=== PATIENT | male | born 1940 | race Caucasian/White ===

== ENCOUNTER 2023-02-03 08:23 | Outpatient (RCR) | payer MEDICARE, SELFPAY ==
[2023-02-03 08:45] VITALS: BP 133/75; PULSE 65; RESP 16; TEMP 36; BMI 29.4
--- NOTE | 2023-02-03 12:26 | HP.PCM_ITS ---
History of Present Illness Date of Service: 02/03/23 Chief Complaint: 82-year-old white male from [facility] living with many comorbidities of chronic kidney disease pacemaker psoriatic arthritis. Patient is on Humira for the pain of his psoriatic arthritis also on Augmentin which they supposedly called was his anju lulitis. He will be done with the antibiotic on Wednesday. No sign of cellulitis patient has open wounds from a blister on the left lower leg and on the right leg he has a more cobblestone looking peripheral vascular ulcer. Patient is not sleeping in the bed but in a lounge chair which is not helpful he has edema of the lower extremities also History of Wound: states they have been going on for a couple of weeks and her family doctor put him on antibiotic and sent him to wound center. [facility] Medical History Chronic kidney disease, stage III (moderate) Pacemaker Psoriatic arthritis Home Medications acetaminophen 500 mg tablet 1,000 mg PO BID 02/03/23 [History Last Taken Unknown] adalimumab 40 mg/0.8 mL subcutaneous pen kit (Humira Pen) 40 mg subcut 02/03/23 [History Last Taken Unknown] apixaban 5 mg tablet (Eliquis) 5 mg PO BID 02/03/23 [History Last Taken Unknown] cholecalciferol (vitamin D3) 50 mcg (2,000 unit) chewable tablet 50 mcg PO DAILY 02/03/23 [History Last Taken Unknown] gabapentin 300 mg capsule 300 mg PO QHS 02/03/23 [History Last Taken Unknown] multivitamin 1 tab PO DAILY 02/03/23 [History Last Taken Unknown] omeprazole 20 mg tablet,delayed release 20 mg PO DAILY 02/03/23 [History Last T aken Unknown] prednisone 5 mg tablet 5 mg PO DAILY 02/03/23 [History Last Taken Unknown] vitamin B complex (B Complex-Vitamin B12 tablet) 1 tab PO DAILY 02/03/23 [History Last Taken Unknown] Allergy/AdvReac Type Severity Reaction Status Date / Time ertapenem Allergy Other Verified 02/03/23 09:13 leflunomide [From Arava] Allergy Other Verified 02/03/23 09:13 sulfamethoxazole Allergy Other Verified 02/03/23 09:13 [From Bactrim] trimethoprim [From Bactrim] Allergy Other Verified 02/03/23 09:13 Social History Smoking Status: Former smoker ROS Constitutional Constitutional: Reports systems reviewed and no addt'l complaints, except as documented Eyes Eyes: Reports systems reviewed and no addt'l complaints, except as documented ENT HEENT: Reports systems reviewed and no addt'l complaints, except as documented Cardiovascular Cardiovascular: Reports systems reviewed and no addt'l complaints, except as documented Respiratory/Chest Respiratory/Chest: Reports systems reviewed and no addt'l complaints, except as documented Gastrointestinal Gastrointestinal: Reports systems reviewed and no addt'l complaints, except as documented Genitourinary Genitourinary: Reports systems reviewed and no addt'l complaints, except as documented Musculoskeletal Musculoskeletal: Reports systems reviewed and no addt'l complaints, except as documented Integumentary Integumentary: Reports wounds and other Details: Lower extremity peripheral vascular disease with ulcers developing from swelling Neurologic Neurologic: Reports systems reviewed and no addt'l complaints, except as documented Psychiatric Psychiatric: Reports systems reviewed and no addt'l complaints, except as documented Endocrine Endocrinology: Reports systems reviewed and no addt'l complaints, except as documented Hematologic/Lymphatic Hematologic/Lymphatic: Reports systems reviewed and no addt'l complaints, except as documented Allergic/Immunologic Allergic/Immunologic: Reports systems reviewed and no addt'l complaints, except as documented Vital Signs Vital Signs Vital Signs: 02/03/23 08:45 Temperature 96.8 F L Temperature Source Temporal Pulse Rate 65 Respiratory Rate 16 Blood Pressure 133/75 H Blood Pressure Mean 94 Blood Pressure Source Monitor Blood Pressure Position Sitting Blood Pressure Location Right Arm Oxygen Delivery Method Room Air Weight Weight: 217 lb Body Mass Index (BMI) 29.4 Physical Exam Const oriented x3 General Appearance: cooperative Exam Limitations: no limitations HEENT normocephalic Face and Sinus: normal facial exam Eyes PERRL General Eye: normal appearance of both eyes Neck full ROM General: normal visual inspection Resp normal respiratory effort Auscultation: clear to auscultation bilaterally Cardio regular rate and regular rhythm Palpation: normal PMI Rate: regular rate Rhythm: regular rhythm GI Auscultation: normoactive bowel sounds Palpation: soft and no hepatosplenomegaly external exam normal Extremity normal to inspection General Extremity: normal exam except as noted Skin General Skin Exam: erythema and venous stasis Lesions: lesion noted Wounds: wounds noted Wound Narrative: Wound started as blisters and then open now he has open wounds on the left lower leg and right lower leg Neuro oriented x3 Psych Appearance: grossly normal Speech: normal speech Thought Content: normal thought content Judgement: judgement good Debridement Note Debridement Note Wound debrided: Nonhealing open wounds nonsurgical left lower leg Type of Debridement: Excisional debridement Anesthesia Used: 5% Lidocaine Gel Depth: Down to and including healthy tissue Percentage of wound debrided: 100 Instrument Used: 7mm curette Tissue Removed: Fibrin Amount of bleeding with debridement: None Bleeding Controlled with: Compression and gauze Patient tolerated procedure: Patient tolerated procedure well Post-Debridement Measurements and Additional Note: Post-Debridement Measurements/Treatment - Nurse 1 - General Ulcer Assessment Start: 02/03/23 08:37 Freq: Status: Active Protocol: ALMAS Activity Type Activity Date Activity User E-sign Co-sign Detail Recorded Client Recorded Date Recorded By Document 02/03/23 08:45 [facility] [id number] 02/03/23 09:06 [facility] 02/03/23 08:45 - Today's Visit Information Type of service Initial Visit Arrival Mode Wheelchair Transfer Assistance Other Transfer Assist (Other) 2 Accompanied by daughter Patient Identification Verified (Name & Yes ) Patient Requires Transmission-Based No Precautions Height and Weight Height 6 ft Weight 217 lb Weight in Pounds 217.0 lbs Weight Measurement Method Estimated by Patient Body Mass Index (BMI) 29.4 BMI Classification Overweight BSA - Tomy 2.21 Vital Signs Temperature (97.8 F-99.1 F) 96.8 F L Temperature Source Temporal Pulse Rate (60-100) 65 Pulse Location Monitor Respiratory Rate (12-18) 16 Respiratory rate source Observation Oxygen Delivery Method Room Air Blood Pressure (90/60-120/80) 133/75 H Blood Pressure Mean 94 Source Monitor Position Sitting Blood Pressure Location Right Arm History Since Last Visit- (Skip if this is Patient's initial visit) Left Footwear Regular Shoe Right Footwear Regular Shoe Pain Scale: 0-10 Numeric Is Patient Pain Free? Yes Lower Extremity Assessment/ Foot Assessment/ Toe Nail Assessment Right -Posterior Tibial Palpable No -Posterior Tibial Doppler Multiphasic -Dorsalis Pedis Palpable No -Dorsalis Pedis Doppler Multiphasic -Extremity Color Pale -Hair Growth on Legs No -Hair Growth on Toes No -Temperature of Extremity Cool -Other Deformity No -Prior Foot Ulcer No -Charcot Joint No -Prior Amputation No -Thick Yes -Discolored Yes -Deformed No -Improper Length & Hygeine Yes Left -Lower Extremity Comment (If N/A Above 2-3+ PITTING ) EDEMA -Dorsalis Pedis Palpable No -Dorsalis Pedis Doppler Multiphasic -Extremity Color Pale -Hair Growth on Legs No -Hair Growth on Toes No -Temperature of Extremity Cool -Other Deformity No -Prior Foot Ulcer No -Charcot Joint No -Prior Amputation No -Thick Yes -Discolored Yes -Deformed No -Improper Length & Hygeine Yes Neuropathy Assessment Feet - Top Side and Bottom <Entered> (a) Communication Assessment Preferred language Surinamese Application Helper Required No Able to Read Yes Able to Write Yes Right Hearing Abillity Hard of Hearing Left Hearing Abillity Hard of Hearing Visual Assistive Devices Glasses Teaching Assessment Preferences Verbal,Written, Audio/Visual, Demonstration Barriers to Learning None Readiness To Learn Excellent Willingness to Engage in Self Management High Activies Readiness to Engage in Self Management High Activities Anxiety Level Calm Cooperation Cooperative Perception Coherent Interest in Health Problem Asks Questions Education Importance Acknowledges Need Does Patient Smoke tobacco or other No substances Smoking Status Former smoker Is Patient Diabetic No Functional Assessment Recent Decline in Ability to Perform Denies Any Declines Culture/Congregational/Clerical Aide Cultural/Congregational Needs that may affect No Treatment Plan Teaching: Wound Center *Welcome to the Wound Center -Person Taught Patient,Family -Teaching Method Discussion -Response to teaching Verbalize understanding Welcome to the Wound Care Center [place]e (a) 1 - + WC - Nurse 1 - General Ulcer Measurement Start: 02/03/23 08:37 Freq: Status: Active Protocol: Activity Type Activity Date Activity User E-sign Co-sign Detail Recorded Client Recorded Date Recorded By Document 02/03/23 08:45 [facility] [id number] 02/03/23 09:06 [facility] 02/03/23 08:45 Wound Center Nurse 1 #2- RLE MED CLUSTER -Combined with other wound No -Current Size (cm) - Length 1.5 -Current Size (cm) - Width 3.8 -Current Size (cm) - Depth 0.1 -Total Square Cm 5.70 -Date of Last Picture (Recall this 02/03/23 field) -Photo Taken Yes -Epithelialization None Present -Tunneling No -Undermining/Tunneling No -Circular Undermining No -Exudate Amt Large -Exudate Type Serous -Wound Margin Distinct, Outline Attached -Granulation Amt Medium (34-66%) -Granulation Quality [place] -Slough/Fibrin Yes -Necrosis Amt Medium (34-66%) -Necrotic Tissue Type Adherent Slough -Texture (Krystle-wound Skin Appearance) Assessed, Scarring -Moisture (Krystle-wound Skin Appearance) Assessed -Color (Krystle-wound Skin Appearance) Assessed -Temperature (Krystle-wound Skin No Abnormality Appearance) (Pt Warm) -Tenderness on Palpation (Krystle-wound No Skin Appearance) -Ulcer Cleansing Soap and Water -Foul Odor after Cleansing No -Anesthetic Used 4% Lidocaine Solution #1- L OLSEN -Combined with other wound No -Current Size (cm) - Length 6.8 -Current Size (cm) - Width 6.5 -Current Size (cm) - Depth 0.1 -Total Square Cm 44.20 -Date of Last Picture (Recall this 02/03/23 field) -Photo Taken Yes -Epithelialization None Present -Tunneling No -Undermining/Tunneling No -Circular Undermining No -Exudate Amt Large -Exudate Type Serous -Wound Margin Distinct, Outline Attached -Granulation Amt Large (67-100%) -Granulation Quality Red -Slough/Fibrin Yes -Necrosis Amt Small (1-33%) -Necrotic Tissue Type Adherent Slough -Texture (Krystle-wound Skin Appearance) Assessed, Scarring -Moisture (Krystle-wound Skin Appearance) Assessed, Weeping -Color (Krystle-wound Skin Appearance) Assessed -Temperature (Krystle-wound Skin No Abnormality Appearance) (Pt Warm) -Tenderness on Palpation (Krystle-wound No Skin Appearance) -Ulcer Cleansing Soap and Water -Foul Odor after Cleansing No -Anesthetic Used 4% Lidocaine Solution Lower Limb Edema Present Yes Right Calf (cm) 44.4 Right Ankle (cm) 28.3 Left Calf (cm) 40.3 Left Ankle (cm) 27.3 WC - Nurse 2 - General Ulcer CM Notes Start: 02/03/23 08:37 Freq: Status: Active Protocol: Activity Type Activity Date Activity User E-sign Co-sign Detail Recorded Client Recorded Date Recorded By Document 02/03/23 09:33 MW [id number] 02/03/23 09:49 MW 02/03/23 09:33 Wound Center Nurse 2 #2- RLE MED CLUSTER -Time 09:33 -Correct Patient Yes -Correct Side, Site, Position Yes -Correct Procedure Yes -Procedure Performed No -Post Debridement (cm) - Length 1.5 -Post Debridement (cm) - Width 3.8 -Post Debridement (cm) - Depth 0.1 -Total Square (Post) (cm) 5.70 -Tunneling No -Undermining/Tunneling No -Circular Undermining No -Wound/Ulcer Outcome Not Healed #1- L OLSEN -Time 09:34 -Correct Patient Yes -Correct Side, Site, Position Yes -Correct Procedure Yes -Procedure Performed Yes -Type of Procedure Debridement -Clinical Debridement Subcutaneous -Tissue Removed Subcutaneous -Post Debridement (cm) - Length 7.0 -Post Debridement (cm) - Width 6.5 -Post Debridement (cm) - Depth 0.1 -Total Square (Post) (cm) 45.50 -Area of Debridement (cm) - Length 7.0 -Area of Debridement (cm) - Width 6.5 -Total Square (Area) (cm) 45.50 -Tunneling No -Undermining/Tunneling No -Circular Undermining No -Wound/Ulcer Outcome Not Healed -Ulcer Cleansing Rinsed/ Irrigated with Saline -Foul Odor after Cleansing No -Bioengineered Tissue No -Bleeding Controlled with Pressure -Treatment Response Procedure Tolerated Well -Offloading No -Debridement - Subq, 1st 20sq cm Yes -Debridement, SubQ, ea addt'l 20sq cm 2 or part thereof Pain Scale: 0-10 Numeric Is Patient Pain Free? Yes WC - Nurse 3 - General Ulcer D/C NN Start: 02/03/23 08:37 Freq: Status: Active Protocol: Activity Type Activity Date Activity User E-sign Co-sign Detail Recorded Client Recorded Date Recorded By Document 02/03/23 10:25 [facility] [id number] 02/03/23 10:26 [facility] 02/03/23 10:25 Wound Care Center Nurse 3 #2- RLE MED CLUSTER -Ulcer Cleansing Rinsed/ Irrigated with Saline -Foul Odor after Cleansing No -Primary Dressing Applied Aquacel Extra, NonAdherent Contact Layer, Optilok 8x12 -Primary Dressing Covered/Secured with Dry Gauze & Roll Gauze, Secured with Tape -Aquacel Extra 1 -Optilok 8x12 1 #1- L OLSEN -Ulcer Cleansing Rinsed/ Irrigated with Saline -Foul Odor after Cleansing No -Primary Dressing Applied Aquacel Extra, NonAdherent Contact Layer, Optilok 8x12 -Primary Dressing Covered/Secured with Dry Gauze & Roll Gauze, Secured with Tape -Aquacel Extra 0 -Optilok 8x12 1 BLE -Tubular Bandage Double Layer -Size of Tubigrip Used Size E -Size E ($) 4 -Other SENT EXTRA Treatment Response Procedure Tolerated Well Pain Scale: 0-10 Numeric Is Patient Pain Free? Yes WC - Visit Discharge Discharge Condition Stable Ambulatory Status Wheelchair Transportation Private Auto Accompanied by AKASH Other ASSISTED LIVING Additional Wound Wound debrided: Right lower leg nonhealing nonsurgical wounds from peripheral vascular dise Laterality: Right Type of Debridement: Excisional debridement Anesthesia Used: 5% Lidocaine Gel Depth: Down to and including healthy tissue Percentage of wound debrided: 100 Instrument Used: 7mm curette Tissue Removed: Fibrin and slough Assessment/Plan Assessment/Plan (1) Nonhealing nonsurgical wound: CODE(S): T14.8XXA - Other injury of unspecified body region, initial en counter PLAN: Wash bilateral lower legs with antibacterial soap apply Aquacel extra and Adaptic with superabsorbent dressing over top For the right lower leg just apply superabsorbent dressings This will be a daily dressing Follow-up in 1 week We will call with culture results (2) Bilateral lower extremity edema: CODE(S): R60.0 - Localized edema (3) Peripheral vascular disease of lower extremity with ulceration: CODE(S): I73.9 - Peripheral vascular disease, unspecified; L97.909 - Non- pressure chronic ulcer of unspecified part of unspecified lower leg with unspecified severity
== END 2023-02-03 23:59 | disposition home or self-care (01) ==
LOC: WC 08:23
PROVIDERS: PCP Family Medicine; Referring Provider Family Medicine; Visit Provider Nurse Practitioner
DX: I73.9 Peripheral vascular disease, unspecified (principal); L40.50 Arthropathic psoriasis, unspecified; N18.30 Chronic kidney disease, stage 3 unspecified; R60.0 Localized edema; Z87.891 Personal history of nicotine dependence; Z79.01 Long term (current) use of anticoagulants; Z95.1 Presence of aortocoronary bypass graft; Z79.899 Other long term (current) drug therapy; S80.821A Blister (nonthermal), right lower leg, initial encounter; S80.822A Blister (nonthermal), left lower leg, initial encounter; X58.XXXA Exposure to other specified factors, initial encounter
CPT/HCPCS: 11042; 11045; 87070; 87075; 87077; 87186; 87205; 99203; G0463

== ENCOUNTER 2023-02-10 08:28 | Outpatient (RCR) | payer MEDICARE, SELFPAY ==
[2023-02-04 00:50] VITALS: BP 133/75; PULSE 65; RESP 16; TEMP 36; BMI 29.4
[2023-02-10 08:31] VITALS: BP 166/82; PULSE 63; RESP 16; TEMP 36.2; O2SAT 91; BMI 29.4
[2023-02-10 09:19] VITALS: BP 166/82; PULSE 63; TEMP 36.2; BMI 29.4
[2023-02-10 09:33] VITALS: O2SAT 90
--- NOTE | 2023-02-10 09:49 | PCM.WC.PN ---
History of Present Illness Date of Service: 02/10/23 Chief Complaint: 82-year-old white male from [facility] living with many comorbidities of chronic kidney disease pacemaker psoriatic arthritis. Patient is on Humira for the pain of his psoriatic arthritis also on Augmentin which they supposedly called was his cellulitis. He will be done with the antibiotic on Wednesday. No sign of cellulitis patient has open wounds from a blister on the left lower leg and on the right leg he has a more cobblestone looking peripheral vascular ulcer. Patient is not sleeping in the bed but in a lounge chair which is not helpful he has edema of the lower extremities also History of Wound: states they have been going on for a couple of weeks and her family doctor put him on antibiotic and sent him to wound center. Progress of Wound: All his wounds have become more superficial and smaller. Regan a new wound on the right lateral ankle. From the swelling and a blister that reopens. We will continue the Aquacel extra for the another week since he has the supplies but probably switch him over to Xeroform next and finish it off to close. Still has a lot of edema and we will still continue the double layer Tubigrip. Subjective Subjective Daughter states that they have talked to the care home about getting his dressing changes more efficiently and getting the Tubigrip's on him even though they complain that they are short staffed. The 1 daughter wants to take him to the emergency room because he feels fullness in his chest and in his abdomen and I told them that was Seroquel that today was the day that he was post have his leg done I would not consider him an emergency but if they I will not make that decision for them I would suggest getting the testing done and then take him to the emergency room but they want to to go right to the emergency room and cancel the leg testing for now. Objective Data Objective Data Patient does not appear to be in distress though he complains that he has this fullness in his chest and abdomen. His legs are edematous but they are not hard and swollen or anything like that they are just pitting edema. Patient did have bacteria and his cultures and was called and tetracycline for his infection. Vital Signs: Vital Signs Temp Pulse Resp BP Pulse Ox O2 Del Method 97.1 F L 63 16 166/82 H 90 Room Air 02/10/23 09:19 02/10/23 09:19 02/10/23 08:31 02/10/23 09:19 02/10/23 09:33 02/10/23 09:33 Oxygen Delivery Method Room Air Weight: 217 lb Body Mass Index (BMI) 29.4 Physical Exam Const oriented x3 General Appearance: cooperative Exam Limitations: no limitations HEENT normocephalic Face and Sinus: normal facial exam Eyes PERRL General Eye: normal appearance of both eyes Neck full ROM General: normal visual inspection Resp normal respiratory effort Auscultation: clear to auscultation bilaterally Cardio regular rate and regular rhythm Palpation: normal PMI Rate: regular rate Rhythm: regular rhythm GI Auscultation: normoactive bowel sounds Palpation: soft and no hepatosplenomegaly external exam normal Extremity normal to inspection General Extremity: normal exam except as noted Skin General Skin Exam: erythema and venous stasis Lesions: lesion noted Wounds: wounds noted Wound Narrative: Wound started as blisters and then open now he has open wounds on the left lower leg and right lower leg Neuro oriented x3 Psych Appearance: grossly normal Speech: normal speech Thought Content: normal thought content Judgement: judgement good Debridement Note Debridement Note Wound debrided: Right lateral ankle wound nonpressure Type of Debridement: Excisional debridement Anesthesia Used: 5% Lidocaine Gel Depth: Down to and including healthy tissue Percentage of wound debrided: 100 Instrument Used: 5mm curette Tissue Removed: Fibrin Severity: Limited To Skin Breakdown Amount of bleeding with debridement: Mild Bleeding Controlled with: Compression and gauze Patient tolerated procedure: Patient tolerated procedure well Post-Debridement Measurements and Additional Note: Post-Debridement Measurements/Treatment - Nurse 1 - General Ulcer Assessment Start: 02/10/23 08:30 Freq: Status: Active Protocol: [email or web address] Activity Type Activity Date Activity User E-sign Co-sign Detail Recorded Client Recorded Date Recorded By Document 02/10/23 08:31 [facility] [id number] 02/10/23 08:35 [facility] Document 02/10/23 09:19 [place] [id number] 02/10/23 09:45 [place] 02/10/23 02/10/23 08:31 09:19 - Today's Visit Information Type of service Follow-up Visit Follow-up Visit (Physician/ARTIST BLACKSMITH (Physician/ARTIST BLACKSMITH ) ) Arrival Mode Wheelchair Wheelchair Transfer Assistance None Accompanied by daughters Patient Identification Verified (Name & Yes Yes ) Patient Requires Transmission-Based No No Precautions Height and Weight Weight Measurement Method Estimated by Standing Scale Patient Body Mass Index (BMI) 29.4 29.4 BMI Classification Overweight Overweight Vital Signs Temperature (97.8 F-99.1 F) 97.1 F L 97.1 F L Temperature Source Temporal Temporal Pulse Rate (60-100) 63 63 Pulse Location Monitor Monitor Respiratory Rate (12-18) 16 Respiratory rate source Observation Pulse Oximetry 91 Oxygen Delivery Method Room Air Blood Pressure (90/60-120/80) 166/82 H 166/82 H Blood Pressure Mean (mm Hg) 110 110 Source Monitor Monitor Position Sitting Blood Pressure Location Right Arm History Since Last Visit- (Skip if this is Patient's initial visit) Have you changed medications since your No No last visit? Any new allergies or adverse reactions No No Had a fall/change in ADL's that may No No increase risk of falls Signs or symptoms of abuse and/or No No neglect since last visit Have you been in the hospital since your No No last visit? Has dressing in place as prescribed Yes Yes Has compression in place as prescribed Yes Yes Has offloadiing in place as prescribed N/A N/A Experienced any changes in pain level or No No management Left Footwear Surgical Shoe Regular Shoe with pressure relief insole Right Footwear Surgical Shoe Regular Shoe with pressure relief insole Pain Scale: 0-10 Numeric Is Patient Pain Free? Yes Yes WC - Nurse 1 - General Ulcer Measurement Start: 02/10/23 08:30 Freq: Status: Active Protocol: Activity Type Activity Date Activity User E-sign Co-sign Detail Recorded Client Recorded Date Recorded By Document 02/10/23 09:19 BAILEY [id number] 02/10/23 09:45 BAILEY 02/10/23 09:19 Wound Center Nurse 1 #3 right lateral ankle -Combined with other wound No -Current Size (cm) - Length 1 -Current Size (cm) - Width 1 -Current Size (cm) - Depth 0.1 -Total Square Cm 1 -Photo Taken Yes -Tunneling No -Undermining/Tunneling No -Circular Undermining No -Change in Wound Grade/Stage No -Exudate Amt Large -Exudate Type Yellow/Green -Wound Margin Distinct, Outline Attached -Granulation Amt Medium (34-66%) -Granulation Quality Red -Slough/Fibrin Yes -Necrosis Amt Medium (34-66%) -Necrotic Tissue Type Adherent Slough -Structure Exposed N/A -Texture (Krystle-wound Skin Appearance) Assessed, Scarring -Moisture (Krystle-wound Skin Appearance) Assessed, Weeping -Color (Krystle-wound Skin Appearance) Assessed, Hemosiderin Staining -Temperature (Krystle-wound Skin No Abnormality Appearance) (Pt Warm) -Tenderness on Palpation (Krystle-wound Yes Skin Appearance) -Ulcer Cleansing Soap and Water -Foul Odor after Cleansing Yes, Due to Product Use -Anesthetic Used 4% Lidocaine Solution #2- RLE MED CLUSTER -Combined with other wound No -Current Size (cm) - Length 2.5 -Current Size (cm) - Width 1 -Current Size (cm) - Depth 0.1 -Total Square Cm 2.5 -Date of Last Picture (Recall this 02/10/23 field) -Photo Taken Yes -Tunneling No -Undermining/Tunneling No -Circular Undermining No -Classification - Whitaker Grading ( Grade 1 Diabetic Ulcer) -Change in Wound Grade/Stage No -Exudate Amt Medium -Exudate Type Serosanguineous -Wound Margin Distinct, Outline Attached -Granulation Amt Medium (34-66%) -Granulation Quality [place] -Slough/Fibrin Yes -Necrosis Amt Medium (34-66%) -Necrotic Tissue Type Adherent Slough -Structure Exposed N/A -Texture (Krystle-wound Skin Appearance) Assessed, Scarring -Moisture (Krystle-wound Skin Appearance) No Abnormality, Assessed -Color (Krystle-wound Skin Appearance) No Abnormality, Assessed -Temperature (Krystle-wound Skin No Abnormality Appearance) (Pt Warm) -Tenderness on Palpation (Krystle-wound No Skin Appearance) -Ulcer Cleansing Rinsed/ Irrigated with Saline -Foul Odor after Cleansing No -Anesthetic Used 4% Lidocaine Solution #1- L JOSEPH -Combined with other wound No -Current Size (cm) - Length 6.5 -Current Size (cm) - Width 3.5 -Current Size (cm) - Depth 0.1 -Total Square Cm 22.75 -Date of Last Picture (Recall this 02/10/23 field) -Photo Taken Yes -Tunneling No -Undermining/Tunneling No -Circular Undermining No -Change in Wound Grade/Stage No -Exudate Amt Large -Exudate Type Serosanguineous -Wound Margin Distinct, Outline Attached -Granulation Amt Large (67-100%) -Granulation Quality [place] -Slough/Fibrin Yes -Necrosis Amt Small (1-33%) -Necrotic Tissue Type Adherent Slough -Structure Exposed N/A -Texture (Krystle-wound Skin Appearance) Assessed, Scarring -Moisture (Krystle-wound Skin Appearance) No Abnormality, Assessed -Color (Krystle-wound Skin Appearance) No Abnormality, Assessed -Temperature (Krystle-wound Skin No Abnormality Appearance) (Pt Warm) -Tenderness on Palpation (Krystle-wound No Skin Appearance) -Ulcer Cleansing Soap and Water -Anesthetic Used 5% Lidocaine Gel Lower Limb Edema Present No Left Calf (cm) 38 Left Ankle (cm) 28 WC - Nurse 2 - General Ulcer CM Notes Start: 02/10/23 08:30 Freq: Status: Active Protocol: Activity Type Activity Date Activity User E-sign Co-sign Detail Recorded Client Recorded Date Recorded By Document 02/10/23 08:58 MW Desktop 02/10/23 09:09 MW 02/10/23 08:58 Wound Center Nurse 2 #3 right lateral ankle -Time 09:05 -Correct Patient Yes -Correct Side, Site, Position Yes -Correct Procedure Yes -Procedure Performed Yes -Type of Procedure Debridement -Clinical Debridement Subcutaneous -Tissue Removed Subcutaneous -Post Debridement (cm) - Length 0.5 -Post Debridement (cm) - Width 0.3 -Post Debridement (cm) - Depth 0.1 -Total Square (Post) (cm) 0.15 -Area of Debridement (cm) - Length 0.5 -Area of Debridement (cm) - Width 0.3 -Total Square (Area) (cm) 0.15 -Tunneling No -Undermining/Tunneling No -Circular Undermining No -Wound/Ulcer Outcome Not Healed -Ulcer Cleansing Rinsed/ Irrigated with Saline -Foul Odor after Cleansing No -Bioengineered Tissue No -Bleeding Controlled with Pressure -Treatment Response Procedure Tolerated Well -Offloading No -Debridement - Subq, 1st 20sq cm No #2- RLE MED CLUSTER -Time 08:58 -Correct Patient Yes -Correct Side, Site, Position Yes -Correct Procedure Yes -Procedure Performed Yes -Type of Procedure Debridement -Clinical Debridement Subcutaneous -Tissue Removed Subcutaneous -Post Debridement (cm) - Length 0.9 -Post Debridement (cm) - Width 0.5 -Post Debridement (cm) - Depth 0.1 -Total Square (Post) (cm) 0.45 -Area of Debridement (cm) - Length 0.9 -Area of Debridement (cm) - Width 0.5 -Total Square (Area) (cm) 0.45 -Tunneling No -Undermining/Tunneling No -Circular Undermining No -Wound/Ulcer Outcome Not Healed -Ulcer Cleansing Rinsed/ Irrigated with Saline -Foul Odor after Cleansing No -Bioengineered Tissue No -Bleeding Controlled with Pressure -Treatment Response Procedure Tolerated Well -Offloading No -Debridement - Subq, 1st 20sq cm Yes -Debridement, SubQ, ea addt'l 20sq cm 2 or part thereof #1- L JOSEPH -Time 08:58 -Correct Patient Yes -Correct Side, Site, Position Yes -Correct Procedure Yes -Procedure Performed Yes -Type of Procedure Debridement -Clinical Debridement Subcutaneous -Tissue Removed Subcutaneous -Post Debridement (cm) - Length 5.5 -Post Debridement (cm) - Width 5.8 -Post Debridement (cm) - Depth 0.1 -Total Square (Post) (cm) 31.90 -Area of Debridement (cm) - Length 5.5 -Area of Debridement (cm) - Width 5.8 -Total Square (Area) (cm) 31.90 -Tunneling No -Undermining/Tunneling No -Circular Undermining No -Wound/Ulcer Outcome Not Healed -Ulcer Cleansing Rinsed/ Irrigated with Saline -Foul Odor after Cleansing No -Bioengineered Tissue No -Bleeding Controlled with Pressure -Treatment Response Procedure Tolerated Well -Offloading No -Debridement - Subq, 1st 20sq cm No Pain Scale: 0-10 Numeric Is Patient Pain Free? Yes - Nurse 3 - General Ulcer D/C NN Start: 02/10/23 08:30 Freq: Status: Active Protocol: Activity Type Activity Date Activity User E-sign Co-sign Detail Recorded Client Recorded Date Recorded By Document 02/10/23 09:33 [facility] [id number] 02/10/23 09:35 [facility] 02/10/23 09:33 Wound Care Center Nurse 3 #3 right lateral ankle -Ulcer Cleansing Rinsed/ Irrigated with Saline -Foul Odor after Cleansing No -Primary Dressing Applied Aquacel Extra, NonAdherent Contact Layer -Other Dressing abd -Primary Dressing Covered/Secured with Dry Gauze & Roll Gauze, Secured with Tape -Aquacel Extra 1 #2- RLE MED CLUSTER -Ulcer Cleansing Rinsed/ Irrigated with Saline -Foul Odor after Cleansing No -Primary Dressing Applied Aquacel Extra, NonAdherent Contact Layer -Other Dressing abd -Primary Dressing Covered/Secured with Dry Gauze & Roll Gauze, Secured with Tape -Aquacel Extra 0 #1- L JOSEPH -Ulcer Cleansing Rinsed/ Irrigated with Saline -Foul Odor after Cleansing No -Primary Dressing Applied Aquacel Extra -Other Dressing abd -Primary Dressing Covered/Secured with Dry Gauze & Roll Gauze, Secured with Tape -Aquacel Extra 0 ble -Tubular Bandage Double Layer -Size of Tubigrip Used Size E -Size E ($) 2 Treatment Response Procedure Tolerated Well Vital Signs Pulse Oximetry 90 Oxygen Delivery Method Room Air Comment rechk pox per assistant center manager request. Pain Scale: 0-10 Numeric Is Patient Pain Free? Yes WC - Visit Discharge Discharge Condition Stable Ambulatory Status Wheelchair Transportation Private Auto Accompanied by 2 daus Other assisted living Additional Wound Wound debrided: Left medial ankle nonpressure Type of Debridement: Excisional debridement Anesthesia Used: 5% Lidocaine Gel Depth: Down to and including healthy tissue Percentage of wound debrided: 100 Instrument Used: 5mm curette Tissue Removed: Fibrin Severity: Limited To Skin Breakdown Amount of bleeding with debridement: Mild Bleeding Controlled with: Pressure and Compression and gauze Additional Wound Wound debrided: Left joseph nonpressure Type of Debridement: Excisional debridement Anesthesia Used: 5% Lidocaine Gel Depth: Down to and including healthy tissue Percentage of wound debrided: 100 Instrument Used: 5mm curette Tissue Removed: Fibrin Severity: Limited To Skin Breakdown Amount of bleeding with debridement: Mild Bleeding Controlled with: Compression and gauze Patient tolerated procedure: Patient tolerated procedure well Assessment/Plan Assessment/Plan (1) Nonhealing nonsurgical wound: CODE(S): T14.8XXA - Other injury of unspecified body region, initial encounter PLAN: Wash bilateral lower legs with antibacterial soap apply Aquacel extra and Adaptic with superabsorbent dressing over top For the right lower leg just apply superabsorbent dressings This will be a daily dressing Follow-up in 1 week Patient is on tetracycline 500 mg twice a day (2) Bilateral lower extremity edema: CODE(S): R60.0 - Localized edema (3) Peripheral vascular disease of lower extremity with ulceration: CODE(S): I73.9 - Peripheral vascular disease, unspecified; L97.909 - Non-pressure chronic ulcer of unspecified part of unspecified lower leg with unspecified severity (4) Non-pressure chronic ulcer left lower leg, limited to breakdown skin: CODE(S): L97.921 - Non-pressure chronic ulcer of unspecified part of left lower leg limited to breakdown of skin (5) Non-pressure ulcer of right lower extremity: CODE(S): L97.919 - Non-pressure chronic ulcer of unspecified part of right lower leg with unspecified severity
--- NOTE | 2023-02-11 14:14 | WC ---
Received a call from patient daughter Kari. She stated he was admitted to [facility] for CHF. Daughter Kari to call and schedule appt. when patient is discharged back to assisted living. Kia Yan [employer] notified.
== END 2023-03-05 23:59 | disposition home or self-care (01) ==
LOC: WC 08:28
PROVIDERS: PCP Family Medicine; Referring Provider Family Medicine; Visit Provider Nurse Practitioner
DX: I73.9 Peripheral vascular disease, unspecified (principal); L97.821 Non-pressure chronic ulcer of other part of left lower leg limited to breakdown of skin; L97.321 Non-pressure chronic ulcer of left ankle limited to breakdown of skin; L40.50 Arthropathic psoriasis, unspecified; N18.9 Chronic kidney disease, unspecified; Z95.0 Presence of cardiac pacemaker; Z79.899 Other long term (current) drug therapy; R60.0 Localized edema
CPT/HCPCS: 11042; 11045

== ENCOUNTER 2023-02-16 15:41 | Inpatient (IN) | payer MEDICARE, SELFPAY ==
[2023-02-16 15:51] VITALS: BP 111/68; PULSE 61; RESP 16; TEMP 36.3; O2SAT 91; BMI 27.7
[2023-02-16 16:26] VITALS: BMI 27.7
--- NOTE | 2023-02-16 17:40 | PCM.HP.STD ---
HPI - General General Date of Admission: 02/16/23 Date of Service: 02/16/23 Chief Complaint: Here for rehabilitation. HPI Narrative CHAO AVELAR, is a 82 Male who presents with followin02/10/2023 Admit to [facility] with worsening edema bilateral lower extremities to thighs, abdomen. Shortness of breath, lower extremity edema, abdominal fullness for 1 month. Gaining weight, compliant with Lasix. Poor appetite, not eating, weak all over. Wounds bilateral lower extremities, seen at [facility] wound center, on tetracycline for bilateral lower extremity cellulitis. K 5.8, repeat K normal. Chest X-ray negative. Lasix 40mg [place] BNP [id number] in ER. Lasix 20mg iv bid, strict I's + O's, daily weight for acute on chronic diastolic congestive heart failure/right sided heart failure. oxygen 2 liters per nasal cannula for acute respiratory failure with hypoxia. Doxycycline iv for staph cellulitis bilateral lower extremities. PT/OT for debility. 02/11/2023 Cardiology recommended increasing outpatient diuretic dose. Add Spironolactone for heart failure. Etiology right sided heart failure/pulmonary hypertension unknown. 02/12/2023 Bilateral lower extremity edema improving. 25 pound weight gain last 2 months, down 4 pounds since admission. Lasix 40mg iv bid, Aldactone added. Echo EF 50% decreased from 57%. PT/OT for SNF. Negative 9.5 liters since admission. Doxycycline x 2 more days for cellulitis bilateral lower extremities. Pain controlled with prednisone, gabapentin. 02/16/2023 Admit to TCU with debility, here for rehabilitation, strengthening, prior to discharge to [facility]. [facility] Medical History (Updated 02/16/23 @ 17:[address] Palmer Contreras MD) Acute on chronic diastolic congestive heart failure Atrial flutter Cellulitis of both lower extremities Chronic kidney disease, stage III (moderate) Coronary artery disease Debility History of pacemaker Hyperlipidemia Hypertension Obstructive sleep apnea Pacemaker Psoriatic arthritis Rheumatoid arthritis Second degree heart block Wound of lower extremity Home Medications acetaminophen 500 mg tablet 1,000 mg PO BID pain 02/03/23 [History Last Taken 02/16/23 09:55] adalimumab 40 mg/0.8 mL subcutaneous pen kit (Humira Pen) 40 mg subcut QWEEK Diabetes 02/03/23 [History Last Taken Unknown] apixaban 5 mg tablet (Eliquis) 5 mg PO BID Blood Thinner 02/03/23 [History Last Taken 02/16/23 09:55] cholecalciferol (vitamin D3) 50 mcg (2,000 unit) chewable tablet 50 mcg PO DAILY Supplement 02/03/23 [History Last Taken Unknown] gabapentin 300 mg capsule 300 mg PO QHS Pain 02/03/23 [History Last Taken 02/15/23 21:15] multivitamin 1 tab PO DAILY Supplement 02/03/23 [History Last Taken Unknown] omeprazole 20 mg tablet,delayed release 20 mg PO DAILY GERD 02/03/23 [History Last Taken 02/16/23 09:55] prednisone 5 mg tablet 5 mg PO DAILY Check with primary doctor 02/03/23 [History Last Taken 02/16/23 09:55] vitamin B complex (B Complex-Vitamin B12 tablet) 1 tab PO DAILY Supplement 02/03/23 [History Last Taken Unknown] Lactobacillus rhamnosus GG 10 billion cell capsule (Culturelle) 1 cap PO DAILY Probiotic 02/16/23 [History Last Taken Unknown] doxycycline hyclate 100 mg capsule (Vibramycin) 100 mg PO BID Antibiotic 02/16/23 [History Last Taken Unknown] furosemide 40 mg tablet 40 mg PO DAILY Edema 02/16/23 [History Last Taken 02/16/23 09:55] spironolactone 25 mg tablet 25 mg PO DAILY Edema 02/16/23 [History Last Taken 02/16/23 10:00] triamcinolone acetonide 0.1 % topical cream 1 applic topical QHS PRN Skin Irritation 02/16/23 [History Last Taken Unknown] Allergy/AdvReac Type Severity Reaction Status Date / Time ertapenem Allergy Other Verified 02/03/23 09:13 leflunomide [From Arava] Allergy Other Verified 02/03/23 09:13 sulfamethoxazole Allergy Other Verified 02/03/23 09:13 [From Bactrim] trimethoprim [From Bactrim] Allergy Other Verified 02/03/23 09:13 Family History (Updated 02/16/23 @ 17:[address] Palmer Contreras MD) Mother CAD (coronary artery disease) Father Colon cancer Sister CAD (coronary artery disease) Surgical History (Updated 02/16/23 @ 17:[address] Palmer Contreras MD) History of cholecystectomy History of fusion of cervical spine History of lithotripsy History of replacement of both shoulder joints History of thoracic spinal fusion Social History (Updated 02/16/23 @ 17:[address] Palmer Contreras MD) housing: assisted living facility Smoking Status: Former smoker alcohol intake: never substance use type: does not use ROS Constitutional Constitutional: Reports weakness; Denies chills, fever(s) or weight gain ENT HEENT: Denies headache(s), nasal congestion or nasal discharge Cardiovascular Cardiovascular: Denies chest pain or palpitations Respiratory/Chest Respiratory/Chest: Denies cough, excessive phlegm production or shortness of breath with exertion Gastrointestinal Gastrointestinal: Denies abdominal pain, nausea or vomiting Genitourinary Genitourinary: Denies dysuria Musculoskeletal Musculoskeletal: Denies joint pain or joint swelling Integumentary Integumentary: Denies rash or wounds Neurologic Neurologic: Denies focal weakness, numbness or tingling Psychiatric Psychiatric: Denies anxiety, auditory hallucinations, depression, homicidal ideation or suicidal ideation Vital Signs Vital Signs Vital Signs: 02/16/23 15:51 Temperature 97.3 F L Temperature Source Temporal Pulse Rate 61 Respiratory Rate 16 Blood Pressure 111/68 Blood Pressure Mean 82 Blood Pressure Source Monitor Blood Pressure Position Sitting Blood Pressure Location Left Arm Pulse Ox 91 Oxygen Delivery Method Room Air Weight Weight: 92.805 kg Body Mass Index (BMI) 27.7 Physical Exam Const alert General Appearance: cooperative HEENT normocephalic Eyes PERRL and EOMs intact bilaterally Neck supple, no JVD and no carotid bruits Resp normal respiratory effort, normal air movement and clear to auscultation bilaterally Cardio regular rate and regular rhythm GI normal to inspection, nondistended, normoactive bowel sounds, non-tender and non-distended Extremity normal capillary refill General Extremity: edema bilateral (1+) Skin no rashes or lesions noted Skin Narrative: Bilateral lower extremity dressed. Psych affect normal Appearance: appropriate Assessment & Plan Assessment/Plan (1) Debility: (2) Acute on chronic diastolic congestive heart failure: (3) Cellulitis of both lower extremities: (4) Obstructive sleep apnea: (5) Wound of lower extremity: (6) Rheumatoid arthritis: (7) Coronary artery disease: (8) Second degree heart block: (9) Atrial flutter: (10) Hypertension: (11) Hyperlipidemia: (12) Non-pressure chronic ulcer left lower leg, limited to breakdown skin: (13) Non-pressure ulcer of right lower extremity: PLAN: Plan 82 year old male with below past medical history hospitalized for acute respiratory failure with hypoxia secondary to acute on chronic diastolic congestive heart failure/right sided heart failure, complicated by cellulitis bilateral lower extremities, bilateral lower extremity wounds, admitted to TCU with debility, here for rehabilitation, strengthening, prior to discharge to [facility]. Debility - PT/OT. Pain - Tylenol 1000mg bid. Bowel - senna/colace 1 tablet bid prn. Adult immunization - Administer pneumonia vaccine, covid19 vaccine, flu vaccine. DVT prophylaxis - On Eliquis. Atrial Flutter - Eliquis 5mg bid. Cellulitis bilateral lower extremity - Doxycycline 100mg bid thru 02/18/2023. Nutrition - Ensure Plus High 120ml po tid, MVI daily. Chronic diastolic heart failure - Furosemide 40mg daily, Aldactone 25mg daily. Neuropathic pain - Gabapentin 300mg qhs. GERD - Pantoprazole 20mg daily. Rheumatoid arthritis - Prednisone 5mg daily. Skin irritation - Triamcinolone cream qhs prn. Leg cramps - Vitamin B complex 1 daily. Vitamin D deficiency - D3 25mcg daily.
[2023-02-16] MEDS: APIXABAN 5 MG TABLET PO (18:39)
[2023-02-16] MEDS: Doxycycline 100 MG CAPSULE PO (18:40)
[2023-02-16] MEDS: Acetaminophen 500 MG Tablet 1000 MG PO (18:43)
[2023-02-16] MEDS: Gabapentin 300 MG Capsule PO (21:44)
[2023-02-16 23:05] VITALS: PULSE 64
[2023-02-17] MEDS: Menthol/Lanolin/Calamine/Znox 113 GM Tube 1 APPLIC TOPICAL ×3 (00:40→17:16)
[2023-02-17 05:45] LABS: Absolute Lymphocyte Count 2.79 X10^3/uL (0.83-4.51); Absolute Neutrophil Count 6.2 X10^3/uL (2.0-7.7); Basophil# 0.06 X10^3/uL; Basophil% 0.6 % (0-1); Eosinophil# 0.31 X10^3/uL; Hematocrit 48.2 % (40-54); Lymphocyte # 2.79 X10^3/ul (0.83-4.51); Lymphocyte % 27.2 % (19-41); Mean Corp Hgb Conc 31.1 g/dL (32-36); Mean Corpuscular Hgb 27.8 pg (27.0-32.0); Mean Corpuscular Volume 89.3 fL (80-94); Mean Platelet Vol. 10.5 fl (6.2-12.0); Monocyte# 0.81 X10^3/uL; Monocyte% 7.9 % (0-10); NRBC Flagged by Analyzer 0 % (0-5); Neutrophil # 6.21 X10^3/uL (2.7-7.7); Neutrophil % 60.5 % (47-70); Platelet Count 178 K/mm3 (150-450); RBC Distribution Width CV 19.9 % (11.6-14.6); RBC Distribution Width SD 63.5 fl (35.1-43.9); White Blood Count 10.3 K/mm3 (4.4-11.0)
[2023-02-17 06:13] LABS: Anion Gap 9 (5-15); BUN 31 mg/dL (7-18); Calcium,Total 9.2 mg/dL (8.5-10.1); Chloride 108 mmol/L (98-107); Creatinine, Serum 1.29 mg/dL (0.70-1.30); EST Glomerular Filtration Rate 57 mL/min (>60); Est Glom Filt Rate - Afr Amer 69 mL/min (>60); Estimated Creatinine Clearance 48.46 ml/min; Glucose 84 mg/dL (74-106); Potassium 3.6 mmol/L (3.5-5.1); Sodium Level 142 mmol/L (136-145)
[2023-02-17] MEDS: Vitamin B Comp W-C Capsule 1 CAP PO (06:34)
[2023-02-17] MEDS: Doxycycline 100 MG CAPSULE PO ×2 (06:34→17:16)
[2023-02-17] MEDS: Pantoprazole Sodium 20 MG Tablet PO (06:34)
[2023-02-17] MEDS: Spironolactone 25 MG Tablet PO (06:34)
[2023-02-17] MEDS: APIXABAN 5 MG TABLET PO ×2 (06:34→17:16)
[2023-02-17] MEDS: Furosemide 40 MG Tablet PO (06:34)
[2023-02-17] MEDS: Cholecalciferol (VIT D3) 25 MCG TABLET (1,000 UNITS) 50 MCG PO (06:35)
[2023-02-17] MEDS: Nystatin Powder 15gm Bottle 1 APPLIC TOPICAL ×2 (06:35→17:16)
[2023-02-17] MEDS: Acetaminophen 500 MG Tablet 1000 MG PO ×2 (06:39→17:18)
[2023-02-17] MEDS: predniSONE 5 MG Tablet PO (09:41)
[2023-02-17] MEDS: Multivitamins,Therapeutic Tablet 1 TABLET PO (09:41)
--- NOTE | 2023-02-17 10:34 | PHA.CONS_ITS ---
TCU RX Drug Regimen Review Subjective: TCU Admit: 82 YOM presented to [facility] on 02/10 for lower extremity wounds and cellulitis. Admitted to TCU on 02/16 for rehabilitation and strengthening prior to discharge to [facility] [place]. Objective: Allergies ertapenem Allergy (Verified 02/03/23 09:13) Other HALLUCINATIONS leflunomide [From Arava] Allergy (Verified 02/03/23 09:13) Other MENTAL STATUS CHGS, PLATELETS DROPPED sulfamethoxazole [From Bactrim] Allergy (Verified 02/03/23 09:13) Other PER PT, TOLD HIM NOT TO TAKE trimethoprim [From Bactrim] Allergy (Verified 02/03/23 09:13) Other PER PT, TOLD HIM NOT TO TAKE Current Medications Generic Name Dose Route Start Last Admin Trade Name Freq PRN Reason Stop Dose Admin Acetaminophen 1,000 mg 02/16/23 18:00 02/17/23 06:39 Acetaminophen 500 Mg Tablet PO 1,000 mg BID RAFAEL Administration Apixaban 5 mg 02/16/23 18:00 02/17/23 06:34 Apixaban 5 Mg Tablet PO 5 mg BID RAFAEL Administration Calamine/Phenol 1 applic 02/16/23 20:00 02/17/23 06:35 Menthol/Lanolin/Calamine/Znox 113 Gm Tube TOPICAL 1 applic BID RAFAEL Administration Protocol Cholecalciferol 50 mcg 02/17/23 06:00 02/17/23 06:35 Cholecalciferol (Vit D3) 25 Mcg Tablet (1,000 Units) PO 50 mcg DAILY RAFAEL Administration Doxycycline Monohydrate 100 mg 02/16/23 18:00 02/17/23 06:34 Doxycycline 100 Mg Capsule PO 02/18/23 18:01 100 mg BID RAFAEL Administration Furosemide 40 mg 02/17/23 06:00 02/17/23 06:34 Furosemide 40 Mg Tablet PO 40 mg DAILY RAFAEL Administration Gabapentin 300 mg 02/16/23 22:00 02/16/23 21:44 Gabapentin 300 Mg Capsule PO 300 mg QHS RAFAEL Administration Multivitamins 1 tablet 02/17/23 08:00 02/17/23 09:41 Multivitamins,Therapeutic Tablet PO 1 tablet DAILY RAFAEL Administration Multivitamins 1 cap 02/17/23 06:00 02/17/23 06:34 Vitamin B Comp W-C Capsule PO 1 cap DAILY RAFAEL Administration Nutritional Formula (Lactose Free) 120 ml 02/16/23 17:45 02/17/23 09:38 Ensure Plus High Protein 120 Ml Liquid PO Not Given TIDCM RAFAEL Nystatin 1 applic 02/17/23 06:00 02/17/23 06:35 Nystatin Powder 15gm Bottle TOPICAL 1 applic BID RAFAEL Administration Protocol Pantoprazole Sodium 20 mg 02/17/23 06:00 02/17/23 06:34 Pantoprazole Sodium 20 Mg Tablet PO 20 mg DAILY RAFAEL Administration Prednisone 5 mg 02/17/23 08:00 02/17/23 09:41 Prednisone 5 Mg Tablet PO 5 mg DAILYCM RAFAEL Administration Senna/Docusate Sodium 1 tablet 02/16/23 17:59 Senna/Docusate Sodium 1 Tablet PO BID PRN Constipation Spironolactone 25 mg 02/17/23 06:00 02/17/23 06:34 Spironolactone 25 Mg Tablet PO 25 mg DAILY RAFAEL Administration Triamcinolone Acetonide 1 applic 02/16/23 16:16 Triamcinolone Acetonide 0.1% Cream 15 Gm TOPICAL QHS PRN Skin Irritation Protocol Tuberculin PPD 0.1 ml 02/24/23 10:00 Tuberculin,Purif.Prot.Deriv. 50 Tu/Ml Vial ID 02/24/23 10:01 X1 ONE Problem List (Last Updated 02/16/23 @ 17:[address] Palmer Contreras MD) Hyperlipidemia (Acute) Hypertension (Chronic) Atrial flutter (Acute) Second degree heart block (Acute) Coronary artery disease (Acute) Rheumatoid arthritis (Acute) Wound of lower extremity (Acute) Obstructive sleep apnea (Acute) Cellulitis of both lower extremities (Acute) Acute on chronic diastolic congestive heart failure (Chronic) Debility (Acute) Non-pressure ulcer of right lower extremity (Acute) Non-pressure chronic ulcer left lower leg, limited to breakdown skin (Acute) Vital Signs Temp Pulse Resp BP Pulse Ox O2 Del Method 97.3 F L 64 16 111/68 91 CPAP 02/16/23 15:51 02/16/23 23:05 02/16/23 15:51 02/16/23 15:51 02/16/23 15:51 02/16/23 23:05 Oxygen Delivery Method CPAP Weight: 92.805 kg Body Mass Index (BMI) 27.7 Sodium 142 mmol/L (136-145) 02/17/23 05:10 Potassium 3.6 mmol/L (3.5-5.1) 02/17/23 05:10 Chloride 108 mmol/L (98-107) H 02/17/23 05:10 Carbon Dioxide 25.0 mmol/L (21.0-32.0) 02/17/23 05:10 Anion Gap 9 (5-15) 02/17/23 05:10 BUN 31 mg/dL (7-18) H 02/17/23 05:10 Creatinine 1.29 mg/dL (0.70-1.30) 02/17/23 05:10 Est GFR (MDRD) Af Amer 69 mL/min (>60) 02/17/23 05:10 Est GFR (MDRD) Non-Af 57 mL/min (>60) L 02/17/23 05:10 BUN/Creatinine Ratio 24.0 RATIO (10-20) H 02/17/23 05:10 Glucose 84 mg/dL (74-106) 02/17/23 05:10 Assessment/Plan: 1. Pain: acetaminophen 1000mg PO BID. Please continue to monitor pain levels, daily acetaminophen dose. 2. Bowel: senna/colace 1 T PO BID PRN constipation. Please continue to monitor for increased/decreased diarrhea, increased/decreased constipation, PRN medication use. PT has had 0 doses to date. PT has not had bowel movement to date. If no bowel movement in 2 days, please administer dose. 3. Atrial flutter/DVT prophylaxis: Eliquis 5 mg PO BID. Please continue to monitor for s/s of DVT, bleeding/bruising, HR (61-64), H/H (last Hgb: 15, Hct: 48.2) 4. Cellulitis of bilateral lower extremity: doxycycline 100mg PO BID thru 02/18/23. Please continue to monitor for s/s of worsening infection, nausea/vomiting and diarrhea. 5. Chronic diastolic heart failure: Furosemide 40mg PO daily, spironolactone 25mg PO daily. Please continue to monitor for s/s of worsening HF, electrolytes (potassium: 3.6, sodium: 142), Renal function (CrCl: 48.46 mL/min), BP (111/68). 6. GERD: pantoprazole 20mg PO daily: Please continue to monitor for s/s of GERD and diarrhea (BEERs criteria). 7. Rheumatoid arthritis: Prednisone 5mg PO daily. Please continue to monitor worsening s/s of RA, blood glucose (last 84), BP, BMD, infection. 8. Skin Irritation: Nystatin 1 application topically BID, Triamcinolone 0.1% cream 1 application topically QHS PRN skin irritation, Calmoseptine 1 appl ication topically BID. Please continue to monitor skin irritation, PRN medication use. PT has had 0 doses of triamcinolone to date. 9. General Wellness: cholecalciferol 50mcg PO daily, Multivitamin 1 T PO daily, Vitamin B complex 1 T PO daily, Ensure 120mL PO TID. Please continue to monitor vitamin D levels. Assessment/Plan for indications treated with psychotropic medications: 1. Neuropathic pain: gabapentin 300mg PO QHS. GDR not recommended due to use for neuropathic pain. Please continue to monitor for falls/fractures (BEERs medication), renal function, oversedation, worsening neuropathic pain. Medical chart and medication regimen reviewed. The following medication irregularities or issues were identified: *1. Cholecalciferol 50mcg PO daily. Please consider obtaining vitamin D level, no h/o Vitamin D lab in patient's chart. Thanks. Date of Note:: 02/17/23
[2023-02-17] MEDS: Tuberculin,Purif.prot.deriv. 50 TU/ML Vial 0.1 ML ID (11:22)
--- NOTE | 2023-02-17 12:25 | NURSING ---
Sap Bods Developer Note; Activity Asset: Elier Calabrese is independent in his choice of daily activities. He stated he is not interested in visit from the Oil And Gas Superintendent or therapy dog. His daughter was in the room and stated he enjoys reading or watching the news that's about it. [place] did say he enjoys talking w/people and we talked about his brother and his as well. Staff will bring him the daily chronicle and offer the news paper when available. We Will continue to remind him of small group activities and respect his right to say No.
--- NOTE | 2023-02-17 15:25 | WOUNDNOTE ---
wound photo: left lower leg
--- NOTE | 2023-02-17 15:26 | WOUNDNOTE ---
wound photo: right upper arm
--- NOTE | 2023-02-17 15:28 | WOUNDNOTE ---
wound photo: buttocks
[2023-02-17 15:32] VITALS: BP 110/63; PULSE 60; RESP 16; TEMP 36.6; O2SAT 92
[2023-02-17] MEDS: Gabapentin 300 MG Capsule PO (22:10)
[2023-02-18] MEDS: Menthol/Lanolin/Calamine/Znox 113 GM Tube 1 APPLIC TOPICAL ×2 (05:50→16:59)
[2023-02-18] MEDS: Nystatin Powder 15gm Bottle 1 APPLIC TOPICAL ×2 (05:50→16:59)
[2023-02-18] MEDS: APIXABAN 5 MG TABLET PO ×2 (05:50→16:59)
[2023-02-18] MEDS: Doxycycline 100 MG CAPSULE PO ×2 (05:51→16:58)
[2023-02-18] MEDS: Pantoprazole Sodium 20 MG Tablet PO (05:52)
[2023-02-18] MEDS: Cholecalciferol (VIT D3) 25 MCG TABLET (1,000 UNITS) 50 MCG PO (05:52)
[2023-02-18] MEDS: Furosemide 40 MG Tablet PO (05:53)
[2023-02-18] MEDS: Acetaminophen 500 MG Tablet 1000 MG PO ×2 (05:55→16:58)
[2023-02-18 05:58] VITALS: BP 129/76; PULSE 61
[2023-02-18] MEDS: predniSONE 5 MG Tablet PO (08:29)
[2023-02-18] MEDS: Vitamin B Comp W-C Capsule 1 CAP PO (08:29)
[2023-02-18] MEDS: Multivitamins,Therapeutic Tablet 1 TABLET PO (08:29)
[2023-02-18] MEDS: Spironolactone 25 MG Tablet PO (08:30)
[2023-02-18 08:32] VITALS: BP 123/64; PULSE 59
[2023-02-18 15:22] VITALS: BP 126/73; PULSE 60; RESP 16; TEMP 37; O2SAT 93
--- NOTE | 2023-02-18 17:15 | CASEMGMT ---
Social Work Met with patient to complete initial assessment. Introduced self and role. Discussed code status and MOLST form. Pt confirms DNR-CCA, no intubation. MOLST placed in Dr folder. Pt did make a comment about being tired of going through this medical journey, loss of independence, and unsure about fighting this brown. 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 SW and pt discussed goals of care, treatment and will to live. Pt expressed he says all these things but has never been approached about hospice before. It is a tough decision. SW educated to hospice services and the potential longevity of services to improve quality of life. Pt noted that everyone's (medical office clerk, family, friends) natural response is encouragement to fight, and get better, but at times pt is unsure that is what he wants. SW educated to role of this worker to advocate and assist with pt's wishes. SW offered to revisit hospice conversation any time, closer to DC or if pt begins therapy and does not want to continue at any time. Pt appreciative and agreeable to give it a try and see about improvement before making a decision. SW educated to [facility] insurance with NRD 02/18 and continued stay is not guaranteed with each review; with note days 1-20: $20 copay/day, days 21-100: $196day. Pt's goal is to return to [facility]. Pt states he is preparing to sell his [place] to [place] [facility]. SW to continue to follow for DC planning and support. Pita Long, JANETH ARCOSW
[2023-02-18] MEDS: Gabapentin 300 MG Capsule PO (21:20)
[2023-02-19] MEDS: Menthol/Lanolin/Calamine/Znox 113 GM Tube 1 APPLIC TOPICAL ×2 (06:03→18:52)
[2023-02-19] MEDS: Furosemide 40 MG Tablet PO (06:03)
[2023-02-19] MEDS: APIXABAN 5 MG TABLET PO ×2 (06:03→18:30)
[2023-02-19] MEDS: Pantoprazole Sodium 20 MG Tablet PO (06:03)
[2023-02-19] MEDS: Cholecalciferol (VIT D3) 25 MCG TABLET (1,000 UNITS) 50 MCG PO (06:03)
[2023-02-19] MEDS: Nystatin Powder 15gm Bottle 1 APPLIC TOPICAL ×2 (06:04→18:52)
[2023-02-19] MEDS: Acetaminophen 500 MG Tablet 1000 MG PO ×2 (06:05→18:31)
[2023-02-19 06:22] VITALS: BP 136/82; PULSE 62
[2023-02-19] MEDS: Multivitamins,Therapeutic Tablet 1 TABLET PO (07:05)
[2023-02-19] MEDS: Spironolactone 25 MG Tablet PO (07:05)
[2023-02-19] MEDS: Vitamin B Comp W-C Capsule 1 CAP PO (07:05)
[2023-02-19] MEDS: predniSONE 5 MG Tablet PO (07:06)
[2023-02-19 15:43] VITALS: BP 108/66; PULSE 61; RESP 19; TEMP 36.9; O2SAT 93
[2023-02-19] MEDS: Gabapentin 300 MG Capsule PO (21:08)
[2023-02-20] MEDS: Cholecalciferol (VIT D3) 25 MCG TABLET (1,000 UNITS) 50 MCG PO (06:25)
[2023-02-20] MEDS: Menthol/Lanolin/Calamine/Znox 113 GM Tube 1 APPLIC TOPICAL ×2 (06:25→18:26)
[2023-02-20] MEDS: Pantoprazole Sodium 20 MG Tablet PO (06:25)
[2023-02-20] MEDS: Nystatin Powder 15gm Bottle 1 APPLIC TOPICAL ×2 (06:25→18:26)
[2023-02-20] MEDS: Acetaminophen 500 MG Tablet 1000 MG PO ×2 (06:25→18:32)
[2023-02-20] MEDS: APIXABAN 5 MG TABLET PO ×2 (06:25→18:32)
[2023-02-20] MEDS: Furosemide 40 MG Tablet PO (06:25)
[2023-02-20 09:02] VITALS: BP 118/60; PULSE 60
[2023-02-20] MEDS: Multivitamins,Therapeutic Tablet 1 TABLET PO (09:06)
[2023-02-20] MEDS: predniSONE 5 MG Tablet PO (09:06)
[2023-02-20] MEDS: Vitamin B Comp W-C Capsule 1 CAP PO (09:06)
[2023-02-20] MEDS: Spironolactone 25 MG Tablet PO (09:06)
[2023-02-20 15:47] VITALS: BP 126/60; PULSE 60; RESP 18; TEMP 36.4; O2SAT 93
[2023-02-20 20:15] VITALS: PULSE 70; RESP 16; O2SAT 93
[2023-02-20] MEDS: Gabapentin 300 MG Capsule PO (20:41)
[2023-02-21] MEDS: Menthol/Lanolin/Calamine/Znox 113 GM Tube 1 APPLIC TOPICAL (06:17)
[2023-02-21] MEDS: Nystatin Powder 15gm Bottle 1 APPLIC TOPICAL ×2 (06:17→17:57)
[2023-02-21] MEDS: Cholecalciferol (VIT D3) 25 MCG TABLET (1,000 UNITS) 50 MCG PO (06:17)
[2023-02-21] MEDS: Furosemide 40 MG Tablet PO (06:17)
[2023-02-21] MEDS: APIXABAN 5 MG TABLET PO ×2 (06:17→17:58)
[2023-02-21] MEDS: Pantoprazole Sodium 20 MG Tablet PO (06:17)
[2023-02-21] MEDS: Acetaminophen 500 MG Tablet 1000 MG PO ×2 (06:17→17:56)
[2023-02-21 06:23] VITALS: BP 146/78; PULSE 60
[2023-02-21] MEDS: Spironolactone 25 MG Tablet PO (09:04)
[2023-02-21] MEDS: predniSONE 5 MG Tablet PO (09:04)
[2023-02-21] MEDS: Vitamin B Comp W-C Capsule 1 CAP PO (09:04)
[2023-02-21] MEDS: Multivitamins,Therapeutic Tablet 1 TABLET PO (09:05)
[2023-02-21 13:01] VITALS: PULSE 83; RESP 18; O2SAT 98
[2023-02-21 14:00] VITALS: BP 123/67; PULSE 60; RESP 18; TEMP 35.7; O2SAT 92
[2023-02-21] MEDS: Gabapentin 300 MG Capsule PO (21:29)
[2023-02-22] MEDS: Cholecalciferol (VIT D3) 25 MCG TABLET (1,000 UNITS) 50 MCG PO (06:09)
[2023-02-22] MEDS: Acetaminophen 500 MG Tablet 1000 MG PO ×2 (06:09→16:58)
[2023-02-22] MEDS: Nystatin Powder 15gm Bottle 1 APPLIC TOPICAL ×2 (06:10→17:00)
[2023-02-22] MEDS: Furosemide 40 MG Tablet PO (06:10)
[2023-02-22] MEDS: Pantoprazole Sodium 20 MG Tablet PO (06:10)
[2023-02-22] MEDS: APIXABAN 5 MG TABLET PO ×2 (06:10→16:59)
[2023-02-22] MEDS: Menthol/Lanolin/Calamine/Znox 113 GM Tube 1 APPLIC TOPICAL ×2 (06:10→16:59)
[2023-02-22 06:13] VITALS: BP 123/73; PULSE 60
[2023-02-22] MEDS: Spironolactone 25 MG Tablet PO (08:24)
[2023-02-22] MEDS: Multivitamins,Therapeutic Tablet 1 TABLET PO (08:24)
[2023-02-22] MEDS: Vitamin B Comp W-C Capsule 1 CAP PO (08:24)
[2023-02-22] MEDS: predniSONE 5 MG Tablet PO (08:24)
--- NOTE | 2023-02-22 10:11 | NURSING ---
Offered covid booster, education about vaccine provided. Patient refuses at this time.
[2023-02-22 14:02] VITALS: BP 110/68; PULSE 60; RESP 16; TEMP 36; O2SAT 92
--- NOTE | 2023-02-22 14:05 | WOUNDNOTE ---
wound photo: left joseph
--- NOTE | 2023-02-22 14:05 | WOUNDNOTE ---
skin photo: right lower leg
--- NOTE | 2023-02-22 14:06 | WOUNDNOTE ---
skin photo: right lateral ankle
--- NOTE | 2023-02-22 14:06 | WOUNDNOTE ---
wound photo: right upper arm
[2023-02-22] MEDS: Gabapentin 300 MG Capsule PO (20:59)
[2023-02-23] MEDS: Acetaminophen 500 MG Tablet 1000 MG PO ×2 (06:17→17:32)
[2023-02-23] MEDS: Pantoprazole Sodium 20 MG Tablet PO (06:17)
[2023-02-23] MEDS: Cholecalciferol (VIT D3) 25 MCG TABLET (1,000 UNITS) 50 MCG PO (06:17)
[2023-02-23] MEDS: Furosemide 40 MG Tablet PO (06:18)
[2023-02-23] MEDS: APIXABAN 5 MG TABLET PO ×2 (06:18→17:32)
[2023-02-23] MEDS: Nystatin Powder 15gm Bottle 1 APPLIC TOPICAL ×2 (06:18→17:33)
[2023-02-23] MEDS: Menthol/Lanolin/Calamine/Znox 113 GM Tube 1 APPLIC TOPICAL ×2 (06:18→17:33)
[2023-02-23 07:18] VITALS: BMI 27.3
[2023-02-23] MEDS: predniSONE 5 MG Tablet PO (07:55)
[2023-02-23] MEDS: Multivitamins,Therapeutic Tablet 1 TABLET PO (07:55)
[2023-02-23] MEDS: Vitamin B Comp W-C Capsule 1 CAP PO (07:56)
[2023-02-23] MEDS: Spironolactone 25 MG Tablet PO (07:56)
--- NOTE | 2023-02-23 10:28 | CASEMGMT ---
Social Work BIMS () and PHQ-9 (08/02) completed for MDS assessment. SW explored positive responses. Pt stated I ain't thinking about suicide or nothing, but it's hard to move. I'm not in good shape, I'm in pain, I'm frustrated by body doesn't move. Pt perseverated and repeated stories of past medical history and the lack of clarifying information as to what has debilitated patient. Pt stated though I'm feeling better than last week when we talked. I'm not saying I'm ready for hospice right now, but it might be in my future. SW assured pt does not need to make that decision at the present time. Encouraged ongoing therapy and reinforced pt is feeling better since admission. SW provided ongoing supportive listening and emotional support. SW to continue to follow. Pita Long, JANETH ARCOSW
[2023-02-23 14:30] VITALS: BP 106/67; PULSE 60; RESP 16; TEMP 36.5; O2SAT 92
[2023-02-23] MEDS: Gabapentin 300 MG Capsule PO (21:10)
[2023-02-24 05:32] LABS: Absolute Lymphocyte Count 1.82 X10^3/uL (0.83-4.51); Absolute Neutrophil Count 4.8 X10^3/uL (2.0-7.7); Basophil# 0.06 X10^3/uL; Basophil% 0.8 % (0-1); Eosinophil# 0.36 X10^3/uL; Eosinophils% 4.6 % (0-5); Hematocrit 44.2 % (40-54); Hemoglobin 13.7 g/dL (13.0-16.5); Lymphocyte # 1.82 X10^3/ul (0.83-4.51); Lymphocyte % 23.2 % (19-41); Mean Corpuscular Hgb 27.5 pg (27.0-32.0); Mean Corpuscular Volume 88.6 fL (80-94); Mean Platelet Vol. 10.5 fl (6.2-12.0); Monocyte# 0.76 X10^3/uL; Monocyte% 9.7 % (0-10); NRBC Flagged by Analyzer 0 % (0-5); Neutrophil # 4.79 X10^3/uL (2.7-7.7); Neutrophil % 61.2 % (47-70); Platelet Count 201 K/mm3 (150-450); RBC Distribution Width CV 19.7 % (11.6-14.6); RBC Distribution Width SD 62.6 fl (35.1-43.9); Red Blood Count 4.99 M/mm3 (4.6-6.2); White Blood Count 7.8 K/mm3 (4.4-11.0)
[2023-02-24] MEDS: APIXABAN 5 MG TABLET PO ×2 (05:46→17:17)
[2023-02-24] MEDS: Cholecalciferol (VIT D3) 25 MCG TABLET (1,000 UNITS) 50 MCG PO (05:46)
[2023-02-24] MEDS: Furosemide 40 MG Tablet PO (05:46)
[2023-02-24] MEDS: Pantoprazole Sodium 20 MG Tablet PO (05:46)
[2023-02-24] MEDS: Acetaminophen 500 MG Tablet 1000 MG PO ×2 (05:51→17:17)
[2023-02-24] MEDS: Menthol/Lanolin/Calamine/Znox 113 GM Tube 1 APPLIC TOPICAL (06:00)
[2023-02-24] MEDS: Nystatin Powder 15gm Bottle 1 APPLIC TOPICAL ×2 (06:00→17:18)
[2023-02-24 06:08] LABS: Anion Gap 6 (5-15); BUN 27 mg/dL (7-18); BUN/Creat Ratio 20.8 RATIO (10-20); Calcium,Total 8.8 mg/dL (8.5-10.1); Chloride 113 mmol/L (98-107); EST Glomerular Filtration Rate 56 mL/min (>60); Est Glom Filt Rate - Afr Amer 68 mL/min (>60); Estimated Creatinine Clearance 48.09 ml/min; Glucose 91 mg/dL (74-106); Potassium 3.5 mmol/L (3.5-5.1); Sodium Level 146 mmol/L (136-145)
[2023-02-24] MEDS: Vitamin B Comp W-C Capsule 1 CAP PO (07:56)
[2023-02-24] MEDS: predniSONE 5 MG Tablet PO (07:56)
[2023-02-24] MEDS: Spironolactone 25 MG Tablet PO (07:56)
[2023-02-24] MEDS: Multivitamins,Therapeutic Tablet 1 TABLET PO (07:56)
[2023-02-24] MEDS: Tuberculin,Purif.prot.deriv. 50 TU/ML Vial 0.1 ML ID (10:50)
--- NOTE | 2023-02-24 11:30 | CASEMGMT ---
Social Work IDT met with patient and two daughters for care plan meeting. Discussed patient's progress in PT/OT/SN. Educated to [facility] insurance with NRD 02/25 and continued stay is not guaranteed with each review. Educated to copays: days 1-20: $20/day; days 21-100: $196/day. Pt's goal remains returning to [facility]. SW to coordinate DC needs - HHC/DME vs hospice. Dtrs understanding of pt's wishes for possibly admitting to hospice at DC. SW provided emotional support. Will continue to follow. JANETH BonnerW
[2023-02-24 11:39] VITALS: BMI 27.1
[2023-02-24 15:25] VITALS: BP 120/63; PULSE 60; RESP 20; TEMP 36.6; O2SAT 92
[2023-02-24] MEDS: Juven (unflavored) Packet 1 PACKET PO (17:17)
[2023-02-24] MEDS: Gabapentin 300 MG Capsule PO (21:14)
[2023-02-24 22:03] VITALS: O2SAT 96
[2023-02-25 05:56] LABS: Anion Gap 4 (5-15); BUN 32 mg/dL (7-18); BUN/Creat Ratio 28.8 RATIO (10-20); Calcium,Total 9.1 mg/dL (8.5-10.1); Chloride 112 mmol/L (98-107); Creatinine, Serum 1.11 mg/dL (0.70-1.30); EST Glomerular Filtration Rate 67 mL/min (>60); Est Glom Filt Rate - Afr Amer 82 mL/min (>60); Estimated Creatinine Clearance 56.32 ml/min; Glucose 92 mg/dL (74-106); Potassium 3.5 mmol/L (3.5-5.1); Sodium Level 146 mmol/L (136-145)
[2023-02-25] MEDS: APIXABAN 5 MG TABLET PO ×2 (06:03→17:27)
[2023-02-25] MEDS: Cholecalciferol (VIT D3) 25 MCG TABLET (1,000 UNITS) 50 MCG PO (06:04)
[2023-02-25] MEDS: Acetaminophen 500 MG Tablet 1000 MG PO ×2 (06:04→17:33)
[2023-02-25] MEDS: Pantoprazole Sodium 20 MG Tablet PO (06:04)
[2023-02-25] MEDS: Furosemide 40 MG Tablet PO (06:04)
[2023-02-25] MEDS: Nystatin Powder 15gm Bottle 1 APPLIC TOPICAL ×2 (06:06→17:28)
[2023-02-25] MEDS: Menthol/Lanolin/Calamine/Znox 113 GM Tube 1 APPLIC TOPICAL ×2 (06:06→17:27)
[2023-02-25] MEDS: Vitamin B Comp W-C Capsule 1 CAP PO (07:49)
[2023-02-25] MEDS: Spironolactone 25 MG Tablet PO (07:49)
[2023-02-25] MEDS: predniSONE 5 MG Tablet PO (07:49)
[2023-02-25] MEDS: Juven (unflavored) Packet 1 PACKET PO ×2 (07:49→17:27)
[2023-02-25] MEDS: Multivitamins,Therapeutic Tablet 1 TABLET PO (07:49)
[2023-02-25 15:33] VITALS: BP 115/63; PULSE 60; RESP 17; TEMP 36.5; O2SAT 95
[2023-02-25] MEDS: Gabapentin 300 MG Capsule PO (20:04)
--- NOTE | 2023-02-25 20:08 | NURSING ---
Pt requested medication at this time.
[2023-02-26] MEDS: Menthol/Lanolin/Calamine/Znox 113 GM Tube 1 APPLIC TOPICAL ×2 (05:53→16:55)
[2023-02-26] MEDS: Nystatin Powder 15gm Bottle 1 APPLIC TOPICAL ×2 (05:53→16:56)
[2023-02-26] MEDS: Pantoprazole Sodium 20 MG Tablet PO (05:54)
[2023-02-26] MEDS: Furosemide 40 MG Tablet PO (05:54)
[2023-02-26] MEDS: Cholecalciferol (VIT D3) 25 MCG TABLET (1,000 UNITS) 50 MCG PO (05:54)
[2023-02-26] MEDS: APIXABAN 5 MG TABLET PO ×2 (05:54→16:55)
[2023-02-26] MEDS: Acetaminophen 500 MG Tablet 1000 MG PO ×2 (05:56→17:04)
[2023-02-26 06:00] VITALS: BMI 27.5
[2023-02-26] MEDS: Multivitamins,Therapeutic Tablet 1 TABLET PO (08:07)
[2023-02-26] MEDS: Spironolactone 25 MG Tablet PO (08:07)
[2023-02-26] MEDS: Juven (unflavored) Packet 1 PACKET PO ×2 (08:08→16:55)
[2023-02-26] MEDS: Vitamin B Comp W-C Capsule 1 CAP PO (08:08)
[2023-02-26] MEDS: predniSONE 5 MG Tablet PO (08:08)
[2023-02-26 08:14] VITALS: BP 105/63; PULSE 59
[2023-02-26 14:44] VITALS: BP 119/57; PULSE 68; RESP 19; TEMP 35.8; O2SAT 93
[2023-02-26 19:45] VITALS: PULSE 60; RESP 16; O2SAT 94
[2023-02-26] MEDS: Gabapentin 300 MG Capsule PO (21:01)
[2023-02-27] MEDS: Furosemide 40 MG Tablet PO (05:45)
[2023-02-27] MEDS: Pantoprazole Sodium 20 MG Tablet PO (05:45)
[2023-02-27] MEDS: Menthol/Lanolin/Calamine/Znox 113 GM Tube 1 APPLIC TOPICAL ×2 (05:45→17:04)
[2023-02-27] MEDS: Cholecalciferol (VIT D3) 25 MCG TABLET (1,000 UNITS) 50 MCG PO (05:45)
[2023-02-27] MEDS: Nystatin Powder 15gm Bottle 1 APPLIC TOPICAL ×2 (05:45→17:05)
[2023-02-27] MEDS: APIXABAN 5 MG TABLET PO ×2 (05:46→17:04)
[2023-02-27] MEDS: Acetaminophen 500 MG Tablet 1000 MG PO ×2 (05:46→17:08)
[2023-02-27 05:51] VITALS: BP 122/76; PULSE 62
[2023-02-27] MEDS: Juven (unflavored) Packet 1 PACKET PO ×2 (07:46→17:03)
[2023-02-27] MEDS: predniSONE 5 MG Tablet PO (07:46)
[2023-02-27] MEDS: Vitamin B Comp W-C Capsule 1 CAP PO (07:47)
[2023-02-27] MEDS: Multivitamins,Therapeutic Tablet 1 TABLET PO (07:47)
[2023-02-27] MEDS: Spironolactone 25 MG Tablet PO (07:47)
[2023-02-27 16:00] VITALS: BP 123/60; PULSE 56; RESP 16; TEMP 36.6; O2SAT 93
[2023-02-27] MEDS: Gabapentin 300 MG Capsule PO (21:20)
[2023-02-28 05:12] VITALS: BP 127/77; PULSE 61
[2023-02-28] MEDS: Menthol/Lanolin/Calamine/Znox 113 GM Tube 1 APPLIC TOPICAL ×2 (05:14→17:31)
[2023-02-28] MEDS: Nystatin Powder 15gm Bottle 1 APPLIC TOPICAL ×2 (05:14→17:31)
[2023-02-28] MEDS: Cholecalciferol (VIT D3) 25 MCG TABLET (1,000 UNITS) 50 MCG PO (05:20)
[2023-02-28] MEDS: APIXABAN 5 MG TABLET PO ×2 (05:20→17:29)
[2023-02-28] MEDS: Acetaminophen 500 MG Tablet 1000 MG PO ×2 (05:20→17:28)
[2023-02-28] MEDS: Furosemide 40 MG Tablet PO (05:20)
[2023-02-28] MEDS: Pantoprazole Sodium 20 MG Tablet PO (05:20)
[2023-02-28] MEDS: Juven (unflavored) Packet 1 PACKET PO ×2 (08:53→17:29)
[2023-02-28] MEDS: Vitamin B Comp W-C Capsule 1 CAP PO (08:54)
[2023-02-28] MEDS: predniSONE 5 MG Tablet PO (08:54)
[2023-02-28] MEDS: Multivitamins,Therapeutic Tablet 1 TABLET PO (08:54)
[2023-02-28] MEDS: Spironolactone 25 MG Tablet PO (08:54)
[2023-02-28 15:13] VITALS: BP 111/77; PULSE 60; RESP 14; TEMP 36.7; O2SAT 92
[2023-02-28 21:23] VITALS: BP 106/78; PULSE 63; RESP 16; TEMP 36.7; O2SAT 92
[2023-02-28] MEDS: Gabapentin 300 MG Capsule PO (21:27)
--- NOTE | 2023-02-28 22:00 | NURSING ---
Pt refused to have Nystatin powder applied this evening. Triad cream applied to b/l buttocks after pericare completed.
[2023-03-01 06:00] VITALS: BMI 27.3
[2023-03-01] MEDS: APIXABAN 5 MG TABLET PO ×2 (06:27→18:14)
[2023-03-01] MEDS: Pantoprazole Sodium 20 MG Tablet PO (06:27)
[2023-03-01] MEDS: Cholecalciferol (VIT D3) 25 MCG TABLET (1,000 UNITS) 50 MCG PO (06:27)
[2023-03-01] MEDS: Furosemide 40 MG Tablet PO (06:28)
[2023-03-01] MEDS: Acetaminophen 500 MG Tablet 1000 MG PO ×2 (06:29→18:18)
[2023-03-01] MEDS: Nystatin Powder 15gm Bottle 1 APPLIC TOPICAL ×2 (06:30→18:15)
[2023-03-01] MEDS: Menthol/Lanolin/Calamine/Znox 113 GM Tube 1 APPLIC TOPICAL ×2 (06:30→18:14)
[2023-03-01] MEDS: Spironolactone 25 MG Tablet PO (07:45)
[2023-03-01] MEDS: Juven (unflavored) Packet 1 PACKET PO ×2 (07:45→18:14)
[2023-03-01] MEDS: Multivitamins,Therapeutic Tablet 1 TABLET PO (07:45)
[2023-03-01] MEDS: predniSONE 5 MG Tablet PO (07:45)
[2023-03-01] MEDS: Vitamin B Comp W-C Capsule 1 CAP PO (07:45)
--- NOTE | 2023-03-01 09:30 | MDS.RN ---
Information for the mds was obtained from review of the clinical record, interview of resident, staff, and direct observation of resident's care.
[2023-03-01 13:53] VITALS: BP 107/67; PULSE 86; RESP 16; TEMP 36.3; O2SAT 95
--- NOTE | 2023-03-01 17:16 | CASEMGMT ---
Social Work Dtr present in pt's room. SW walking by and checked in with pt and dtr. Answered questions about other [facility] options, hospice at [facility], provided in detail hospice services, answered insurance questions - managed medicare vs traditional medicare. Provided active listening. Both appreciative. SW to follow up with outcome of insurance update. Time spent: 30 minutes. Pita Long, HOOP FLARING MACHINE OPERATOR HELPER FIELD GEOLOGIST
[2023-03-01] MEDS: Gabapentin 300 MG Capsule PO (21:34)
[2023-03-02] MEDS: Cholecalciferol (VIT D3) 25 MCG TABLET (1,000 UNITS) 50 MCG PO (05:59)
[2023-03-02] MEDS: APIXABAN 5 MG TABLET PO ×2 (05:59→18:20)
[2023-03-02] MEDS: Furosemide 40 MG Tablet PO (05:59)
[2023-03-02] MEDS: Pantoprazole Sodium 20 MG Tablet PO (05:59)
[2023-03-02 06:00] VITALS: BMI 27.3
[2023-03-02] MEDS: Menthol/Lanolin/Calamine/Znox 113 GM Tube 1 APPLIC TOPICAL ×2 (06:00→18:21)
[2023-03-02] MEDS: Acetaminophen 500 MG Tablet 1000 MG PO ×2 (06:00→18:19)
[2023-03-02] MEDS: Nystatin Powder 15gm Bottle 1 APPLIC TOPICAL ×2 (06:00→18:21)
[2023-03-02 06:43] VITALS: BMI 27.3
[2023-03-02] MEDS: Juven (unflavored) Packet 1 PACKET PO ×2 (09:19→18:20)
[2023-03-02] MEDS: Spironolactone 25 MG Tablet PO (09:19)
[2023-03-02] MEDS: Multivitamins,Therapeutic Tablet 1 TABLET PO (09:19)
[2023-03-02] MEDS: Vitamin B Comp W-C Capsule 1 CAP PO (09:19)
[2023-03-02] MEDS: predniSONE 5 MG Tablet PO (09:19)
--- NOTE | 2023-03-02 13:23 | CASEMGMT ---
Social Work Insurance issued LCD 03/04, DC 03/05. MARTHA spoke with pt to update on DC. Pt agreeable and plans to return to [facility] [place]. SW offered HHC or hospice. Pt stated I'm not sure I want either. SW confirmed no services need consulted. Pt stated he would prefer that. Upon return to room with [facility] copy, dtr, Kari present. Dtr stated they were discussing pt not wanting continued therapy, as she is encouraging pt to pursue. Pt visibly getting frustrated and stated just do what she [referring to dtr] says. SW redirected and explained to pt that is his decision. Educated to benefits of continued therapy, but also noted if pt does not want to pursue, he does not have to. SW offered to allow more time for pt and dtr to discuss, and to notify this worker if pt opts for HHC. Dtr appreciative. MARTHA sent updates and DC date to [facility] [place] via [employer]. Plan: DC 03/05, returning to [facility] [place], with no needs. JANETH Bonner
--- NOTE | 2023-03-02 14:10 | WOUNDNOTE ---
wound photo: right upper arm
--- NOTE | 2023-03-02 14:10 | WOUNDNOTE ---
wound photo: left lower leg
[2023-03-02 14:26] VITALS: BP 103/53; PULSE 64; RESP 16; TEMP 36.3; O2SAT 95
[2023-03-02] MEDS: Gabapentin 300 MG Capsule PO (21:02)
--- NOTE | 2023-03-02 21:33 | DS.PCM_ITS ---
Providers Date of Admission: 02/16/23 Primary Care Physician: Dr. Genevieve Acosta, DO Consultations 02/17/23 11:59 Consult: Onc/Wound/paraoptometric Routine Comment: Reason for Consult:: Vascular Ulcers Reason For Visit: CHF Diagnosis Discharge Diagnosis (1) Debility: Status: Acute Code(s): R53.81 - Other malaise (2) Acute on chronic diastolic congestive heart failure: Status: Chronic Code(s): I50.33 - Acute on chronic diastolic (congestive) heart failure (3) Cellulitis of both lower extremities: Status: Acute Code(s): L03.115 - Cellulitis of right lower limb; L03.116 - Cellulitis of left lower limb (4) Obstructive sleep apnea: Status: Acute Code(s): G47.33 - Obstructive sleep apnea (adult) (pediatric) (5) Wound of lower extremity: Status: Acute Code(s): S81.809A - Unspecified open wound, unspecified lower leg, initial encounter (6) Rheumatoid arthritis: Status: Acute Code(s): M06.9 - Rheumatoid arthritis, unspecified (7) Coronary artery disease: Status: Acute Code(s): I25.10 - Atherosclerotic heart disease of [place] coronary artery without angina pectoris (8) Second degree heart block: Status: Acute Code(s): I44.1 - Atrioventricular block, second degree (9) Atrial flutter: Status: Acute Code(s): I48.92 - Unspecified atrial flutter (10) Hypertension: Status: Chronic Code(s): I10 - Essential (primary) hypertension (11) Hyperlipidemia: Status: Acute Code(s): E78.5 - Hyperlipidemia, unspecified (12) Non-pressure chronic ulcer left lower leg, limited to breakdown skin: Status: Acute Code(s): L97.921 - Non-pressure chronic ulcer of unspecified part of left lower leg li mited to breakdown of skin (13) Non-pressure ulcer of right lower extremity: Status: Acute Code(s): L97.919 - Non-pressure chronic ulcer of unspecified part of right lower leg with unspecified severity Plan 82 year old male with below past medical history hospitalized for acute respiratory failure with hypoxia secondary to acute on chronic diastolic congestive heart failure/right sided heart failure, complicated by cellulitis bilateral lower extremities, bilateral lower extremity wounds, admitted to TCU with debility, here for rehabilitation, strengthening, prior to discharge to [facility]. * Debility - PT/OT. * Pain - Tylenol 1000mg bid. * Bowel - senna/colace 1 tablet bid prn. * Adult immunization - Administer pneumonia vaccine, covid19 vaccine, flu vac cine. * DVT prophylaxis - On Eliquis. * Atrial Flutter - Eliquis 5mg bid. * Cellulitis bilateral lower extremity - Doxycycline 100mg bid thru 02/18/2023. * Nutrition - Ensure Plus High 120ml po tid, MVI daily. * Chronic diastolic heart failure - Furosemide 40mg daily, Aldactone 25mg daily. * Neuropathic pain - Gabapentin 300mg qhs. * GERD - Pantoprazole 20mg daily. * Rheumatoid arthritis - Prednisone 5mg daily. * Skin irritation - Triamcinolone cream qhs prn. * Leg cramps - Vitamin B complex 1 daily. * Vitamin D deficiency - D3 25mcg daily. Medications at Discharge Home Medications acetaminophen 500 mg tablet 1,000 mg PO BID pain 02/03/23 apixaban 5 mg tablet (Eliquis) 5 mg PO BID Blood Thinner 02/03/23 cholecalciferol (vitamin D3) 50 mcg (2,000 unit) chewable tablet 50 mcg PO DAILY Supplement 02/03/23 gabapentin 300 mg capsule 300 mg PO QHS Pain 02/03/23 multivitamin 1 tab PO DAILY Supplement 02/03/23 omeprazole 20 mg tablet,delayed release 20 mg PO DAILY GERD 02/03/23 prednisone 5 mg tablet 5 mg PO DAILY Check with primary doctor 02/03/23 vitamin B complex (B Complex-Vitamin B12 tablet) 1 tab PO DAILY Supplement 01/06 09/28 furosemide 40 mg tablet 40 mg PO DAILY Edema 02/16/23 spironolactone 25 mg tablet 25 mg PO DAILY@0800 30 days #30 tabs 03/02/23 Hospital Course Operations None Procedures None Summary of Care Provided Minutes Spent on Discharge: 35 Hospital Course: 82 year old male with below past medical history hospitalized for acute respira tory failure with hypoxia secondary to acute on chronic diastolic congestive heart failure/right sided heart failure, complicated by cellulitis bilateral lower extremities, bilateral lower extremity wounds, admitted to TCU with debility, here for rehabilitation, strengthening, prior to discharge to [facility]. Discharge to [facility] 03/05/2023, Home Health Care PT/OT. Physical Exam Const alert General Appearance: cooperative HEENT normocephalic Eyes PERRL and EOMs intact bilaterally Neck supple, no JVD and no carotid bruits Resp normal respiratory effort, normal air movement and clear to auscultation bilaterally Cardio regular rate and regular rhythm GI normal to inspection, nondistended, normoactive bowel sounds, non-tender and non-distended Extremity normal capillary refill General Extremity: Negative for edema Skin no rashes or lesions noted General Skin Exam: no breakdown Psych affect normal Appearance: appropriate Weight / BMI Weight Weight: 91.49 kg Body Mass Index (BMI) 27.3 ABG / Lab / Microbiology Data Result Diagrams: 02/24/23 05:09 02/25/23 05:10 Microbiology: Microbiology 02/18/23 08:10 Nasal Secretion SARS-CoV-2 Antigen (Rapid) - Final 02/17/23 11:00 Nasal Secretion SARS-CoV-2 Antigen (Rapid) - Final D/C Instructions Discharge Diet: No restrictions Discharge Activity: Return to Normal Activity, May Shower and Use Walker Weight Bearing Status: Weight bearing as tolerated Call your doctor if you observe: Fever of 101 or Higher, Inability to urinate, Inability to have a bowel movement, Shortness of breath, Dizziness, Fainting spe lls, Swelling in the ankles, Chest pain and Uncontrolled pain Additional Instructions: Discharge to [facility] 03/05/2023, Home Health Care PT/OT. Please Follow Up With: [facility] Meaningful Use Info Meaningful Use Diagnoses (Choose all that apply): None applicable Discharge Plan Admission Admit Date/Time: 02/16/23 15:41 Primary Reason for Your Visit: Debility. Attending Provider: Palmer Contreras Chi Primary Care Provider: Genevieve Acosta Instructions Additional Instructions / Restrictions: Discharge to [facility] 03/05/2023, Home Health Care PT/OT. Discharge Orders/Prescriptions Prescriptions: New spironolactone 25 mg Tablet 25 mg PO DAILY@0800 30 Days Qty: 30 0RF Continued multivitamin Tablet 1 tab PO DAILY prednisone 5 mg Tablet 5 mg PO DAILY acetaminophen 500 mg Tablet 1,000 mg PO BID gabapentin 300 mg Capsule 300 mg PO QHS vitamin B complex [B Complex-Vitamin B12] Tablet 1 tab PO DAILY omeprazole 20 mg Tablet,Delayed Release (Dr/Ec) 20 mg PO DAILY Eliquis 5 mg Tablet 5 mg PO BID cholecalciferol (vitamin D3) 50 mcg (2,000 unit) Tablet,Chewable 50 mcg PO DAILY furosemide 40 mg tablet 40 mg PO DAILY Discontinued Humira Pen 40 mg/0.8 mL Pen Injector Kit 40 mg SUBCUT QWEEK Rx Instructions: Every 2 week doxycycline hyclate [Vibramycin] 100 mg Capsule 100 mg PO BID triamcinolone acetonide 0.1 % cream 1 applic TOPICAL QHS PRN (Reason: Skin Irritation) spironolactone 25 mg tablet 25 mg PO DAILY Culturelle 10 billion cell Capsule 1 cap PO DAILY Referrals / Follow Up: Genevieve Acosta DO [Primary Care Provider] - Disposition Disposition (needs filled in before D/C Order can be placed): Assisted Living
[2023-03-02 21:55] VITALS: O2SAT 97
[2023-03-03 05:45] VITALS: BP 127/77; PULSE 62
[2023-03-03 06:00] VITALS: BMI 27.2
[2023-03-03] MEDS: APIXABAN 5 MG TABLET PO ×2 (06:00→17:11)
[2023-03-03] MEDS: Acetaminophen 500 MG Tablet 1000 MG PO ×2 (06:00→17:14)
[2023-03-03] MEDS: Cholecalciferol (VIT D3) 25 MCG TABLET (1,000 UNITS) 50 MCG PO (06:00)
[2023-03-03] MEDS: Nystatin Powder 15gm Bottle 1 APPLIC TOPICAL ×2 (06:00→17:11)
[2023-03-03] MEDS: Furosemide 40 MG Tablet PO (06:00)
[2023-03-03] MEDS: Menthol/Lanolin/Calamine/Znox 113 GM Tube 1 APPLIC TOPICAL ×2 (06:00→17:12)
[2023-03-03] MEDS: Pantoprazole Sodium 20 MG Tablet PO (06:00)
[2023-03-03 07:10] LABS: Absolute Lymphocyte Count 2.12 X10^3/uL (0.83-4.51); Absolute Neutrophil Count 4.6 X10^3/uL (2.0-7.7); Basophil# 0.05 X10^3/uL; Basophil% 0.6 % (0-1); Eosinophil# 0.28 X10^3/uL; Eosinophils% 3.6 % (0-5); Hematocrit 44.5 % (40-54); Hemoglobin 13.7 g/dL (13.0-16.5); Lymphocyte # 2.12 X10^3/ul (0.83-4.51); Mean Corp Hgb Conc 30.8 g/dL (32-36); Mean Corpuscular Hgb 27.6 pg (27.0-32.0); Mean Corpuscular Volume 89.5 fL (80-94); Mean Platelet Vol. 10.7 fl (6.2-12.0); Monocyte# 0.77 X10^3/uL; Monocyte% 9.8 % (0-10); NRBC Flagged by Analyzer 0 % (0-5); Neutrophil # 4.61 X10^3/uL (2.7-7.7); Neutrophil % 58.7 % (47-70); Platelet Count 219 K/mm3 (150-450); RBC Distribution Width CV 19.5 % (11.6-14.6); RBC Distribution Width SD 63.5 fl (35.1-43.9); Red Blood Count 4.97 M/mm3 (4.6-6.2); White Blood Count 7.9 K/mm3 (4.4-11.0)
[2023-03-03 07:34] LABS: Anion Gap 5 (5-15); BUN 44 mg/dL (7-18); BUN/Creat Ratio 34.4 RATIO (10-20); Calcium,Total 9.4 mg/dL (8.5-10.1); Chloride 111 mmol/L (98-107); Creatinine, Serum 1.28 mg/dL (0.70-1.30); EST Glomerular Filtration Rate 57 mL/min (>60); Est Glom Filt Rate - Afr Amer 69 mL/min (>60); Estimated Creatinine Clearance 48.84 ml/min; Glucose 99 mg/dL (74-106); Potassium 3.6 mmol/L (3.5-5.1); Sodium Level 144 mmol/L (136-145)
[2023-03-03] MEDS: Multivitamins,Therapeutic Tablet 1 TABLET PO (07:46)
[2023-03-03] MEDS: predniSONE 5 MG Tablet PO (07:46)
[2023-03-03] MEDS: Juven (unflavored) Packet 1 PACKET PO ×2 (07:46→17:11)
[2023-03-03] MEDS: Spironolactone 25 MG Tablet PO (07:46)
[2023-03-03] MEDS: Vitamin B Comp W-C Capsule 1 CAP PO (07:46)
--- NOTE | 2023-03-03 12:35 | CASEMGMT ---
Addendum entered by Pita Long 03/03/23 15:01: [facility] is unable to accept pt's insurance. SW referred to [facility], another preferred provider for Kevon STEIN. phoned referral for PT/OT. Original Note: Social Work Received call from dtr stating Dr. Contreras spoke with pt and pt agreeable to continue with PT/OT at [place]. SW offered skilled [facility] list to review, dtr stated whomever [place] uses, which is [facility]. Dtr agreeable. MARTHA sent referral via [facility] to [facility] PT/OT. DC paperwork sent to Kevon STEIN. JANETH Bonner PHYSICIAN RELATIONS MANAGER
[2023-03-03 14:58] VITALS: BP 102/59; PULSE 64; RESP 18; TEMP 36.2; O2SAT 92
[2023-03-03] MEDS: Gabapentin 300 MG Capsule PO (21:37)
[2023-03-04] MEDS: Acetaminophen 500 MG Tablet 1000 MG PO ×2 (05:19→16:59)
[2023-03-04] MEDS: Cholecalciferol (VIT D3) 25 MCG TABLET (1,000 UNITS) 50 MCG PO (05:19)
[2023-03-04] MEDS: Furosemide 40 MG Tablet PO (05:19)
[2023-03-04] MEDS: Pantoprazole Sodium 20 MG Tablet PO (05:19)
[2023-03-04] MEDS: APIXABAN 5 MG TABLET PO ×2 (05:19→16:59)
[2023-03-04] MEDS: Nystatin Powder 15gm Bottle 1 APPLIC TOPICAL ×2 (05:20→17:01)
[2023-03-04] MEDS: Menthol/Lanolin/Calamine/Znox 113 GM Tube 1 APPLIC TOPICAL ×2 (05:21→17:02)
[2023-03-04 06:00] VITALS: BMI 27.1
[2023-03-04 06:30] VITALS: BP 140/77; PULSE 60
[2023-03-04] MEDS: Juven (unflavored) Packet 1 PACKET PO ×2 (08:24→16:59)
[2023-03-04] MEDS: Vitamin B Comp W-C Capsule 1 CAP PO (08:24)
[2023-03-04] MEDS: Spironolactone 25 MG Tablet PO (08:24)
[2023-03-04] MEDS: predniSONE 5 MG Tablet PO (08:24)
[2023-03-04] MEDS: Multivitamins,Therapeutic Tablet 1 TABLET PO (08:24)
[2023-03-04 13:38] VITALS: BP 113/62; PULSE 61; RESP 16; TEMP 36.1; O2SAT 92
--- NOTE | 2023-03-04 13:40 | CASEMGMT ---
Social Work BIMS () and PHQ-9 (06/02) completed for MDS assessment. Pita Long MSW CLINICAL ADMINISTRATIVE COORDINATOR
[2023-03-04 20:05] VITALS: PULSE 62; RESP 16; O2SAT 91
[2023-03-04] MEDS: Gabapentin 300 MG Capsule PO (20:59)
[2023-03-05] MEDS: Cholecalciferol (VIT D3) 25 MCG TABLET (1,000 UNITS) 50 MCG PO (05:37)
[2023-03-05] MEDS: APIXABAN 5 MG TABLET PO (05:38)
[2023-03-05] MEDS: Pantoprazole Sodium 20 MG Tablet PO (05:38)
[2023-03-05] MEDS: Furosemide 40 MG Tablet PO (05:38)
[2023-03-05] MEDS: Acetaminophen 500 MG Tablet 1000 MG PO (05:39)
[2023-03-05] MEDS: Nystatin Powder 15gm Bottle 1 APPLIC TOPICAL (05:42)
[2023-03-05] MEDS: Menthol/Lanolin/Calamine/Znox 113 GM Tube 1 APPLIC TOPICAL (05:42)
[2023-03-05 06:00] VITALS: BMI 27.3
[2023-03-05 06:46] VITALS: BP 121/75; PULSE 60
[2023-03-05] MEDS: Juven (unflavored) Packet 1 PACKET PO (08:49)
[2023-03-05] MEDS: predniSONE 5 MG Tablet PO (08:49)
[2023-03-05] MEDS: Vitamin B Comp W-C Capsule 1 CAP PO (08:49)
[2023-03-05] MEDS: Multivitamins,Therapeutic Tablet 1 TABLET PO (08:49)
[2023-03-05] MEDS: Spironolactone 25 MG Tablet PO (08:50)
[2023-03-05 10:02] VITALS: PULSE 80; RESP 18; O2SAT 93
[2023-03-05 10:35] VITALS: BP 98/57; PULSE 60; RESP 18; TEMP 36.8; O2SAT 97
== END 2023-03-05 11:13 | disposition home health service (06) | DRG 638 ==
PROVIDERS: Admitting Provider Family Medicine Geriatric Medicine; PCP Family Medicine; Referring Provider Family Medicine Geriatric Medicine; Visit Provider Family Medicine Geriatric Medicine
DX: E11.628 Type 2 diabetes mellitus with other skin complications (principal); I48.92 Unspecified atrial flutter; I13.0 Hypertensive heart and chronic kidney disease with heart failure and stage 1 through stage 4 chronic kidney disease, or unspecified chronic kidney disease; I50.32 Chronic diastolic (congestive) heart failure; L97.919 Non-pressure chronic ulcer of unspecified part of right lower leg with unspecified severity; L97.921 Non-pressure chronic ulcer of unspecified part of left lower leg limited to breakdown of skin; L03.115 Cellulitis of right lower limb; L03.116 Cellulitis of left lower limb; E11.622 Type 2 diabetes mellitus with other skin ulcer; E11.40 Type 2 diabetes mellitus with diabetic neuropathy, unspecified; N18.30 Chronic kidney disease, stage 3 unspecified; M06.9 Rheumatoid arthritis, unspecified; I44.1 Atrioventricular block, second degree; E55.9 Vitamin D deficiency, unspecified; G47.33 Obstructive sleep apnea (adult) (pediatric); E78.5 Hyperlipidemia, unspecified; I25.10 Atherosclerotic heart disease of native coronary artery without angina pectoris; K21.9 Gastro-esophageal reflux disease without esophagitis; Z87.891 Personal history of nicotine dependence; Z79.01 Long term (current) use of anticoagulants; Z79.52 Long term (current) use of systemic steroids; Z79.899 Other long term (current) drug therapy
CPT/HCPCS: 36415; 80048; 85025; 87811; 93923; 93971; 97110; 97116; 97162; 97166; 97530; 97535; 97802

== ENCOUNTER → 2023-02-19 | Outpatient (CLI) | payer MEDICARE, SELFPAY ==
--- NOTE | 2023-02-19 09:25 | VDLE_ITS ---
Reason For Study: Pain RIGHT LEFT GSV is normal. CFV is compressible, spontaneous, competent, CFV is compressible, spontaneous, competent and demonstrates pulsatile venous flow. and demonstrates pulsatile venous flow. FV is compressible, spontaneous, competent and demonstrates pulsatile venous flow. POP V is compressible, spontaneous, competent and demonstrates pulsatile venous flow. T/P Trunk is compressible. PTV is compressible. RT PerV is compressible. Procedure This is a venous duplex using B-mode, color flow and spectral Doppler. Exam performed portable in patient room. A preliminary report was called and/or faxed to TCU RN. VL/Venous Duplex US, Unilateral Interpretation Summary Deep veins of the right lower extremity are patent and compressible segmentally . There is no evidence of right lower extremity deep vein thrombosis. The right great sapheno us vein appears patent and compressible segmentally. Ordering Physician: Palmer Contreras Chi Referring Physician: Genevieve Acosta Performed By: Scarlett Martinez, ANNE-MARIE, RVT
--- NOTE | 2023-02-19 09:25 | ART_ITS ---
Reason For Study: Claudication Procedure A bilateral lower extremity continuous wave Doppler with analog waveform analysis,segmental pressures,and ankle brachial indexes without exercise. Left Segmental Pressures Left brachial= 125mmHg. Left posterior tibial artery = 160mmHg. Left dorsalis pedis artery = 156mmHg. Left digit = 107 mmHg. Right Segmental Pressures Right brachial= 114mmHg. Right posterior tibial artery = 145mmHg. Right dorsalis pedis artery = 180mmHg. Right digit = 107 mmHg. Indices The right ankle brachial index by the posterior tibial artery is 1.16. The right ankle brachial index by the dorsalis pedis is 1.44. The right digital-brachial index is 0.86. The left ankle brachial index by the posterior tibial artery is 1.28. The left ankle brachial index by the dorsalis pedis is 1.25. The left digital-brachial index is 0.86. VL/Lower Ext Art Exam w/o Exercis Interpretation Summary Right VELIA 1.44, normal. TBI and Doppler/PVR waveforms of the right leg normal a t rest. Left VELIA 1.28, normal. TBI and Doppler/PVR waveforms of the left leg normal at rest. Ordering Physician: Palmer Contreras Chi Referring Physician: Genevieve Acosta Performed By: HEIDY SALAZAR [facility]
== END | disposition home or self-care (01) ==
LOC: CVS 09:23
PROVIDERS: PCP Family Medicine; Referring Provider Family Medicine Geriatric Medicine; Visit Provider Family Medicine Geriatric Medicine
DX: I73.9 Peripheral vascular disease, unspecified (principal); M79.661 Pain in right lower leg
CPT/HCPCS: 93923; 93971

== ENCOUNTER 2023-10-18 21:29 | Inpatient (IN) | payer MEDICARE, SELFPAY ==
[2023-10-18 21:29] VITALS: BP 155/108; PULSE 103; RESP 28; TEMP 37.1; O2SAT 86; BMI 28.1
--- NOTE | 2023-10-18 21:46 | EKG12_ITS ---
Test Reason : DYSRHYTHMIA Blood Pressure : / mmHG Vent. Rate : 103 BPM Atrial Rate : 103 BPM P-R Int : 170 ms QRS Dur : 168 ms QT Int : 394 ms P-R-T Axes : 000 268 078 degrees QTc Int : 516 ms Atrial-sensed ventricular-paced rhythm with frequent Premature ventricular complexes Abnormal ECG Baseline artifact Confirmed by Tommy Marlow ([id number]), editorial manager NIKO PRESTON ([id number]) on 10/19/2023 9:31:50 AM Referred By: PL Confirmed By:Tommy Marlow
--- NOTE | 2023-10-18 21:47 | ED.VIS.DYS ---
HPI History of Present Illness Chief Complaint: Shortness of Breath Detail of Chief Complaint: Shortness of breath Informant: patient Narrative Narrative: Patient presents to the emergency department chief complaint shortness of breath that started a week ago. Patient has history of CHF. Patient states that he went to the CHF clinic in [facility] today but did not have an appointment so they would not see him. Patient was advised to go to the emergency department if he was feeling that short of breath but refused to be seen there so he comes to the [facility] to be evaluated. Patient's been coughing and at times bringing up some dark phlegm and at times bringing up white phlegm. He has not had a fever. Patient denies chest pain. He is not normally on oxygen. Patient has history of atrial flutter. Patient believes that he is either got pneumonia or he has CHF. He denies increased weight gain. His legs are always edematous. [facility] Medical History (Updated 03/13/23 @ 00:06 by Background Daemon) Acute on chronic diastolic congestive heart failure Atrial flutter Cellulitis of both lower extremities Chronic kidney disease, stage III (moderate) Coronary artery disease Debility History of pacemaker Hyperlipidemia Hypertension Obstructive sleep apnea Pacemaker Psoriatic arthritis Rheumatoid arthritis Second degree heart block Wound of lower extremity Home Medications acetaminophen 500 mg tablet 1,000 mg PO BID pain 02/03/23 [History Last Taken 02/16/23 09:55] apixaban 5 mg tablet (Eliquis) 5 mg PO BID Blood Thinner 02/03/23 [History Last Taken 02/16/23 09:55] cholecalciferol (vitamin D3) 50 mcg (2,000 unit) chewable tablet 50 mcg PO DAILY Supplement 02/03/23 [History Last Taken Unknown] gabapentin 300 mg capsule 300 mg PO QHS Pain 02/03/23 [History Last Taken 02/15/23 21:15] multivitamin 1 tab PO DAILY Supplement 02/03/23 [History Last Taken Unknown] omeprazole 20 mg tablet,delayed release 20 mg PO DAILY GERD 02/03/23 [History Last Taken 02/16/23 09:55] prednisone 5 mg tablet 5 mg PO DAILY Check with primary doctor 02/03/23 [History Last Taken 02/16/23 09:55] vitamin B complex (B Complex-Vitamin B12 tablet) 1 tab PO DAILY Supplement 02/03/23 [History Last Taken Unknown] furosemide 40 mg tablet 40 mg PO DAILY Edema 02/16/23 [History Last Taken 02/16/23 09:55] spironolactone 25 mg tablet 25 mg PO DAILY@0800 30 days #30 tabs 03/02/23 [Rx Last Taken Unknown] Allergy/AdvReac Type Severity Reaction Status Date / Time ertapenem Allergy Other Verified 02/03/23 09:13 leflunomide [From Arava] Allergy Other Verified 02/03/23 09:13 sulfamethoxazole Allergy Other Verified 02/03/23 09:13 [From Bactrim] trimethoprim [From Bactrim] Allergy Other Verified 02/03/23 09:13 Family History (Updated 02/16/23 @ 17:[address] Palmer Contreras MD) Mother CAD (coronary artery disease) Father Colon cancer Sister CAD (coronary artery disease) Surgical History (Updated 02/16/23 @ 17:[address] Palmer Contreras MD) History of cholecystectomy History of fusion of cervical spine History of lithotripsy History of replacement of both shoulder joints History of thoracic spinal fusion Social History (Updated 02/16/23 @ 17:[address] Palmer Contreras MD) housing: assisted living facility Smoking Status: Former smoker alcohol intake: never substance use type: does not use ROS ROS ED Review of Systems ROS Unobtainable: other Constitutional Constitutional ED: Reports lethargy; Denies chills, fever(s), sweats or weight loss Eyes Eyes: Denies blurry vision, change in vision or diplopia ENT ENT ED: Denies rhinorrhea or sore throat Cardiovascular Cardiovascular: Denies chest pain, orthopnea or racing heartbeat Respiratory/Chest Respiratory/Chest: Reports cough, dyspnea, dyspnea on exertion and sputum; Denies orthopnea Gastrointestinal Gastrointestinal: Denies abdominal pain, diarrhea, nausea or vomiting Genitourinary Genitourinary ED: Denies dysuria, hematuria or urinary frequency Musculoskeletal Musculoskeletal: Denies arthralgias, back pain, myalgias or neck pain Integumentary Denies abscess, Abrasions or rash Neurologic Neurologic: Denies headache(s) or weakness Psychiatric Psychiatric: Denies anxiety, depression or suicidal thoughts Endocrine Endocrinology: Denies polydipsia, polyphagia or polyuria Hematologic/Lymphatic Hematologic/Lymphatic: Denies easy bleeding, easy bruising or lymphadenopathy Allergic/Immunologic Allergic/Immunologic ED: Denies mouth swelling, tongue swelling or urticaria EXAM Physical Exam Const Vital Signs: 10/18/23 21:29 10/18/23 22:12 10/18/23 21:54 Temperature 98.8 F Temperature Source Temporal Pulse Rate 103 H 96 Respiratory Rate 28 H 30 H Respiratory Pattern Tachypnea Blood Pressure 155/108 H Blood Pressure Mean 123 Pulse Ox 86 Oxygen Delivery Method Room Air Nasal Cannula Positive well nourished and well developed General Appearance ED: well developed and NAD HEENT Reports TM's clear and moist mucous membranes normocephalic and atraumatic; Negative for trauma or tenderness Tympanic Membrane ED: Yes TM's clear Eyes PERRL and EOMs intact bilaterally General Eye ED: Negative for pale conjunctiva or scleral icterus Neck no lymphadenopathy, supple and no JVD General: Negative for tenderness Chest Wall inspection of chest normal and palpation of chest normal Chest: Negative for tenderness Resp normal respiratory effort and No clear to auscultation bilaterally Resp Narrative: Coarse breath sounds bilaterally with tachypnea. No accessory muscle use or retractions. Patient has expiratory wheezes noted bilaterally. Effort and Inspection: Negative for respiratory distress or pain with movement Auscultation: Negative for rhonchi, wheezes or diminished lung sounds Cardio regular rate, regular rhythm, S1 normal heart sound, S2 normal heart sound and no murmurs Peripheral Pulses: pulses 2+ throughout GI normal to inspection, nondistended, normoactive bowel sounds, soft to palpation, non-tender, non-distended and no masses Back/Spine no CVA tenderness and no thoracic nor lumbar tenderness Extremity normal to inspection General Extremety ED: Negative for edema General Extremity: Negative for edema Neuro oriented x3, CN's II-XII intact bilaterally, no sensory deficits noted and gait normal Sensorium / Orientation: awake, alert, oriented to person, oriented to place and oriented to time Motor Exam: strength 5/5 throughout and strength abnormal Psych mental status grossly normal Skin no rashes or lesions noted and no wounds MDM MDM MDM Narrative Medical decision making narrative: Patient presents with dyspnea for 1 week. He has history of CHF. IV line will be established. Patient was placed on monitoring tech. EKG obtained on arrival showed atrially sensed ventricularly paced rhythm. Frequent PVCs. Patient will have a chest x-ray and blood work obtained. He was given a DuoNeb aerosol. Patient dyspneic with minimal activity. Hypoxic without O2. Patient does have an elevated white blood cell count of 16.3 with hemoglobin of 17 and platelet count 226. Chemistries unremarkable. BUN was 43 and creatinine 2.03. Lactate elevated at 5.3. BNP was elevated 1687. Troponin normal at 51. Chest x-ray 1 view obtained I felt showed some increased markings in the right lower lobe and left lower lobe however radiology felt it was normal. Clinically given his cough and sputum production and elevated white count entertained pneumonia. Patient had blood cultures ordered and was started on Rocephin and Zithromax. COVID and flu and RSV testing returned positive for influenza A. I did order 80 mg of Lasix IV. I suspect patient's dyspnea is multifactorial including component of CHF as well as pneumonia and influenza. I suspect a component of reactive airway disease as well. Lab Data Attestation: I reviewed the patient's lab results. Labs: Laboratory Results - last 24 hr 10/18/23 10/18/23 21:40 22:34 WBC 16.3 H RBC 6.04 Hgb 17.1 H Hct 55.2 H MCV 91.4 MCH 28.3 MCHC 31.0 L RDW Std Deviation 60.7 H RDW Coeff of Natalia 18.9 H Plt Count 226 MPV 11.0 Immature Gran % (Auto) 0.700 Neut % (Auto) 72.8 H Lymph % (Auto) 17.9 L [place] % (Auto) 7.4 Eos % (Auto) 0.7 Baso % (Auto) 0.5 Absolute Neuts (auto) 11.8 H Absolute Lymphs (auto) 2.92 Nucleated RBC % 0 Sodium 139 Potassium 4.5 Chloride 104 Carbon Dioxide 24.0 Anion Gap 11 BUN 43 H Creatinine 2.03 H Estim Creat Clear Calc 32.85 Est GFR (MDRD) Af Amer 41 L Est GFR (MDRD) Non-Af 34 L BUN/Creatinine Ratio 21.2 H Glucose 165 H Lactic Acid 5.3 H* Calcium 9.9 Troponin I High Sens 51 B-Natriuretic Peptide 1687.6 H Radiography Diagnostic Testing: Clinical Impression(s) from Imaging Studies Chest X-Ray 10/18/23 22:10 IMPRESSION: 1. No evidence of acute cardiopulmonary disease. Electronically Signed: Tommy Sanchez DO at 22:27 EST , 1 view chest x-ray obtained interpreted by myself as increased markings in the left lower lobe and right lower lobe suspicious for pneumonia. Radiology felt there was no evidence of acute cardiopulmonary process. EKG Initial EKG: Attestation: I personally reviewed and interpreted this EKG as follows: Comments: Atrially paced rhythm with rate of the 103 bpm with frequent PVCs Discharge Plan Triage Chief Complaint: Shortness of Breath ED Provider: Marley Waterman Dx/Rx/DC Orders Clinical Impression: Influenza A, Acute dyspnea, CHF (congestive heart failure), Pneumonia, Acidosis, lactic Prescriptions: No Action multivitamin Tablet 1 tab PO DAILY prednisone 5 mg Tablet 5 mg PO DAILY acetaminophen 500 mg Tablet 1,000 mg PO BID gabapentin 300 mg Capsule 300 mg PO QHS vitamin B complex [B Complex-Vitamin B12] Tablet 1 tab PO DAILY omeprazole 20 mg Tablet,Delayed Release (Dr/Ec) 20 mg PO DAILY Eliquis 5 mg Tablet 5 mg PO BID cholecalciferol (vitamin D3) 50 mcg (2,000 unit) Tablet,Chewable 50 mcg PO DAILY furosemide 40 mg tablet 40 mg PO DAILY spironolactone 25 mg Tablet 25 mg PO DAILY@0800 30 Days Qty: 30 0RF Primary Care Provider: Genevieve Acosta Referrals: Genevieve Acosta, [Primary Care Provider] - Disposition Disposition: Acute Care Hospital [facility]
[2023-10-18 21:54] VITALS: PULSE 96; RESP 30
[2023-10-18] MEDS: Ipratropium/Albuterol Sulfate 3 ML AMPUL.NEB INHALATION (21:54)
--- NOTE | 2023-10-18 22:10 | RAD_ITS ---
INDICATION: dyspnea EXAMINATION/TECHNIQUE: X-RAY - XR Chest 1 View COMPARISON: No relevant prior comparison studies available. FINDINGS: LINES/DEVICES: Left chest pacing device with leads over the right atrium and right ventricle. LUNGS: Symmetric normal lung volumes. No airspace opacity or abnormal interstitial pattern. No nodule or mass. No pleural effusion or pneumothorax. MEDIASTINUM AND CARDIOVASCULAR STRUCTURES: Normal size and contour of the cardiomediastinal silhouette. No evidence of pulmonary vascular congestion. BONES AND SOFT TISSUES: Bilateral shoulder arthroplasties with hemiarthroplasty on the right.. Suspicious appearance for dislocation of the reverse arthroplasty on the left. RAD/Chest 1 View (Portable) IMPRESSION: 1. No evidence of acute cardiopulmonary disease. Electronically Signed: Tommy Sanchez DO at 22:27 EST ,
[2023-10-18 22:22] LABS: Absolute Lymphocyte Count 2.92 X10^3/uL (0.83-4.51); Absolute Neutrophil Count 11.8 X10^3/uL (2.0-7.7); Basophil# 0.08 X10^3/uL; Basophil% 0.5 % (0-1); Eosinophil# 0.12 X10^3/uL; Eosinophils% 0.7 % (0-5); Hematocrit 55.2 % (40-54); Hemoglobin 17.1 g/dL (13.0-16.5); Lymphocyte # 2.92 X10^3/ul (0.83-4.51); Lymphocyte % 17.9 % (19-41); Mean Corpuscular Hgb 28.3 pg (27.0-32.0); Mean Corpuscular Volume 91.4 fL (80-94); Monocyte% 7.4 % (0-10); NRBC Flagged by Analyzer 0 % (0-5); Neutrophil # 11.84 X10^3/uL (2.7-7.7); Neutrophil % 72.8 % (47-70); Platelet Count 226 K/mm3 (150-450); RBC Distribution Width CV 18.9 % (11.6-14.6); RBC Distribution Width SD 60.7 fl (35.1-43.9); Red Blood Count 6.04 M/mm3 (4.6-6.2); White Blood Count 16.3 K/mm3 (4.4-11.0)
[2023-10-18 22:39] LABS: Anion Gap 11 (5-15); BUN 43 mg/dL (7-18); BUN/Creat Ratio 21.2 RATIO (10-20); Calcium,Total 9.9 mg/dL (8.5-10.1); Chloride 104 mmol/L (98-107); Creatinine, Serum 2.03 mg/dL (0.70-1.30); EST Glomerular Filtration Rate 34 mL/min (>60); Est Glom Filt Rate - Afr Amer 41 mL/min (>60); Estimated Creatinine Clearance 32.85 ml/min; Glucose 165 mg/dL (74-106); Potassium 4.5 mmol/L (3.5-5.1); Sodium Level 139 mmol/L (136-145); Troponin-I HS 51 pg/mL (3.0-78.0)
[2023-10-18 22:40] LABS: BNP,B-Type NATRIURETIC PEPTIDE 1687.6 pg/mL (0-100)
[2023-10-18 23:12] LABS: Lactic Acid 5.3 mmol/L (0.4-1.9)
[2023-10-18] MEDS: Furosemide 100 MG/10 ML Vial 80 MG IV (23:15)
[2023-10-18 23:25] VITALS: BP 110/69; PULSE 95; RESP 12; TEMP 36.8; O2SAT 94
--- NOTE | 2023-10-18 23:30 | PCM.HP.STD ---
[facility] - General General Date of Admission: 10/18/23 Date of Service: 10/18/23 Chief Complaint: SOB and cough. HPI Narrative CHAO CLARK, is a 83 M with a past medical history of essential hypertension, hyperlipidemia, history of atrial fibrillation; on Eliquis, history of arrhythmia; s/p PPM, chronic diastolic CHF; with preserved left ventricular ejection fraction, CLEVE, history of tobacco abuse x ~40 years; with subsequent COPD, coronary artery disease, chronic kidney disease; stage III, history of psoriatic arthritis, GERD, osteoarthritis and chronic 2-3+ lower extremity edema who presents to [facility] ER complaining of shortness of breath and cough. Mr. Clark reports his symptoms began approximately 1 week prior to admission with a gradual onset of dyspnea on exertion that progressed to shortness of breath at rest. He also admits to productive cough bringing up both dark and light-colored phlegm frequently. He states that he went to the CHF clinic in [facility] today but did not have an appointment so they would not see him. However, they instructed him to come to the ER if he thought he needed emergent attention, so he did so. He denies associated fever, chills, chest pain and is not normally on supplemental oxygen. He believes he has pneumonia and or an acute exacerbation of his congestive heart failure. In the ER he was noted to have an assay positive for acute influenza A complicated by radiographic evidence of suspected right lower lobe infiltrate consistent with superimposed bacterial pneumonia complicated by leukocytosis of 16.3 and lactic acidosis of 5.3 mmol/L present on admission suspicious for bacteremia compounded by an elevated proBNP of 1,687.6 pg/mL consistent with acute exacerbation of chronic diastolic CHF; with preserved left ventricular ejection fraction with clinical evidence of AE COPD with acute hypoxic respiratory insufficiency in addition to laboratory evidence for TAMMY; in the setting of CKD stage III suspected to be due to urinary obstruction and he was then admitted to the PCU for ongoing care for stay that is expected to be greater than 48 hours. [facility] Medical History (Updated 10/19/23 @ 03:[address] Leandro Lester, ) Acute on chronic diastolic congestive heart failure Atrial flutter Cellulitis of both lower extremities Chronic kidney disease, stage III (moderate) Coronary artery disease Debility History of pacemaker Hyperlipidemia Hypertension Obstructive sleep apnea Pacemaker Psoriatic arthritis Rheumatoid arthritis Second degree heart block Wound of lower extremity Home Medications acetaminophen 500 mg tablet 1,000 mg PO TID pain 02/03/23 [History Last Taken 02/16/23 09:55] apixaban 5 mg tablet (Eliquis) 5 mg PO BID Blood Thinner 02/03/23 [History Last Taken 02/16/23 09:55] cholecalciferol (vitamin D3) 50 mcg (2,000 unit) chewable tablet 50 mcg PO DAILY Supplement 02/03/23 [History Last Taken Unknown] gabapentin 300 mg capsule 300 mg PO QHS Pain 02/03/23 [History Last Taken 02/15/23 21:15] multivitamin 1 tab PO DAILY Supplement 02/03/23 [History Last Taken Unknown] omeprazole 20 mg tablet,delayed release 20 mg PO DAILY GERD 02/03/23 [History Last Taken 02/16/23 09:55] prednisone 5 mg tablet 5 mg PO DAILY Check with primary doctor 02/03/23 [History Last Taken 02/16/23 09:55] vitamin B complex (B Complex-Vitamin B12 tablet) 1 tab PO DAILY Supplement 02/03/23 [History Last Taken Unknown] furosemide 40 mg tablet 40 mg PO DAILY Edema 02/16/23 [History Last Taken 02/16/23 09:55] spironolactone 25 mg tablet 25 mg PO DAILY@0800 DIURETIC 30 days #30 tabs 03/02/23 [Rx Last Taken Unknown] triamcinolone acetonide 0.1 % topical cream 1 applic topical PRN HYPERTROPIC LICHEN PLANUS 10/18/23 [History Last Taken Unknown] multivitamin-ferrous fumarate-folic acid 18 mg-400 mcg tablet (Centrum) 1 tab PO DAILY general health 10/19/23 [History Last Taken 10/18/23 09:00] omeprazole 20 mg capsule,delayed release 20 mg PO DAILY gerd 10/19/23 [History Last Taken Unknown] vitamin N07-pvpay acid 1 tab PO general 10/19/23 [History Last Taken Unknown] Allergy/AdvReac Type Severity Reaction Status Date / Time ertapenem Allergy Other Verified 02/03/23 09:13 leflunomide [From Arava] Allergy Other Verified 02/03/23 09:13 sulfamethoxazole Allergy Other Verified 02/03/23 09:13 [From Bactrim] trimethoprim [From Bactrim] Allergy Other Verified 02/03/23 09:13 Family History Mother CAD (coronary artery disease) Father Colon cancer Sister CAD (coronary artery disease) Surgical History History of cholecystectomy History of fusion of cervical spine History of lithotripsy History of replacement of both shoulder joints History of thoracic spinal fusion Social History housing: assisted living facility Smoking Status: Former smoker alcohol intake: never substance use type: does not use ROS ROS Narrative Review of systems: Constitutional: He reports lethargy; but he denies chills, fevers, sweats or weight loss Eyes: He denies blurry vision, changes in vision or discharge from eyes. ENT: He denies rhinorrhea, ear pain or sore throat Cardiovascular: He denies chest pain, orthopnea or racing heartbeat Respiratory: Reports cough, dyspnea, dyspnea on exertion and sputum; but he denies orthopnea Gastrointestinal: He denies abdominal pain, diarrhea, nausea or vomiting Genitourinary: He denies dysuria, hematuria or urinary frequency Musculoskeletal: He denies arthralgias, back pain, myalgias or neck pain Integumentary: He denies abscess, abrasions or rash Neurologic: He denies headache or focal neurologic weakness Psychiatric: He denies anxiety, depression or suicidal thoughts Endocrinology: He denies polydipsia, polyphagia or polyuria Hematologic/Lymphatic: He denies easy bleeding, easy bruising or lymphadenopathy Allergic/Immunologic: He denies mouth swelling, tongue swelling or urticaria 14 point review of systems otherwise negative except for positives noted above in HPI. Vital Signs Vital Signs Vital Signs: 10/18/23 21:29 10/18/23 22:12 10/18/23 23:25 Temperature 98.8 F 98.3 F Temperature Source Temporal Temporal Pulse Rate 103 H 95 Respiratory Rate 28 H 12 Respiratory Effort Respiratory Depth Respiratory Pattern Blood Pressure 155/108 H 110/69 Blood Pressure Mean 123 82 Pulse Ox 86 94 Oxygen Delivery Method Room Air Nasal Cannula Nasal Cannula Oxygen Flow Rate (L/min) 2 10/18/23 22:45 10/18/23 21:54 Temperature Temperature Source Pulse Rate 96 Respiratory Rate 30 H Respiratory Effort Short of Breath Labored Accessory Muscle Use Respiratory Depth Normal Respiratory Pattern Normal Tachypnea Blood Pressure Blood Pressure Mean Pulse Ox Oxygen Delivery Method Nasal Cannula Oxygen Flow Rate (L/min) Weight Weight: 207 lb 10.807 oz Body Mass Index (BMI) 28.1 Physical Exam Const alert, oriented x3 and no apparent distress General Appearance: cooperative HEENT normocephalic, hearing grossly normal bilaterally and moist oral mucous membranes HEENT Narrative: Patient has evidence of recent lesion removal from both sides of his head with Band-Aids in place. Eyes PERRL and EOMs intact bilaterally Neck no lymphadenopathy and supple Resp Resp Narrative: Coarse breath sounds bilaterally with tachypnea and bilateral expiratory wheezes. Cardio regular rate and regular rhythm GI normal to inspection, nondistended, normoactive bowel sounds, soft to palpation, non-tender and non-distended Extremity Extremity Narrative: 2-3+ bilateral lower extremity edema. Skin Skin Narrative: From both sides of his head with Band-Aids in place. Evidence of recent skin lesion removal. Patient has no evidence of rash at this time. Neuro oriented x3, CN's II-XII intact bilaterally, moves all extremities and no focal motor deficits Neuro Narrative: Patient is slightly hard of hearing. Sensorium / Orientation: awake, alert, oriented to person, oriented to place and oriented to time Speech: speech normal Motor Exam: strength 5/5 throughout Psych affect normal Results Medical Records Data Attestation: I reviewed the patient's medical records Lab / Micro Data Attestation: I reviewed the patient's lab results. 10/19/23 02:40 10/19/23 02:40 Labs: Laboratory Results - last 24 hr 10/18/23 21:40: WBC 16.3 H, RBC 6.04, Hgb 17.1 H, Hct 55.2 H, MCV 91.4, MCH 28.3, MCHC 31.0 L, RDW Std Deviation 60.7 H, RDW Coeff of Natalia 18.9 H, Plt Count 226, MPV 11.0, Immature Gran % (Auto) 0.700, Neut % (Auto) 72.8 H, Lymph % (Auto) 17.9 L, [place] % (Auto) 7.4, Eos % (Auto) 0.7, Baso % (Auto) 0.5, Absolute Neuts (auto) 11.8 H, Absolute Lymphs (auto) 2.92, Nucleated RBC % 0, Sodium 139, Potassium 4.5, Chloride 104, Carbon Dioxide 24.0, Anion Gap 11, BUN 43 H, Creatinine 2.03 H, Estim Creat Clear Calc 32.85, Est GFR (MDRD) Af Amer 41 L, Est GFR (MDRD) Non-Af 34 L, BUN/Creatinine Ratio 21.2 H, Glucose 165 H, Calcium 9.9, Troponin I High Sens 51, B-Natriuretic Peptide 1687.6 H 10/18/23 22:34: Lactic Acid 5.3 H* Micro: Microbiology 10/18/23 22:10 Mucosa - Nose SARS-CoV-2, Influenza & RSV (PCR) - Final Influenzae A Imaging Radiology Impression Chest X-Ray 10/18/23 22:10 IMPRESSION: 1. No evidence of acute cardiopulmonary disease. Electronically Signed: Tommy Sanchez DO at 22:27 EST , Assessment & Plan Assessment/Plan (1) Influenza A: (2) Pneumonia: QUALIFIERS: Laterality: right Lung location: lower lobe of lung Pneumonia type: due to unspecified organism Qualified Code(s): J18.9 - Pneumonia, unspecified organism (3) Acute on chronic diastolic congestive heart failure: (4) COPD with acute exacerbation: PLAN: Plan 1. Acute influenza A complicated by radiographic evidence of suspected right lower lobe infiltrate consistent with superimposed bacterial pneumonia - Admit to PCU under droplet isolation. Continue broad-spectrum antibiotics and await culture and sensitivity data. Give Tylenol prn pain or fever. 2. Leukocytosis of 16.3 and lactic acidosis of 5.3 mmol/L present on admission suspicious for bacteremia due to #1 - Serialize CBC and lactates track response to treatment. Follow-up lactate decreased to 2.6 mmol/L after initial round of treatment. 3. Elevated BNP of 1,687.6 pg/mL consistent with acute exacerbation of chronic diastolic CHF; with preserved left ventricular ejection complicating #1 & #2 - Continue IV Lasix with supplemental KCl and magnesium. Check echocardiogram to evaluate LVEF. Serialize BNP and CXR daily to monitor for improvement. Will defer potential cardiology consultation to daysvaft hospitalist. 4. AE COPD with Acute hypoxic respiratory insufficiency arising from #1 - #3 in the setting of chronic 2-3+ bilateral lower extremity edema - Give IV Solu-Medrol plus scheduled and as needed nebulizers. Wean supplemental oxygen as tolerated. 5. Acute kidney injury; in the setting of stage III chronic kidney disease with baseline creatinine of 1.28 mg/dL in February 2023 adding to the pathology of #1 - #4 - Likely due to urinary obstruction. Patient refused Erickson. Follow strict I's & O's. Check PSA screening test. 6. Essential hypertension - Resume home regimen with stable blood pressure of 110/69 mm Hg. Give IV Hydralazine for systolic blood pressure > 160 mm Hg. 7. Hyperlipidemia - Continue statin and check lipid profile. 8. History of atrial fibrillation; on Eliquis - Resume Eliquis as previous. 9. History of arrhythmia; s/p PPM - Noted. 10. CLEVE - Continue CPAP. 11. Coronary artery disease - Stable. Serialize troponins. 12. Chronic kidney disease; stage III - Stable. Check daily BMP to ensure continued stability. 13. History of psoriatic arthritis - Stable. 14. GERD - Resume PPI. 15. Osteoarthritis - Stable. Give Tylenol as needed. 16. DVT prophylaxis - Patient is already on Eliquis for #7 which will be continued. Total time: Approximately 55 minutes. Charges/Coding Visit Charges Inpatient E&M: 96379 Init Hosp L2
[2023-10-18] MEDS: Ceftriaxone 1 GM/50 ML BAG IV (23:53)
[2023-10-18 23:54] VITALS: BP 115/75; PULSE 93; RESP 26; O2SAT 96
[2023-10-19] VITALS (7 sets, daily range): BP systolic 110–142; BP diastolic 70–112; PULSE 69–102; RESP 18–26; TEMP 36.2–36.8; O2SAT 95–100; BMI 27.1
--- NOTE | 2023-10-19 00:02 | ED.RN ---
2403: called report to Adela Lund LPN and informed her the patient will be admitted
--- NOTE | 2023-10-19 00:27 | ECHOCS_ITS ---
Reason For Study: CHF Procedure This was a 2D Doppler, Color Flow transthoracic echocardiogram. The study was technically difficult. The study was technically limited. Due to COPD, PNEUMONIA, COUGHING, SOB, POOR ACCOUSTIC WINDOWS. Contrast injection was performed. Exam performed portable in patient room. Left Ventricle Normal LV size. Technically very difficult study. LV not visualized despite using echo contrast. In some views it appears that the EF is preserved. EF is probably around 55%. Unable to assess. Right Ventricle Severely dilated right ventricle. Severe global right ventricular systolic dysfunction. Atria The left atrium is not well visualized. The right atrium is mildly enlarged. Mitral Valve There is no mitral valve stenosis. No mitral valve insufficiency. Tricuspid Valve There is no tricuspid stenosis. Unable to estimate RV systolic pressure due to inadequate jet, pulmonary artery pressure probably normal. Aortic Valve Trisinus/trileaflet aortic valve. There is no aortic stenosis. No aortic valve insufficiency. Pulmonic Valve There is no pulmonic valvular stenosis. No pulmonic valve insufficiency. Great Vessels Normal aortic root. Pericardium/Pleural No pericardial effusion. Medication Diluted definity 4.0ml given slow IV push to enhance endocardial definition. MMode/2D Measurements & Calculations LVIDd: 5.1 cm IVSd: 0.97 cm Ao root diam: 3.8 cm LVIDs: 4.0 cm LVPWd: 1.0 cm RVDd: 4.1 cm FS: 21.2 % LAV(MOD-sp4): 59.6 ml LA A4 area: 21.2 cm2 RA A4 area: 24.7 cm2 TAPSE: 1.4 cm Time Measurements MV dec time: 0.20 sec Doppler Measurements & Calculations MV E max hamida: 43.1 cm/sec Ao V2 max: 128.4 cm/sec LV V1 max: 73.9 cm/sec MV A max hamida: 63.5 cm/sec Ao max P.6 mmHg LV V1 max P.2 mmHg MV E/A: 0.68 Ao V2 mean: 99.5 cm/sec LV V1 mean P.3 mmHg Ao mean P.1 mmHg LV V1 mean: 54.4 cm/sec Ao V2 VTI: 21.6 cm LV V1 VTI: 12.6 cm AV (velocity ratio): 0.58 TR max hamida: 231.6 cm/sec TR max P.5 mmHg ECHO/Echo Complete W/ Contrast Interpretation Summary Severely dilated right ventricle. Severe global right ventricular systolic dysfunction. Technically very difficult study. LV not visualized despite using echo contrast . In some views it appears that the EF is preserved. EF is probably around 55% No significant valvular abnormalities noted Ordering Physician: Leandro Lester Referring Physician: Genevieve Acosta Performed By: Jenny Cooper, ANNE-MARIE, RVT
[2023-10-19 00:37] LABS: Troponin-I HS 53 pg/mL (3.0-78.0)
[2023-10-19] MEDS: Azithromycin 500 MG in Dextrose 5%-Water (250mL Bag) 250 ML 250 MG IV ×2 (00:39→21:15)
[2023-10-19 02:37] LABS: Reflex Lactate? Y
[2023-10-19 02:53] LABS: Absolute Lymphocyte Count 0.46 X10^3/uL (0.83-4.51); Absolute Neutrophil Count 11.9 X10^3/uL (2.0-7.7); Basophil# 0.05 X10^3/uL; Basophil% 0.4 % (0-1); Eosinophil# 0.02 X10^3/uL; Eosinophils% 0.1 % (0-5); Hematocrit 48.6 % (40-54); Hemoglobin 15.4 g/dL (13.0-16.5); Lymphocyte # 0.46 X10^3/ul (0.83-4.51); Lymphocyte % 3.4 % (19-41); Mean Corp Hgb Conc 31.7 g/dL (32-36); Mean Corpuscular Hgb 28.7 pg (27.0-32.0); Mean Corpuscular Volume 90.5 fL (80-94); Monocyte# 1.04 X10^3/uL; Monocyte% 7.7 % (0-10); NRBC Flagged by Analyzer 0 % (0-5); Neutrophil # 11.85 X10^3/uL (2.7-7.7); Neutrophil % 87.7 % (47-70); POSITIVE DIFFERENTIAL YES; Platelet Count 174 K/mm3 (150-450); RBC Distribution Width CV 18.5 % (11.6-14.6); RBC Distribution Width SD 59.1 fl (35.1-43.9); Red Blood Count 5.37 M/mm3 (4.6-6.2); White Blood Count 13.5 K/mm3 (4.4-11.0)
[2023-10-19 03:16] LABS: BNP,B-Type NATRIURETIC PEPTIDE 1363.3 pg/mL (0-100)
[2023-10-19 03:25] LABS: Anion Gap 8 (5-15); BUN 45 mg/dL (7-18); BUN/Creat Ratio 23.2 RATIO (10-20); Calcium,Total 9.1 mg/dL (8.5-10.1); Chloride 105 mmol/L (98-107); Creatinine, Serum 1.94 mg/dL (0.70-1.30); EST Glomerular Filtration Rate 35 mL/min (>60); Est Glom Filt Rate - Afr Amer 43 mL/min (>60); Estimated Creatinine Clearance 31.67 ml/min; Glucose 161 mg/dL (74-106); Potassium 4.2 mmol/L (3.5-5.1); Sodium Level 138 mmol/L (136-145); Thyroid Stim Hormone (TSH) 2.21 uIU/mL (0.358-3.74)
[2023-10-19 03:31] LABS: Lactic Acid 2.6 mmol/L (0.4-1.9)
--- NOTE | 2023-10-19 06:37 | US_ITS ---
STUDY: RENAL ULTRASOUND - COMPLETE REASON FOR EXAM: Male, 83 years old. TAMMY in the setting of CKD; stage III eval for obst TECHNIQUE: Ultrasound evaluation of the kidneys was performed with real-time and static ford-scale imaging. COMPARISON: None. FINDINGS: RIGHT KIDNEY: Normal location of the right kidney, which is normal in size. The right kidney measures 10.8 cm x 4.4 cm x 5.1 cm. There is diffuse thinning of the renal cortex. The renal cortex measures 0.8 cm. 2 right renal cysts are seen. The larger cyst measures 2.1 cm x 2.2 cm x 2.3 cm. There are no right renal calculi. There is no right hydronephrosis. DISTAL RIGHT URETER: There is non-visualization of the distal right ureter. There is no demonstrated right ureterovesical junction calculus. There is no demonstrated right ureteral jet. LEFT KIDNEY: Normal location of the left kidney, which is normal in size. The left kidney measures 11 cm x 4.7 cm x 5 point cm. There is diffuse thinning of the renal cortex. The renal cortex measures 0.7 cm. 3 cysts are seen. The largest cyst measures 5 cm x 3.6 cm x 3.6 cm. There are no left renal calculi. There is no left hydronephrosis. DISTAL LEFT URETER: There is non-visualization of the distal left ureter. There is no demonstrated left ureterovesical junction calculus. There is no demonstrated left ureteral jet. BLADDER: The distended urinary bladder has a volume of 352 ml. There is a normal wall thickness of the distended urinary bladder. There is no demonstrated mass within the urinary bladder. There are no demonstrated bladder calculi. US/Kidney and Bladder IMPRESSION: Bilateral renal cysts. Bilateral renal cortical thinning. Electronically Signed: Chris Armenta MD at 10:45 EST ,
[2023-10-19 07:23] LABS: Cholesterol 118 mg/dL (200); High Density Lipoprotein 49 mg/dL; PSA,Total - Annual Screen 3.51 ng/mL (0.00-4.00); Triglycerides 82 mg/dL; Very Low Density Lipoprotein 16 mg/dL (5-40)
--- NOTE | 2023-10-19 08:12 | PN.HOSP_ITS ---
Reason for Visit Reason for Visit: Diagnoses Acute on chronic diastolic (congestive) heart failure (10/18/23) Influenza due to other identified influenza virus with other respiratory manifestations (10/18/23) Pneumonia, unspecified organism (10/18/23) Chronic obstructive pulmonary disease with (acute) exacerbation (10/18/23) Acute kidney failure, unspecified (10/18/23) Subjective Subjective Very concerned about seeing doctors who are not a specialist here in the hospital. Keeps on saying that he does not want future medical care. Brandon ghosh. Objective Data Objective Data Vital Signs: Vital Signs Temp Pulse Resp BP Pulse Ox O2 Del Method O2 Flow Rate 36.8 C 76 20 H 118/81 H 96 Nasal Cannula 3 10/19/23 06:00 10/19/23 06:00 10/19/23 06:00 10/19/23 06:00 10/19/23 06:00 10/19/23 06:00 10/19/23 06:00 Oxygen Flow Rate (L/min) 3 Oxygen Delivery Method Nasal Cannula Weight: 91 kg Body Mass Index (BMI) 27.1 Intake & Output: Intake and Output for Last 24 Hours 10/17/23 10/18/23 10/19/23 23:59 23:59 23:59 Intake Total 505 / 505 Output Total 1400 / 1400 Balance -895 / -895 Lab / Micro Data 10/19/23 02:40 10/19/23 02:40 Labs: Laboratory Results - last 24 hr 10/18/23 21:40: WBC 16.3 H, RBC 6.04, Hgb 17.1 H, Hct 55.2 H, MCV 91.4, MCH 28.3, MCHC 31.0 L, RDW Std Deviation 60.7 H, RDW Coeff of Natalia 18.9 H, Plt Count 226, MPV 11.0, Immature Gran % (Auto) 0.700, Neut % (Auto) 72.8 H, Lymph % (Auto) 17.9 L, [place] % (Auto) 7.4, Eos % (Auto) 0.7, Baso % (Auto) 0.5, Absolute Neuts (auto) 11.8 H, Absolute Lymphs (auto) 2.92, Nucleated RBC % 0, Sodium 139, Potassium 4.5, Chloride 104, Carbon Dioxide 24.0, Anion Gap 11, BUN 43 H, Creatinine 2.03 H, Estim Creat Clear Calc 32.85, Est GFR (MDRD) Af Amer 41 L, Est GFR (MDRD) Non-Af 34 L, BUN/Creatinine Ratio 21.2 H, Glucose 165 H, Calcium 9.9, Troponin I High Sens 51, B-Natriuretic Peptide 1687.6 H 10/18/23 22:34: Lactic Acid 5.3 H* 10/19/23 00:12: Troponin I High Sens 53 10/19/23 02:40: WBC 13.5 H, RBC 5.37, Hgb 15.4, Hct 48.6, MCV 90.5, MCH 28.7, MCHC 31.7 L, RDW Std Deviation 59.1 H, RDW Coeff of Natalia 18.5 H, Plt Count 174, MPV 10.0, Immature Gran % (Auto) 0.700, Neut % (Auto) 87.7 H, Lymph % (Auto) 3.4 L, [place] % (Auto) 7.7, Eos % (Auto) 0.1, Baso % (Auto) 0.4, Absolute Neuts (auto) 11.9 H, Absolute Lymphs (auto) 0.46 L, Nucleated RBC % 0, Sodium 138, Potassium 4.2, Chloride 105, Carbon Dioxide 25.0, Anion Gap 8, BUN 45 H, Creatinine 1.94 H , Estim Creat Clear Calc 31.67, Est GFR (MDRD) Af Amer 43 L, Est GFR (MDRD) Non- Af 35 L, BUN/Creatinine Ratio 23.2 H, Glucose 161 H, Lactic Acid 2.6 H*, Calcium 9.1, B-Natriuretic Peptide 1363.3 H, Triglycerides 82, Cholesterol 118, LDL Cholesterol 53, VLDL Cholesterol 16, HDL Cholesterol 49, PSA Screen 3.51, TSH 2.21 Micro: Microbiology 10/19/23 01:30 Urine, Clean Catch Legionella Antigen - Final 10/19/23 01:30 Urine, Clean Catch Streptococcus pneumoniae Antigen (M - Final 10/18/23 22:10 Mucosa - Nose SARS-CoV-2, Influenza & RSV (PCR) - Final Influenzae A Radiography Diagnostic Testing: Radiology Impression Chest X-Ray 10/18/23 22:10 IMPRESSION: 1. No evidence of acute cardiopulmonary disease. Electronically Signed: Tommy Sanchez DO at 22:27 EST , Physical Exam Const alert and no apparent distress Constitutional Narrative: No respiratory stress. No conversational dyspnea. Patient very animated upon first arrival kept on saying he did not want future medical care. Resp normal respiratory effort and no retractions Resp Narrative: Bilateral crackles. Cardio regular rate, regular rhythm, S1 normal heart sound and S2 normal heart sound GI normal to inspection, nondistended, normoactive bowel sounds, soft to palpation, non-tender and non-distended Extremity full ROM General Extremity: edema bilateral lower extremity Details: moderate Neuro Sensorium / Orientation: awake and alert Psych affect normal Assessment & Plan Assessment/Plan (1) Influenza A: PLAN: Plan Acute influenza A bronchitis * symptoms began 1 week ago. * CXR reviewed and appear unremarkable * Strep and legionella antigen negative * Blood cultures negative. * COVID-19, RSV negative. * on empiric antibiotics. Check procalcitonin, if negative, would DC abx Elevated BNP * no obvious edema on CXR * on empiric furosemide * echo ordered. CKD IV * v TAMMY * monitor * check urine studies. Chronic conditions: * Essential hypertension - Resume home regimen with stable blood pressure of 110/69 mm Hg. Give IV Hydralazine for systolic blood pressure > 160 mm Hg. * Hyperlipidemia - Continue statin and check lipid profile. * History of atrial fibrillation; on Eliquis - Resume Eliquis as previous. * History of arrhythmia; s/p PPM - Noted. * CLEVE - Continue CPAP. * Coronary artery disease - Stable. * History of psoriatic arthritis - Stable. * GERD - Resume PPI. * Osteoarthritis - Stable. Give Tylenol as needed. apixaban. Eliquis for #7 which will be continued. [place] along conversation with the patient. He was concerned about future medical care. Basically, the patient was concerned that he would be diverted to seeing specialist that are not affiliated with his current specialist that he [facility], [facility] at [facility]. Told the patient that patient would follow-up with his specialist as he would normally and reassured him that were not trying to force him into seeing other providers as outpatient. However, I did discuss that if necessary, I would consult the appropriate specialist but that would not compel him to see the specialist as outpatient. He expressed understanding and seem comfortable with that description. Greater than 55 minutes of which greater than 50% of time was counseling the patient about his medical care in regards to his respiratory issues but also the potential need for consultants but also discussing his outpatient plans would continue as previously scheduled with him seeing a specialist with cardiology. Charges/Coding Visit Charges Inpatient E&M: 81882 Subs Hosp L3
[2023-10-19] MEDS: MethylPREDNISolone 125 MG/2 ML Vial 60 MG IV ×2 (10:14→20:35)
[2023-10-19] MEDS: Potassium Chloride Oral Tablet 20 MEQ PO ×2 (10:16→20:41)
[2023-10-19] MEDS: Cholecalciferol (VIT D3) 25 MCG TABLET (1,000 UNITS) 50 MCG PO (10:16)
[2023-10-19] MEDS: Magnesium Chloride 64 MG Delay Rel.Tablet 128 MG PO (10:18)
[2023-10-19] MEDS: Vitamin B Comp W-C Capsule 1 CAP PO (10:18)
[2023-10-19] MEDS: Multivitamins,Therapeutic Tablet 1 TABLET PO (10:19)
[2023-10-19] MEDS: Pantoprazole Sodium 20 MG Tablet PO (10:19)
[2023-10-19] MEDS: APIXABAN 5 MG TABLET PO ×2 (10:19→20:41)
[2023-10-19] MEDS: Spironolactone 25 MG Tablet PO (10:19)
[2023-10-19] MEDS: 0.9% Saline Lock 10 ML Syringe IV ×2 (10:20→20:39)
--- NOTE | 2023-10-19 13:16 | CASEMGMT ---
SW met with patient as he is from [facility]. SW introduced self and role at [facility]. SW asked patient if he plans on going back to [facility] at discharge. Patient stated he is going to [place] when he leaves the hospital. Patient only wants the [facility] physician to get him well enough to leave the hospital safely so he can go right to [place] to see his own [employer]. Patient said he has done rehab many times and knows how it works. Plan: Back to [facility] and MARTHA can set up PT/OT to see patient at [facility]. Nida Nogueira PLASMA CENTER TECHNICIAN DIONICIO
--- NOTE | 2023-10-19 13:22 | CASEMGMT ---
Discharge Planning Updates sent via [facility] to [place]. Mona Braun, [facility] Planning Asst.
[2023-10-19] MEDS: Albuterol 2.5 MG/3 ML VIAL.NEB. INHALATION (16:44)
[2023-10-19] MEDS: Ceftriaxone 1 GM/50 ML BAG IV (20:38)
[2023-10-19] MEDS: Acetaminophen 500 MG Tablet 650 MG PO (20:40)
[2023-10-19] MEDS: Menthol/Lanolin/Calamine/Znox 113 GM Tube 1 APPLIC TOPICAL (20:41)
[2023-10-19] MEDS: Gabapentin 300 MG Capsule PO (20:41)
[2023-10-20] VITALS (8 sets, daily range): BP systolic 115–133; BP diastolic 65–92; PULSE 72–98; RESP 18–21; TEMP 35.9–36.6; O2SAT 94–98; BMI 27.5
[2023-10-20 07:52] LABS: Absolute Lymphocyte Count 0.46 X10^3/uL (0.83-4.51); Absolute Neutrophil Count 12.2 X10^3/uL (2.0-7.7); Basophil# 0.05 X10^3/uL; Basophil% 0.4 % (0-1); Eosinophil# 0.49 X10^3/uL; Eosinophils% 3.6 % (0-5); Hemoglobin 16.9 g/dL (13.0-16.5); Lymphocyte # 0.46 X10^3/ul (0.83-4.51); Lymphocyte % 3.4 % (19-41); Mean Corpuscular Hgb 27.9 pg (27.0-32.0); Mean Corpuscular Volume 93.1 fL (80-94); Mean Platelet Vol. 11.2 fl (6.2-12.0); Monocyte% 2.9 % (0-10); NRBC Flagged by Analyzer 0 % (0-5); Neutrophil # 12.17 X10^3/uL (2.7-7.7); Neutrophil % 88.9 % (47-70); POSITIVE DIFFERENTIAL YES; Platelet Count 157 K/mm3 (150-450); RBC Distribution Width CV 18.9 % (11.6-14.6); RBC Distribution Width SD 61.2 fl (35.1-43.9); Red Blood Count 6.06 M/mm3 (4.6-6.2); White Blood Count 13.7 K/mm3 (4.4-11.0)
[2023-10-20 08:02] LABS: Hematocrit 56.4 % (40-54)
[2023-10-20] MEDS: MethylPREDNISolone 125 MG/2 ML Vial 60 MG IV ×2 (08:31→19:51)
[2023-10-20] MEDS: APIXABAN 5 MG TABLET PO ×2 (08:31→19:47)
[2023-10-20] MEDS: Vitamin B Comp W-C Capsule 1 CAP PO (08:31)
[2023-10-20] MEDS: Cholecalciferol (VIT D3) 25 MCG TABLET (1,000 UNITS) 50 MCG PO (08:32)
[2023-10-20] MEDS: Potassium Chloride Oral Tablet 20 MEQ PO ×2 (08:32→19:46)
[2023-10-20] MEDS: Pantoprazole Sodium 20 MG Tablet PO (08:32)
[2023-10-20] MEDS: Magnesium Chloride 64 MG Delay Rel.Tablet 128 MG PO (08:33)
[2023-10-20] MEDS: 0.9% Saline Lock 10 ML Syringe IV ×4 (08:33→19:55)
[2023-10-20] MEDS: Multivitamins,Therapeutic Tablet 1 TABLET PO (08:33)
[2023-10-20] MEDS: Spironolactone 25 MG Tablet PO (08:33)
--- NOTE | 2023-10-20 09:14 | PN.HOSP_ITS ---
Reason for Visit Reason for Visit: Diagnoses Influenza due to other identified influenza virus with other respiratory manife stations (10/18/23) Pneumonia, unspecified organism (10/18/23) Chronic obstructive pulmonary disease with (acute) exacerbation (10/18/23) Acute kidney failure, unspecified (10/18/23) Subjective Subjective Breathing well. Objective Data Objective Data Vital Signs: Vital Signs Temp Pulse Resp BP Pulse Ox O2 Del Method O2 Flow Rate 36.1 C L 81 18 124/69 H 96 Nasal Cannula 3 10/20/23 08:37 10/20/23 08:37 10/20/23 08:37 10/20/23 08:37 10/20/23 08:37 10/20/23 08:45 10/20/23 08:45 Oxygen Flow Rate (L/min) 3 Oxygen Delivery Method Nasal Cannula Weight: 92.079 kg Body Mass Index (BMI) 27.5 Intake & Output: Intake and Output for Last 24 Hours 10/18/23 10/19/23 10/20/23 23:59 23:59 23:59 Intake Total 1050 / 1050 Output Total 1400 / 1500 100 / 100 Balance -350 / -450 -100 / -100 Lab / Micro Data 10/20/23 07:25 10/20/23 07:25 Labs: Laboratory Results - last 24 hr 10/19/23 08:47: Procalcitonin 0.80 H 10/20/23 07:25: WBC 13.7 H, RBC 6.06, Hgb 16.9 H, Hct 56.4 H, MCV 93.1, MCH 27.9, MCHC 30.0 L D, RDW Std Deviation 61.2 H, RDW Coeff of Natalia 18.9 H, Plt Count 157, MPV 11.2, Immature Gran % (Auto) 0.800, Neut % (Auto) 88.9 H, Lymph % (Auto) 3.4 L, [place] % (Auto) 2.9, Eos % (Auto) 3.6, Baso % (Auto) 0.4, Absolute Neuts (auto) 12.2 H, Absolute Lymphs (auto) 0.46 L, Nucleated RBC % 0 Micro: Microbiology 10/19/23 01:30 Urine, Clean Catch Legionella Antigen - Final 10/19/23 01:30 Urine, Clean Catch Streptococcus pneumoniae Antigen (M - Final 10/18/23 22:10 Mucosa - Nose SARS-CoV-2, Influenza & RSV (PCR) - Final Influenzae A Radiography Diagnostic Testing: Radiology Impression Echocardiogram 10/19/23 00:27 Interpretation Summary Severely dilated right ventricle. Severe global right ventricular systolic dysfunction. Technically very difficult study. LV not visualized despite using echo contrast. In some views it appears that the EF is preserved. EF is probably around 55% No significant valvular abnormalities noted Ordering Physician: Leandro Lester Referring Physician: Genevieve Acosta Performed By: Jenny Cooper, RDCS, RVT Renal Ultrasound 10/19/23 06:37 IMPRESSION: Bilateral renal cysts. Bilateral renal cortical thinning. Electronically Signed: Chris Armenta MD at 10:45 EST , Physical Exam Const alert and no apparent distress Resp normal respiratory effort Resp Narrative: Bibasilar crackles Cardio regular rate, regular rhythm, S1 normal heart sound and S2 normal heart sound GI normal to inspection, nondistended, normoactive bowel sounds, soft to palpation, non-tender and non-distended Extremity Extremity Narrative: Trace lower extremity edema Neuro Sensorium / Orientation: awake and alert Assessment & Plan Assessment/Plan (1) Influenza A: PLAN: Plan Acute influenza A bronchitis * symptoms began 1 week ago. * CXR reviewed and appear unremarkable * Strep and legionella antigen negative * Blood cultures negative. * COVID-19, RSV negative. * on empiric antibiotics. * Procalcitonin elevated. Continue abx for now. If remainder of Cx negative, then would DC abx. Acute HFpEF. * no obvious edema on CXR * Continue with furosemide * echo limited, but EF appears to be around 55% CKD IV * v TAMMY * monitor * check urine studies. Chronic conditions: * Essential hypertension - Resume home regimen with stable blood pressure of 110/69 mm Hg. Give IV Hydralazine for systolic blood pressure > 160 mm Hg. * Hyperlipidemia - Continue statin and check lipid profile. * History of atrial fibrillation; on Eliquis - Resume Eliquis as previous. * History of arrhythmia; s/p PPM - Noted. * CLEVE - Continue CPAP. * Coronary artery disease - Stable. * History of psoriatic arthritis - Stable. * GERD - Resume PPI. * Osteoarthritis - Stable. Give Tylenol as needed. apixaban. Eliquis for #7 which will be continued. 10/19: I had ar along conversation with the patient. He was concerned about future medical care. Basically, the patient was concerned that he would be diverted to seeing specialist that are not affiliated with his current specialist that he sees been [facility], particular at the [facility]. Told the patient that patient would follow-up with his specialist as he would normally and reassured him that were not trying to force him into seeing other providers as outpatient. However, I did discuss that if necessary, I would consult the appropriate specialist but that would not compel him to see the specialist as outpatient. He expressed understanding and seem comfortable with that description. 10/20: Had a long car station with the patient and his daughter. Explained current plan of treatment. Patient was rated start going off on varied tangents but his daughter cut him off before he could do so. Charges/Coding Visit Charges Inpatient E&M: 78934 Subs Hosp L2
[2023-10-20] MEDS: Albuterol 2.5 MG/3 ML VIAL.NEB. INHALATION ×3 (09:33→18:56)
[2023-10-20 10:04] LABS: Anion Gap 12 (5-15); BUN 44 mg/dL (7-18); BUN/Creat Ratio 27.3 RATIO (10-20); Calcium,Total 9.4 mg/dL (8.5-10.1); Chloride 105 mmol/L (98-107); Creatinine, Serum 1.61 mg/dL (0.70-1.30); EST Glomerular Filtration Rate 44 mL/min (>60); Est Glom Filt Rate - Afr Amer 53 mL/min (>60); Estimated Creatinine Clearance 38.16 ml/min; Glucose 137 mg/dL (74-106); Sodium Level 140 mmol/L (136-145)
[2023-10-20 12:44] LABS: Bacteria 0 SEEN /hpf (None Seen); Mucous, Urine 0 SEEN /hpf (<or=2+); Red Blood Cells-Urine 0 SEEN /hpf (0-5); Squamous Epithelial Cells - UA 0 SEEN /hpf (0-5)
[2023-10-20 13:02] LABS: Color, Urine Yellow (Yellow); Glucose, Dipstick Normal (Normal); Ketone-Dipstick Negative (Negative); Leukocyte Esterase-Dipstick 25 /ul (Negative); Nitrite-Dipstick Negative (Negative); Occult Blood-Urine Negative /ul (Negative); Protein-Dipstick 15 mg/dl (Negative); Urine Bilirubin Dipstick Negative (Negative); Urine Clarity Clear (Clear); Urine Urobilinogen Normal (Normal)
[2023-10-20] MEDS: Furosemide 40 MG/4 ML Vial IV ×2 (13:23→17:35)
[2023-10-20 13:53] LABS: White Blood Cells 0-5 SEEN /hpf (0-5)
[2023-10-20 13:55] LABS: Urea Nitrogen, Urine 1153 mg/dL (NO RANGE EST.)
[2023-10-20] MEDS: Ceftriaxone 1 GM/50 ML BAG IV (19:47)
[2023-10-20] MEDS: Azithromycin 500 MG in Dextrose 5%-Water (250mL Bag) 250 ML 250 MG IV (19:50)
[2023-10-20] MEDS: Gabapentin 300 MG Capsule PO (19:55)
[2023-10-20] MEDS: Acetaminophen 500 MG Tablet 650 MG PO (19:56)
[2023-10-21] VITALS (13 sets, daily range): BP systolic 128–147; BP diastolic 57–123; PULSE 63–100; RESP 14–20; TEMP 36.1–36.5; O2SAT 85–97; BMI 27.3
[2023-10-21] MEDS: Magnesium Chloride 64 MG Delay Rel.Tablet 128 MG PO (09:03)
[2023-10-21] MEDS: Pantoprazole Sodium 20 MG Tablet PO (09:03)
[2023-10-21] MEDS: APIXABAN 5 MG TABLET PO ×2 (09:03→21:56)
[2023-10-21] MEDS: Spironolactone 25 MG Tablet PO (09:03)
[2023-10-21] MEDS: Potassium Chloride Oral Tablet 20 MEQ PO ×2 (09:03→16:26)
[2023-10-21] MEDS: Multivitamins,Therapeutic Tablet 1 TABLET PO (09:04)
[2023-10-21] MEDS: Vitamin B Comp W-C Capsule 1 CAP PO (09:04)
[2023-10-21] MEDS: Cholecalciferol (VIT D3) 25 MCG TABLET (1,000 UNITS) 50 MCG PO (09:04)
[2023-10-21] MEDS: MethylPREDNISolone 125 MG/2 ML Vial 60 MG IV ×2 (09:05→21:56)
--- NOTE | 2023-10-21 09:18 | CASEMGMT ---
Discharge Planning Updates sent via [facility] to [place]. Mona Braun, Discharge Planning Asst.
--- NOTE | 2023-10-21 09:27 | PCM.PN.HOSP ---
Reason for Visit Reason for Visit: Diagnoses Influenza due to other identified influenza virus with other respiratory manifestations (10/18/23) Pneumonia, unspecified organism (10/18/23) Chronic obstructive pulmonary disease with (acute) exacerbation (10/18/23) Acute kidney failure, unspecified (10/18/23) Subjective Subjective Feels well. Objective Data Objective Data Vital Signs: Vital Signs Temp Pulse Resp BP Pulse Ox O2 Del Method O2 Flow Rate 36.1 C L 75 20 H 147/82 H 97 Nasal Cannula 3 10/21/23 03:30 10/21/23 03:30 10/21/23 04:45 10/21/23 03:30 10/21/23 03:30 10/21/23 09:24 10/21/23 09:24 Oxygen Flow Rate (L/min) 3 Oxygen Delivery Method Nasal Cannula Weight: 91.5 kg Body Mass Index (BMI) 27.3 Intake & Output: Intake and Output for Last 24 Hours 10/19/23 10/20/23 10/21/23 23:59 23:59 23:59 Intake Total 1050 / 1050 545 / 545 120 / 120 Output Total 1400 / 1500 1000 / 1000 450 / 450 Balance -350 / -450 -455 / -455 -330 / -330 Lab / Micro Data 10/20/23 07:25 10/21/23 10:40 Labs: Laboratory Results - last 24 hr 10/20/23 07:25: Sodium 140, Potassium 5.0, Chloride 105, Carbon Dioxide 23.0, Anion Gap 12, BUN 44 H, Creatinine 1.61 H, Estim Creat Clear Calc 38.16, Est GFR (MDRD) Af Amer 53 L, Est GFR (MDRD) Non-Af 44 L, BUN/Creatinine Ratio 27.3 H, Glucose 137 H, Calcium 9.4 10/20/23 11:45: Urine Color Yellow, Urine Clarity Clear, Urine pH 5.0, Ur Specific [place] 1.020, Urine Protein 15 H, Urine Glucose (UA) Normal, Urine Ketones Negative, Urine Occult Blood Negative, Urine Nitrite Negative, Urine Bilirubin Negative, Urine Urobilinogen Normal, Ur Leukocyte Esterase 25 H, Urine RBC 0 SEEN, Urine WBC 0-5 SEEN, Ur Squamous Epith Cells 0 SEEN, Urine Bacteria 0 SEEN, Urine Mucus 0 SEEN, Urine Creatinine 109.00, Urine Urea Nitrogen 1153 Micro: Microbiology 10/18/23 22:34 Blood Culture (Wb) - Anticubital Right Blood Culture - Preliminary No growth in 48 hours. 10/19/23 01:30 Urine, Clean Catch Legionella Antigen - Final 10/19/23 01:30 Urine, Clean Catch Streptococcus pneumoniae Antigen (M - Final 10/18/23 22:10 Mucosa - Nose SARS-CoV-2, Influenza & RSV (PCR) - Final Influenzae A Physical Exam Const alert and no apparent distress Resp normal respiratory effort and no retractions Cardio regular rate, regular rhythm, S1 normal heart sound and S2 normal heart sound GI normal to inspection, nondistended, normoactive bowel sounds Extremity General Extremity: edema bilateral lower extremity Details: mild Assessment & Plan Assessment/Plan (1) Influenza A: PLAN: Plan Acute influenza A bronchitis symptoms began 1 week ago. CXR reviewed and appear unremarkable Strep and legionella antigen negative Blood cultures negative. COVID-19, RSV negative. Procalcitonin elevated. Continue abx for now. Additional cultures were negative. Will discontinue antibiotics. Acute HFpEF. no obvious edema on CXR Continue with furosemide echo limited, but EF appears to be around 55% CKD IV v TAMMY monitor check urine studies. Chronic conditions: Essential hypertension - Resume home regimen with stable blood pressure of 110/69 mm Hg. Give IV Hydralazine for systolic blood pressure > 160 mm Hg. Hyperlipidemia - Continue statin and check lipid profile. History of atrial fibrillation; on Eliquis - Resume Eliquis as previous. History of arrhythmia; s/p PPM - Noted. CLEVE - Continue CPAP. Coronary artery disease - Stable. History of psoriatic arthritis - Stable. GERD - Resume PPI. Osteoarthritis - Stable. Give Tylenol as needed. apixaban. Eliquis for #7 which will be continued. 10/19: I had ar along conversation with the patient. He was concerned about future medical care. Basically, the patient was concerned that he would be diverted to seeing specialist that are not affiliated with his current specialist that he sees been [facility], particular at the [facility]. Told the patient that patient would follow-up with his specialist as he would normally and reassured him that were not trying to force him into seeing other providers as outpatient. However, I did discuss that if necessary, I would consult the appropriate specialist but that would not compel him to see the specialist as outpatient. He expressed understanding and seem comfortable with that description. 10/20: Had a long car station with the patient and his daughter. Explained current plan of treatment. Patient was rated start going off on varied tangents but his daughter cut him off before he could do so. 10/21: Patient is apprehensive about having oxygen. States that he does not need it because he previously did not need it because his oxygen number was 94% on room air. He feels worthwhile challenging him about the possibility him requiring oxygen when he is discharged. He seems very set in his ways and is not much for compromise. Will continue with diuresis and reevaluate tomorrow. Hopefully he does not require oxygen but I am concerned that he may require it daily short-term. Will continue with the diuresis despite his creatinine bumping up slightly. Charges/Coding Visit Charges Inpatient E&M: 86512 Subs Hosp L2
--- NOTE | 2023-10-21 09:51 | CASEMGMT ---
MARTHA spoke with Ger at [place] and they are fine with patient returning to [place] when ready. Ger just asked that someone notify them if he is returning for sure. Plan: d/c back to [place]. Nida Nogueira [address] [employer]
--- NOTE | 2023-10-21 10:35 | CASEMGMT ---
Addendum entered by Deepa Quinn 10/21/23 11:10: Social Work [facility] did fax over the POA for healthcare for pt, with the living will provision initialed, Kari Aquino is listed as pt's healthcare POA. Part of the LW was sent over as well. SW placed the documents in the paper chart. KVNG Peña Original Note: Social Work SW spoke w/pt regarding POA for healthcare. Pt states all three of his children are healthcare POA. He does think [facility] has a copy on file. SW called [facility], spoke w/nurse Tawanna, she will check and fax over the documents should they have them. KVNG Peña
[2023-10-21 11:20] LABS: Anion Gap 7 (5-15); BUN 48 mg/dL (7-18); BUN/Creat Ratio 28.1 RATIO (10-20); Calcium,Total 9.6 mg/dL (8.5-10.1); Chloride 106 mmol/L (98-107); Creatinine, Serum 1.71 mg/dL (0.70-1.30); EST Glomerular Filtration Rate 41 mL/min (>60); Est Glom Filt Rate - Afr Amer 49 mL/min (>60); Estimated Creatinine Clearance 35.93 ml/min; Glucose 221 mg/dL (74-106); Potassium 4.3 mmol/L (3.5-5.1); Sodium Level 135 mmol/L (136-145)
[2023-10-21] MEDS: Albuterol 2.5 MG/3 ML VIAL.NEB. INHALATION (20:08)
[2023-10-21] MEDS: CARBOXYMETHYLCELLULOSE SODIUM 1 DRP DROPS 2 DRP OPHTHALMIC (21:55)
[2023-10-21] MEDS: guaiFENesin 10 ML UDC (200MG/10ML) 20 ML PO (21:55)
[2023-10-21] MEDS: Menthol/Lanolin/Calamine/Znox 113 GM Tube 1 APPLIC TOPICAL (21:56)
[2023-10-21] MEDS: Gabapentin 300 MG Capsule PO (21:56)
[2023-10-22 03:21] VITALS: BMI 26.9
[2023-10-22 04:00] VITALS: BP 154/94; PULSE 62; RESP 18; TEMP 36.4; O2SAT 95
[2023-10-22 08:14] VITALS: O2SAT 92
[2023-10-22 08:48] VITALS: BP 136/72; PULSE 60; RESP 18; TEMP 36.6; O2SAT 93
[2023-10-22] MEDS: MethylPREDNISolone 125 MG/2 ML Vial 60 MG IV ×2 (08:52→21:10)
[2023-10-22] MEDS: Spironolactone 25 MG Tablet PO (08:52)
[2023-10-22] MEDS: Magnesium Chloride 64 MG Delay Rel.Tablet 128 MG PO (08:53)
[2023-10-22] MEDS: Potassium Chloride Oral Tablet 20 MEQ PO ×2 (08:53→17:16)
[2023-10-22] MEDS: Cholecalciferol (VIT D3) 25 MCG TABLET (1,000 UNITS) 50 MCG PO (08:53)
[2023-10-22] MEDS: APIXABAN 5 MG TABLET PO ×2 (08:53→21:12)
--- NOTE | 2023-10-22 08:53 | PN.HOSP_ITS ---
Reason for Visit Reason for Visit: Diagnoses Influenza due to other identified influenza virus with other respiratory manife stations (10/18/23) Pneumonia, unspecified organism (10/18/23) Chronic obstructive pulmonary disease with (acute) exacerbation (10/18/23) Acute kidney failure, unspecified (10/18/23) Subjective Subjective Still short of breath, requiring 4 L of oxygen. Reluctance to using incentive spirometer because it feel does not work. Objective Data Objective Data Vital Signs: Vital Signs Temp Pulse Resp BP Pulse Ox O2 Del Method O2 Flow Rate 36.6 C 60 18 136/72 H 93 Nasal Cannula 4 10/22/23 08:48 10/22/23 08:48 10/22/23 08:48 10/22/23 08:48 10/22/23 08:48 10/22/23 08:48 10/22/23 08:48 Oxygen Flow Rate (L/min) [ 3 AMBULATING with Oxygen #3] Oxygen Flow Rate (L/min) [ 2 AMBULATING with Oxygen #2] Oxygen Flow Rate (L/min) [ 1 AMBULATING with Oxygen #1] Oxygen Flow Rate (L/min) 4 Oxygen Delivery Method Nasal Cannula Weight: 90.1 kg Body Mass Index (BMI) 26.9 Intake & Output: Intake and Output for Last 24 Hours 10/20/23 10/21/23 10/22/23 23:59 23:59 23:59 Intake Total 545 / 545 660 / 900 440 / 440 Output Total 1000 / 1000 1150 / 1450 600 / 600 Balance -455 / -455 -490 / -550 -160 / -160 Lab / Micro Data 10/20/23 07:25 10/22/23 09:30 Labs: Laboratory Results - last 24 hr 10/21/23 10:40: Sodium 135 L, Potassium 4.3, Chloride 106, Carbon Dioxide 22.0, Anion Gap 7, BUN 48 H, Creatinine 1.71 H, Estim Creat Clear Calc 35.93, Est GFR (MDRD) Af Amer 49 L, Est GFR (MDRD) Non-Af 41 L, BUN/Creatinine Ratio 28.1 H, Glucose 221 H, Calcium 9.6 Micro: Microbiology 10/18/23 22:34 Blood Culture (Wb) - Anticubital Right Blood Culture - Preliminary No growth in 48 hours. 10/19/23 01:30 Urine, Clean Catch Legionella Antigen - Final 10/19/23 01:30 Urine, Clean Catch Streptococcus pneumoniae Antigen (M - Final 10/18/23 22:10 Mucosa - Nose SARS-CoV-2, Influenza & RSV (PCR) - Final Influenzae A Physical Exam Const alert and no apparent distress HEENT head/scalp atraumatic Resp normal respiratory effort and no retractions Resp Narrative: Bibasilar crackles Cardio regular rate, regular rhythm, S1 normal heart sound and S2 normal heart sound GI normal to inspection, nondistended, normoactive bowel sounds, soft to palpation and non-tender Assessment & Plan Assessment/Plan (1) Influenza A: PLAN: Plan Acute influenza A bronchitis * symptoms began 1 week ago. * CXR reviewed and appear unremarkable * Strep and legionella antigen negative * Blood cultures negative. * COVID-19, RSV negative. * antibiotic dc'd * Will add prednisone burst. Acute HFpEF. * no obvious edema on CXR * Continue with IV furosemide * echo limited, but EF appears to be around 55% CKD IV * Less likely acute kidney injury as creatinine appears to be more or less stable. * monitor * check urine studies. Chronic conditions: * Essential hypertension - Resume home regimen with stable blood pressure of 110/69 mm Hg. Give IV Hydralazine for systolic blood pressure > 160 mm Hg. * Hyperlipidemia - Continue statin and check lipid profile. * History of atrial fibrillation; on Eliquis - Resume Eliquis as previous. * History of arrhythmia; s/p PPM - Noted. * CLEVE - Continue CPAP. * Coronary artery disease - Stable. * History of psoriatic arthritis - Stable. * GERD - Resume PPI. * Osteoarthritis - Stable. Give Tylenol as needed. apixaban. Eliquis for #7 which will be continued. 10/19: I had ar along conversation with the patient. He was concerned about future medical care. Basically, the patient was concerned that he would be diverted to seeing specialist that are not affiliated with his current specia list that he sees been [facility], particular at the [facility]. Told the patient that patient would follow-up with his specialist as he would normally and reassured him that were not trying to force him into seeing other providers as outpatient. However, I did discuss that if necessary, I would consult the appropriate specialist but that would not compel him to see the specialist as outpatient. He expressed understanding and seem comfortable with that description. 10/20: Had a long car station with the patient and his daughter. Explained current plan of treatment. Patient was rated start going off on varied tangents but his daughter cut him off before he could do so. 10/21: Patient is apprehensive about having oxygen. States that he does not need it because he previously did not need it because his oxygen number was 94% on room air. He feels worthwhile challenging him about the possibility him requiring oxygen when he is discharged. He seems very set in his ways and is not much for compromise. Will continue with diuresis and reevaluate tomorrow. Hopefully he does not require oxygen but I am concerned that he may require it daily short-term. Will continue with the diuresis despite his creatinine bumping up slightly. 10/22: Patient expressed reluctance using senna spirometer as his chest showing off what your numbers are. I told him that that is incorrect and we try to help him better utilize his diaphragm as he is spending most of his days in the hos pital sitting around. Advised him to use it so he can take in deep breaths as it would not hurt him but hopefully would help him overall. Took a very firm stance on that and addressing the him directly with that in regards to addressing all his myriad of complaints. We did come to an understanding and will work together in regards to getting him improved to be able to get home so that he may follow-up with his physicians at [facility] which she continues to be focused on. Charges/Coding Visit Charges Inpatient E&M: 98794 Subs Hosp L2
[2023-10-22] MEDS: Multivitamins,Therapeutic Tablet 1 TABLET PO (08:54)
[2023-10-22] MEDS: Pantoprazole Sodium 20 MG Tablet PO (08:54)
[2023-10-22 10:42] LABS: Anion Gap 8 (5-15); BUN 48 mg/dL (7-18); BUN/Creat Ratio 29.8 RATIO (10-20); Calcium,Total 10.2 mg/dL (8.5-10.1); Chloride 109 mmol/L (98-107); Creatinine, Serum 1.61 mg/dL (0.70-1.30); EST Glomerular Filtration Rate 44 mL/min (>60); Est Glom Filt Rate - Afr Amer 53 mL/min (>60); Estimated Creatinine Clearance 38.16 ml/min; Glucose 144 mg/dL (74-106); Potassium 4.8 mmol/L (3.5-5.1); Sodium Level 140 mmol/L (136-145)
[2023-10-22 14:03] VITALS: BP 146/80; PULSE 86; RESP 16; TEMP 36.6; O2SAT 94
--- NOTE | 2023-10-22 15:55 | CASEMGMT ---
MARTHA sent updates to [facility]. MARTHA also sent an order for home PT/OT for [facility] to arrange at discharge. Plan: d/c back to [facility]. Nida GREENBERG
[2023-10-22] MEDS: Gabapentin 300 MG Capsule PO (21:11)
[2023-10-22] MEDS: 0.9% Saline Lock 10 ML Syringe IV (21:13)
[2023-10-22 21:35] VITALS: BP 152/107; PULSE 70; RESP 18; TEMP 36.7; O2SAT 96
[2023-10-23] VITALS (10 sets, daily range): BP systolic 116–152; BP diastolic 77–92; PULSE 60–76; RESP 16–20; TEMP 36.7–36.8; O2SAT 84–98; BMI 27.1
[2023-10-23 06:56] LABS: Anion Gap 2 (5-15); BUN 51 mg/dL (7-18); BUN/Creat Ratio 37.8 RATIO (10-20); Calcium,Total 9.6 mg/dL (8.5-10.1); Chloride 109 mmol/L (98-107); Creatinine, Serum 1.35 mg/dL (0.70-1.30); EST Glomerular Filtration Rate 54 mL/min (>60); Est Glom Filt Rate - Afr Amer 65 mL/min (>60); Estimated Creatinine Clearance 45.51 ml/min; Glucose 154 mg/dL (74-106); Potassium 5.4 mmol/L (3.5-5.1); Sodium Level 137 mmol/L (136-145)
--- NOTE | 2023-10-23 08:32 | PN.HOSP_ITS ---
Reason for Visit Reason for Visit: Diagnoses Influenza due to other identified influenza virus with other respiratory manife stations (10/18/23) Pneumonia, unspecified organism (10/18/23) Chronic obstructive pulmonary disease with (acute) exacerbation (10/18/23) Acute kidney failure, unspecified (10/18/23) Subjective Subjective Breathing well. Oxygen is been able to wean weaned down to 2 L. Objective Data Objective Data Vital Signs: Vital Signs Temp Pulse Resp BP Pulse Ox O2 Del Method O2 Flow Rate 36.8 C 60 18 142/88 H 98 Nasal Cannula 4 10/23/23 04:30 10/23/23 04:30 10/23/23 04:30 10/23/23 04:30 10/23/23 08:00 10/23/23 08:00 10/23/23 08:00 Oxygen Flow Rate (L/min) [ 3 AMBULATING with Oxygen #3] Oxygen Flow Rate (L/min) [ 2 AMBULATING with Oxygen #2] Oxygen Flow Rate (L/min) [ 1 AMBULATING with Oxygen #1] Oxygen Flow Rate (L/min) 4 Oxygen Delivery Method Nasal Cannula Weight: 90.8 kg Body Mass Index (BMI) 27.1 Intake & Output: Intake and Output for Last 24 Hours 10/21/23 10/22/23 10/23/23 23:59 23:59 23:59 Intake Total 660 / 900 1040 / 1240 400 / 400 Output Total 1150 / 1450 1200 / 1500 800 / 800 Balance -490 / -550 -160 / -260 -400 / -400 Lab / Micro Data 10/20/23 07:25 10/23/23 04:23 Labs: Laboratory Results - last 24 hr 10/22/23 09:30: Sodium 140, Potassium 4.8, Chloride 109 H, Carbon Dioxide 23.0, Anion Gap 8, BUN 48 H, Creatinine 1.61 H, Estim Creat Clear Calc 38.16, Est GFR (MDRD) Af Amer 53 L, Est GFR (MDRD) Non-Af 44 L, BUN/Creatinine Ratio 29.8 H, Glucose 144 H, Calcium 10.2 H 10/23/23 04:23: Sodium 137, Potassium 5.4 H, Chloride 109 H, Carbon Dioxide 26.0, Anion Gap 2 L, BUN 51 H, Creatinine 1.35 H, Estim Creat Clear Calc 45.51, Est GFR (MDRD) Af Amer 65, Est GFR (MDRD) Non-Af 54 L, BUN/Creatinine Ratio 37.8 H, Glucose 154 H, Calcium 9.6 Micro: Microbiology 10/18/23 22:34 Blood Culture (Wb) - Anticubital Right Blood Culture - Preliminary No growth in 48 hours. 10/19/23 01:30 Urine, Clean Catch Legionella Antigen - Final 10/19/23 01:30 Urine, Clean Catch Streptococcus pneumoniae Antigen (M - Final 10/18/23 22:10 Mucosa - Nose SARS-CoV-2, Influenza & RSV (PCR) - Final Influenzae A Physical Exam Const alert and no apparent distress HEENT head/scalp atraumatic and moist oral mucous membranes Resp normal respiratory effort and no retractions Resp Narrative: Bibasilar crackles Cardio regular rate, regular rhythm, S1 normal heart sound and S2 normal heart sound GI normal to inspection, nondistended, normoactive bowel sounds, soft to palpation, non-tender and non-distended Extremity Extremity Narrative: Bilateral pitting lower extremity edema. Neuro Sensorium / Orientation: awake and alert Assessment & Plan Assessment/Plan (1) Influenza A: PLAN: Plan Acute influenza A bronchitis * symptoms began 1 week ago. * CXR reviewed and appear unremarkable * Strep and legionella antigen negative * Blood cultures negative. * COVID-19, RSV negative. * antibiotic dc'd * Will add prednisone burst. Acute HFpEF. * Continue with IV furosemide * echo limited, but EF appears to be around 55% CKD IV * Less likely acute kidney injury as creatinine appears to be more or less stable. * monitor * check urine studies. Hyperkalemia * on potassium AND spironolactone * DC potassium * monitor Chronic conditions: * Essential hypertension - Resume home regimen with stable blood pressure of 110/69 mm Hg. Give IV Hydralazine for systolic blood pressure > 160 mm Hg. * Hyperlipidemia - Continue statin and check lipid profile. * History of atrial fibrillation; on Eliquis - Resume Eliquis as previous. * History of arrhythmia; s/p PPM - Noted. * CLEVE - Continue CPAP. * Coronary artery disease - Stable. * History of psoriatic arthritis - Stable. * GERD - Resume PPI. * Osteoarthritis - Stable. Give Tylenol as needed. apixaban. Eliquis for #7 which will be continued. 10/19: I had ar along conversation with the patient. He was concerned about future medical care. Basically, the patient was concerned that he would be diverted to seeing specialist that are not affiliated with his current specialist that he sees been [facility], particular at the [facility]. Told the patient that patient would follow-up with his specialist as he would normally and reassured him that were not trying to force him into seeing other providers as outpatient. However, I did discuss that if necessary, I would consult the appropriate specialist but that would not compel him to see the specialist as outpatient. He expressed understanding and seem comfortable with that description. 10/20: Had a long car station with the patient and his daughter. Explained current plan of treatment. Patient was rated start going off on varied tangents but his daughter cut him off before he could do so. 10/21: Patient is apprehensive about having oxygen. States that he does not need it because he previously did not need it because his oxygen number was 94% on room air. He feels worthwhile challenging him about the possibility him requiring oxygen when he is discharged. He seems very set in his ways and is not much for compromise. Will continue with diuresis and reevaluate tomorrow. Hopefully he does not require oxygen but I am concerned that he may require it daily short-term. Will continue with the diuresis despite his creatinine bumping up slightly. 10/22: Patient expressed reluctance using senna spirometer as his chest showing off what your numbers are. I told him that that is incorrect and we try to help him better utilize his diaphragm as he is spending most of his days in the hospital sitting around. Advised him to use it so he can take in deep breaths as it would not hurt him but hopefully would help him overall. Took a very firm stance on that and addressing the him directly with that in regards to addressing all his myriad of complaints. We did come to an understanding and will work together in regards to getting him improved to be able to get home so that he may follow-up with his physicians at [facility] which she continues to be focused on. 10/23: Discussed with the patient's sisters today. Explained that we are trying to continue with diuresis to get him to not. They did mention that he does have a CPAP at home. Will try to see if we can get that or utilize something to help him with the CPAP here. Did also apologize for his direct comments that he sometimes makes. Charges/Coding Visit Charges Inpatient E&M: 63837 Subs Hosp L2
[2023-10-23] MEDS: predniSONE 20 MG Tablet 40 MG PO (09:43)
[2023-10-23] MEDS: Spironolactone 25 MG Tablet PO (09:43)
[2023-10-23] MEDS: Magnesium Chloride 64 MG Delay Rel.Tablet 128 MG PO (09:44)
[2023-10-23] MEDS: Cholecalciferol (VIT D3) 25 MCG TABLET (1,000 UNITS) 50 MCG PO (09:44)
[2023-10-23] MEDS: Multivitamins,Therapeutic Tablet 1 TABLET PO (09:45)
[2023-10-23] MEDS: Vitamin B Comp W-C Capsule 1 CAP PO (09:45)
[2023-10-23] MEDS: Pantoprazole Sodium 20 MG Tablet PO (09:46)
[2023-10-23] MEDS: APIXABAN 5 MG TABLET PO ×2 (09:46→21:18)
[2023-10-23 10:21] LABS: D-Dimer Quantitative (DVT/PE) 0.44 FEU/ug/m (0.27-0.49)
--- NOTE | 2023-10-23 12:26 | CASEMGMT ---
Social Work SW met w/pt, confirmed prior level of function, anticipated discharge plan. PCP: Dr. Green Specialists: Dr. Napoles, aircraft instrument tester Insurance: Medicare, [facility]: [facility]domo in [place] Living arrangements/prior level of function: Pt lives with his significant other Niesha, her daughter Adriana, and his daughter Milla. Pt lives in a one story home, independent with most ADLs. He does not drive anymore, family takes him to appts. Pt and Niesha set up medication together. Pt's daughter and Niesha's daughter help with the cooking and cleaning. Pt uses a cane at his baseline. LNOK: Pt has 3 daughters, two in [place] from his first marriage, and Milla from his second marriage. He also has the support of Niesha and Adriana LW/POA: Pt has a general POA, has daughter Milla listed. Pt also has LW on file here. History of HHC/SNF: Pt states someone came out to the house one time to check on him, but other than that no history of home health or SNF. DME: Pt has a cane, shower chair and grab bars. Plan: Pt plans to return home at discharge. No home health indicated, pt does not feel he needs home health at this time. No further needs, pt home at discharge. KVNG Peña
[2023-10-23] MEDS: Gabapentin 300 MG Capsule PO (21:18)
[2023-10-24 04:30] VITALS: BP 158/99; PULSE 60; RESP 18; TEMP 36.7; O2SAT 94
[2023-10-24 05:52] VITALS: BMI 27.0
[2023-10-24 07:34] VITALS: O2SAT 95
--- NOTE | 2023-10-24 07:58 | PN.HOSP_ITS ---
Reason for Visit Reason for Visit: Diagnoses Influenza due to other identified influenza virus with other respiratory manife stations (10/18/23) Pneumonia, unspecified organism (10/18/23) Chronic obstructive pulmonary disease with (acute) exacerbation (10/18/23) Acute kidney failure, unspecified (10/18/23) Subjective Subjective Breathing better. Still with LE edema. Objective Data Objective Data Vital Signs: Vital Signs Temp Pulse Resp BP Pulse Ox O2 Del Method O2 Flow Rate 36.7 C 60 18 158/99 H 95 Nasal Cannula 3 10/24/23 04:30 10/24/23 04:30 10/24/23 04:30 10/24/23 04:30 10/24/23 07:34 10/24/23 07:34 10/24/23 07:34 Oxygen Flow Rate (L/min) [ 3 AMBULATING with Oxygen #3] Oxygen Flow Rate (L/min) [ 2 AMBULATING with Oxygen #2] Oxygen Flow Rate (L/min) [ 1 AMBULATING with Oxygen #1] Oxygen Flow Rate (L/min) 3 Oxygen Delivery Method Nasal Cannula Weight: 90.6 kg Body Mass Index (BMI) 27.0 Intake & Output: Intake and Output for Last 24 Hours 10/22/23 10/23/23 10/24/23 23:59 23:59 23:59 Intake Total 1040 / 1240 900 / 1200 300 / 300 Output Total 1200 / 1500 1400 / 1700 450 / 450 Balance -160 / -260 -500 / -500 -150 / -150 Lab / Micro Data 10/20/23 07:25 10/24/23 08:30 Labs: Laboratory Results - last 24 hr 10/23/23 09:14: D-Dimer Quant (PE/DVT) 0.44 Micro: Microbiology 10/18/23 22:34 Blood Culture (Wb) - Anticubital Right Blood Culture - Final No growth in 5 days. 10/19/23 01:30 Urine, Clean Catch Legionella Antigen - Final 10/19/23 01:30 Urine, Clean Catch Streptococcus pneumoniae Antigen (M - Final 10/18/23 22:10 Mucosa - Nose SARS-CoV-2, Influenza & RSV (PCR) - Final Influenzae A Physical Exam Const alert and no apparent distress HEENT head/scalp atraumatic Resp normal respiratory effort and no retractions Resp Narrative: bibasilar crackles. Cardio regular rate, regular rhythm, S1 normal heart sound and S2 normal heart sound GI normal to inspection, nondistended, normoactive bowel sounds Extremity General Extremity: edema bilateral lower extremity Details: moderate Neuro Sensorium / Orientation: awake and alert Assessment & Plan Assessment/Plan (1) Influenza A: PLAN: Plan Acute influenza A bronchitis * symptoms began 1 week ago. * CXR reviewed and appear unremarkable * Strep and legionella antigen negative * Blood cultures negative. * COVID-19, RSV negative. * antibiotic dc'd * Prednisone burst. Acute HFpEF. * Still volume overloaded, so will continue with IV furosemide * echo limited, but EF appears to be around 55% CKD IV * TAMMY ruled out * Creatinine improved while being on diuretics. Hyperkalemia * ongoing and mild * on potassium AND spironolactone * DC'd potassium 10/23 * monitor. If persists may need to DC spironolactone. Chronic conditions: * Essential hypertension - Resume home regimen with stable blood pressure of 110/69 mm Hg. Give IV Hydralazine for systolic blood pressure > 160 mm Hg. * Hyperlipidemia - Continue statin and check lipid profile. * History of atrial fibrillation; on Eliquis - Resume Eliquis as previous. * History of arrhythmia; s/p PPM - Noted. * CLEVE - Continue CPAP. * Coronary artery disease - Stable. * History of psoriatic arthritis - Stable. * GERD - Resume PPI. * Osteoarthritis - Stable. Give Tylenol as needed. apixaban. Eliquis for #7 which will be continued. VTE prophylaxis: not indicated, pt on apixaban. Disposition: plan is return to [place] with skilled needs when medically ready. 10/19: I had a long conversation with the patient. He was concerned about future medical care. Basically, the patient was concerned that he would be diverted to seeing specialist that are not affiliated with his current specialist that he sees been [facility], particular at the [facility]. Told the patient that patient would follow-up with his specialist as he would normally and reassured him that were not trying to force him into seeing other providers as outpatient. However, I did discuss that if necessary, I would consult the appropriate specialist but that would not compel him to see the specialist as outpatient. He expressed understanding and seem comfortable with that description. 10/20: Had a long car station with the patient and his daughter. Explained current plan of treatment. Patient was rated start going off on varied tangents but his daughter cut him off before he could do so. 10/21: Patient is apprehensive about having oxygen. States that he does not need it because he previously did not need it because his oxygen number was 94% on r oom air. He feels worthwhile challenging him about the possibility him requiring oxygen when he is discharged. He seems very set in his ways and is not much for compromise. Will continue with diuresis and reevaluate tomorrow. Hopefully he does not require oxygen but I am concerned that he may require it daily short-term. Will continue with the diuresis despite his creatinine bumping up slightly. 10/22: Patient expressed reluctance using senna spirometer as his chest showing off what your numbers are. I told him that that is incorrect and we try to help him better utilize his diaphragm as he is spending most of his days in the hospital sitting around. Advised him to use it so he can take in deep breaths as it would not hurt him but hopefully would help him overall. Took a very firm stance on that and addressing the him directly with that in regards to addressing all his myriad of complaints. We did come to an understanding and will work together in regards to getting him improved to be able to get home so that he may follow-up with his physicians at [facility] which she continues to be focused on. 10/23: Discussed with the patient's sisters today. Explained that we are trying to continue with diuresis to get him to not. They did mention that he does have a CPAP at home. Will try to see if we can get that or utilize something to help him with the CPAP here. Did also apologize for his direct comments that he sometimes makes. Charges/Coding Visit Charges Inpatient E&M: 50418 Subs Hosp L2
[2023-10-24 09:19] LABS: Anion Gap 3 (5-15); BUN 47 mg/dL (7-18); BUN/Creat Ratio 35.6 RATIO (10-20); Calcium,Total 9.7 mg/dL (8.5-10.1); Chloride 110 mmol/L (98-107); Creatinine, Serum 1.32 mg/dL (0.70-1.30); EST Glomerular Filtration Rate 55 mL/min (>60); Est Glom Filt Rate - Afr Amer 67 mL/min (>60); Estimated Creatinine Clearance 46.54 ml/min; Glucose 120 mg/dL (74-106); Potassium 5.4 mmol/L (3.5-5.1); Sodium Level 134 mmol/L (136-145)
[2023-10-24 09:31] VITALS: BP 157/109; PULSE 78; RESP 18; TEMP 36.5; O2SAT 95
[2023-10-24] MEDS: Spironolactone 25 MG Tablet PO (09:34)
[2023-10-24] MEDS: Cholecalciferol (VIT D3) 25 MCG TABLET (1,000 UNITS) 50 MCG PO (09:35)
[2023-10-24] MEDS: Vitamin B Comp W-C Capsule 1 CAP PO (09:35)
[2023-10-24] MEDS: APIXABAN 5 MG TABLET PO ×2 (09:36→21:05)
[2023-10-24] MEDS: Multivitamins,Therapeutic Tablet 1 TABLET PO (09:36)
[2023-10-24] MEDS: predniSONE 20 MG Tablet 40 MG PO (09:36)
[2023-10-24] MEDS: Pantoprazole Sodium 20 MG Tablet PO (09:37)
[2023-10-24] MEDS: Magnesium Chloride 64 MG Delay Rel.Tablet 128 MG PO (09:37)
[2023-10-24 15:30] VITALS: BP 148/89; PULSE 75; RESP 18; TEMP 36.6; O2SAT 95
[2023-10-24] MEDS: Albuterol 2.5 MG/3 ML VIAL.NEB. INHALATION (19:19)
[2023-10-24 19:20] VITALS: PULSE 88; RESP 20
[2023-10-24] MEDS: Gabapentin 300 MG Capsule PO (21:05)
[2023-10-24 21:15] VITALS: BP 151/71; PULSE 60; RESP 18; TEMP 36.6; O2SAT 94
[2023-10-25 01:31] VITALS: BMI 26.9
[2023-10-25 04:00] VITALS: BP 137/94; PULSE 60; RESP 18; TEMP 36.4; O2SAT 94
[2023-10-25 06:29] LABS: Anion Gap 3 (5-15); BUN 50 mg/dL (7-18); Calcium,Total 9.8 mg/dL (8.5-10.1); Chloride 107 mmol/L (98-107); Creatinine, Serum 1.39 mg/dL (0.70-1.30); EST Glomerular Filtration Rate 52 mL/min (>60); Est Glom Filt Rate - Afr Amer 63 mL/min (>60); Glucose 138 mg/dL (74-106); Potassium 4.8 mmol/L (3.5-5.1); Sodium Level 136 mmol/L (136-145)
[2023-10-25 09:30] VITALS: BP 150/100; PULSE 75; RESP 18; TEMP 36.6; O2SAT 94
[2023-10-25] MEDS: predniSONE 20 MG Tablet 40 MG PO (09:38)
[2023-10-25] MEDS: Spironolactone 25 MG Tablet PO (09:39)
[2023-10-25] MEDS: Vitamin B Comp W-C Capsule 1 CAP PO (09:39)
[2023-10-25] MEDS: APIXABAN 5 MG TABLET PO ×2 (09:39→21:55)
[2023-10-25] MEDS: Pantoprazole Sodium 20 MG Tablet PO (09:39)
--- NOTE | 2023-10-25 09:39 | CASEMGMT ---
Discharge Planning Updates sent via [facility] to [facility]. Requested confirmation that patient is able to return to [place]. Mona Braun, Discharge Planning Asst.
[2023-10-25] MEDS: Multivitamins,Therapeutic Tablet 1 TABLET PO (09:40)
[2023-10-25] MEDS: Cholecalciferol (VIT D3) 25 MCG TABLET (1,000 UNITS) 50 MCG PO (09:40)
[2023-10-25] MEDS: Magnesium Chloride 64 MG Delay Rel.Tablet 128 MG PO (09:40)
--- NOTE | 2023-10-25 10:35 | CASEMGMT ---
SW spoke with patient's daughters and patient per daughters request. Patient's daughters expressed concern with patient returning to [place] at his current level. Both patient's daughters feel patient needs rehab before he returns to [place]. SW offered a list of SNF's, but they asked SW to send a referral to [facility]. SW let them know SW will send out this referral. SW sent a referral to [facility] via [facility]. Await response. Nida GREENBERG
--- NOTE | 2023-10-25 11:27 | CASEMGMT ---
[facility]. SW asked that they start the pre-cert with insurance. SW will notify patient and his daughters. Plan: d/c to [facility] pending insurance approval. Nida GREENBERG
--- NOTE | 2023-10-25 11:44 | CASEMGMT ---
SW called patient's daughter Jyothi and let her know [facility] can take patient at discharge pending his insurance approving. Jyothi was frustrated with patient as he is fighting going somewhere for rehab. MARTHA agreed patient going somewhere for rehab before returning to [place] is a reasonable plan. Plan: d/c to [facility] pending insurance approval. Nida Nogueira CARBON COATING MACHINE OPERATOR DIONICIO
--- NOTE | 2023-10-25 13:36 | CASEMGMT ---
MARTHA received a call from Jayna at [facility]. Jayna stated patient can return when ready, however O2 would need to be set up prior to his return. MARTHA verbalized understanding. MARTHA also let Jayna know that patient's daughter's are concerned about patient returning to [facility] right away as he is weak. At this time [facility] is willing to take patient and if he is agreeable he will go there at d/c. MARTHA will let them know. Plan: [facility] pending insurance approval and patient being agreeable vs back to [facility]. Nida Nogueira BANDING MACHINE OPERATOR DIONICIO
--- NOTE | 2023-10-25 14:34 | PN_ITS ---
Subjective Subjective Patient seen and examined. He complained of feeling miserable because he had been in the hospital so long. He denied any fever, cough, chest pain, shortness of breath, palpitations, dizziness, nausea, vomiting or any other symptoms. Review of systems is otherwise negative. Objective Data Objective Data Vital Signs: Vital Signs Temp Pulse Resp BP Pulse Ox O2 Del Method O2 Flow Rate 97.8 F 75 18 150/100 H 94 Nasal Cannula 3 10/25/23 09:30 10/25/23 09:30 10/25/23 09:30 10/25/23 09:30 10/25/23 09:30 10/25/23 13:15 10/25/23 13:15 Oxygen Flow Rate (L/min) [ 3 AMBULATING with Oxygen #3] Oxygen Flow Rate (L/min) [ 2 AMBULATING with Oxygen #2] Oxygen Flow Rate (L/min) [ 1 AMBULATING with Oxygen #1] Oxygen Flow Rate (L/min) 3 Oxygen Delivery Method Nasal Cannula Weight: 198 lb 10.184 oz Body Mass Index (BMI) 26.9 Intake & Output: Intake and Output for Last 24 Hours 10/23/23 10/24/23 10/25/23 23:59 23:59 23:59 Intake Total 900 / 1200 300 / 600 900 / 900 Output Total 1400 / 1700 450 / 450 1150 / 1150 Balance -500 / -500 -150 / 150 -250 / -250 Lab / Micro Data 10/20/23 07:25 10/25/23 05:30 Labs: Laboratory Results - last 24 hr 10/25/23 05:30: Sodium 136, Potassium 4.8, Chloride 107, Carbon Dioxide 26.0, Anion Gap 3 L, BUN 50 H, Creatinine 1.39 H, Estim Creat Clear Calc 44.20, Est GFR (MDRD) Af Amer 63, Est GFR (MDRD) Non-Af 52 L, BUN/Creatinine Ratio 36.0 H, Glucose 138 H, Calcium 9.8 Micro: Microbiology 10/18/23 22:34 Blood Culture (Wb) - Anticubital Right Blood Culture - Final No growth in 5 days. 10/19/23 01:30 Urine, Clean Catch Legionella Antigen - Final 10/19/23 01:30 Urine, Clean Catch Streptococcus pneumoniae Antigen (M - Final 10/18/23 22:10 Mucosa - Nose SARS-CoV-2, Influenza & RSV (PCR) - Final Influenzae A Physical Exam Const alert, oriented x3 and no apparent distress General Appearance: cooperative and well developed HEENT normocephalic, head/scalp atraumatic, moist oral mucous membranes and oropharynx normal Eyes PERRL and EOMs intact bilaterally Neck no lymphadenopathy and supple Lymph Lymphatic: no lymphadenopathy noted and no lymphedema noted Resp Resp Narrative: mildly diminished breath sounds bibasally, no wheezes or crackles. On 3L of oxygen by nasal canula Cardio regular rate, regular rhythm, S1 normal heart sound, S2 normal heart sound and no murmurs GI normal to inspection, nondistended, normoactive bowel sounds, soft to palpation, non-tender and non-distended Extremity normal capillary refill, no clubbing, cyanosis or edema and no calf tenderness General Extremity: no tenderness to palpation of joints or extremities Skin General Skin Exam: no breakdown Neuro CN's II-XII intact bilaterally, no focal motor deficits and no sensory deficits noted Motor Exam: strength 5/5 throughout and general weakness Psych thought process normal Attitude: agitated Assessment & Plan Assessment/Plan (1) COPD with acute exacerbation: (2) Pneumonia: QUALIFIERS: Pneumonia type: due to unspecified organism Laterality: right Lung location: lower lobe of lung Qualified Code(s): J18.9 - Pneumonia, unspecified organism (3) Influenza A: (4) TAMMY (acute kidney injury): PLAN: Plan Hypoxia due to acute bronchitis and acute on chronic HFpEF * In the setting of influenza A infection. On prednisone. Strep and Legionella antigens negative. * Breathing treatments bronchodilators. Currently on 3 L of oxygen. Titrate oxygen to maintain saturation above 90%. * Also being diuresed due to concerns about acute on chronic heart failure preserved ejection fraction. * 2D echo showed EF of 55%. * on spironolactone * #CKD stage IV: Creatinine stable. Will monitor. Cr is 1.39. #Hyperkalemia: Resolved. #Benign essential hypertension: on spironolactone #Hyperlipidemia: On statin #History of A-fib: On Eliquis and metoprolol #History of sinus arrhythmia: S/p pacemaker. Stable. #History of CLEVE: On CPAP nightly. #History of cirrhotic arthritis and osteoarthritis: Stable. #GERD: PPI DVT prophylaxis: On Eliquis Disposition: Awaiting placement. Charges/Coding Visit Charges Inpatient E&M: 90974 Subs Hosp L2
[2023-10-25 15:56] VITALS: BP 135/82; PULSE 64; RESP 18; TEMP 36.6; O2SAT 95
[2023-10-25] MEDS: Albuterol 2.5 MG/3 ML VIAL.NEB. INHALATION (19:57)
[2023-10-25 20:00] VITALS: PULSE 70; RESP 20; O2SAT 95
[2023-10-25] MEDS: Gabapentin 300 MG Capsule PO (21:16)
[2023-10-25] MEDS: Menthol/Lanolin/Calamine/Znox 113 GM Tube 1 APPLIC TOPICAL (21:16)
[2023-10-25 21:55] VITALS: BP 140/82; PULSE 60; RESP 18; TEMP 36.6; O2SAT 95
[2023-10-26 03:00] VITALS: BP 128/80; PULSE 65; RESP 17; TEMP 36.6; O2SAT 99
[2023-10-26 05:51] LABS: Absolute Neutrophil Count 12.9 X10^3/uL (2.0-7.7); Basophil# 0.01 X10^3/uL; Basophil% 0.1 % (0-1); Eosinophil# 0.03 X10^3/uL; Eosinophils% 0.2 % (0-5); Hematocrit 50.6 % (40-54); Hemoglobin 16.3 g/dL (13.0-16.5); Lymphocyte % 5.9 % (19-41); Mean Corp Hgb Conc 32.2 g/dL (32-36); Mean Corpuscular Hgb 29.2 pg (27.0-32.0); Mean Corpuscular Volume 90.5 fL (80-94); Mean Platelet Vol. 10.5 fl (6.2-12.0); Monocyte# 0.65 X10^3/uL; Monocyte% 4.3 % (0-10); NRBC Flagged by Analyzer 0 % (0-5); Neutrophil # 12.85 X10^3/uL (2.7-7.7); Neutrophil % 84.6 % (47-70); POSITIVE MORPHOLOGY YES; Platelet Count 157 K/mm3 (150-450); RBC Distribution Width SD 57.4 fl (35.1-43.9); Red Blood Count 5.59 M/mm3 (4.6-6.2); White Blood Count 15.2 K/mm3 (4.4-11.0)
[2023-10-26 05:55] LABS: Differential Indicated SCAN CRITERIA MET
[2023-10-26 06:22] LABS: Anion Gap 4 (5-15); BUN 45 mg/dL (7-18); BUN/Creat Ratio 37.2 RATIO (10-20); Chloride 107 mmol/L (98-107); Creatinine, Serum 1.21 mg/dL (0.70-1.30); EST Glomerular Filtration Rate 61 mL/min (>60); Est Glom Filt Rate - Afr Amer 74 mL/min (>60); Estimated Creatinine Clearance 50.77 ml/min; Glucose 132 mg/dL (74-106); Potassium 4.7 mmol/L (3.5-5.1); Sodium Level 137 mmol/L (136-145)
[2023-10-26 07:34] VITALS: BP 143/86; PULSE 66; RESP 18; TEMP 36.5; O2SAT 98
[2023-10-26] MEDS: APIXABAN 5 MG TABLET PO ×2 (07:50→21:22)
[2023-10-26] MEDS: Spironolactone 25 MG Tablet PO (07:53)
[2023-10-26] MEDS: Vitamin B Comp W-C Capsule 1 CAP PO (07:53)
[2023-10-26] MEDS: Multivitamins,Therapeutic Tablet 1 TABLET PO (07:53)
[2023-10-26] MEDS: Pantoprazole Sodium 20 MG Tablet PO (07:53)
[2023-10-26] MEDS: Cholecalciferol (VIT D3) 25 MCG TABLET (1,000 UNITS) 50 MCG PO (07:54)
[2023-10-26] MEDS: predniSONE 20 MG Tablet 40 MG PO (07:54)
[2023-10-26] MEDS: Magnesium Chloride 64 MG Delay Rel.Tablet 128 MG PO (07:54)
[2023-10-26] MEDS: Menthol/Lanolin/Calamine/Znox 113 GM Tube 1 APPLIC TOPICAL ×2 (07:55→21:23)
[2023-10-26 08:11] VITALS: O2SAT 94
--- NOTE | 2023-10-26 10:31 | CASEMGMT ---
Patient was approved to go to [facility]. SW called patient's daughter, Jyothi and left her a voice mail letting her know patient was approved for [facility]. SW asked for a return call. SW met with patient. Re-introduced self in case patient did not remember SW. Patient repeatedly said that all he wants and has wanted since day 1 is for the hospital physician to get him to the point where he is safe enough to go from [facility] right to his doctors in [place]. SW explained to patient that his daughters talked with him about going to [facility] for rehab. Patient said that is not what he wants. Patient said no one is listening and he wants to be discharged when he is safe to go to his doctors in [place]. SW told that unfortunately his idea of safe and the hospital staff's idea of safe are two totally different things. Right now it is felt he needs rehab before returning to [place]. Patient has an appt with his doctor in [place] on Wednesday. SW asked patient if he is able to get in and out of a car. Patient said he has Medicare and it will pay for private transport to get him to the appt and if not he will pay for it. Patient continues to not be agreeable to going to [facility] for Rehab. At this point it seems the only plan patient may be agreeable to is to discharge tomorrow and go right to his appt in [place]. SW will wait to hear back from patient's daughter. Nida GREENBERG
--- NOTE | 2023-10-26 11:41 | CASEMGMT ---
MARTHA received a call from patient's daughter Jyothi. Jyothi said she has talked with patient and he is set against going anywhere for rehab. Jyothi is very frustrated with patient's stubbornness. MARTHA explained [facility] is willing to take patient back, but it is going to cost him more money. MARTHA told Jyothi that MARTHA will send updates to [facility] and make sure they are comfortable with taking patient back. MARTHA told Jyothi that MARTHA could set up transport to go to his appt in [place] tomorrow, but MARTHA would not be able to arrange transport back home. Jyothi said she is going to call patient's Atomic Process Engineer to see if they even want to see him tomorrow still. Jyothi will call MARTHA back. MARTHA will send updates to [facility]. Nida GREENBERG
--- NOTE | 2023-10-26 13:58 | CASEMGMT ---
MARTHA sent updated PT/OT to [facility]. MARTHA called [facility] and asked to talk with Jayna, the giant tire repairer. Jayna was not available. MARTHA asked if [facility] arranges transportation to out of town appointments? They do have transportation or family will transport patients. Nida Nogueira MULTIFOCAL LENS ASSEMBLER DIONICIO
--- NOTE | 2023-10-26 14:08 | CASEMGMT ---
Patient has been talking about his Crew Manager in [place] and a Heart Failure Clinic in [place]. SW did find the Heart Failure Clinic. SW called and left a message requesting a return call. Nida GREENBERG
--- NOTE | 2023-10-26 14:26 | CASEMGMT ---
The Nurse Practitioner from the [facility] called SW back. She knew SW was talking about patient. They had an issue with patient recently where he just showed up and expected to be seen. Patient was yelling and causing a scene. Patient was informed they are not a walk in clinic and he must have an appt to be seen. They like to see patient's within a week of d/c from the hospital. MARTHA made an appt for patient for 11-03 at 11a. This was the next available appt. Patient's daughter had told MARTHA that patient has an appt Wed in [place]. Patient's daughter said she was going to call patient's Cardiologists office today. MARTHA will wait to see what she finds out. Nida GREENBERG
--- NOTE | 2023-10-26 14:31 | PN_ITS ---
Subjective Subjective Patient seen and examined. He had no active complaints. Review of systems is otherwise negative. He is awaiting placement. He is on 3L of oxygen. Objective Data Objective Data Vital Signs: Vital Signs Temp Pulse Resp BP Pulse Ox O2 Del Method O2 Flow Rate 97.7 F L 66 18 143/86 H 94 Nasal Cannula 3 10/26/23 07:34 10/26/23 07:34 10/26/23 07:34 10/26/23 07:34 10/26/23 08:11 10/26/23 08:11 10/26/23 08:11 Oxygen Flow Rate (L/min) [ 3 AMBULATING with Oxygen #3] Oxygen Flow Rate (L/min) [ 2 AMBULATING with Oxygen #2] Oxygen Flow Rate (L/min) [ 1 AMBULATING with Oxygen #1] Oxygen Flow Rate (L/min) 3 Oxygen Delivery Method Nasal Cannula Weight: 198 lb 10.184 oz Body Mass Index (BMI) 26.9 Intake & Output: Intake and Output for Last 24 Hours 10/24/23 10/25/23 10/26/23 23:59 23:59 23:59 Intake Total 300 / 600 1300 / 1300 520 / 520 Output Total 450 / 450 1150 / 1450 1400 / 1400 Balance -150 / 150 150 / -150 -880 / -880 Lab / Micro Data 10/26/23 05:43 10/26/23 05:43 Labs: Laboratory Results - last 24 hr 10/26/23 05:43: WBC 15.2 H, RBC 5.59, Hgb 16.3, Hct 50.6, MCV 90.5, MCH 29.2, MCHC 32.2, RDW Std Deviation 57.4 H, RDW Coeff of Natalia 18.0 H, Plt Count 157, MPV 10.5, Immature Gran % (Auto) 4.900 H, Neut % (Auto) 84.6 H, Lymph % (Auto) 5.9 L , [place] % (Auto) 4.3, Eos % (Auto) 0.2, Baso % (Auto) 0.1, Absolute Neuts (auto) 12.9 H, Absolute Lymphs (auto) 0.90, Nucleated RBC % 0, Sodium 137, Potassium 4.7, Chloride 107, Carbon Dioxide 26.0, Anion Gap 4 L, BUN 45 H, Creatinine 1.21, Estim Creat Clear Calc 50.77, Est GFR (MDRD) Af Amer 74, Est GFR (MDRD) Non-Af 61, BUN/Creatinine Ratio 37.2 H, Glucose 132 H, Calcium 9.0 Micro: Microbiology 10/18/23 22:34 Blood Culture (Wb) - Anticubital Right Blood Culture - Final No growth in 5 days. 10/19/23 01:30 Urine, Clean Catch Legionella Antigen - Final 10/19/23 01:30 Urine, Clean Catch Streptococcus pneumoniae Antigen (M - Final 10/18/23 22:10 Mucosa - Nose SARS-CoV-2, Influenza & RSV (PCR) - Final Influenzae A Physical Exam Const alert, oriented x3 and no apparent distress General Appearance: cooperative and well developed HEENT normocephalic, head/scalp atraumatic, hearing grossly normal bilaterally, moist oral mucous membranes and oropharynx normal Eyes PERRL and EOMs intact bilaterally Neck no lymphadenopathy and supple Lymph Lymphatic: no lymphadenopathy noted and no lymphedema noted Resp normal respiratory effort Resp Narrative: mildly diminished breath sounds bibasally, no wheezes or crackles. On 3L of oxygen by nasal canula Cardio regular rate, regular rhythm, S1 normal heart sound, S2 normal heart sound and no murmurs GI normal to inspection, nondistended, normoactive bowel sounds, soft to palpation, non-tender and non-distended Extremity full ROM, normal capillary refill and no calf tenderness Extremity Narrative: Bilateral pitting lower extremity edema. General Extremity: edema bilateral lower extremity Details: moderate and no tenderness to palpation of joints or extremities Skin General Skin Exam: no breakdown Neuro oriented x3, CN's II-XII intact bilaterally, moves all extremities, no focal motor deficits and no sensory deficits noted Neuro Narrative: Patient is hard of hearing. Sensorium / Orientation: awake, alert, oriented to person, oriented to place and oriented to time Speech: speech normal Motor Exam: strength 5/5 throughout and general weakness Psych thought process normal and affect normal Attitude: agitated Assessment & Plan Assessment/Plan (1) COPD with acute exacerbation: (2) Pneumonia: QUALIFIERS: Pneumonia type: due to unspecified organism Laterality: right Lung location: lower lobe of lung Qualified Code(s): J18.9 - Pneumonia, unspecified organism (3) Influenza A: (4) TAMMY (acute kidney injury): PLAN: Plan Hypoxia due to acute bronchitis and acute on chronic HFpEF * In the setting of influenza A infection. On prednisone. Strep and Legionella antigens negative. * Breathing treatments bronchodilators. Currently on 3 L of oxygen. Titrate oxygen to maintain saturation above 90%. * Also being diuresed due to concerns about acute on chronic heart failure pr eserved ejection fraction. * 2D echo showed EF of 55%. * on spironolactone * #CKD stage IV: Creatinine stable. Will monitor. Cr is 1.21. Renal USG showed bilateral renal cysts and bilateral renal cortical thinning. #Hyperkalemia: Resolved. #Benign essential hypertension: on spironolactone #Hyperlipidemia: On statin #History of A-fib: On Eliquis and metoprolol #History of sinus arrhythmia: S/p pacemaker. Stable. #History of CLEVE: On CPAP nightly. #History of cirrhotic arthritis and osteoarthritis: Stable. #GERD: PPI DVT prophylaxis: On Eliquis Disposition: Awaiting placement. Charges/Coding Visit Charges Inpatient E&M: 10993 Subs Hosp L2
--- NOTE | 2023-10-26 15:03 | CASEMGMT ---
SW met with patient her his request. SW introduced self again. SW asked patient why he had requested SW. Patient said he requested the church musician. SW told patient that is SW. Patient told SW he is very unhappy about the situation. SW told patient SW, physician, and the staff working with patient here are aware of his situation and what he wants. Patient said no one is listening to him. SW asked patient why he thinks no one is not listening to him. Patient said he only wants to go to [place] at discharge, not [place], not rehab. SW told patient that therapy is recommending he get rehab, but if he does not want to go then [facility] cannot make him go so that can be taken off the table. Patient asked why rehab was even brought up when he said he wants to go to [place] from the hospital. SW told patient again it was brought up because that is what is being recommended. However, if he is not agreeable then [facility] cannot make him go. SW told patient that SW called [facility] and they asked that he not show up without an appt as they will not be able to see him. Patient said he was told previously that all the paperwork is completed and he can just show up if he needs seen. SW told him that is not what [facility] is telling SW. They said he must have an appt to be seen. Patient just laughed. Patient said he wants to be discharged when he can safely get to [place] at discharge. SW asked patient what he means by safely. Patient said he won't pass out on the way there. Patient asked where he is being discharged to. SW told patient that he will be discharged back to [place] since he does not want to go to rehab and if he goes to [place] after he is discharged that is his choice. MARTHA received a call from patient's daughter Jyothi. Jyothi said she rescheduled patient's Activity Leader appt for 11-02 at 10:20a. Jyothi is trying to get the doctor's office to call patient and tell him to either go to Rehab or [place] and they will see him next week. MARTHA has not canceled anything with [facility] in the event patient changes his mind. At this time it seems like the plan will be discharge back to [place] with O2 arranged by DASHAWN BRANCH and an order for PT/OT. Patient will follow up with [facility] and his Activity Leader next week when he has appointments. Nida GREENBERG
[2023-10-26 15:34] VITALS: BP 138/99; PULSE 75; RESP 18; TEMP 36.6; O2SAT 97
[2023-10-26 16:12] VITALS: PULSE 77; RESP 19
[2023-10-26] MEDS: Albuterol 2.5 MG/3 ML VIAL.NEB. INHALATION (16:13)
[2023-10-26] MEDS: Furosemide 40 MG Tablet PO (20:41)
[2023-10-26 21:00] VITALS: BP 138/99; PULSE 75; RESP 18; TEMP 36.6; O2SAT 97
[2023-10-26] MEDS: Gabapentin 300 MG Capsule PO (21:22)
[2023-10-27 02:29] VITALS: BMI 27.3
[2023-10-27 06:45] LABS: Hematocrit 53.7 % (40-54); Hemoglobin 17.3 g/dL (13.0-16.5); Mean Corp Hgb Conc 32.2 g/dL (32-36); Mean Corpuscular Hgb 28.9 pg (27.0-32.0); Mean Corpuscular Volume 89.6 fL (80-94); POSITIVE COUNT YES; POSITIVE MORPHOLOGY YES; Platelet Count 192 K/mm3 (150-450); RBC Distribution Width CV 18.6 % (11.6-14.6); RBC Distribution Width SD 57.7 fl (35.1-43.9); Red Blood Count 5.99 M/mm3 (4.6-6.2); White Blood Count 17.8 K/mm3 (4.4-11.0)
[2023-10-27 07:05] LABS: Anion Gap 4 (5-15); BUN 42 mg/dL (7-18); BUN/Creat Ratio 32.6 RATIO (10-20); Calcium,Total 9.6 mg/dL (8.5-10.1); Chloride 106 mmol/L (98-107); Creatinine, Serum 1.29 mg/dL (0.70-1.30); EST Glomerular Filtration Rate 57 mL/min (>60); Est Glom Filt Rate - Afr Amer 68 mL/min (>60); Estimated Creatinine Clearance 47.62 ml/min; Glucose 125 mg/dL (74-106); Potassium 4.6 mmol/L (3.5-5.1); Sodium Level 135 mmol/L (136-145)
[2023-10-27 08:07] VITALS: BMI 32.6
[2023-10-27 08:07] LABS: Lymphocyte 10 % (19-41); Monocyte 7 % (0-10); Neutrophil-Segmented 80 % (47-70); Promyelocyte 3 % (0-0); Total Cells Counted 100 (MANUAL DIFF)
[2023-10-27 08:10] LABS: Reactive Lymphocyte 2+; Red Cell Morphology NORM C+C NORMAL (NORM C&C)
[2023-10-27 08:11] LABS: Platelet Estimate ADEQUATE (ADEQ)
[2023-10-27 08:14] LABS: Scan Smear per Review Criteria MANUAL DIFF
[2023-10-27 08:15] LABS: Differential Indicated MANUAL DIFF
[2023-10-27 08:16] LABS: Absolute Neutrophil Count 14.2 X10^3/uL (2.0-7.7)
[2023-10-27 08:17] LABS: Absolute Lymphocyte Count 1.76 X10^3/uL (0.83-4.51)
[2023-10-27 09:30] VITALS: O2SAT 97
[2023-10-27] MEDS: Furosemide 40 MG Tablet PO (09:40)
[2023-10-27] MEDS: Vitamin B Comp W-C Capsule 1 CAP PO (09:40)
[2023-10-27] MEDS: Spironolactone 25 MG Tablet PO (09:40)
[2023-10-27] MEDS: APIXABAN 5 MG TABLET PO (09:40)
[2023-10-27] MEDS: Cholecalciferol (VIT D3) 25 MCG TABLET (1,000 UNITS) 50 MCG PO (09:41)
[2023-10-27] MEDS: Magnesium Chloride 64 MG Delay Rel.Tablet 128 MG PO (09:41)
[2023-10-27] MEDS: Multivitamins,Therapeutic Tablet 1 TABLET PO (09:41)
[2023-10-27] MEDS: Pantoprazole Sodium 20 MG Tablet PO (09:41)
[2023-10-27] MEDS: Menthol/Lanolin/Calamine/Znox 113 GM Tube 1 APPLIC TOPICAL (09:43)
[2023-10-27 09:44] VITALS: BP 143/68; PULSE 85; RESP 18; TEMP 36.6; O2SAT 95
--- NOTE | 2023-10-27 09:59 | CASEMGMT ---
Patient is ready for discharge back to [facility] [place]. SW will include and order for home PT/OT. Plan: d/c back to [facility] living. Transport will need to be arranged as patient's family is not able to assist patient in and out of a vehicle. Nida Nogueira RESAWYER DIONICIO
--- NOTE | 2023-10-27 10:10 | CASEMGMT ---
Discharge Planning [facility] updated via [facility] that patient has decided to return to [place]. [facility] updated that patient will return today. Mona Braun, Discharge Planning Asst.
[2023-10-27] MEDS: Albuterol 2.5 MG/3 ML VIAL.NEB. INHALATION (11:11)
--- NOTE | 2023-10-27 11:13 | DCINST_ITS ---
Discharge Instructions Diet Discharge Diet: Low fat / Low cholesterol Activity Discharge Activity: Return to Normal Activity Weight Bearing Status: Weight bearing as tolerated Dressing / Incision Call your doctor if you observe: Fever of 101 or Higher, Shortness of breath, Dizziness, Swelling in the ankles and Chest pain Follow Up Care Test Results: Test results from this visit will be discussed in further detail at your follow- up appointment, if applicable. Discharge Plan Admission Admit Date/Time: 10/18/23 23:51 Primary Reason for Your Visit: influenza, pneumonia Attending Provider: Alannah Morris Primary Care Provider: Genevieve Acosta Consulting Providers: Leandro Lester; Todd Umana Instructions Patient Instructions: Coping with Heart Failure Discharge Orders/Prescriptions Prescriptions: Continued multivitamin Tablet 1 tab PO DAILY acetaminophen 500 mg Tablet 1,000 mg PO BID PRN Patient Comments: 500 mg 2x (am), 2x (mid-day) and 2x (pm) daily gabapentin 300 mg Capsule 300 mg PO QHS vitamin B complex [B Complex-Vitamin B12] Tablet 1 tab PO DAILY omeprazole 20 mg Tablet,Delayed Release (Dr/Ec) 20 mg PO DAILY Eliquis 5 mg Tablet 5 mg PO BID cholecalciferol (vitamin D3) 50 mcg (2,000 unit) Tablet,Chewable 50 mcg PO DAILY furosemide 40 mg tablet 40 mg PO DAILY spironolactone 25 mg Tablet 25 mg PO DAILY@0800 30 Days Qty: 30 0RF triamcinolone acetonide 0.1 % cream 1 applic topical PRN Centrum 18-400 mg-mcg tablet 1 tab PO DAILY vitamin V34-ltxqi acid 1 tab PO DAILY Patient Comments: 500 mg tablet omeprazole 20 mg capsule,delayed release(DR/EC) 20 mg PO DAILY Discontinued prednisone 5 mg Tablet 5 mg PO DAILY Referrals / Follow Up: [facility], [facility] [Other] - 11/03/23 11:00 am Genevieve Acosta DO [Primary Care Provider] - Within 1 Week Disposition Disposition (needs filled in before D/C Order can be placed): NonSkilled NH/Intermed Care
--- NOTE | 2023-10-27 11:13 | DS.PCM_ITS ---
Providers Date of Admission: 10/18/23 Date of Discharge: 10/27/23 Primary Care Physician: Dr. Genevieve Acosta, DO Reason For Visit: INFLUENZA A, RLL PNA AND AE CHF Diagnosis Discharge Diagnosis (1) COPD with acute exacerbation: Status: Chronic Code(s): J44.1 - Chronic obstructive pulmonary disease with (acute) exacerbation (2) Pneumonia: Status: Acute Code(s): J18.9 - Pneumonia, unspecified organism Qualifiers: Laterality: right Lung location: lower lobe of lung Pneumonia type: due to unspecified organism Qualified Code(s): J18.9 - Pneumonia, unspecified organism (3) Influenza A: Status: Acute Code(s): J10.1 - Influenza due to other identified influenza virus with other respiratory manifestations (4) TAMMY (acute kidney injury): Status: Acute Code(s): N17.9 - Acute kidney failure, unspecified Plan Hypoxia due to acute bronchitis and acute on chronic HFpEF * In the setting of influenza A infection. On prednisone. Strep and Legionella antigens negative. * Breathing treatments bronchodilators. Currently on 3 L of oxygen. Titrate oxygen to maintain saturation above 90%. * Also being diuresed due to concerns about acute on chronic heart failure preserved ejection fraction. * 2D echo showed EF of 55%. * on spironolactone * #CKD stage IV: Creatinine stable. Will monitor. Cr is 1.21. Renal USG showed bilateral renal cysts and bilateral renal cortical thinning. #Hyperkalemia: Resolved. #Benign essential hypertension: on spironolactone #Hyperlipidemia: On statin #History of A-fib: On Eliquis and metoprolol #History of sinus arrhythmia: S/p pacemaker. Stable. #History of CLEVE: On CPAP nightly. #History of cirrhotic arthritis and osteoarthritis: Stable. #GERD: PPI DVT prophylaxis: On Eliquis Disposition: Awaiting placement. Medications at Discharge Home Medications acetaminophen 500 mg tablet 1,000 mg PO BID PRN pain 02/03/23 apixaban 5 mg tablet (Eliquis) 5 mg PO BID Blood Thinner 02/03/23 cholecalciferol (vitamin D3) 50 mcg (2,000 unit) chewable tablet 50 mcg PO DAILY Supplement 02/03/23 gabapentin 300 mg capsule 300 mg PO QHS Pain 02/03/23 multivitamin 1 tab PO DAILY Supplement 02/03/23 omeprazole 20 mg tablet,delayed release 20 mg PO DAILY GERD 02/03/23 vitamin B complex (B Complex-Vitamin B12 tablet) 1 tab PO DAILY Supplement 02/03/23 furosemide 40 mg tablet 40 mg PO DAILY Edema 02/16/23 spironolactone 25 mg tablet 25 mg PO DAILY@0800 DIURETIC 30 days #30 tabs triamcinolone acetonide 0.1 % topical cream 1 applic topical PRN HYPERTROPIC LICHEN PLANUS 10/18/23 multivitamin-ferrous fumarate-folic acid 18 mg-400 mcg tablet (Centrum) 1 tab PO DAILY general health 10/19/23 vitamin U72-olcve acid 1 tab PO DAILY general 10/19/23 Hospital Course Operations None Procedures None Summary of Care Provided Minutes Spent on Discharge: 55 Hospital Course: Patient is an 83-year-old male with an extensive past medical history as outlined was done today through the ED on 10/18/2023 with a complaint of shortness of breath and cough which started about a week prior to admission. It gradually worsened. Cough was productive of dark and light-colored phlegm frequently. He had gone to the CHF clinic admitted and at [place] but was not seen because he did not have an appointment. His symptoms persisted so he came into the ED. He was noted to be positive for influenza A in the ED and chest x-ray was concerning for suspected right lower lobe infiltrate. WBC was elevated at 16.3 and lactic acid was also elevated. proBNP was also elevated at 1687. He was therefore admitted and managed for acute exacerbation of heart failure preserved ejection fraction as well as influenza A infection and probable pneumonia. Creatinine was also elevated and so he was treated for TAMMY in the setting of CKD stage III which was thought to be due to urinary obstruction. He had a Erickson catheter inserted. His shortness of breath resolved and he was weaned down to his baseline oxygen. Patient's hospital course was prolonged due to placement issues. Patient refused to go to a chcf facility to a rehab facility despite being skilled as needed and despite therapy. He was under the impression that he could just walk into his CHF clinic and [facility] without an appointment and had to be counseled strongly about this. Patient's daughter was also apprised about the plan of care. Patient was eventually agreeable to going back to his assisted living facility though he was counseled that he needed a higher level of care but still adamantly refused. He was discharged to assisted living facility [facility] on 10/27/2023. Patient seen and examined prior to discharge. He had no active complaints. Review of systems otherwise negative. Labs and vitals reviewed. Medication reviewed and reconciled. Physical Exam Const alert, oriented x3 and no apparent distress General Appearance: cooperative and well developed HEENT normocephalic, head/scalp atraumatic, hearing grossly normal bilaterally, moist oral mucous membranes and oropharynx normal Mouth: oral and palatal mucosa normal Eyes PERRL and EOMs intact bilaterally Neck no lymphadenopathy and supple Lymph Lymphatic: no lymphadenopathy noted and no lymphedema noted Resp normal respiratory effort and no retractions Resp Narrative: mildly diminished breath sounds bibasally, no wheezes or crackles. On 3L of oxygen by nasal canula Cardio regular rate, regular rhythm, S1 normal heart sound, S2 normal heart sound and no murmurs GI normal to inspection, nondistended, normoactive bowel sounds, soft to palpation, non-tender and non-distended Extremity full ROM, normal capillary refill, no clubbing, cyanosis or edema and no calf tenderness Extremity Narrative: Bilateral pitting lower extremity edema. General Extremity: edema bilateral lower extremity Details: moderate and no tenderness to palpation of joints or extremities Skin no rashes or lesions noted General Skin Exam: no breakdown Neuro oriented x3, CN's II-XII intact bilaterally, moves all extremities, no focal motor deficits and no sensory deficits noted Neuro Narrative: Patient is hard of hearing. Sensorium / Orientation: awake, alert, oriented to person, oriented to place and oriented to time Speech: speech normal Motor Exam: strength 5/5 throughout and general weakness Psych thought process normal and affect normal Attitude: agitated Weight / BMI Weight Weight: 240 lb 11.916 oz Body Mass Index (BMI) 32.6 ABG / Lab / Microbiology Data 10/27/23 06:15 10/27/23 06:15 Laboratory: Laboratory Results - last 24 hr 10/27/23 06:15: WBC 17.8 H, RBC 5.99, Hgb 17.3 H, Hct 53.7, MCV 89.6, MCH 28.9, MCHC 32.2, RDW Std Deviation 57.7 H, RDW Coeff of Natalia 18.6 H, Plt Count 192, MPV 11.0, Immature Gran % (Auto) STABILIZER OPERATOR, Neut % (Auto) STABILIZER OPERATOR, Lymph % (Auto) STABILIZER OPERATOR, [place] % (Auto) STABILIZER OPERATOR, Eos % (Auto) STABILIZER OPERATOR, Baso % (Auto) STABILIZER OPERATOR, Absolute Neuts (auto) 14.2 H, Absolute Lymphs (auto) 1.76, Total Counted 100, Neutrophils % (Manual) 80 H, Lymphocytes % (Manual) 10 L, Monocytes % (Manual) 7, Promyelocytes % 3 H, Nucleated RBC % STABILIZER OPERATOR, Diff Path Review May foll, Reactive Lymphocytes 2+, Platelet Estimate ADEQUATE, RBC Morphology NORM C+C, Sodium 135 L, Potassium 4.6, Chloride 106, Carbon Dioxide 25.0, Anion Gap 4 L, BUN 42 H, Creatinine 1.29, Estim Creat Clear Calc 47.62, Est GFR (MDRD) Af Amer 68, Est GFR (MDRD) Non-Af 57 L, BUN/Creatinine Ratio 32.6 H, Glucose 125 H, Calcium 9.6 Microbiology: Microbiology 10/18/23 22:34 Blood Culture (Wb) - Anticubital Right Blood Culture - Final No growth in 5 days. 10/19/23 01:30 Urine, Clean Catch Legionella Antigen - Final 10/19/23 01:30 Urine, Clean Catch Streptococcus pneumoniae Antigen (M - Final 10/18/23 22:10 Mucosa - Nose SARS-CoV-2, Influenza & RSV (PCR) - Final Influenzae A D/C Instructions Discharge Diet: Low fat / Low cholesterol Discharge Activity: Return to Normal Activity Weight Bearing Status: Weight bearing as tolerated Call your doctor if you observe: Fever of 101 or Higher, Shortness of breath, Dizziness, Swelling in the ankles and Chest pain Meaningful Use Info Meaningful Use Diagnoses (Choose all that apply): CHF CHF MARBIN/ARB ordered at discharge?: No Reason MARBIN/ARB not ordered?: Not indicated Documented LVEF (%): 55 Discharge Plan Admission Admit Date/Time: 10/18/23 23:51 Primary Reason for Your Visit: influenza, pneumonia Attending Provider: Alannah Morris Primary Care Provider: Genevieve Acosta Consulting Providers: Leandro Lester; Todd Umana Instructions Patient Instructions: Coping with Heart Failure Discharge Orders/Prescriptions Prescriptions: Continued multivitamin Tablet 1 tab PO DAILY acetaminophen 500 mg Tablet 1,000 mg PO BID PRN Patient Comments: 500 mg 2x (am), 2x (mid-day) and 2x (pm) daily gabapentin 300 mg Capsule 300 mg PO QHS vitamin B complex [B Complex-Vitamin B12] Tablet 1 tab PO DAILY omeprazole 20 mg Tablet,Delayed Release (Dr/Ec) 20 mg PO DAILY Eliquis 5 mg Tablet 5 mg PO BID cholecalciferol (vitamin D3) 50 mcg (2,000 unit) Tablet,Chewable 50 mcg PO DAILY furosemide 40 mg tablet 40 mg PO DAILY spironolactone 25 mg Tablet 25 mg PO DAILY@0800 30 Days Qty: 30 0RF triamcinolone acetonide 0.1 % cream 1 applic topical PRN Centrum 18-400 mg-mcg tablet 1 tab PO DAILY vitamin H21-nzouc acid 1 tab PO DAILY Patient Comments: 500 mg tablet Discontinued prednisone 5 mg Tablet 5 mg PO DAILY Referrals / Follow Up: [facility], [facility] Failure [facility] [Other] - 11/03/23 11:00 am Genevieve Acosta DO [Primary Care Provider] - Within 1 Week Disposition Disposition (needs filled in before D/C Order can be placed): NonSkilled NH/Intermed Care Charges/Coding Visit Charges Inpatient E&M: 63429 Disch Hosp >30min
[2023-10-27 11:17] VITALS: O2SAT 88
--- NOTE | 2023-10-27 11:18 | PHA.DC.MR.R ---
Pharmacy [place] Med Reconciliation Pharmacy Service has performed discharge medication reconciliation for this patient. The patient's discharge medication list was reviewed for discrepancies and discrepancies were resolved. Medications at Discharge Home Medications acetaminophen 500 mg tablet 1,000 mg PO BID PRN pain 02/03/23 apixaban 5 mg tablet (Eliquis) 5 mg PO BID Blood Thinner 02/03/23 cholecalciferol (vitamin D3) 50 mcg (2,000 unit) chewable tablet 50 mcg PO DAILY Supplement 02/03/23 gabapentin 300 mg capsule 300 mg PO QHS Pain 02/03/23 multivitamin 1 tab PO DAILY Supplement 02/03/23 omeprazole 20 mg tablet,delayed release 20 mg PO DAILY GERD 02/03/23 vitamin B complex (B Complex-Vitamin B12 tablet) 1 tab PO DAILY Supplement 02/03/23 furosemide 40 mg tablet 40 mg PO DAILY Edema 02/16/23 spironolactone 25 mg tablet 25 mg PO DAILY@0800 DIURETIC 30 days #30 tabs 03/02/23 triamcinolone acetonide 0.1 % topical cream 1 applic topical PRN HYPERTROPIC LICHEN PLANUS 10/18/23 multivitamin-ferrous fumarate-folic acid 18 mg-400 mcg tablet (Centrum) 1 tab PO DAILY general health 10/19/23 vitamin G92-blomt acid 1 tab PO DAILY general 10/19/23
--- NOTE | 2023-10-27 11:45 | CASEMGMT ---
MARTHA received a call from patient's daughter Jyothi. MARTHA let Jyothi know that patient is up for discharge, however we are waiting on O2 testing and then O2 getting set up. MARTHA did tell Jyothi patient knows he will be discharged back to [place] and go to his appts next week. Jyothi said she will be at [facility] within the hour. Nida GREENBERG
[2023-10-27 11:53] VITALS: O2SAT 87; O2SAT 88; O2SAT 89; O2SAT 92
--- NOTE | 2023-10-27 12:17 | CASEMGMT ---
DASHAWN BRANCH updated that patient will need oxygen at discharge. Script received and sent to [facility] via [employer]. Arrangements made to have equipment delivered to [facility] prior to patient's arrival. DASHAWN BRANCH updated SW
[2023-10-27 14:23] VITALS: BP 118/78; PULSE 71; RESP 18; TEMP 36.6; O2SAT 95
--- NOTE | 2023-10-27 15:04 | CASEMGMT ---
Patient is ready for discharge back to [place]. MARTHA faxed d/c instructions to [place] as well as order for home health and O2. Mona d/c demand planning manager arranged transport and called [place]. Plan: d/c back to [facility] as patient refused going anywhere for rehab. Physicians will transport patient back to [place]. Nida Nogueira PELLET MACHINE OPERATOR DIONICIO
--- NOTE | 2023-10-27 16:05 | CASEMGMT ---
Dischage Planning Physicians will transport patient by wheelchair at 6p. Nursing, SW, [facility], patient, and his daughter updated. Mona Braun, Discharge Planning Asst.
--- NOTE | 2023-10-27 17:18 | NURSING ---
tried to call report to [facility]- they do not have a nurse to take report will call this nurse back at 6pm
--- NOTE | 2023-10-27 18:26 | NURSING ---
attempted to call report again was on hold for 20 min then it disconnected. transport came at 1810 and picked him up
[2023-10-29 09:13] LABS: Pathologist Review Reviewed
== END 2023-10-27 18:12 | disposition home or self-care (01) | DRG 291 ==
LOC: ED 23:42 → PCU 10-19 00:36
PROVIDERS: Admitting Provider Internal Medicine; Emergency Provider Emergency Medicine; PCP Family Medicine; Visit Provider Student in an Organized Health Care Education/Training Program
DX: I13.0 Hypertensive heart and chronic kidney disease with heart failure and stage 1 through stage 4 chronic kidney disease, or unspecified chronic kidney disease (principal); I50.33 Acute on chronic diastolic (congestive) heart failure; J44.0 Chronic obstructive pulmonary disease with (acute) lower respiratory infection; N18.4 Chronic kidney disease, stage 4 (severe); J44.1 Chronic obstructive pulmonary disease with (acute) exacerbation; Z79.01 Long term (current) use of anticoagulants; I48.91 Unspecified atrial fibrillation; J10.1 Influenza due to other identified influenza virus with other respiratory manifestations; J20.8 Acute bronchitis due to other specified organisms; E78.5 Hyperlipidemia, unspecified; I25.10 Atherosclerotic heart disease of native coronary artery without angina pectoris; K21.9 Gastro-esophageal reflux disease without esophagitis; E87.5 Hyperkalemia; G47.33 Obstructive sleep apnea (adult) (pediatric); I49.8 Other specified cardiac arrhythmias; N13.9 Obstructive and reflux uropathy, unspecified; R09.02 Hypoxemia; Z95.0 Presence of cardiac pacemaker; Z79.52 Long term (current) use of systemic steroids; Z79.899 Other long term (current) drug therapy; Z87.891 Personal history of nicotine dependence
CPT/HCPCS: 36415; 71045; 76770; 80048; 80061; 81001; 82570; 83605; 83880; 84145; 84153; 84443; 84484; 84540; 85025; 85379; 87040; 87449; 87631; 93005; 93306; 94640; 97110; 97116; 97162; 97166; 97530; 97535; 99252; 99285; Q9957; A4216; C8929; G0103; G0463; J1940

== ENCOUNTER 2024-07-05 10:15 | Outpatient (RCR) | payer MEDICARE, SELFPAY ==
[2024-06-21 10:33] VITALS: BP 110/71; PULSE 74; RESP 18; TEMP 36.1; O2SAT 94
--- NOTE | 2024-06-21 11:41 | PCM.WC.PN ---
History of Present Illness Date of Service: 06/21/24 Chief Complaint: 83year-old white male from [facility] living with many comorbidities of chronic kidney disease pacemaker rheumatoid arthritis. Is here for open wounds that started as blisters June 06 on both lower legs. He has severe edema of the lower legs with some pitting. Cardiology already has him on Lasix that is not helping his dilemma. History of Wound: He has been here before for cellulitis and other things but mostly it is for the lower extremity peripheral vascular disease. His last venous study was done in which was normal we will repeat that study. Progress of Wound: He shows discoloration in the GSV areas of both legs and edema pitting below the knees. He has open areas on either leg none of them are deep*he has blisters and then opening with maceration around the edging. We will use Xeroform dressings with Adaptic over top and ABD dressings over that and double layer Tubigrip's. According to his arterial flow he does have good blood flow. Patient will be scheduled for a Doppler flow wound protocol on his discharge from the wound center today. He will also follow-up in 2 weeks with us Subjective Subjective Daughter and patient are happy with plan Objective Data Objective Data Will use the Xeroform with Adaptic over top and ABD pads with Adali and double layer Tubigrip's on his legs we will get a Doppler study done of his legs to see if he has blockages in his GSV We will have him follow-up in 2 weeks Vital Signs: Vital Signs Temp Pulse Resp BP Pulse Ox O2 Del Method 97 F L 74 18 110/71 94 Room Air 06/21/24 10:33 06/21/24 10:33 06/21/24 10:33 06/21/24 10:33 06/21/24 10:33 06/21/24 10:33 Oxygen Delivery Method Room Air Physical Exam Const oriented x3 General Appearance: cooperative Exam Limitations: no limitations HEENT normocephalic Head and Scalp: normal to inspection Eyes General Eye: normal appearance of both eyes Neck full ROM General: normal visual inspection Resp normal respiratory effort Effort and Inspection: able to speak in complete sentences Auscultation: clear to auscultation bilaterally Cardio regular rate and regular rhythm Palpation: normal PMI Rate: regular rate Rhythm: regular rhythm GI Palpation: soft and no hepatosplenomegaly external exam normal Extremity General Extremity: normal exam except as noted, edema bilateral and pallor Skin Skin Narrative: Open wounds bilateral lower legs at the bout the GSV areas of his legs with erythematous bases Neuro oriented x3 Psych Appearance: grossly normal Speech: normal speech Thought Content: normal thought content Judgement: judgement good Debridement Note Debridement Note Wound debrided: Peripheral vascular disease right leg blister open Type of Debridement: Excisional debridement Anesthesia Used: 5% Lidocaine Gel Depth: Down to and including healthy tissue Percentage of wound debrided: 100 Instrument Used: 5mm curette Tissue Removed: Fibrin and devitalized tissue Severity: Fat Layer Exposed Amount of bleeding with debridement: Mild Bleeding Controlled with: Compression and gauze Patient tolerated procedure: Patient tolerated procedure well Post-Debridement Measurements and Additional Note: Post-Debridement Measurements/Treatment - Nurse 1 - General Ulcer Assessment Start: 06/21/24 10:18 Freq: Status: Active Protocol: ALMAS Activity Type Activity Date Activity User E-sign Co-sign Detail Recorded Client Recorded Date Recorded By Document 06/21/24 10:33 NM [id number] 06/21/24 10:47 NM 06/21/24 10:33 - Today's Visit Information Type of service Follow-up Visit (Physician/HYDRA[facility] ) Arrival Mode Ambulatory Accompanied by daughter Kari Patient Identification Verified (Name & Yes ) Safety Precautions Fall Prevention Blood Sugar Stated by Patient Vital Signs Temperature (97.8 F-99.1 F) 97 F L Temperature Source Temporal Pulse Rate (60-100) 74 Pulse Location Monitor Respiratory Rate (12-18) 18 Respiratory rate source Observation Pulse Oximetry 94 Oxygen Delivery Method Room Air Blood Pressure (90/60-120/80) 110/71 Blood Pressure Mean (mm Hg) 84 Source Monitor Position Sitting Blood Pressure Location Right Arm History Since Last Visit- (Skip if this is Patient's initial visit) Has dressing in place as prescribed Yes Has compression in place as prescribed Yes Has offloadiing in place as prescribed Yes Experienced any changes in pain level or Yes management Left Footwear Regular Shoe Right Footwear Regular Shoe Pain Scale: 0-10 Numeric Is Patient Pain Free? Yes - Nurse 1 - General Ulcer Measurement Start: 06/21/24 10:18 Freq: Status: Active Protocol: Activity Type Activity Date Activity User E-sign Co-sign Detail Recorded Client Recorded Date Recorded By Document 06/21/24 10:33 MT [id number] 06/21/24 10:47 MT Edit Result 06/21/24 10:33 MT (1) [id number] 06/21/24 11:33 MT (1) Right Calf (cm) => 40 Right Ankle (cm) => 29 Left Calf (cm) => 37.5 Left Ankle (cm) => 28 06/21/24 10:33 Wound Center Nurse 1 #5 Right Lower Leg -Current Size (cm) - Length 0.1 -Current Size (cm) - Width 0.1 -Current Size (cm) - Depth 0.1 -Total Square Cm 0.01 -Date of Last Picture (Recall this 06/21/24 field) -Photo Taken Yes -Tunneling No -Undermining/Tunneling No -Circular Undermining No -Exudate Amt Medium -Exudate Type Serosanguineous -Wound Margin Flat & Intact -Granulation Amt Large (67-100%) -Granulation Quality Pale,[place] -Necrosis Amt Small (1-33%) -Necrotic Tissue Type Adherent Slough -Texture (Krystle-wound Skin Appearance) Assessed, Localized Edema -Moisture (Krystle-wound Skin Appearance) Assessed, Maceration, Weeping -Color (Krystle-wound Skin Appearance) Assessed -Temperature (Krystle-wound Skin No Abnormality Appearance) (Pt Warm) -Tenderness on Palpation (Krystle-wound No Skin Appearance) -Ulcer Cleansing Soap and Water -Foul Odor after Cleansing No -Anesthetic Used 4% Lidocaine Solution #4 Left Lower Leg -Current Size (cm) - Length 6 -Current Size (cm) - Width 8 -Current Size (cm) - Depth 0.1 -Total Square Cm 48 -Date of Last Picture (Recall this 06/21/24 field) -Photo Taken Yes -Tunneling No -Undermining/Tunneling No -Circular Undermining No -Exudate Amt Medium -Exudate Type Serosanguineous -Wound Margin Flat & Intact -Granulation Amt Large (67-100%) -Granulation Quality Pale,[place] -Necrosis Amt Small (1-33%) -Necrotic Tissue Type Adherent Slough -Texture (Krystle-wound Skin Appearance) Assessed, Induration, Localized Edema -Moisture (Krystle-wound Skin Appearance) Assessed, Maceration, Weeping -Color (Krystle-wound Skin Appearance) Assessed, Erythema -Temperature (Krystle-wound Skin No Abnormality Appearance) (Pt Warm) -Tenderness on Palpation (Krystle-wound No Skin Appearance) -Ulcer Cleansing Soap and Water -Foul Odor after Cleansing No -Anesthetic Used 4% Lidocaine Solution Right Calf (cm) 40 Right Ankle (cm) 29 Left Calf (cm) 37.5 Left Ankle (cm) 28 WC - Nurse 2 - General Ulcer CM Notes Start: 06/21/24 10:18 Freq: Status: Active Protocol: Activity Type Activity Date Activity User E-sign Co-sign Detail Recorded Client Recorded Date Recorded By Document 06/21/24 11:06 [facility] [id number] 06/21/24 11:17 [facility] 06/21/24 11:06 Wound Center Nurse 2 #5 Right Lower Leg -Time 11:07 -Correct Patient Yes -Correct Side, Site, Position Yes -Correct Procedure Yes -Procedure Performed Yes -Type of Procedure Debridement -Clinical Debridement Subcutaneous -Tissue Removed Subcutaneous -Post Debridement (cm) - Length 0.1 -Post Debridement (cm) - Width 0.1 -Post Debridement (cm) - Depth 0.1 -Total Square (Post) (cm) 0.01 -Area of Debridement (cm) - Length 0.1 -Area of Debridement (cm) - Width 0.1 -Total Square (Area) (cm) 0.01 -Tunneling No -Undermining/Tunneling No -Circular Undermining No -Wound/Ulcer Outcome Not Healed -Ulcer Cleansing Rinsed/ Irrigated with Saline -Foul Odor after Cleansing No -Bioengineered Tissue No -Bleeding Controlled with Pressure -Treatment Response Procedure Tolerated Well -Debridement - Subq, 1st 20sq cm No #4 Left Lower Leg -Time 11:07 -Correct Patient Yes -Correct Side, Site, Position Yes -Correct Procedure Yes -Procedure Performed Yes -Type of Procedure Debridement -Clinical Debridement Subcutaneous -Tissue Removed Subcutaneous -Post Debridement (cm) - Length 5.5 -Post Debridement (cm) - Width 7.8 -Post Debridement (cm) - Depth 0.1 -Total Square (Post) (cm) 42.90 -Area of Debridement (cm) - Length 5.5 -Area of Debridement (cm) - Width 7.8 -Total Square (Area) (cm) 42.90 -Tunneling No -Undermining/Tunneling No -Circular Undermining No -Wound/Ulcer Outcome Not Healed -Ulcer Cleansing Rinsed/ Irrigated with Saline -Foul Odor after Cleansing No -Bioengineered Tissue No -Bleeding Controlled with Pressure -Treatment Response Procedure Tolerated Well -Debridement - Subq, 1st 20sq cm Yes -Debridement, SubQ, ea addt'l 20sq cm 1 or part thereof #2- E [employer] -Time 11:15 -Correct Patient Yes -Correct Side, Site, Position Yes -Correct Procedure Yes -Procedure Performed Yes -Type of Procedure Debridement -Clinical Debridement Subcutaneous -Tissue Removed Subcutaneous -Post Debridement (cm) - Length 2.2 -Post Debridement (cm) - Width 2.2 -Post Debridement (cm) - Depth 0.2 -Total Square (Post) (cm) 4.84 -Area of Debridement (cm) - Length 2.2 -Area of Debridement (cm) - Width 2.2 -Total Square (Area) (cm) 4.84 -Tunneling No -Undermining/Tunneling No -Circular Undermining No -Wound/Ulcer Outcome Not Healed -Ulcer Cleansing Rinsed/ Irrigated with Saline -Foul Odor after Cleansing No -Bioengineered Tissue No -Bleeding Controlled with Pressure -Treatment Response Procedure Tolerated Well -Debridement - Subq, 1st 20sq cm No Pain Scale: 0-10 Numeric Is Patient Pain Free? Yes Additional Wound Wound debrided: Peripheral vascular disease left lower leg blister open Type of Debridement: Excisional debridement Anesthesia Used: 5% Lidocaine Gel Depth: in the subcutaneous layer Instrument Used: 5mm curette Severity: Fat Layer Exposed Amount of bleeding with debridement: Mild Bleeding Controlled with: Pressure Patient tolerated procedure: Patient did not tolerate procedure well Assessment/Plan Assessment/Plan (1) Peripheral vascular disease of lower extremity with ulceration: CODE(S): I73.9 - Peripheral vascular disease, unspecified; L97.909 - Non-pressure chronic ulcer of unspecified part of unspecified lower leg with unspecified severity PLAN: Wash bilateral lower legs with antibacterial soap and water pat dry and apply Xeroform dressings to the open wound base cover with Adaptic and ABD pads Adali every day Follow-up in 2 weeks Get scheduled for a ultrasound testing for lower extremities before you leave the office today (2) Nonhealing nonsurgical wound: CODE(S): T14.8XXA - Other injury of unspecified body region, initial encounter (3) Bilateral lower extremity edema: CODE(S): R60.0 - Localized edema
--- NOTE | 2024-06-22 11:40 | WC ---
PHOTO 06/21/24 LEFT LOWER LEG
--- NOTE | 2024-06-22 11:41 | WC ---
PHOTO 06/21/24 RIGHT LOWER LEG
--- NOTE | 2024-06-30 14:55 | VDLE_ITS ---
Reason For Study: Bilateral leg pain, Wound RIGHT LEFT CFV is compressible, spontaneous, phasic, CFV is compressible, spontaneous, phasic, competent and demonstrates normal competent, and demonstrates normal augmentation. augmentation. FV is compressible, spontaneous, phasic, FV is compressible, spontaneous, phasic, competent and demonstrates normal competent and demonstrates normal augmentation. augmentation. POP V is compressible, phasic, and POP V is compressible, spontaneous, phasic, INCOMPETENT for greater than 1.0 second. competent and demonstrates normal T/P Trunk is compressible. augmentation. PTV is compressible. T/P Trunk is compressible. RT PerV is compressible. PTV is compressible. SFJ is competent and measures 0.48 cm. LT PerV is compressible. GSV proximal thigh measures 0.44 x 0.45 cm. SFJ is competent and measures 0.49 cm. GSV above knee is INCOMPETENT for greater GSV proximal thigh measures 0.37 x 0.36 cm. than 0.5 seconds. GSV at knee measures 0.33 x 0.35 cm. GSV at knee measures 0.32 x 0.31 cm. GSV is competent throughout. GSV below knee is competent. SSV mid calf is INCOMPETENT for greater than ASV at knee is INCOMPETENT for greater than 0.5 seconds and measures 0.22 x 0.24 cm. 0.5 seconds and measures 0.19 x 0.19 cm. SSV prox calf is competent and measures 0.08 x 0.09 cm. Unable to visualize below SSV prox due to vessel size. Procedure This is a venous duplex using B-mode, color flow and spectral Doppler. Exam performed in department. Patient was scanned in reverse Trendelenburg position during reflux assessment. Bilaterl calf veins not visualized at distal veins due to bandages and open wounds. A preliminary report was called and/or faxed to . VL/Venous Duplex US - Levon Extrem Interpretation Summary Deep veins of the lower extremities are bilaterally patent and compressible seg mentally. There is no evidence of deep vein thrombosis on either side. The right popliteal vein is in competent. Valvular competence appears intact within the proximal deep venous system on the left . The great saphenous veins appear bilaterally patent and compressible segmentally. Sapheno-femoral j unctions are bilaterally competent . The right great saphenous vein appears incompetent abov e the knee. The right great saphenous vein appears competent below the knee. The left great saphenous vein appears segmentally competent. The right small saphenous vein is patent and competent. The left small saphenous vein is patent and incompetent. The accessory saphenous vein at knee level on the right is incompetent. Ordering Physician: Kia Yan Referring Physician: Genevieve Acosta Performed By: Shaina Ritchie RVT
[2024-07-05 10:12] VITALS: BP 107/40; PULSE 79; RESP 16; TEMP 36.1
--- NOTE | 2024-07-06 09:50 | WC ---
PHOTO 07/05/24 RIGHT LOWER LEG
--- NOTE | 2024-07-06 09:52 | WC ---
PHOTO 07/05/24 RIGHT LOWER LEG MED CLUSTER
--- NOTE | 2024-07-06 09:53 | WC ---
PHOTO 07/05/24 LEFT LOWER LEG
--- NOTE | 2024-07-10 11:26 | WC ---
PHOTO 07/05/24 RIGHT LOWER LEG ANT
--- NOTE | 2024-07-10 11:28 | WC ---
PHOTO RIGHT LOWER LEG MED CLUSTER
--- NOTE | 2024-07-10 11:30 | WC ---
PHOTO LEFT LOWER LEG(H)
== END 2024-07-06 23:59 | disposition home or self-care (01) ==
LOC: WC 10:15
PROVIDERS: PCP Family Medicine; Referring Provider Family Medicine; Visit Provider Nurse Practitioner
DX: I70.239 Atherosclerosis of native arteries of right leg with ulceration of unspecified site (principal); L97.912 Non-pressure chronic ulcer of unspecified part of right lower leg with fat layer exposed; M06.9 Rheumatoid arthritis, unspecified; N18.30 Chronic kidney disease, stage 3 unspecified; R60.0 Localized edema; S81.802A Unspecified open wound, left lower leg, initial encounter; S80.822S Blister (nonthermal), left lower leg, sequela; S80.821S Blister (nonthermal), right lower leg, sequela; X58.XXXS Exposure to other specified factors, sequela; Z95.0 Presence of cardiac pacemaker
CPT/HCPCS: 11042; 11045; 93970; 99213; G0463

== ENCOUNTER 2024-08-05 14:25 | Inpatient (IN) | payer MEDICARE, SELFPAY ==
[2024-08-05 14:49] VITALS: BP 134/80; PULSE 61; RESP 18; TEMP 36.6; O2SAT 95
[2024-08-05 15:39] VITALS: BMI 26.4
[2024-08-05] MEDS: APIXABAN 2.5 MG TABLET (WCH) PO (21:59)
[2024-08-05] MEDS: Gabapentin 300 MG Capsule PO (22:00)
[2024-08-05] MEDS: Acetaminophen 500 MG Tablet 1000 MG PO (22:00)
[2024-08-06 07:18] LABS: Absolute Lymphocyte Count 1.27 X10^3/uL (0.83-4.51); Absolute Neutrophil Count 3.9 X10^3/uL (2.0-7.7); Basophil# 0.06 X10^3/uL; Eosinophil# 0.29 X10^3/uL; Eosinophils% 4.6 % (0-5); Hematocrit 47.1 % (40-54); Hemoglobin 14.8 g/dL (13.0-16.5); Lymphocyte # 1.27 X10^3/ul (0.83-4.51); Lymphocyte % 20.3 % (19-41); Mean Corp Hgb Conc 31.4 g/dL (32-36); Mean Corpuscular Hgb 28.7 pg (27.0-32.0); Mean Corpuscular Volume 91.3 fL (80-94); Mean Platelet Vol. 11.2 fl (6.2-12.0); Monocyte# 0.72 X10^3/uL; Monocyte% 11.5 % (0-10); NRBC Flagged by Analyzer 0 % (0-5); Neutrophil # 3.91 X10^3/uL (2.7-7.7); Neutrophil % 62.3 % (47-70); POSITIVE MORPHOLOGY YES; Platelet Count 108 K/mm3 (150-450); RBC Distribution Width CV 20.4 % (11.6-14.6); RBC Distribution Width SD 66.5 fl (35.1-43.9); Red Blood Count 5.16 M/mm3 (4.6-6.2); White Blood Count 6.3 K/mm3 (4.4-11.0)
[2024-08-06 07:55] LABS: Differential Indicated SCAN CRITERIA MET
[2024-08-06 07:57] LABS: Anion Gap 8 (5-15); BUN 30 mg/dL (7-18); BUN/Creat Ratio 17.9 RATIO (10-20); Chloride 108 mmol/L (98-107); Creatinine, Serum 1.68 mg/dL (0.70-1.30); EST Glomerular Filtration Rate 42 mL/min (>60); Est Glom Filt Rate - Afr Amer 50 mL/min (>60); Estimated Creatinine Clearance 36.57 ml/min; Glucose 83 mg/dL (74-106); Potassium 3.6 mmol/L (3.5-5.1); Sodium Level 144 mmol/L (136-145)
--- NOTE | 2024-08-06 08:01 | HP.PCM_ITS ---
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 07/29/2024: presented to ED from SNF with c/o R LE pain. He had recently concluded a course of Cipro and doxycycline for cellulitis of the lower extremities. He was admitted to [facility] on 07/21/24 for cellulitis and discharged to SNF. No leukocytosis. AF. CREAT 1.83 (within baseline) with a BUN of 43. proBNP 19,902 (up from 11,[address] of tib?fib was performed and showed no evidence of osteomyelitis. It showed generalized swelling with no localized fluid collection. Venous ultrasound of the legs was negative for VTE. No openings in the skin of the LE's. Seen by podiatric surgery. No wounds to culture and exam not consistent with cellulitis. PVR's on 07/18/24 with normal and symmetric flow per cardiology note. Seen by cardiology. No change to the Lasix/Aldactone. Apixaban dose decreased due to CRF. Seen by ID. Low suspicion for acute infection. Thought more consistent with stasis dermatitis/venous insufficiency but, started linezolid and Cipro because of recent cultures positive for MRSA and Pseudomonas aeruginosa. He completed the course of antibiotics while at [facility] and was not discharged on antibiotics. 07/30/24: CREAT increased to 2.46 from 1.83 at presentation to the emergency department. Serum bicarb only 15. Started on a bicarb drip. Lasix and Aldactone held. IV fluids given. ARF more likely than not due to hypotension/bradycardia and IV volume depletion. : Creat down to 2.2. Nephrology following. CT abdomen/pelvis showed bilateral nonobstructing nephrolithiasis without any hydronephrosis or ureteral calculi. Seen in the hospital by orthopedics for R knee effusion. They recommend follow up as OP for possible steroid injection. 08/02/24: CREAT 1.9. Transitioned from a bicarbonate drip to bicarbonate tablets. 08/03/24: CREAT 1.97 and stable. Hemoglobin 15.3. Platelets mildly decreased at 144,000. 08/04/24: CREAT 1.9. Baseline had been 1.7- 1.9. 08/05/24: Discharged to the transitional care unit at [facility] for therapy to strengthen/rehabilitate prior to returning home. Aldactone was restarted at ID from [place]. Bicarb tablets were decreased from twice daily to 1 daily. May be able to discontinue going forward if the serum bicarb remains in the high 20's. All lab drawn on 08/06/24 personally reviewed. White blood cell count is normal at 6.3. Hemoglobin is 14.8 which is stable. Platelets are low at 108,000 (down from 144,000 on 08/03/2024). Sodium is 144 and the potassium is 3.6. Serum bicarb is 28 and the BUN is 30 with a creatinine of 1.68 which is within the recent baseline of 1.7-1.9. Calcium is normal at 9. Medication list was reviewed. He is to follow-up with for nephrology, Dr. Gray for cardiology and Dr. Rendon fr podiatry. He is also to follow up with orthopedics for possible steroid injection R knee. Echo done at [facility] in October 2023 showed a normal left ventricular ejection fraction. The right ventricle was severely dilated with severe global right ventricular systolic dysfunction. No significant valvular abnormalities. [facility] Medical History (Updated 08/06/24 @ 12:[address] Hazel Zuniga DO) Right heart failure PVD (peripheral vascular disease) Stasis dermatitis Venous insufficiency Chronic diastolic (congestive) heart failure Chronic renal failure (CRF), stage 3 (moderate) Chronic anticoagulation Nonhealing nonsurgical wound History of pacemaker Hyperlipidemia Hypertension Atrial flutter Second degree heart block Coronary artery disease Rheumatoid arthritis Wound of lower extremity Obstructive sleep apnea Cellulitis of both lower extremities Acute on chronic diastolic congestive heart failure Debility Chronic kidney disease, stage III (moderate) Pacemaker Psoriatic arthritis Home Medications ?Medication ?Instructions ?Recorded ?Last Taken ?Type acetaminophen 500 mg tablet 1,000 mg PO BID pain 02/03/23 08/05/24 History apixaban 5 mg tablet (Eliquis) 2.5 mg PO BID Blood Thinner 02/03/23 08/05/24 History cholecalciferol (vitamin D3) 50 50 mcg PO DAILY Supplement 02/03/23 Unknown History mcg (2,000 unit) chewable tablet gabapentin 300 mg capsule 300 mg PO QHS Pain 02/03/23 08/04/24 History multivitamin 1 tab PO DAILY Supplement 02/03/23 Unknown History omeprazole 20 mg tablet,delayed 20 mg PO DAILY GERD 02/03/23 02/16/23 09:55 History release vitamin B complex (B 1 tab PO DAILY Supplement 02/03/23 Unknown History Complex-Vitamin B12 tablet) furosemide 40 mg tablet 40 mg PO DAILY Edema 02/16/23 08/05/24 History spironolactone 25 mg tablet 25 mg PO DAILY@0800 DIURETIC 30 03/02/23 Unknown Rx days #30 tabs triamcinolone acetonide 0.1 % 1 applic topical PRN HYPERTROPIC 10/18/23 Unknown History topical cream LICHEN PLANUS multivitamin-ferrous 1 tab PO DAILY general health 10/19/23 10/18/23 09:00 History fumarate-folic acid 18 mg-400 mcg tablet (Centrum) vitamin K49-[id number] acid 1 tab PO DAILY general 10/19/23 Unknown History prednisone 5 mg tablet 5 mg PO DAILY pain 06/21/24 08/05/24 History amlodipine 2.5 mg tablet 2.5 mg PO DAILY heart 08/05/24 08/05/24 History atorvastatin 20 mg tablet 20 mg PO DAILY cholesterol 08/05/24 Unknown History sodium bicarbonate 325 mg tablet 325 mg PO DAILY supplement 08/05/24 08/05/24 History Allergy/AdvReac Type Severity Reaction Status Date / Time ertapenem Allergy Other Verified 02/03/23 09:13 leflunomide (From Arava) Allergy Other Verified 02/03/23 09:13 sulfamethoxazole (From Allergy Other Verified 02/03/23 09:13 Bactrim) trimethoprim (From Bactrim) Allergy Other Verified 02/03/23 09:13 Family History Mother CAD (coronary artery disease) Father Colon cancer Sister CAD (coronary artery disease) Surgical History History of thoracic spinal fusion History of lithotripsy History of replacement of both shoulder joints History of cholecystectomy History of fusion of cervical spine Social History housing: assisted living facility Smoking Status: Former smoker alcohol intake: never substance use type: does not use ROS Constitutional Constitutional: Reports change in weight, weakness and other Details: Has chronic CHF and CRF......wt fluctuates with changes in fluid balance. ; Denies anorexia, chills, fatigue, fever(s), headache(s) or night sweats Eyes Eyes: Reports ptosis and other Details: ptosis of the R upper lid - chronic ; Denies blurry vision, change in vision, eye pain or loss of vision ENT HEENT: Reports abnormal hearing and hearing loss; Denies dizziness, dysphagia, headache(s), mouth pain, nasal congestion or sore throat Cardiovascular Cardiovascular: Reports palpitations; Denies chest pain, dyspnea on exertion, edema, lightheadedness, orthopnea, paroxysmal nocturnal dyspnea or syncope Respiratory/Chest Respiratory/Chest: Denies cough, dyspnea, shortness of breath at rest, shortness of breath with exertion or wheezing Gastrointestinal Gastrointestinal: Denies abdominal pain, constipation, diarrhea, dyspepsia, hematemesis, hematochezia, nausea or vomiting Genitourinary Genitourinary: Denies dysuria, hematuria, nocturia, urinary frequency, urinary hesitancy, urinary incontinence or urinary urgency Musculoskeletal Musculoskeletal: Reports abnormal gait, arthralgias, difficulty walking and joint pain; Denies back pain, joint swelling or neck pain Integumentary Integumentary: Reports other Details: stasis dermatitis LE's ; Denies jaundice or rash Neurologic Neurologic: Reports paresthesias and other Details: Tells me that his feet don't feel right but, denies numbness/tingling. the pain he had in the RLE at presentation to the ED in [place] was intense brief shock like pain in the RLE. It was brief and he no longer has it. ; Denies confusion, disequilibrium, dizziness, focal weakness, headache(s), seizures or tremor(s) Psychiatric Psychiatric: Denies anxiety, depression, homicidal ideation or suicidal ideation Endocrine Endocrinology: Denies change in body appearance, polydipsia or polyuria Hematologic/Lymphatic Hematologic/Lymphatic: Reports easy bleeding and easy bruising; Denies lymphadenopathy Allergic/Immunologic Allergic/Immunologic: Denies rhinitis, eczemia or asthma Vital Signs Vital Signs Vital Signs: 08/05/24 14:49 08/05/24 15:53 08/05/24 16:49 Temperature 98 F Temperature Source Temporal Pulse Rate 61 Pulse Rhythm Regular Pulse Strength Normal (2+) Normal (2+) Respiratory Rate 18 Respiratory Effort Normal Non-Labored Respiratory Depth Normal Respiratory Pattern Normal Blood Pressure 134/80 H Blood Pressure Mean 98 Blood Pressure Source Monitor Blood Pressure Position Semi-Fowlers Blood Pressure Location Right Arm Pulse Ox 95 Oxygen Delivery Method Room Air Room Air 08/05/24 22:00 Temperature Temperature Source Pulse Rate Pulse Rhythm Pulse Strength Normal (2+) Respiratory Rate Respiratory Effort Respiratory Depth Respiratory Pattern Blood Pressure Blood Pressure Mean Blood Pressure Source Blood Pressure Position Blood Pressure Location Pulse Ox Oxygen Delivery Method Weight Weight: 195 lb Body Mass Index (BMI) 26.4 Physical Exam Const alert, oriented x3 and no apparent distress Constitutional Narrative: appears comfortable General Appearance: cooperative HEENT HEENT Narrative: Poor dentition, missing teeth. Hard of hearing and I have to speak loudly and repeat often. He has hearing aids but, they are at [place] and not with him. MM are dry. No evidence of thrush. General Ear: hearing grossly impaired Eyes EOMs intact bilaterally, conjunctivae normal and no scleral icterus Eyes Narrative: ptosis of the R eye....chronic. 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 No discharge from the eyes and no mattering of the eyelashes. Neck supple General: trachea midline Chest Chest: symmetrical chest wall rise Resp normal respiratory effort, normal air movement and clear to auscultation bilaterally Effort and Inspection: able to speak in complete sentences Cardio no murmurs, no rub and no gallops Cardio Narrative: irreg, irreg with a HR of 66 GI normal to inspection, nondistended, normoactive bowel sounds and soft to palpation GI Narrative: mildly tympanic, denies constipation/diarrhea/N/V. Extremity no calf tenderness Extremity Narrative: mild edema/compression wraps are in place. Denies pain. Skin General Skin Exam: dry skin and venous stasis; Negative for jaundice Neuro oriented x3 and CN's II-XII intact bilaterally Neuro Narrative: Ptosis of the R eye is not due to CVA but, to probable nerve damage during the removal of a skin CA in the past. Psych thought process normal, cooperative, affect normal and speech normal Appearance: grossly normal and appropriate Attitude: calm and engaged Activity / Motor Behavior: appropriate eye contact Results Lab / Micro Data 08/06/24 06:40 08/06/24 06:40 Labs: Laboratory Results - last 24 hr 08/06/24 06:40: WBC 6.3, RBC 5.16, Hgb 14.8, Hct 47.1, MCV 91.3, MCH 28.7, MCHC 31.4 L, RDW Std Deviation 66.5 H, RDW Coeff of Natalia 20.4 H, Plt Count 108 L, MPV 11.2, Immature Gran % (Auto) 0.300, Neut % (Auto) 62.3, Lymph % (Auto) 20.3, M kori % (Auto) 11.5 H, Eos % (Auto) 4.6, Baso % (Auto) 1.0, Absolute Neuts (auto) 3.9, Absolute Lymphs (auto) 1.27, Nucleated RBC % 0, Sodium 144, Potassium 3.6, Chloride 108 H, Carbon Dioxide 28.0, Anion Gap 8, BUN 30 H, Creatinine 1.68 H, Estim Creat Clear Calc 36.57, Est GFR (MDRD) Af Amer 50 L, Est GFR (MDRD) Non-Af 42 L, BUN/Creatinine Ratio 17.9, Glucose 83, Calcium 9.0 Assessment & Plan Assessment/Plan (1) Debility: (2) Generalized weakness: (3) Acute renal failure superimposed on chronic kidney disease: QUALIFIERS: Acute renal failure type: unspecified Chronic kidney disease stage: stage 3 (moderate) Chronic kidney disease stage 3 subtype: stage 3b (GFR 30-44) Qualified Code(s): N17.9 - Acute kidney failure, unspecified; N18.32 - Chronic kidney disease, stage 3b PLAN: Creat increased from 1.83 at recent admission to [facility] to peak of 2.46. Creat at admission to rehab is 1.68 which is within recent baseline. (4) Chronic renal failure (CRF), stage 3 (moderate): QUALIFIERS: Chronic kidney disease stage 3 subtype: stage 3b (GFR 30-44) Qualified Code(s): N18.32 - Chronic kidney disease, stage 3b (5) Metabolic acidosis: PLAN: Was on a bicarb drip at [place] and then transitioned to oral bicarb tabs. Taking 1 tab a day now and the serum bicarb is 28. Likely does not need bicarb tab any longer. Consider discontinuing and rechecking bicarb in a few days. Metabolic acidosis was likely due to acute on chronic renal failure with uremia due to hypotension, bradycardia and IV volume depletion. (6) Thrombocytopenia: PLAN: Etiology? Due to uremia recently? this is new. Recheck in a few days. (7) Atrial flutter: QUALIFIERS: Atrial flutter type: unspecified Qualified Code(s): I 48.92 - Unspecified atrial flutter PLAN: Actually fib/flutter. Has an occasional fluttering in his chest. No lightheadedness. (8) Chronic anticoagulation: PLAN: On apixaban, dosage adjusted for chronic renal failure. (9) Rheumatoid arthritis: QUALIFIERS: Rheumatoid arthritis location: multiple sites R heumatoid factor presence: unspecified presence Qualified Code(s): M06.9 - Rheumatoid arthritis, unspecified (10) Obstructive sleep apnea: (11) Stasis dermatitis: (12) Venous insufficiency: (13) Chronic diastolic (congestive) heart failure: (14) Right heart failure: QUALIFIERS: Heart failure chronicity: chronic Qualified Code(s): I50.812 - Chronic right heart failure PLAN: Plan PLAN PT for gait stability OT for ADL's ST for evaluation Analgesics as needed Bowel protocol Fall precautions Assess for Anxiety/Depression GI prophylaxis -Protonix DVT prophylaxis - he is chronically on apixaban for A-fib/flutter and will continue. Follow up with PCP, cardiology, nephrology, orthopedics for right knee effusion. Following DC from [facility] AM lab including CMP, CBC, Mag and Phos-all personally reviewed On a transthoracic echocardiogram done at [facility] in October 2023 he had a low normal ejection fraction. There was no significant valvular heart disease. The right ventricle was severely dilated with severe systolic dysfunction. It was a technically difficult study and they could not estimate the PA systolic. I suspect he may have severe pulmonary hypertension.....may benefit from a R heart cath and tx for pulmonary HTN. Will continue with compression stockings to the BL LE's and elevation. Encouraged compliance with CPAP. Daily weights and accurate I&O's Having some palpitations - try and keep the K around 4. He has been off the Aldactone for past 5 -7 days.........it was restarted at admission to rehab. Will give 1 dose of 20 MEQ today and recheck the K in a few days. Charges/Coding Visit Charges Inpatient E&M: 74053 SNF Init L2
[2024-08-06 08:03] LABS: Differential Comment SCANNED
[2024-08-06 08:04] LABS: Polychromasia RARE
[2024-08-06 08:38] VITALS: BP 108/60; PULSE 62; RESP 18; TEMP 35.9; O2SAT 94
[2024-08-06] MEDS: Spironolactone 25 MG Tablet PO (08:52)
[2024-08-06] MEDS: predniSONE 5 MG Tablet PO (08:53)
[2024-08-06] MEDS: Cholecalciferol (VIT D3) 25 MCG TABLET (1,000 UNITS) 50 MCG PO (08:53)
[2024-08-06] MEDS: Multivitamins,Ther W-Minerals Tablet 1 TABLET PO (08:53)
[2024-08-06] MEDS: amLODIPine 2.5 MG Tablet PO (08:54)
[2024-08-06] MEDS: Furosemide 40 MG Tablet PO (08:54)
[2024-08-06] MEDS: APIXABAN 2.5 MG TABLET (WCH) PO ×2 (08:54→20:58)
[2024-08-06] MEDS: Sodium Bicarbonate 650 MG Tablet 325 MG PO (08:55)
[2024-08-06] MEDS: Acetaminophen 500 MG Tablet 1000 MG PO ×2 (08:56→20:58)
[2024-08-06] MEDS: Pantoprazole Sodium 20 MG Tablet PO (10:37)
[2024-08-06] MEDS: Tuberculin,Purif.prot.deriv. 50 TU/ML Vial 0.1 ML ID (10:37)
[2024-08-06] MEDS: Potassium Chloride Oral Tablet 20 MEQ PO (12:22)
--- NOTE | 2024-08-06 18:15 | NURSING ---
Updated patient of staff member tested positive for COVID. Patient denies nurse to call family with update. No questions/concerns at this time.
[2024-08-06] MEDS: Gabapentin 300 MG Capsule PO (20:58)
[2024-08-07 08:00] VITALS: BP 106/56; PULSE 59; RESP 18; TEMP 36.3; O2SAT 95
[2024-08-07] MEDS: Potassium Chloride Oral Tablet 20 MEQ PO (08:03)
[2024-08-07] MEDS: Cholecalciferol (VIT D3) 25 MCG TABLET (1,000 UNITS) 50 MCG PO (08:03)
[2024-08-07] MEDS: Sodium Bicarbonate 650 MG Tablet 325 MG PO (08:03)
[2024-08-07] MEDS: Multivitamins,Ther W-Minerals Tablet 1 TABLET PO (08:03)
[2024-08-07] MEDS: predniSONE 5 MG Tablet PO (08:03)
[2024-08-07] MEDS: Spironolactone 25 MG Tablet PO (08:03)
[2024-08-07] MEDS: Furosemide 40 MG Tablet PO (08:04)
[2024-08-07] MEDS: Acetaminophen 500 MG Tablet 1000 MG PO ×2 (08:04→21:04)
[2024-08-07] MEDS: amLODIPine 2.5 MG Tablet PO (08:05)
[2024-08-07] MEDS: APIXABAN 2.5 MG TABLET (WCH) PO ×2 (08:05→21:04)
[2024-08-07] MEDS: Pantoprazole Sodium 20 MG Tablet PO (08:05)
[2024-08-07 10:00] VITALS: PULSE 59; RESP 18; O2SAT 95
--- NOTE | 2024-08-07 10:35 | NURSING ---
Offered covid vaccine, VIS provided, resident refuses at this time.
--- NOTE | 2024-08-07 14:43 | NURSING ---
Mepilex changed per orders d/t old dressing soiled. New dressing applied to bilateral buttocks. Tolerated well. No concerns noted/voiced.
--- NOTE | 2024-08-07 15:02 | NS ---
Res upset that he did not get orange juice with breakfast d/t sodium restriction. Wants 8 oz OJ w/ breakfast daily - will order per res request.
[2024-08-07] MEDS: Gabapentin 300 MG Capsule PO (21:04)
[2024-08-08 06:00] VITALS: BMI 26.6
[2024-08-08 08:10] VITALS: BP 137/74; PULSE 80; RESP 18; TEMP 35.9; O2SAT 97
[2024-08-08] MEDS: Multivitamins,Ther W-Minerals Tablet 1 TABLET PO (09:41)
[2024-08-08] MEDS: APIXABAN 2.5 MG TABLET (WCH) PO ×2 (09:41→22:56)
[2024-08-08] MEDS: Cholecalciferol (VIT D3) 25 MCG TABLET (1,000 UNITS) 50 MCG PO (09:41)
[2024-08-08] MEDS: Pantoprazole Sodium 20 MG Tablet PO (09:41)
[2024-08-08] MEDS: predniSONE 5 MG Tablet PO (09:41)
[2024-08-08] MEDS: Sodium Bicarbonate 650 MG Tablet 325 MG PO (09:41)
[2024-08-08] MEDS: Spironolactone 25 MG Tablet PO (09:41)
[2024-08-08] MEDS: Furosemide 40 MG Tablet PO (09:41)
[2024-08-08] MEDS: Potassium Chloride Oral Tablet 20 MEQ PO (09:41)
[2024-08-08] MEDS: amLODIPine 2.5 MG Tablet PO (09:41)
[2024-08-08] MEDS: Acetaminophen 500 MG Tablet 1000 MG PO ×2 (09:42→22:56)
--- NOTE | 2024-08-08 15:01 | PHA.CONS_ITS ---
TCU RX Drug Regimen Review Subjective/Objective Subjective/Objective Subjective: TCU Admission. 83 YOM presented to outside ER with leg pain. Hospitalized due to leg swelling, TAMMY. Admitted to TCU with debility for strengthening and rehabilitation. Objective: Allergies ertapenem Allergy (Verified 02/03/23 09:13) Other HALLUCINATIONS leflunomide (From Arava) Allergy (Verified 02/03/23 09:13) Other MENTAL STATUS CHGS, PLATELETS DROPPED sulfamethoxazole (From Bactrim) Allergy (Verified 02/03/23 09:13) Other PER PT, DR TOLD HIM NOT TO TAKE trimethoprim (From Bactrim) Allergy (Verified 02/03/23 09:13) Other PER PT, TOLD HIM NOT TO TAKE Current Medications Generic Name Dose Route Start Last Admin Trade Name Freq PRN Reason Stop Dose Admin Acetaminophen 1,000 mg 08/05/24 22:00 12 09:42 Acetaminophen 500 Mg Tablet PO 1,000 mg BID RAFAEL Administration Amlodipine Besylate 2.5 mg 08/06/24 10:00 08/08/24 09:41 Amlodipine 2.5 Mg Tablet PO 2.5 mg DAILY RAFAEL Administration Protocol Apixaban 2.5 mg 08/05/24 22:00 08/08/24 09:41 Apixaban 2.5 Mg Tablet (Wch) PO 2.5 mg BID RAFAEL Administration Cholecalciferol 50 mcg 08/06/24 08:00 08/08/24 09:41 Cholecalciferol (Vit D3) 25 Mcg Tablet (1,000 Units) PO 50 mcg DAILYCM RAFAEL Administration Furosemide 40 mg 08/06/24 10:00 08/08/24 09:41 Furosemide 40 Mg Tablet PO 40 mg DAILY RAFAEL Administration Protocol Gabapentin 300 mg 08/05/24 22:00 08/07/24 21:04 Gabapentin 300 Mg Capsule PO 300 mg QHS RAFAEL Administration Multivitamins/Minerals 1 tablet 08/06/24 08:00 08/08/24 09:41 Multivitamins,Ther W-Minerals Tablet PO 1 tablet DAILYCM RAFAEL Administration Pantoprazole Sodium 20 mg 08/06/24 10:00 08/08/24 09:41 Pantoprazole Sodium 20 Mg Tablet PO 20 mg DAILY RAFAEL Administration Prednisone 5 mg 08/06/24 08:00 08/08/24 09:41 Prednisone 5 Mg Tablet PO 5 mg DAILYCM RAFAEL Administration Sodium Bicarbonate 325 mg 08/06/24 10:00 08/08/24 09:41 Sodium Bicarbonate 650 Mg Tablet PO 325 mg DAILY RAFAEL Administration Sodium Chloride 10 - 40 ml 08/05/24 14:51 0.9% Saline Lock 10 Ml Syringe IV UD PRN SALINE FLUSH Spironolactone 25 mg 08/06/24 08:00 08/08/24 09:41 Spironolactone 25 Mg Tablet PO 25 mg DAILY@0800 RAFAEL Administration Protocol Tuberculin PPD 0.1 ml 08/13/24 10:00 Tuberculin,Purif.Prot.Deriv. 50 Tu/Ml Vial ID 08/13/24 10:01 X1 ONE Problem List Right heart failure (Acute) Metabolic acidosis (Acute) Thrombocytopenia (Acute) Stasis dermatitis (Acute) Venous insufficiency (Acute) Chronic diastolic (congestive) heart failure (Chronic) Acute renal failure superimposed on chronic kidney disease (Chronic) Chronic renal failure (CRF), stage 3 (moderate) (Acute) Chronic anticoagulation (Acute) Generalized weakness (Acute) Atrial flutter (Acute) Rheumatoid arthritis (Acute) Obstructive sleep apnea (Acute) Debility (Acute) Vital Signs Temp Pulse Resp BP Pulse Ox O2 Del Method 96.7 F L 80 18 137/74 H 97 Room Air 08/08/24 08:10 08/08/24 08:10 08/08/24 08:10 08/08/24 08:10 08/08/24 08:10 08/08/24 08:10 Oxygen Delivery Method Room Air Weight: 88.451 kg Body Mass Index (BMI) 26.4 Sodium 144 mmol/L (136-145) 08/06/24 06:40 Potassium 3.6 mmol/L (3.5-5.1) 08/06/24 06:40 Chloride 108 mmol/L (98-107) H 08/06/24 06:40 Carbon Dioxide 28.0 mmol/L (21.0-32.0) 08/06/24 06:40 Anion Gap 8 (5-15) 08/06/24 06:40 BUN 30 mg/dL (7-18) H 08/06/24 06:40 Creatinine 1.68 mg/dL (0.70-1.30) H 08/06/24 06:40 Est GFR (MDRD) Af Amer 50 mL/min (>60) L 08/06/24 06:40 Est GFR (MDRD) Non-Af 42 mL/min (>60) L 08/06/24 06:40 BUN/Creatinine Ratio 17.9 RATIO (10-20) 08/06/24 06:40 Glucose 83 mg/dL (74-106) 08/06/24 06:40 Assessment/Plan: 1. Pain: acetaminophen 1000mg PO BID. Please continue to monitor for increased pain. 2. GI prophylaxis: pantoprazole 20mg PO daily. Please continue to monitor for upset stomach, bleeding and diarrhea (BEERs). 3. CHF/hypertension: furosemide 40mg PO daily, amlodipine 2.5mg PO daily and spironolactone 25mg PO daily. Please continue to monitor BP (last 137/74), swelling, potassium (last 3.6mmol/L), renal function. 4. Atrial flutter: apixaban 2.5mg PO BID. Dose recently decreased, age >80 and SCr > 1.5mg/dL. Please continue to monitor for S/S of bleeding/stroke and hemoglobin (last 14.8g/dL). 5. Chronic inflammatory arthritis: prednisone 5mg PO dailycm. Please continue to monitor for S/S of inflammation/pain, infection and fat redistribution. 6. CKD stage 3: sodium bicarbonate 325mg PO daily. Please continue to monitor serum bicarb (last 28mmol/L). 7. Overall health: cholecalciferol 50mcg PO daily and multivitamin with minerals 1T PO dailycm. Please consider ordering a vitamin D level if clinically appropriate. Thanks. Assessment/Plan for indications treated with psychotropic medications: None Medical chart and medication regimen reviewed. The following medication irregularities or issues were identified: 1. Unclear why resident is taking gabapentin 300mg PO QHS. Please consider adding the indication is mediation is indicated. Please continue to monitor for falls/fractures (BEERs), renal function (dose appropriate at this time) and c onfusion. 2. Cholecalciferol 50mcg PO daily. Please consider ordering a vitamin D level if clinically appropriate. Thanks. Date Date of Note: 08/08/24
--- NOTE | 2024-08-08 17:47 | CASEMGMT ---
Social Work SW met with patient to complete initial assessment. Pt known to this worker from previous stay. Verified contacts. Pt confirmed code status as DNR-CC. Educated to [facility] insurance with NRD 08/07 and continued stay is not guaranteed with each review. Pt's goal is to return to [facility]. Pt gave high praises to the care and staff at [facility]. SW to refer to [facility] closer to DC to coordinate return. SW will continue to follow for DC planning. JANETH BonnerW
[2024-08-08 17:57] VITALS: BMI 26.6
[2024-08-08 20:00] VITALS: PULSE 80; O2SAT 95
[2024-08-08] MEDS: Gabapentin 300 MG Capsule PO (22:56)
[2024-08-09] MEDS: Spironolactone 25 MG Tablet PO (07:56)
[2024-08-09] MEDS: APIXABAN 2.5 MG TABLET (WCH) PO ×2 (07:57→21:43)
[2024-08-09] MEDS: predniSONE 5 MG Tablet PO (07:57)
[2024-08-09] MEDS: Multivitamins,Ther W-Minerals Tablet 1 TABLET PO (07:57)
[2024-08-09] MEDS: Furosemide 40 MG Tablet PO (07:57)
[2024-08-09] MEDS: Cholecalciferol (VIT D3) 25 MCG TABLET (1,000 UNITS) 50 MCG PO (07:57)
[2024-08-09] MEDS: amLODIPine 2.5 MG Tablet PO (07:58)
[2024-08-09] MEDS: Acetaminophen 500 MG Tablet 1000 MG PO ×2 (07:58→21:43)
[2024-08-09] MEDS: Pantoprazole Sodium 20 MG Tablet PO (07:58)
[2024-08-09] MEDS: Sodium Bicarbonate 650 MG Tablet 325 MG PO (07:58)
[2024-08-09 08:07] VITALS: BP 110/67; PULSE 89; O2SAT 97
--- NOTE | 2024-08-09 09:12 | NURSING ---
Clean Room Assembler Note; Activity Asset: Complete Baldomero has returned to [facility] for therapy and remains independent in his choice of daily activities. Baldomero prefers in room activities such as reading and watching the new. His family will visits and is aware of his wishes. Staff will remind him of weekly activities offer him the daily news paper and respect his right to say no. He stated he is not interested in visits from the orthopedic tech or therapy dog.
--- NOTE | 2024-08-09 09:40 | CASEMGMT ---
Addendum entered by Pita Long 08/09/24 11:57: SW sent updates to [facility] [facility] via [employer]. Received confirmed from Jayna Calvo and clarified pt's wound care is sheering with a mepilex dressing, currently. [place] can accept with a stage 2 or less. Original Note: Social Work IDT met with patient and dtr Kari, for care plan meeting. Discussed patient's progress in PT/OT/SN. Educated to [facility] insurance with NRD 08/16, EDC 08/19. Pt's goal is to return to [facility]. SW to assist with coordination to return at [place]. Dtr inquired about resources for transportation and any insurance coverage available. Educated that insurance does not typically cover non-emergent transportation, specifically to [facility] appts. However, provided resources for [place] transport. Dtrs typically transport pt to out of county appts and [place] assists with in town transports. Dtr requested list of appts and will collaborate with [facility] to schedule appts with their schedules. MARTHA provided printed list. MARTHA will continue to follow for DC planning. Pita Long, JANETH ARCOSW
[2024-08-09 11:25] VITALS: PULSE 89; RESP 18; O2SAT 97
[2024-08-09 16:06] VITALS: BMI 27.2
[2024-08-09 16:44] VITALS: RESP 16; TEMP 36.5
--- NOTE | 2024-08-09 17:19 | PCM.TCUNOT ---
Objective Data Objective Data Vital Signs: Vital Signs Temp Pulse Resp BP Pulse Ox O2 Del Method 97.7 F L 89 16 110/67 97 Room Air 08/09/24 16:44 08/09/24 11:25 08/09/24 16:44 08/09/24 08:07 08/09/24 11:25 08/09/24 11:25 Oxygen Delivery Method Room Air Weight: 91.2 kg Body Mass Index (BMI) 27.2 Intake & Output: Intake and Output for Last 24 Hours 08/07/24 08/08/24 08/09/24 23:59 23:59 23:59 Intake Total 560 / 560 780 / 780 600 / 600 Balance 560 / 560 780 / 780 600 / 600 Lab / Micro Data 08/06/24 06:40 08/06/24 06:40 Micro: Microbiology 08/07/24 06:30 Nasal Secretion SARS-CoV-2 Antigen (Rapid) - Final Assessment & Plan Assessment/Plan (1) Neuropathic pain: PLAN: Plan Neuropathic pain - Gabapentin 300mg qhs.
[2024-08-09] MEDS: Gabapentin 300 MG Capsule PO (21:43)
[2024-08-10 06:00] VITALS: BMI 26.6
[2024-08-10 08:11] LABS: Absolute Lymphocyte Count 1.29 X10^3/uL (0.83-4.51); Absolute Neutrophil Count 4.7 X10^3/uL (2.0-7.7); Basophil# 0.06 X10^3/uL; Basophil% 0.8 % (0-1); Eosinophil# 0.25 X10^3/uL; Eosinophils% 3.5 % (0-5); Hematocrit 47.7 % (40-54); Hemoglobin 14.6 g/dL (13.0-16.5); Lymphocyte # 1.29 X10^3/ul (0.83-4.51); Lymphocyte % 18.3 % (19-41); Mean Corp Hgb Conc 30.6 g/dL (32-36); Mean Corpuscular Hgb 28.2 pg (27.0-32.0); Mean Corpuscular Volume 92.1 fL (80-94); Mean Platelet Vol. 11.5 fl (6.2-12.0); Monocyte# 0.74 X10^3/uL; Monocyte% 10.5 % (0-10); NRBC Flagged by Analyzer 0 % (0-5); Neutrophil # 4.68 X10^3/uL (2.7-7.7); Neutrophil % 66.3 % (47-70); POSITIVE MORPHOLOGY YES; Platelet Count 112 K/mm3 (150-450); RBC Distribution Width CV 20.5 % (11.6-14.6); RBC Distribution Width SD 66.5 fl (35.1-43.9); Red Blood Count 5.18 M/mm3 (4.6-6.2); White Blood Count 7.1 K/mm3 (4.4-11.0)
[2024-08-10 08:14] LABS: Differential Indicated SCAN CRITERIA MET
[2024-08-10 08:53] LABS: Anion Gap 5 (5-15); BUN 31 mg/dL (7-18); BUN/Creat Ratio 19.7 RATIO (10-20); Calcium,Total 9.1 mg/dL (8.5-10.1); Chloride 110 mmol/L (98-107); Creatinine, Serum 1.57 mg/dL (0.70-1.30); EST Glomerular Filtration Rate 45 mL/min (>60); Est Glom Filt Rate - Afr Amer 54 mL/min (>60); Estimated Creatinine Clearance 39.13 ml/min; Glucose 84 mg/dL (74-106); Potassium 4.1 mmol/L (3.5-5.1); Sodium Level 143 mmol/L (136-145)
[2024-08-10 09:25] LABS: BNP,B-Type NATRIURETIC PEPTIDE 763.4 pg/mL (0-100)
[2024-08-10 09:27] LABS: Vitamin D,25 Hydroxy 76.7 ng/mL
[2024-08-10] MEDS: Spironolactone 25 MG Tablet PO (09:52)
[2024-08-10] MEDS: Multivitamins,Ther W-Minerals Tablet 1 TABLET PO (09:53)
[2024-08-10] MEDS: Cholecalciferol (VIT D3) 25 MCG TABLET (1,000 UNITS) 50 MCG PO (09:54)
[2024-08-10] MEDS: predniSONE 5 MG Tablet PO (09:54)
[2024-08-10] MEDS: Pantoprazole Sodium 20 MG Tablet PO (09:55)
[2024-08-10] MEDS: APIXABAN 2.5 MG TABLET (WCH) PO ×2 (09:55→21:45)
[2024-08-10] MEDS: Acetaminophen 500 MG Tablet 1000 MG PO ×2 (09:55→21:46)
[2024-08-10] MEDS: Furosemide 40 MG Tablet PO (09:55)
[2024-08-10] MEDS: SACUBITRIL/VALSARTAN 24/26 MG TABLET 1 EACH PO (09:59)
[2024-08-10] MEDS: Hydrocortisone 2.5% Crm 1 APPLIC TOPICAL (10:03)
[2024-08-10 10:10] VITALS: PULSE 74; RESP 18; O2SAT 95
[2024-08-10 10:28] VITALS: BP 105/63; PULSE 74; RESP 18; O2SAT 95
--- NOTE | 2024-08-10 13:29 | MDS.RN ---
MDS pain assessment completed.
[2024-08-10 15:21] VITALS: RESP 16; TEMP 36.4
[2024-08-10] MEDS: Gabapentin 300 MG Capsule PO (21:45)
[2024-08-10 21:48] VITALS: BP 97/61; PULSE 60
[2024-08-11 05:48] LABS: Absolute Lymphocyte Count 1.05 X10^3/uL (0.83-4.51); Absolute Neutrophil Count 4.4 X10^3/uL (2.0-7.7); Basophil# 0.06 X10^3/uL; Basophil% 0.9 % (0-1); Eosinophil# 0.19 X10^3/uL; Eosinophils% 2.9 % (0-5); Hematocrit 46.4 % (40-54); Hemoglobin 14.5 g/dL (13.0-16.5); Lymphocyte # 1.05 X10^3/ul (0.83-4.51); Lymphocyte % 16.3 % (19-41); Mean Corp Hgb Conc 31.3 g/dL (32-36); Mean Corpuscular Hgb 28.7 pg (27.0-32.0); Mean Corpuscular Volume 91.7 fL (80-94); Mean Platelet Vol. 10.8 fl (6.2-12.0); Monocyte# 0.69 X10^3/uL; Monocyte% 10.7 % (0-10); NRBC Flagged by Analyzer 0 % (0-5); Neutrophil # 4.42 X10^3/uL (2.7-7.7); Neutrophil % 68.4 % (47-70); POSITIVE MORPHOLOGY YES; Platelet Count 120 K/mm3 (150-450); RBC Distribution Width CV 20.3 % (11.6-14.6); RBC Distribution Width SD 65.8 fl (35.1-43.9); Red Blood Count 5.06 M/mm3 (4.6-6.2); White Blood Count 6.5 K/mm3 (4.4-11.0)
[2024-08-11 05:56] LABS: Differential Indicated SCAN CRITERIA MET
[2024-08-11 06:18] LABS: Anion Gap 7 (5-15); BUN 30 mg/dL (7-18); BUN/Creat Ratio 20.5 RATIO (10-20); Chloride 111 mmol/L (98-107); Creatinine, Serum 1.46 mg/dL (0.70-1.30); EST Glomerular Filtration Rate 49 mL/min (>60); Est Glom Filt Rate - Afr Amer 59 mL/min (>60); Estimated Creatinine Clearance 42.08 ml/min; Glucose 92 mg/dL (74-106); Potassium 3.9 mmol/L (3.5-5.1); Sodium Level 142 mmol/L (136-145)
[2024-08-11 06:34] LABS: Anisocytosis 3+; Differential Comment SCANNED; Ovalocyte 2+; Platelet Estimate SLT DEC (ADEQ); Polychromasia 1+
[2024-08-11 08:00] VITALS: BP 93/66; PULSE 64; RESP 18; TEMP 36.3; O2SAT 98
[2024-08-11] MEDS: Spironolactone 25 MG Tablet PO (08:28)
[2024-08-11] MEDS: Multivitamins,Ther W-Minerals Tablet 1 TABLET PO (08:28)
[2024-08-11] MEDS: Cholecalciferol (VIT D3) 25 MCG TABLET (1,000 UNITS) 50 MCG PO (08:28)
[2024-08-11] MEDS: APIXABAN 2.5 MG TABLET (WCH) PO ×2 (08:28→20:29)
[2024-08-11] MEDS: predniSONE 5 MG Tablet PO (08:28)
[2024-08-11] MEDS: Pantoprazole Sodium 20 MG Tablet PO (08:29)
[2024-08-11] MEDS: Acetaminophen 500 MG Tablet 1000 MG PO ×2 (08:29→20:29)
[2024-08-11] MEDS: Furosemide 40 MG Tablet PO (08:29)
[2024-08-11 10:00] VITALS: PULSE 64; RESP 18; O2SAT 98
--- NOTE | 2024-08-11 11:14 | NURSING ---
Patient refused AM dose of Entresto. Stated he will not take anything that will lower his blood pressure, because that it what got me put here in the first place. AM dose held per patient request. Blood pressure this morning 93/66. Dr. Contreras notified of above.
--- NOTE | 2024-08-11 12:40 | CASEMGMT ---
Social Work SW completed BIMS () and PHQ-2 () for MDS assessment. Pita Long BIODIESEL PRODUCTION TECHNICIAN LOSS PREVENTION RESEARCH ENGINEER
[2024-08-11 12:45] VITALS: BMI 27.0
--- NOTE | 2024-08-11 13:55 | NURSING ---
Dressing to right forearm changed per orders. Minimal drainage noted on old bandage. No odor noted. Adaptic and kerlix applied. Tolerated well. Mepilex dry and intact to coccyx. BLE washed, dried, and lotion applied. Tubi landman reapplied. No concerns noted/voiced.
--- NOTE | 2024-08-11 18:16 | NURSING ---
New order received from Dr. Contreras. 1) D/C Entresto. Patient aware of new order.
[2024-08-11] MEDS: Gabapentin 300 MG Capsule PO (20:29)
[2024-08-12 06:00] VITALS: BMI 27.1
[2024-08-12 07:40] LABS: Anion Gap 6 (5-15); BUN 35 mg/dL (7-18); BUN/Creat Ratio 23.8 RATIO (10-20); Chloride 111 mmol/L (98-107); Creatinine, Serum 1.47 mg/dL (0.70-1.30); EST Glomerular Filtration Rate 49 mL/min (>60); Est Glom Filt Rate - Afr Amer 59 mL/min (>60); Estimated Creatinine Clearance 41.79 ml/min; Glucose 86 mg/dL (74-106); Potassium 3.9 mmol/L (3.5-5.1); Sodium Level 142 mmol/L (136-145)
[2024-08-12 09:20] VITALS: BP 96/56; PULSE 80; RESP 16; TEMP 36; O2SAT 98
[2024-08-12] MEDS: Multivitamins,Ther W-Minerals Tablet 1 TABLET PO (09:32)
[2024-08-12] MEDS: Acetaminophen 500 MG Tablet 1000 MG PO ×2 (09:32→21:23)
[2024-08-12] MEDS: Spironolactone 25 MG Tablet PO (09:32)
[2024-08-12] MEDS: APIXABAN 2.5 MG TABLET (WCH) PO ×2 (09:34→21:23)
[2024-08-12] MEDS: Furosemide 40 MG Tablet PO (09:34)
[2024-08-12] MEDS: predniSONE 5 MG Tablet PO (09:34)
[2024-08-12] MEDS: Pantoprazole Sodium 20 MG Tablet PO (09:34)
[2024-08-12] MEDS: Cholecalciferol (VIT D3) 25 MCG TABLET (1,000 UNITS) 50 MCG PO (09:34)
[2024-08-12 14:58] VITALS: PULSE 80
[2024-08-12] MEDS: Gabapentin 300 MG Capsule PO (21:23)
[2024-08-13 06:00] VITALS: BMI 26.9
[2024-08-13 08:00] VITALS: BP 116/70; PULSE 70; RESP 18; TEMP 36.4; O2SAT 95
[2024-08-13] MEDS: Multivitamins,Ther W-Minerals Tablet 1 TABLET PO (08:04)
[2024-08-13] MEDS: Cholecalciferol (VIT D3) 25 MCG TABLET (1,000 UNITS) 50 MCG PO (08:04)
[2024-08-13] MEDS: Acetaminophen 500 MG Tablet 1000 MG PO ×2 (08:04→20:59)
[2024-08-13] MEDS: predniSONE 5 MG Tablet PO (08:04)
[2024-08-13] MEDS: Pantoprazole Sodium 20 MG Tablet PO (08:04)
[2024-08-13] MEDS: Spironolactone 25 MG Tablet PO (08:04)
[2024-08-13] MEDS: Furosemide 40 MG Tablet PO (08:04)
[2024-08-13] MEDS: APIXABAN 2.5 MG TABLET (WCH) PO ×2 (08:04→20:59)
[2024-08-13] MEDS: Tuberculin,Purif.prot.deriv. 50 TU/ML Vial 0.1 ML ID (09:22)
[2024-08-13 11:30] VITALS: PULSE 70; RESP 18; O2SAT 96
--- NOTE | 2024-08-13 11:56 | NURSING ---
Dressings to right arm changed per order. Tolerated well. Minimal amount of drainage noted on old bandage. Area cleansed, dried, and DCD applied. Dressing to coccyx changed per order. Tolerated well. Shearing noted. No drainage noted. New foam dressing applied per orders. BLE washed, dried, lotion applied, and tubi packing line worker reapplied. Edema cont. to BLE. Denies pain/discomfort. No concerns noted/voiced.
[2024-08-13] MEDS: Gabapentin 300 MG Capsule PO (20:59)
[2024-08-14 06:00] VITALS: BMI 27.0
[2024-08-14] MEDS: predniSONE 5 MG Tablet PO (07:51)
[2024-08-14] MEDS: Multivitamins,Ther W-Minerals Tablet 1 TABLET PO (07:51)
[2024-08-14] MEDS: Spironolactone 25 MG Tablet PO (07:51)
[2024-08-14] MEDS: Furosemide 40 MG Tablet PO (07:51)
[2024-08-14] MEDS: APIXABAN 2.5 MG TABLET (WCH) PO ×2 (07:51→22:21)
[2024-08-14] MEDS: Cholecalciferol (VIT D3) 25 MCG TABLET (1,000 UNITS) 50 MCG PO (07:51)
[2024-08-14] MEDS: Acetaminophen 500 MG Tablet 1000 MG PO ×2 (07:51→22:21)
[2024-08-14] MEDS: Pantoprazole Sodium 20 MG Tablet PO (07:51)
--- NOTE | 2024-08-14 09:04 | NURSING ---
Storeroom Supervisor Note; MDS for 08/12/2024 Complete
[2024-08-14 11:38] VITALS: BP 108/70; PULSE 56; RESP 16; TEMP 36.5; O2SAT 95
[2024-08-14 22:00] VITALS: PULSE 70; RESP 18; O2SAT 96
[2024-08-14] MEDS: Gabapentin 300 MG Capsule PO (22:21)
[2024-08-15 06:00] VITALS: BMI 26.9
[2024-08-15] MEDS: predniSONE 5 MG Tablet PO (07:55)
[2024-08-15] MEDS: Spironolactone 25 MG Tablet PO (07:55)
[2024-08-15] MEDS: Cholecalciferol (VIT D3) 25 MCG TABLET (1,000 UNITS) 50 MCG PO (07:55)
[2024-08-15] MEDS: Multivitamins,Ther W-Minerals Tablet 1 TABLET PO (07:55)
[2024-08-15] MEDS: Pantoprazole Sodium 20 MG Tablet PO (07:56)
[2024-08-15] MEDS: APIXABAN 2.5 MG TABLET (WCH) PO ×2 (07:56→20:32)
[2024-08-15] MEDS: Acetaminophen 500 MG Tablet 1000 MG PO ×2 (07:56→20:32)
[2024-08-15] MEDS: Furosemide 40 MG Tablet PO (07:56)
[2024-08-15 08:01] VITALS: BP 123/68; PULSE 63; O2SAT 96
[2024-08-15 10:00] VITALS: PULSE 54; RESP 18; O2SAT 96
--- NOTE | 2024-08-15 13:56 | CASEMGMT ---
Addendum entered by Pita Long 08/15/24 16:07: Jayna Calvo from [facility] confirmed pt can return when insurance issues DC. Original Note: Social Work Insurance update is 08/16, EDC 08/19. SW sent updated clinicals to [facility] to confirm acceptance. RN stated pt's shearing on buttocks is unchanged. Pita Long BREAKFAST HOST STAFFING ACCOUNT MANAGER
[2024-08-15 16:00] VITALS: RESP 14; TEMP 36.5
[2024-08-15] MEDS: Gabapentin 300 MG Capsule PO (20:32)
[2024-08-16 06:00] VITALS: BMI 26.8
[2024-08-16] MEDS: predniSONE 5 MG Tablet PO (09:09)
[2024-08-16] MEDS: Multivitamins,Ther W-Minerals Tablet 1 TABLET PO (09:09)
[2024-08-16] MEDS: Spironolactone 25 MG Tablet PO (09:10)
[2024-08-16] MEDS: Cholecalciferol (VIT D3) 25 MCG TABLET (1,000 UNITS) 50 MCG PO (09:11)
[2024-08-16] MEDS: Pantoprazole Sodium 20 MG Tablet PO (09:11)
[2024-08-16] MEDS: APIXABAN 2.5 MG TABLET (WCH) PO ×2 (09:11→21:58)
[2024-08-16] MEDS: Acetaminophen 500 MG Tablet 1000 MG PO ×2 (09:12→21:58)
[2024-08-16] MEDS: Furosemide 40 MG Tablet PO (09:12)
[2024-08-16 09:16] VITALS: BP 106/58; PULSE 59; O2SAT 96
--- NOTE | 2024-08-16 12:07 | MDS.RN ---
Information for the MDS was obtained from review of the clinical record, interview of resident, staff, and direct observation of resident?s care.
[2024-08-16 16:00] VITALS: RESP 18; TEMP 36.1
--- NOTE | 2024-08-16 16:34 | CASEMGMT ---
Social Work Insurance issued LCD 08/18, DC 08/19 AMRTHA spoke with pt about DC and pt agreeable; will return to [place]. Dtr can transport. MARTHA updated Jayna at [facility]. Phoned referral to [facility] PT/OT/SN Plan: DC 08/19, returning to [place] SARITA, [facility] PT/OT/SN Pita Long, JANETH ARCOSW
[2024-08-16 20:00] VITALS: PULSE 60; O2SAT 93
[2024-08-16] MEDS: Gabapentin 300 MG Capsule PO (21:58)
[2024-08-17] MEDS: Spironolactone 25 MG Tablet PO (08:40)
[2024-08-17] MEDS: Acetaminophen 500 MG Tablet 1000 MG PO ×2 (08:40→22:11)
[2024-08-17] MEDS: APIXABAN 2.5 MG TABLET (WCH) PO ×2 (08:40→22:11)
[2024-08-17] MEDS: predniSONE 5 MG Tablet PO (08:40)
[2024-08-17] MEDS: Cholecalciferol (VIT D3) 25 MCG TABLET (1,000 UNITS) 50 MCG PO (08:40)
[2024-08-17] MEDS: Multivitamins,Ther W-Minerals Tablet 1 TABLET PO (08:40)
[2024-08-17] MEDS: Furosemide 40 MG Tablet PO (08:40)
[2024-08-17] MEDS: Pantoprazole Sodium 20 MG Tablet PO (08:40)
[2024-08-17 11:00] VITALS: BP 100/63; PULSE 69; RESP 18; TEMP 36.5; O2SAT 94
--- NOTE | 2024-08-17 19:26 | PCM.DC.SUM ---
Providers Date of Admission: 08/05/24 Primary Care Physician: Dr. Genevieve Acosta, DO Reason For Visit: CELLULITIS Diagnosis Discharge Diagnosis (1) Neuropathic pain: Status: Acute Code(s): M79.2 - Neuralgia and neuritis, unspecified Plan Neuropathic pain - Gabapentin 300mg qhs. Medications at Discharge Home Medications apixaban 5 mg tablet (Eliquis) 2.5 mg PO BID Blood Thinner 02/03/23 cholecalciferol (vitamin D3) 50 mcg (2,000 unit) chewable tablet 50 mcg PO DAILY Supplement 02/03/23 gabapentin 300 mg capsule 300 mg PO QHS Pain 02/03/23 omeprazole 20 mg tablet,delayed release 20 mg PO DAILY GERD 02/03/23 furosemide 40 mg tablet 40 mg PO DAILY Edema 02/16/23 spironolactone 25 mg tablet 25 mg PO DAILY@0800 DIURETIC 30 days #30 tabs 03/02/23 prednisone 5 mg tablet 5 mg PO DAILY pain 06/21/24 acetaminophen 500 mg tablet 1,000 mg (2 x 500 mg) PO BID #0 tabs 08/17/24 Hospital Course Operations None Procedures None Summary of Care Provided Minutes Spent on Discharge: 35 Hospital Course: 83 year old male with below past medical history hospitalized for lower extremity cellulitis, complicated by TAMMY, HFpEF, admitted to TCU with debility, here for rehabilitation, strengthening, prior to discharge to [facility]. Discharge 08/19/2024, returning to [facility], [facility] PT/OT/SN. Physical Exam Const alert General Appearance: cooperative HEENT normocephalic Eyes PERRL and EOMs intact bilaterally Neck supple, no JVD and no carotid bruits Resp normal respiratory effort, normal air movement and clear to auscultation bilaterally Cardio regular rate and regular rhythm GI normal to inspection, nondistended, normoactive bowel sounds, non-tender and non-distended Extremity normal capillary refill General Extremity: Negative for edema Skin no rashes or lesions noted General Skin Exam: no breakdown Psych affect normal Appearance: appropriate Weight / BMI Weight Weight: 89.721 kg Body Mass Index (BMI) 26.8 ABG / Lab / Microbiology Data 08/11/24 05:15 08/12/24 06:41 Microbiology: Microbiology 08/14/24 05:30 Nasal Secretion SARS-CoV-2 Antigen (Rapid) - Final 08/07/24 06:30 Nasal Secretion SARS-CoV-2 Antigen (Rapid) - Final D/C Instructions Discharge Diet: No restrictions and 6 Cup Fluid Restriction Discharge Activity: Return to Normal Activity, May Shower and Use Walker Weight Bearing Status: Weight bearing as tolerated Call your doctor if you observe: Fever of 101 or Higher, Inability to urinate, Inability to have a bowel movement, Shortness of breath, Dizziness, Fainting spells, Swelling in the ankles, Chest pain and Uncontrolled pain DC O2, CPAP, BIPAP Needs Additional Home O2 Discharge instructions: No DC home with Oxygen: No Additional Instructions: Discharge 08/19/2024, returning to [facility] PT/OT/SN. Please Follow Up With: Henna Michele (cardiology) When: AYDE Meaningful Use Info Meaningful Use Meaningful Use Diagnoses (Choose all that apply): None applicable Ischemic Stroke Statin Dosing Therapy Reference: STATIN DOSE THERAPY REFERENCE: * Patients > 75 years receive moderate or high dose statin therapy. * Patients 75 years or YOUNGER should receive HIGH intensity statin dose unless contraindicated. You will be required to document reason for non-treatment if statin daily dose does not meet guidelines. HIGH DOSE STATIN THERAPY DAILY Atorvastatin > than or = to 40 mg Rosuvastatin > than or = to 20 mg Amlodipine + Atorvastatin > than or = to 2.5/40 mg Ezetimibe + Simvastatin 10/80 mg Simvastatin 80mg Discharge Plan Admission Admit Date/Time: 08/05/24 14:25 Attending Provider: Hazel Zuniga Primary Care Provider: Genevieve Acosta Instructions Additional Instructions / Restrictions: Discharge 08/19/2024, returning to [facility] PT/OT/SN. Discharge Orders/Prescriptions Prescriptions: New acetaminophen 500 mg Tablet 1,000 mg PO BID Qty: 0 0RF Continued gabapentin 300 mg Capsule 300 mg PO QHS omeprazole 20 mg Tablet,Delayed Release (Dr/Ec) 20 mg PO DAILY Eliquis 5 mg Tablet 2.5 mg PO BID cholecalciferol (vitamin D3) 50 mcg (2,000 unit) Tablet,Chewable 50 mcg PO DAILY furosemide 40 mg tablet 40 mg PO DAILY spironolactone 25 mg Tablet 25 mg PO DAILY@0800 30 Days Qty: 30 0RF prednisone 5 mg tablet 5 mg PO DAILY Discontinued multivitamin Tablet 1 tab PO DAILY acetaminophen 500 mg Tablet 1,000 mg PO BID Patient Comments: 500 mg 2x (am), 2x (mid-day) and 2x (pm) daily vitamin B complex [B Complex-Vitamin B12] Tablet 1 tab PO DAILY triamcinolone acetonide 0.1 % cream 1 applic topical PRN Centrum 18-400 mg-mcg tablet 1 tab PO DAILY vitamin S15-jcusl acid 1 tab PO DAILY Patient Comments: 500 mg tablet amlodipine 2.5 mg tablet 2.5 mg PO DAILY atorvastatin 20 mg tablet 20 mg PO DAILY sodium bicarbonate 325 mg tablet 325 mg PO DAILY Referrals / Follow Up: Genevieve Acosta DO [Primary Care Provider] - Disposition Disposition (needs filled in before D/C Order can be placed): Assisted Living
[2024-08-17] MEDS: Gabapentin 300 MG Capsule PO (22:11)
[2024-08-18 06:00] VITALS: BMI 26.7
[2024-08-18 06:13] LABS: Absolute Lymphocyte Count 1.33 X10^3/uL (0.83-4.51); Absolute Neutrophil Count 4.8 X10^3/uL (2.0-7.7); Basophil# 0.05 X10^3/uL; Basophil% 0.7 % (0-1); Eosinophils% 2.8 % (0-5); Hematocrit 44.6 % (40-54); Hemoglobin 13.8 g/dL (13.0-16.5); Lymphocyte # 1.33 X10^3/ul (0.83-4.51); Lymphocyte % 18.7 % (19-41); Mean Corp Hgb Conc 30.9 g/dL (32-36); Mean Corpuscular Hgb 28.3 pg (27.0-32.0); Mean Corpuscular Volume 91.4 fL (80-94); Mean Platelet Vol. 11.4 fl (6.2-12.0); Monocyte% 9.8 % (0-10); NRBC Flagged by Analyzer 0 % (0-5); Neutrophil % 67.3 % (47-70); Platelet Count 163 K/mm3 (150-450); RBC Distribution Width CV 19.7 % (11.6-14.6); RBC Distribution Width SD 63.9 fl (35.1-43.9); Red Blood Count 4.88 M/mm3 (4.6-6.2); White Blood Count 7.1 K/mm3 (4.4-11.0)
[2024-08-18 06:46] LABS: Anion Gap 7 (5-15); BUN 39 mg/dL (7-18); BUN/Creat Ratio 27.7 RATIO (10-20); Calcium,Total 9.1 mg/dL (8.5-10.1); Chloride 109 mmol/L (98-107); Creatinine, Serum 1.41 mg/dL (0.70-1.30); EST Glomerular Filtration Rate 51 mL/min (>60); Est Glom Filt Rate - Afr Amer 62 mL/min (>60); Estimated Creatinine Clearance 43.57 ml/min; Glucose 88 mg/dL (74-106); Sodium Level 140 mmol/L (136-145)
--- NOTE | 2024-08-18 09:06 | MDS.RN ---
Pain assessment for MDS complete.
[2024-08-18] MEDS: Spironolactone 25 MG Tablet PO (09:45)
[2024-08-18] MEDS: Multivitamins,Ther W-Minerals Tablet 1 TABLET PO (09:46)
[2024-08-18] MEDS: predniSONE 5 MG Tablet PO (09:46)
[2024-08-18] MEDS: Cholecalciferol (VIT D3) 25 MCG TABLET (1,000 UNITS) 50 MCG PO (09:46)
[2024-08-18] MEDS: Pantoprazole Sodium 20 MG Tablet PO (09:47)
[2024-08-18] MEDS: Furosemide 40 MG Tablet PO (09:47)
[2024-08-18] MEDS: APIXABAN 2.5 MG TABLET (WCH) PO ×2 (09:47→22:05)
[2024-08-18] MEDS: Acetaminophen 500 MG Tablet 1000 MG PO ×2 (09:47→22:04)
[2024-08-18 09:53] VITALS: BP 118/65; PULSE 65; O2SAT 97
--- NOTE | 2024-08-18 10:39 | CASEMGMT ---
BIMS () and PHQ2 (0) interviews completed on this date for MDS assessment. YARED Bergman
[2024-08-18 13:15] VITALS: PULSE 58; RESP 18; O2SAT 93
[2024-08-18] MEDS: Hydrocortisone 2.5% Crm 1 APPLIC TOPICAL (13:22)
[2024-08-18 15:29] VITALS: RESP 12; TEMP 36.7
[2024-08-18] MEDS: Gabapentin 300 MG Capsule PO (22:04)
[2024-08-19 06:00] VITALS: BMI 26.7
[2024-08-19 06:34] VITALS: PULSE 68; RESP 18; O2SAT 94
[2024-08-19] MEDS: Spironolactone 25 MG Tablet PO (08:45)
[2024-08-19] MEDS: Furosemide 40 MG Tablet PO (08:46)
[2024-08-19] MEDS: predniSONE 5 MG Tablet PO (08:46)
[2024-08-19] MEDS: Acetaminophen 500 MG Tablet 1000 MG PO (08:46)
[2024-08-19] MEDS: Pantoprazole Sodium 20 MG Tablet PO (08:46)
[2024-08-19] MEDS: APIXABAN 2.5 MG TABLET (WCH) PO (08:46)
[2024-08-19] MEDS: Multivitamins,Ther W-Minerals Tablet 1 TABLET PO (08:46)
[2024-08-19] MEDS: Cholecalciferol (VIT D3) 25 MCG TABLET (1,000 UNITS) 50 MCG PO (08:46)
[2024-08-19 09:58] VITALS: BP 110/56; PULSE 65; RESP 18; TEMP 36.4; O2SAT 99
== END 2024-08-19 11:01 | disposition home health service (06) | DRG 292 ==
PROVIDERS: Family Medicine Geriatric Medicine; Admitting Provider Internal Medicine; PCP Family Medicine; Visit Provider Internal Medicine
DX: I13.0 Hypertensive heart and chronic kidney disease with heart failure and stage 1 through stage 4 chronic kidney disease, or unspecified chronic kidney disease (principal); E87.20 Acidosis, unspecified; I50.32 Chronic diastolic (congestive) heart failure; I48.92 Unspecified atrial flutter; I27.20 Pulmonary hypertension, unspecified; N18.32 Chronic kidney disease, stage 3b; M06.4 Inflammatory polyarthropathy; I25.10 Atherosclerotic heart disease of native coronary artery without angina pectoris; E78.5 Hyperlipidemia, unspecified; I87.2 Venous insufficiency (chronic) (peripheral); G47.33 Obstructive sleep apnea (adult) (pediatric); I50.812 Chronic right heart failure; M79.2 Neuralgia and neuritis, unspecified; Z87.891 Personal history of nicotine dependence; Z79.01 Long term (current) use of anticoagulants; Z95.0 Presence of cardiac pacemaker; Z79.899 Other long term (current) drug therapy; R21 Rash and other nonspecific skin eruption
CPT/HCPCS: 36415; 80048; 82306; 83880; 85025; 87811; 97110; 97116; 97162; 97166; 97530; 97535; 97802

== ENCOUNTER 2024-09-27 09:49 | Outpatient (RCR) | payer MEDICARE, SELFPAY ==
[2024-07-07 00:28] VITALS: BP 107/40; PULSE 79; RESP 16; TEMP 36.1; O2SAT 94
[2024-09-27 10:10] VITALS: BP 109/58; PULSE 56; RESP 18; TEMP 36.5; BMI 60.0
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
--- NOTE | 2024-09-28 09:37 | WC ---
PHOTO 09/27/24 LEFT OLSEN
== END 2024-10-06 23:59 | disposition home or self-care (01) ==
LOC: WC 09:49
PROVIDERS: PCP Family Medicine; Referring Provider Family Medicine; Visit Provider Nurse Practitioner
DX: L97.922 Non-pressure chronic ulcer of unspecified part of left lower leg with fat layer exposed (principal); M06.9 Rheumatoid arthritis, unspecified; I87.2 Venous insufficiency (chronic) (peripheral); Z95.0 Presence of cardiac pacemaker; N18.9 Chronic kidney disease, unspecified
CPT/HCPCS: 11042; 99213; G0463

== ENCOUNTER → 2024-10-03 | Outpatient (CLI) | payer MEDICARE, SELFPAY ==
[2024-10-03 13:59] LABS: Hematocrit 48.6 % (40-54); Hemoglobin 15.5 g/dL (13.0-16.5); Mean Corp Hgb Conc 31.9 g/dL (32-36); Mean Corpuscular Hgb 28.8 pg (27.0-32.0); Mean Corpuscular Volume 90.3 fL (80-94); Mean Platelet Vol. 10.5 fl (6.2-12.0); Platelet Count 201 K/mm3 (150-450); RBC Distribution Width CV 18.3 % (11.6-14.6); RBC Distribution Width SD 59.2 fl (35.1-43.9); Red Blood Count 5.38 M/mm3 (4.6-6.2); White Blood Count 10.4 K/mm3 (4.4-11.0)
== END | disposition home or self-care (01) ==
LOC: LABSPEC 13:43
PROVIDERS: PCP Family Medicine; Referring Provider Nurse Practitioner; Visit Provider Nurse Practitioner
DX: N17.9 Acute kidney failure, unspecified (principal)
CPT/HCPCS: 84134; 85027

== ENCOUNTER 2024-10-25 09:45 | Outpatient (RCR) | payer MEDICARE, SELFPAY ==
[2024-10-07 00:12] VITALS: BP 109/58; PULSE 56; RESP 18; TEMP 36.5; O2SAT 94; BMI 60.0
[2024-10-11 09:57] VITALS: BP 109/71; PULSE 61; RESP 18; TEMP 35.7; BMI 60.0
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
--- NOTE | 2024-10-12 09:38 | WC ---
PHOTO 10/11/24 LEFT OLSEN
[2024-10-25 10:11] VITALS: BP 120/80; PULSE 67; RESP 18; TEMP 36.4; BMI 60.0
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
== END 2024-11-03 11:02 | disposition home or self-care (01) ==
LOC: WC 09:45
PROVIDERS: PCP Family Medicine; Referring Provider Family Medicine; Visit Provider Nurse Practitioner
DX: L97.822 Non-pressure chronic ulcer of other part of left lower leg with fat layer exposed (principal); M06.9 Rheumatoid arthritis, unspecified; I87.2 Venous insufficiency (chronic) (peripheral); R60.0 Localized edema; Z79.01 Long term (current) use of anticoagulants; Z79.52 Long term (current) use of systemic steroids; Z79.899 Other long term (current) drug therapy; N18.9 Chronic kidney disease, unspecified; Z95.0 Presence of cardiac pacemaker
CPT/HCPCS: 11042; 99213; G0463

== ENCOUNTER 2024-11-29 10:45 | Outpatient (RCR) | payer MEDICARE, SELFPAY ==
[2024-11-15 10:46] VITALS: BP 98/45; PULSE 54; RESP 18; TEMP 35.9
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
--- NOTE | 2024-11-16 10:04 | WC ---
PHOTO 11/15/24 LEFT OLSEN
[2024-11-22 11:03] VITALS: BP 85/36; PULSE 60; RESP 18; TEMP 35.5
--- NOTE | 2024-11-22 12:10 | WC ---
circ aid right calf 41.8, right ankle 28.1, right leg length 45cm left calf 26.8, left ankle 36.8, left leg length 44.5
--- NOTE | 2024-11-22 13:00 | PN.PCM_ITS ---
History of Present Illness Date of Service: 11/22/24 Chief Complaint: 84year-old white male from [facility] living with many comorbidities of chronic kidney disease pacemaker rheumatoid arthritis. Is here for open wounds that started just a couple of weeks ago after not wearing his compression stockings. He was here previously for traumatic wounds that he thought he was from scratching and hitting things and we healed those out any already talked to vascular. And Dr. Heranndez does not want to do any procedures on him and just wants to get him in the compression stockings. The daughter had not yet picked up the compression stockings they were trying to still we will and deal through his insurance company to get permission to get them. She will contact them today about the compression in the meantime we will reapply double layer Tubigrip's after doing dressing changes. He has developed a cluster on his left lower leg of open seeping wounds with boggy skin that is all edematous. History of Wound: Open cluster of wounds with depth on the left lower leg and edematous erythematous skin Progress of Wound: No other new area has open on his lower leg and he are still clustering everything so the little bit bigger but he is healing well. The compression stockings that Dr. Hernandez want to get will not be covered under insurance will measure him for CircAid's and he can get those for sure least 1 leg will be paid for because of wound care. We will continue using the Aquacel extra on his legs and Adaptic and wraps for now. Subjective Subjective Patient and daughter are happy with outcomes Objective Data Objective Data We reinforced the importance of him wearing compression stockings and that until he has any procedures done he needs to wear compression stockings because that is with keeping him from skin breakdown. Patient has a tendency not to wear them all the time and that the issue is a problem Vital Signs: Vital Signs Temp Pulse Resp BP 96 F L 60 18 85/36 L 11/22/24 11:03 11/22/24 11:03 11/22/24 11:03 11/22/24 11:03 Physical Exam Const oriented x3 General Appearance: cooperative Exam Limitations: no limitations HEENT normocephalic Face and Sinus: normal facial exam Eyes PERRL General Eye: normal appearance of both eyes Neck full ROM General: normal visual inspection Resp normal respiratory effort Auscultation: clear to auscultation bilaterally Cardio regular rate and regular rhythm Palpation: normal PMI Rate: regular rate Rhythm: regular rhythm GI Auscultation: normoactive bowel sounds Palpation: soft and no hepatosplenomegaly external exam normal Extremity normal to inspection General Extremity: normal exam except as noted Skin General Skin Exam: erythema and venous stasis Lesions: lesion noted Wounds: wounds noted Wound Narrative: Wound left joseph appears to be a trauma from either scratching or from hitting something against his joseph that caused an open area due to his fragile skin that tears and breaks easily from the edema. Buttocks is well-healed Shearing wound that is just needs to be padded and protected. Neuro oriented x3 Psych Appearance: grossly normal Speech: normal speech Thought Content: normal thought content Judgement: judgement good Debridement Note Debridement Note Wound debrided: Left lower leg ulcers Laterality: Left Type of Debridement: Excisional debridement Anesthesia Used: 5% Lidocaine Gel Depth: in the subcutaneous layer Percentage of wound debrided: 100 Instrument Used: 5mm curette Tissue Removed: Fibrin Severity: Fat Layer Exposed Amount of bleeding with debridement: Mild Bleeding Controlled with: Compression and gauze Patient tolerated procedure: Patient tolerated procedure well Post-Debridement Measurements and Additional Note: Post-Debridement Measurements/Treatment - Nurse 1 - General Ulcer Assessment Start: 11/15/24 10:46 Freq: Status: Active Protocol: ALMAS Activity Type Activity Date Activity User E-sign Co-sign Detail Recorded Client Recorded Date Recorded By Document 11/15/24 10:46 RB [id number] 11/15/24 10:51 RB Document 11/22/24 11:03 DL [id number] 11/22/24 11:18 DL 11/15/24 11/22/24 10:46 11:03 - Today's Visit Information Type of service Follow-up Visit Follow-up Visit (Physician/WELLNESS SPECIALIST (Physician/WELLNESS SPECIALIST ) ) Arrival Mode Ambulatory Wheelchair Transfer Assistance None Manual Transfer Assist (Other) x2 Patient Identification Verified (Name & Yes Yes ) Patient Requires Transmission-Based No No Precautions Vital Signs Temperature (97.8 F-99.1 F) 96.6 F L 96 F L Temperature Source Temporal Temporal Pulse Rate (60-100) 54 L 60 Pulse Location Monitor Monitor Respiratory Rate (12-18) 18 18 Respiratory rate source Observation Observation Blood Pressure (90/60-120/80) 98/45 L 85/36 L Blood Pressure Mean (mm Hg) 62 52 Source Monitor Monitor Position Semi-Fowlers Blood Pressure Location Left Arm History Since Last Visit- (Skip if this is Patient's initial visit) Have you changed medications since your No No last visit? Any new allergies or adverse reactions No No Had a fall/change in ADL's that may No No increase risk of falls Signs or symptoms of abuse and/or No No neglect since last visit Have you been in the hospital since your No No last visit? Has dressing in place as prescribed Yes Yes Has compression in place as prescribed Yes Yes Has offloadiing in place as prescribed N/A Yes Experienced any changes in pain level or No No management Left Footwear Regular Shoe Right Footwear Regular Shoe Pain Scale: 0-10 Numeric Is Patient Pain Free? Yes Yes WC - Nurse 1 - General Ulcer Measurement Start: 11/15/24 10:46 Freq: Status: Active Protocol: Activity Type Activity Date Activity User E-sign Co-sign Detail Recorded Client Recorded Date Recorded By Document 11/15/24 10:46 RB [id number] 11/15/24 10:51 RB Document 11/22/24 11:03 DL [id number] 11/22/24 11:18 DL 11/15/24 11/22/24 10:46 11:03 Wound Center Nurse 1 #7- L JOSEPH cluster -Combined with other wound No -Current Size (cm) - Length 1.2 0.8 -Current Size (cm) - Width 0.7 0.4 -Current Size (cm) - Depth 0.1 0.1 -Total Square Cm 0.84 0.32 -Photo Taken Yes Yes -Tunneling No -Undermining/Tunneling No -Circular Undermining No -Classification - Thickness Partial Thickness -Exudate Amt Medium Small -Exudate Type Serosanguineous -Wound Margin Distinct, Distinct, Outline Outline Attached Attached -Granulation Amt Large (67-100%) None Present (0 %) -Granulation Quality [place] -Slough/Fibrin Yes Yes -Necrosis Amt Medium (34-66%) Small (1-33%) -Necrotic Tissue Type Adherent Slough Adherent Slough -Structure Exposed N/A N/A -Texture (Krystle-wound Skin Appearance) Assessed Scarring -Moisture (Krystle-wound Skin Appearance) Weeping No Abnormality -Color (Krystle-wound Skin Appearance) Assessed Hemosiderin Staining -Temperature (Krystle-wound Skin No Abnormality No Abnormality Appearance) (Pt Warm) (Pt Warm) -Tenderness on Palpation (Krystle-wound No No Skin Appearance) -Ulcer Cleansing Wound Cleanser Soap and Water -Foul Odor after Cleansing No No -Anesthetic Used 5% Lidocaine 5% Lidocaine Gel Gel Lower Limb Edema Present Yes Right Calf (cm) 44.4 Right Ankle (cm) 29 Left Calf (cm) 39.6 37.4 Left Ankle (cm) 28 26.7 WC - Nurse 2 - General Ulcer CM Notes Start: 11/15/24 10:46 Freq: Status: Active Protocol: Activity Type Activity Date Activity User E-sign Co-sign Detail Recorded Client Recorded Date Recorded By Document 11/15/24 10:57 BMF [id number] 11/15/24 11:07 BMF Edit Result 11/15/24 10:57 BMF (1) [id number] 11/22/24 07:37 BMF Document 11/22/24 11:37 BMF [id number] 11/22/24 11:45 BMF (1) #7- L JOSEPH cluster - Debridement, SubQ, ea addt'l 20sq cm => 3 or part thereof 11/15/24 11/22/24 10:57 11:37 Wound Center Nurse 2 #7- L JOSEPH cluster -Time 10:57 11:38 -Correct Patient Yes Yes -Correct Side, Site, Position Yes Yes -Correct Procedure Yes Yes -Procedure Performed Yes Yes -Type of Procedure Debridement Debridement -Clinical Debridement Subcutaneous Subcutaneous -Tissue Removed Subcutaneous Subcutaneous -Post Debridement (cm) - Length 9.5 15 -Post Debridement (cm) - Width 8 7.5 -Post Debridement (cm) - Depth 0.2 0.2 -Total Square (Post) (cm) 76.0 112.5 -Area of Debridement (cm) - Length 9.5 15 -Area of Debridement (cm) - Width 8 7.5 -Total Square (Area) (cm) 76.0 112.5 -Tunneling No No -Undermining/Tunneling No No -Circular Undermining No No -Wound/Ulcer Outcome Not Healed Not Healed -Ulcer Cleansing Rinsed/ Rinsed/ Irrigated with Irrigated with Saline Saline -Foul Odor after Cleansing No No -Bioengineered Tissue No No -Bleeding Controlled with Pressure Pressure -Treatment Response Procedure Procedure Tolerated Well Tolerated Well -Debridement - Subq, 1st 20sq cm Yes Yes -Debridement, SubQ, ea addt'l 20sq cm 3 5 or part thereof Pain Scale: 0-10 Numeric Is Patient Pain Free? Yes Yes - Nurse 3 - General Ulcer D/C NN Start: 11/15/24 10:46 Freq: Status: Active Protocol: Activity Type Activity Date Activity User E-sign Co-sign Detail Recorded Client Recorded Date Recorded By Document 11/15/24 11:31 RB [id number] 11/15/24 11:33 RB Document 11/22/24 11:56 CP [id number] 11/22/24 12:00 CP 11/15/24 11/22/24 11:31 11:56 Wound Care Center Nurse 3 #7- L JOSEPH cluster -Ulcer Cleansing Rinsed/ Rinsed/ Irrigated with Irrigated with Saline Saline -Primary Dressing Applied Aquacel Extra, Aquacel Extra NonAdherent Contact Layer, Silicone Border Foam 4x4 -Other Covering adaptic -Aquacel Extra 1 1 -Silicone Border Foam 4x4 2 1 -Silicone Border Foam 6x6 1 BLE -Tubular Bandage Double Layer Double Layer -Size of Tubigrip Used Size E Size E -Size E ($) 4 2 Treatment Response Procedure Tolerated Well Pain Scale: 0-10 Numeric Is Patient Pain Free? Yes Yes - Visit Discharge Discharge Condition Stable Stable Ambulatory Status Wheelchair Ambulatory Transportation Private Auto Private Auto Accompanied by daughter Medication Reconcilliation completed & No provided to patient/care provider Clinical Summary of Care Provided Yes Yes Facility Type Home Health Orders Sent Yes 11/22/24 12:10 Wound Center by Sharon Pitt circ lizzy right calf 41.8, right ankle 28.1, right leg length 45cm left calf 26.8, left ankle 36.8, left leg length 44.5 Initialized on 11/22/24 12:10 - END OF NOTE Assessment/Plan Assessment/Plan (1) Ulcer of left lower leg: CODE(S): L97.929 - Non-pressure chronic ulcer of unspecified part of left lower leg with unspecified severity QUALIFIERS: Non-pressure ulcer stage: with fat layer exposed Qualified Code(s): L97.922 - Non-pressure chronic ulcer of unspecified part of left lower leg with fat layer exposed PLAN: Wash legs with antibacterial soap and water and apply Aquacel extra to wound base cover with Adaptic and foam dressings and then cover with double layer Tubigrip Elevate legs is much as possible and we will remeasure for CircAid's and get them ordered for him. Follow-up in 1 week (2) Stasis dermatitis: CODE(S): I87.2 - Venous insufficiency (chronic) (peripheral) PLAN: Continue wearing double -layer Tubigrip's to the legs every day till can get his CircAid's from Dr. Hernandez's (3) Venous insufficiency of both lower extremities: CODE(S): I87.2 - Venous insufficiency (chronic) (peripheral)
[2024-11-29 11:18] VITALS: BP 127/55; PULSE 40; RESP 18; TEMP 35.9
--- NOTE | 2024-11-29 12:59 | PN.PCM_ITS ---
History of Present Illness Date of Service: 11/29/24 Chief Complaint: 84year-old white male from [facility] living with many comorbidities of chronic kidney disease pacemaker rheumatoid arthritis. Is here for open wounds that started just a couple of weeks ago after not wearing his compression stockings. He was here previously for traumatic wounds that he thought he was from scratching and hitting things and we healed those out any already talked to vascular. And Dr. Hernandez does not want to do any procedures on him and just wants to get him in the compression stockings. The daughter had not yet picked up the compression stockings they were trying to still we will and deal through his insurance company to get permission to get them. She will contact them today about the compression in the meantime we will reapply double layer Tubigrip's after doing dressing changes. He has developed a cluster on his left lower leg of open seeping wounds with boggy skin that is all edematous. History of Wound: Open cluster of wounds with depth on the left lower leg and edematous erythematous skin Progress of Wound: No other new area has open on his lower leg and he are still clustering everything so the little bit bigger but he is healing well. The compression stockings that Dr. Hernandez want to get will not be covered under insurance will measure him for CircAid's and he can get those for sure least 1 leg will be paid for because of wound care. We will continue using the Aquacel extra on his legs and Adaptic and wraps for now. Subjective Subjective Patient and daughter happy with outcomes Objective Data Objective Data We will continue doing dressings and CircAid changes on Fridays Vital Signs: Vital Signs Temp Pulse Resp BP 96.6 F L 40 L 18 127/55 H 11/29/24 11:18 11/29/24 11:18 11/29/24 11:18 11/29/24 11:18 Lab / Micro Data Attestation: I reviewed the patient's lab results. Physical Exam Const oriented x3 General Appearance: cooperative Exam Limitations: no limitations HEENT normocephalic Face and Sinus: normal facial exam Eyes PERRL General Eye: normal appearance of both eyes Neck full ROM General: normal visual inspection Resp normal respiratory effort Auscultation: clear to auscultation bilaterally Cardio regular rate and regular rhythm Palpation: normal PMI Rate: regular rate Rhythm: regular rhythm GI Auscultation: normoactive bowel sounds Palpation: soft and no hepatosplenomegaly external exam normal Extremity normal to inspection General Extremity: normal exam except as noted Skin General Skin Exam: erythema and venous stasis Lesions: lesion noted Wounds: wounds noted Wound Narrative: Wound left joseph appears to be a trauma from either scratching or from hitting something against his joseph that caused an open area due to his fragile skin that tears and breaks easily from the edema. Buttocks is well-healed Shearing wound that is just needs to be padded and protected. Neuro oriented x3 Psych Appearance: grossly normal Speech: normal speech Thought Content: normal thought content Judgement: judgement good Debridement Note Debridement Note Wound debrided: Left lower leg ulcers Laterality: Left Type of Debridement: Excisional debridement Anesthesia Used: 5% Lidocaine Gel Depth: in the subcutaneous layer Percentage of wound debrided: 100 Instrument Used: 5mm curette Tissue Removed: Fibrin Severity: Fat Layer Exposed Amount of bleeding with debridement: Mild Bleeding Controlled with: Compression and gauze Patient tolerated procedure: Patient tolerated procedure well Post-Debridement Measurements and Additional Note: Post-Debridement Measurements/Treatment - Nurse 1 - General Ulcer Assessment Start: 11/15/24 10:46 Freq: Status: Active Protocol: MAYA Activity Type Activity Date Activity User E-sign Co-sign Detail Recorded Client Recorded Date Recorded By Document 11/15/24 10:46 RB [id number] 11/15/24 10:51 RB Document 11/22/24 11:03 DL [id number] 11/22/24 11:18 DL Document 11/29/24 11:18 DL [id number] 11/29/24 11:33 DL 11/15/24 11/22/24 11/29/24 10:46 11:03 11:18 - Today's Visit Information Type of service Follow-up Visit Follow-up Visit Follow-up Visit (Physician/SCENE AND LIGHTING DESIGN LECTURER (Physician/SCENE AND LIGHTING DESIGN LECTURER (Physician/SCENE AND LIGHTING DESIGN LECTURER ) ) ) Arrival Mode Ambulatory Wheelchair Wheelchair Transfer Assistance None Manual Manual Transfer Assist (Other) x2 x2 Patient Identification Verified (Name & Yes Yes Yes ) Patient Requires Transmission-Based No No No Precautions Vital Signs Temperature (97.8 F-99.1 F) 96.6 F L 96 F L 96.6 F L Temperature Source Temporal Temporal Temporal Pulse Rate (60-100) 54 L 60 40 L Pulse Location Monitor Monitor Monitor Respiratory Rate (12-18) 18 18 18 Respiratory rate source Observation Observation Observation Blood Pressure (90/60-120/80) 98/45 L 85/36 L 127/55 H Blood Pressure Mean (mm Hg) 62 52 79 Source Monitor Monitor Monitor Position Semi-Fowlers Blood Pressure Location Left Arm History Since Last Visit- (Skip if this is Patient's initial visit) Have you changed medications since your No No No last visit? Any new allergies or adverse reactions No No No Had a fall/change in ADL's that may No No No increase risk of falls Signs or symptoms of abuse and/or No No No neglect since last visit Have you been in the hospital since your No No No last visit? Has dressing in place as prescribed Yes Yes Yes Has compression in place as prescribed Yes Yes Yes Has offloadiing in place as prescribed N/A Yes N/A Experienced any changes in pain level or No No Yes management Left Footwear Regular Shoe Right Footwear Regular Shoe Pain Scale: 0-10 Numeric Is Patient Pain Free? Yes Yes Yes WC - Nurse 1 - General Ulcer Measurement Start: 11/15/24 10:46 Freq: Status: Active Protocol: Activity Type Activity Date Activity User E-sign Co-sign Detail Recorded Client Recorded Date Recorded By Document 11/15/24 10:46 RB [id number] 11/15/24 10:51 RB Document 11/22/24 11:03 DL [id number] 11/22/24 11:18 DL Document 11/29/24 11:18 DL [id number] 11/29/24 11:33 DL 11/15/24 11/22/24 11/29/24 10:46 11:03 11:18 Wound Center Nurse 1 #7- L JOSEPH cluster -Combined with other wound No -Current Size (cm) - Length 1.2 0.8 15.2 -Current Size (cm) - Width 0.7 0.4 7.8 -Current Size (cm) - Depth 0.1 0.1 0.1 -Total Square Cm 0.84 0.32 118.56 -Photo Taken Yes Yes -Tunneling No -Undermining/Tunneling No -Circular Undermining No -Classification - Thickness Partial Thickness -Exudate Amt Medium Small Small -Exudate Type Serosanguineous Serosanguineous -Wound Margin Distinct, Distinct, Distinct, Outline Outline Outline Attached Attached Attached -Granulation Amt Large (67-100%) None Present (0 Small (1-33%) %) -Granulation Quality [place] -Slough/Fibrin Yes Yes -Necrosis Amt Medium (34-66%) Small (1-33%) Large (67-100%) -Necrotic Tissue Type Adherent Slough Adherent Slough Adherent Slough -Structure Exposed N/A N/A N/A -Texture (Krystle-wound Skin Appearance) Assessed Scarring Scarring -Moisture (Krystle-wound Skin Appearance) Weeping No Abnormality No Abnormality -Color (Krystle-wound Skin Appearance) Assessed Hemosiderin Erythema, Staining Hemosiderin Staining -Temperature (Krystle-wound Skin No Abnormality No Abnormality No Abnormality Appearance) (Pt Warm) (Pt Warm) (Pt Warm) -Tenderness on Palpation (Krystle-wound No No No Skin Appearance) -Ulcer Cleansing Wound Cleanser Soap and Water Soap and Water -Foul Odor after Cleansing No No No -Anesthetic Used 5% Lidocaine 5% Lidocaine 5% Lidocaine Gel Gel Gel Lower Limb Edema Present Yes Right Calf (cm) 44.4 36.5 Right Ankle (cm) 29 26.6 Left Calf (cm) 39.6 37.4 43.7 Left Ankle (cm) 28 26.7 29.4 WC - Nurse 2 - General Ulcer CM Notes Start: 11/15/24 10:46 Freq: Status: Active Protocol: Activity Type Activity Date Activity User E-sign Co-sign Detail Recorded Client Recorded Date Recorded By Document 11/15/24 10:57 BMF [id number] 11/15/24 11:07 BMF Edit Result 11/15/24 10:57 BMF (1) [id number] 11/22/24 07:37 BMF Document 11/22/24 11:37 BMF [id number] 11/22/24 11:45 BMF Document 11/29/24 11:41 BMF [id number] 11/29/24 12:02 BMF (1) #7- L JOSEPH cluster - Debridement, SubQ, ea addt'l 20sq cm => 3 or part thereof 11/15/24 11/22/24 11/29/24 10:57 11:37 11:41 Wound Center Nurse 2 #7- L JOSEPH cluster -Time 10:57 11:38 11:41 -Correct Patient Yes Yes Yes -Correct Side, Site, Position Yes Yes Yes -Correct Procedure Yes Yes Yes -Procedure Performed Yes Yes Yes -Type of Procedure Debridement Debridement Debridement -Clinical Debridement Subcutaneous Subcutaneous Subcutaneous -Tissue Removed Subcutaneous Subcutaneous Subcutaneous -Post Debridement (cm) - Length 9.5 15 15.3 -Post Debridement (cm) - Width 8 7.5 8 -Post Debridement (cm) - Depth 0.2 0.2 0.2 -Total Square (Post) (cm) 76.0 112.5 122.4 -Area of Debridement (cm) - Length 9.5 15 15.3 -Area of Debridement (cm) - Width 8 7.5 8 -Total Square (Area) (cm) 76.0 112.5 122.4 -Tunneling No No No -Undermining/Tunneling No No No -Circular Undermining No No No -Wound/Ulcer Outcome Not Healed Not Healed Not Healed -Ulcer Cleansing Rinsed/ Rinsed/ Rinsed/ Irrigated with Irrigated with Irrigated with Saline Saline Saline -Foul Odor after Cleansing No No No -Bioengineered Tissue No No No -Bleeding Controlled with Pressure Pressure Pressure -Treatment Response Procedure Procedure Procedure Tolerated Well Tolerated Well Tolerated Well -Debridement - Subq, 1st 20sq cm Yes Yes Yes -Debridement, SubQ, ea addt'l 20sq cm 3 5 5 or part thereof Pain Scale: 0-10 Numeric Is Patient Pain Free? Yes Yes Yes - Nurse 3 - General Ulcer D/C NN Start: 11/15/24 10:46 Freq: Status: Active Protocol: Activity Type Activity Date Activity User E-sign Co-sign Detail Recorded Client Recorded Date Recorded By Document 11/15/24 11:31 RB [id number] 11/15/24 11:33 RB Document 11/22/24 11:56 [id number] 11/22/24 12:00 11/15/24 11/22/24 11:31 11:56 Wound Care Center Nurse 3 #7- L JOSEPH cluster -Ulcer Cleansing Rinsed/ Rinsed/ Irrigated with Irrigated with Saline Saline -Primary Dressing Applied Aquacel Extra, Aquacel Extra NonAdherent Contact Layer, Silicone Border Foam 4x4 -Other Covering adaptic -Aquacel Extra 1 1 -Silicone Border Foam 4x4 2 1 -Silicone Border Foam 6x6 1 BLE -Tubular Bandage Double Layer Double Layer -Size of Tubigrip Used Size E Size E -Size E ($) 4 2 Treatment Response Procedure Tolerated Well Pain Scale: 0-10 Numeric Is Patient Pain Free? Yes Yes WC - Visit Discharge Discharge Condition Stable Stable Ambulatory Status Wheelchair Ambulatory Transportation Private Auto Private Auto Accompanied by daughter Medication Reconcilliation completed & No provided to patient/care provider Clinical Summary of Care Provided Yes Yes Facility Type Home Health Orders Sent Yes 11/22/24 12:10 Wound Center by Sharon Pitt circ aid right calf 41.8, right ankle 28.1, right leg length 45cm left calf 26.8, left ankle 36.8, left leg length 44.5 Initialized on 11/22/24 12:10 - END OF NOTE Assessment/Plan Assessment/Plan (1) Ulcer of left lower leg: CODE(S): L97.929 - Non-pressure chronic ulcer of unspecified part of left lower leg with unspecified severity QUALIFIERS: Non-pressure ulcer stage: with fat layer exposed Qualified Code(s): L97.922 - Non-pressure chronic ulcer of unspecified part of left lower leg with fat layer exposed PLAN: Wash legs with antibacterial soap and water and apply Aquacel extra to wound base cover with Adaptic and foam dressings and then cover with double layer Tubigrip Elevate legs is much as possible and wear the CircAid' on the left leg and double layer Tubigrip on the right leg for now until the next 1 is delivered. Follow-up in 1 week (2) Stasis dermatitis: CODE(S): I87.2 - Venous insufficiency (chronic) (peripheral) PLAN: CircAid's ordered for bilateral lower legs (3) Venous insufficiency of both lower extremities: CODE(S): I87.2 - Venous insufficiency (chronic) (peripheral)
== END 2024-12-04 23:59 | disposition home or self-care (01) ==
LOC: WC 10:45
PROVIDERS: PCP Family Medicine; Referring Provider Nurse Practitioner; Visit Provider Nurse Practitioner
DX: L97.922 Non-pressure chronic ulcer of unspecified part of left lower leg with fat layer exposed (principal); M06.9 Rheumatoid arthritis, unspecified; I87.2 Venous insufficiency (chronic) (peripheral); S81.802S Unspecified open wound, left lower leg, sequela; W22.8XXS Striking against or struck by other objects, sequela; R60.0 Localized edema; N18.9 Chronic kidney disease, unspecified; Z95.0 Presence of cardiac pacemaker
CPT/HCPCS: 11042; 11045

== ENCOUNTER 2024-12-02 07:21 | Inpatient (IN) | payer MEDICARE, SELFPAY ==
[2024-12-02 07:23] VITALS: BP 115/55; PULSE 61; RESP 18; TEMP 36.4; O2SAT 95; BMI 29.3
--- NOTE | 2024-12-02 07:39 | CT_ITS ---
PROCEDURE: SPINE CERVICAL WITHOUT CONTRAS 12/02/2024 REASON FOR EXAM: 84-year-old male, trauma. Fell and hit head today. Currently on blood thinners. TECHNIQUE: Cervical spine CT without contrast. Coronal and Sagittal reconstruction series were provided. One or more dose reduction techniques were used (e.g., Automated exposure control, adjustment of the mA and/or kV according to patient size, use of iterative reconstruction technique RADIATION DOSE SUMMARY: CTDlvol: 70 mGy DLP: 1400 mGycm COMPARISON: None. FINDINGS: Visualization is slightly limited by streak artifact from bilateral shoulder arthroplasties. Alignment: There is straightening of the normal cervical lordosis. No traumatic subluxation. Vertebrae: No acute osseous fracture. Mild chronic height loss of the C5-7 vertebral bodies. The vertebral body heights are otherwise maintained. Multilevel degenerative disc disease with posterior disc osteophyte complexes and facet hypertrophy results in at least moderate central canal stenosis at C5-6 and moderate bilateral neural foraminal stenosis at C5-6 and C6-7. Soft Tissues: No prevertebral hematoma. Biapical emphysema. Partially visualized left chest wall pacemaker. CT/Spine Cervical without Contras IMPRESSION: NO ACUTE CERVICAL FRACTURE. DEGENERATIVE CHANGES. Reading Location: [id number]
--- NOTE | 2024-12-02 07:39 | CT_ITS ---
EXAM: BRAIN/HEAD WITHOUT CONTRAST CLINICAL HISTORY: 84 y/o M with TRAUMA. Fell and hit head, currently on blood thinners. COMPARISON: None. TECHNIQUE: Routine CT imaging of the head without IV contrast. Additional multiplanar reformats were obtained. Dose reduction techniques were used including intermediate exposure control (AEC),iterative reconstruction technique, and/or mA and/or KV dose adjustments based on patient's size. FINDINGS: Mild generalized cerebral volume loss with concordant prominence of the ventricles and subarachnoid spaces. Mild patchy supratentorial white matter hypodensities. The chen-white matter interfaces are otherwise maintained. No acute intracranial hemorrhage or herniation. The basal cisterns are patent. The orbits, visualized paranasal sinuses and mastoids are unremarkable. No acute calvarial fracture or scalp hematoma. CT/Brain/Head without Contrast IMPRESSION: 1. No acute intracranial finding. 2. Findings of chronic microvascular ischemic changes and age-related changes. Reading Location: [id number]
--- NOTE | 2024-12-02 07:40 | EKG12_ITS ---
Test Reason : FALL Blood Pressure : */* mmHG Vent. Rate : 91 BPM Atrial Rate : 39 BPM P-R Int : 124 ms QRS Dur : 106 ms QT Int : 390 ms P-R-T Axes : -9 38 239 degrees QTcB Int : 479 ms Atrial-Ventricular paced with ventricular ectopy Abnormal ECG Confirmed by Tommy Marlow ([id number]), tape editor NIKO PRESTON ([id number]) on 12/07/2024 10:07:17 AM Referred By: Confirmed By: Tommy Marlow
--- NOTE | 2024-12-02 07:43 | ED.VIS.FALL ---
HPI HPI - Fall History of Present Illness Chief Complaint: Fall Informant: patient and EMS Narrative Narrative: 84-year-old male from [facility] presenting to the emergency department with fall and left knee pain. Patient states he was at his sink getting ready for the morning when he believes he lost his balance. He fell backwards striking his head on the shower entrance. He states he believes there is a twisting motion to it and he injured his left knee. He is on Eliquis for atrial fibrillation. He notes he has a pacemaker. He has had prior shoulder surgery with [facility]. He has a history of lymphedema/venous stasis and has chronic venous stasis changes of the skin as well as insufficiency ulcers. He denies any pain below the knee. He is worried he may have broken his hip. Patient believes that he lost his balance. He denies chest pain palpitation shortness of breath loss of consciousness near loss of consciousness sweating or pain before the event. [facility] Medical History Cor pulmonale (chronic) Centrilobular emphysema Paroxysmal atrial fibrillation Right heart failure PVD (peripheral vascular disease) Stasis dermatitis Venous insufficiency Chronic diastolic (congestive) heart failure Chronic anticoagulation History of pacemaker Hyperlipidemia Hypertension Atrial flutter Second degree heart block Coronary artery disease Rheumatoid arthritis Obstructive sleep apnea Cellulitis of both lower extremities Debility Chronic kidney disease, stage III (moderate) Pacemaker (04/03/22) Psoriatic arthritis Home Medications ?Medication ?Instructions ?Recorded ?Last Taken ?Type cholecalciferol (vitamin D3) 50 50 mcg PO DAILY Supplement 02/03/23 Unknown History mcg (2,000 unit) chewable tablet gabapentin 300 mg capsule 300 mg PO QHS Pain 02/03/23 08/04/24 History omeprazole 20 mg tablet,delayed 20 mg PO DAILY GERD 02/03/23 02/16/23 09:55 History release spironolactone 25 mg tablet 25 mg PO DAILY@0800 DIURETIC 30 03/02/23 Unknown Rx days #30 tabs prednisone 5 mg tablet 5 mg PO DAILY pain 06/21/24 08/05/24 History acetaminophen 500 mg tablet 1,000 mg (2 x 500 mg) PO BID #0 08/17/24 Unknown Rx tabs apixaban 2.5 mg tablet (Eliquis) 2.5 mg PO BID 12/02/24 Unknown History furosemide 40 mg tablet 40 mg PO DAILY edema 12/02/24 Unknown History Allergy/AdvReac Type Severity Reaction Status Date / Time ertapenem Allergy Other Verified 12/02/24 07:23 leflunomide (From Arava) Allergy Other Verified 12/02/24 07:23 sulfamethoxazole (From Allergy Other Verified 12/02/24 07:23 Bactrim) trimethoprim (From Bactrim) Allergy Other Verified 12/02/24 07:23 ciprofloxacin (From Cipro) AdvReac Severe Pain in Verified 12/02/24 07:23 joints metoprolol AdvReac Severe severe Verified 12/02/24 07:23 hypotension Family History Mother CAD (coronary artery disease) Father Colon cancer Sister CAD (coronary artery disease) Surgical History History of thoracic spinal fusion History of lithotripsy History of replacement of both shoulder joints History of cholecystectomy History of fusion of cervical spine Social History housing: assisted living facility Smoking Status: Former smoker alcohol intake: never substance use type: does not use ROS ROS ED Constitutional Constitutional ED: Denies chills, fever(s) or weight loss Eyes Eyes: Denies change in vision or diplopia ENT ENT ED: Denies ear pain, rhinorrhea or sore throat Cardiovascular Cardiovascular: Denies chest pain, orthopnea, palpitations or racing heartbeat Respiratory/Chest Respiratory/Chest: Denies cough, dyspnea or orthopnea Gastrointestinal Gastrointestinal: Denies abdominal pain, diarrhea, nausea or vomiting Genitourinary Genitourinary ED: Denies dysuria, hematuria or urinary frequency Musculoskeletal Musculoskeletal: Reports other Details: See history of present illness ; Denies arthralgias or myalgias Integumentary Denies abscess or rash Neurologic Neurologic: Denies headache(s) or weakness Psychiatric Psychiatric: Denies anxiety, depression, suicidal ideation or suicidal thoughts Endocrine Endocrinology: Denies polydipsia, polyphagia or polyuria Allergic/Immunologic Allergic/Immunologic ED: Denies mouth swelling, tongue swelling or urticaria EXAM Physical Exam Const Vital Signs: 12/02/24 07:21 12/02/24 07:23 12/02/24 09:21 Temperature 97.6 F L 97.9 F Temperature Source Oral Oral Pulse Rate 61 89 Respiratory Rate 18 18 Respiratory Effort Normal Respiratory Depth Normal Respiratory Pattern Normal Blood Pressure 115/55 L 125/72 H Blood Pressure Mean 75 89 Pulse Ox 95 94 Oxygen Delivery Method Room Air Room Air Nasal Cannula Oxygen Flow Rate (L/min) 2 Positive well nourished and well developed General Appearance ED: well developed and NAD HEENT Reports normocephalic, head/scalp atraumatic and moist mucous membranes Eyes PERRL and EOMs intact bilaterally Neck no lymphadenopathy, supple and no JVD Resp normal respiratory effort and clear to auscultation bilaterally Cardio regular rate, regular rhythm and no murmurs Rate: bradycardia GI normal to inspection, nondistended, normoactive bowel sounds and non-tender Palpation: soft Back/Spine no CVA tenderness and normal ROM Extremity Extremity Narrative: Chronic venous stasis changes of the bilateral lower extremities. Patient has swelling particularly medial and superior to the left knee. Limited range of motion secondary to pain. There is an effusion. I palpate his thigh and his hip. Each time I initially start to touch he screams but I ask him if he hurts and he says no. He is holding the left leg rotated laterally and slightly bent at the knee. There is limited range of motion anywhere where I attempt to move the left leg. Neuro oriented x3 and CN's II-XII intact bilaterally Sensorium / Orientation: alert Motor Exam: strength 5/5 throughout Psych mental status grossly normal Mood & Affect: Negative for depressed or tearful Skin no rashes or lesions noted Skin Narrative: Chronic venous stasis ulcers bilateral lower legs MDM MDM MDM Narrative Medical decision making narrative: Differential diagnosis includes but not limited to intracranial hemorrhage skull fracture neck fracture shoulder fracture rib fracture scapular fracture hip fracture knee fracture femur fracture. CT of the brain and cervical spine was obtained. This was read radiology and reviewed by myself and negative. I have interpretation of the chest x-ray is no acute process. My independent interpretation of the plain films of the left shoulder is no acute fracture. My independent interpretation of the plain films of the left knee he has no acute fracture or degenerative changes noted. My independent interpretation of the left hip is a femoral neck fracture. Basic blood work was obtained. EKG is a paced rhythm with frequent ectopy. Probable underlying atrial fibrillation rhythm. Patient received pain and nausea medication. Plan at the care will be admission into hospital. I will speak with orthopedics and the hospitalist service. History & Record Review Discussion w/independent historian: Patient and Family Lab Data Attestation: I reviewed the patient's lab results. Labs: Laboratory Results - last 24 hr 12/02/24 07:54 WBC 11.3 H RBC 5.47 Hgb 14.8 Hct 48.0 MCV 87.8 MCH 27.1 MCHC 30.8 L RDW Std Deviation 57.5 H RDW Coeff of Natalia 18.6 H Plt Count 210 MPV 11.3 Immature Gran % (Auto) 0.700 Neut % (Auto) 63.7 Lymph % (Auto) 25.0 Lane % (Auto) 7.8 Eos % (Auto) 2.2 Baso % (Auto) 0.6 Absolute Neuts (auto) 7.2 Absolute Lymphs (auto) 2.83 Nucleated RBC % 0.2 Sodium Cancelled Potassium Cancelled Chloride Cancelled Carbon Dioxide Cancelled Anion Gap Cancelled BUN Cancelled Creatinine Cancelled Estim Creat Clear Calc Cancelled Est GFR (MDRD) Non-Af Cancelled BUN/Creatinine Ratio Cancelled Glucose Cancelled Calcium Cancelled Radiography Diagnostic Testing: Clinical Impression(s) from Imaging Studies Brain CT 12/02/24 07:39 IMPRESSION: 1. No acute intracranial finding. 2. Findings of chronic microvascular ischemic changes and age-related changes. Reading Location: [facility] Cervical Spine CT 12/02/24 07:39 IMPRESSION: NO ACUTE CERVICAL FRACTURE. DEGENERATIVE CHANGES. Reading Location: [facility] Chest X-Ray 12/02/24 08:26 IMPRESSION: No Acute Findings. Reading Location: [facility] Hip/Pelvis X-Ray 12/02/24 08:26 IMPRESSION: 1. Known acute fracture through the left femoral neck. 2. Sclerotic lesion overlying the left pubic crest, incompletely evaluated. Correlation with prior imaging or follow-up nonemergent outpatient CT could be obtained if clinically indicated. Reading Location: [facility] Knee X-Ray 12/02/24 08:26 IMPRESSION: DEGENERATIVE OSTEOARTHROSIS. NO ACUTE FINDINGS. Reading Location: [facility] Shoulder X-Ray 12/02/24 08:26 IMPRESSION: NO ACUTE FRACTURE OR DISLOCATION. Reading Location: [facility] EKG Initial EKG: Attestation: I personally reviewed and interpreted this EKG as follows: Comments: Paced rhythm with underlying atrial fibrillation rhythm. Management Discussion w/another healthcare provider: Hospitalist and Supervisor Hydrochloric Area (Dr River) Discharge Plan Dx/Rx/DC Orders Clinical Impression: Fall, Head injury, Acute pain of left knee, Fracture of femoral neck, left, Anticoagulated, Venous stasis of both lower extremities Disposition Disposition: Acute Care [facility]
[2024-12-02] MEDS: Ondansetron 4 MG/2 ML Vial IV ×2 (08:04→23:25)
[2024-12-02] MEDS: Morphine 4 MG/ML Syringe IV (08:04)
[2024-12-02 08:05] LABS: Absolute Lymphocyte Count 2.83 X10^3/uL (0.83-4.51); Absolute Neutrophil Count 7.2 X10^3/uL (2.0-7.7); Basophil# 0.07 X10^3/uL; Basophil% 0.6 % (0-1); Eosinophil# 0.25 X10^3/uL; Eosinophils% 2.2 % (0-5); Hemoglobin 14.8 g/dL (13.0-16.5); Lymphocyte # 2.83 X10^3/ul (0.83-4.51); Mean Corp Hgb Conc 30.8 g/dL (32-36); Mean Corpuscular Hgb 27.1 pg (27.0-32.0); Mean Corpuscular Volume 87.8 fL (80-94); Mean Platelet Vol. 11.3 fl (6.2-12.0); Monocyte# 0.88 X10^3/uL; Monocyte% 7.8 % (0-10); NRBC Flagged by Analyzer 0.2 % (0-5); Neutrophil # 7.19 X10^3/uL (2.7-7.7); Neutrophil % 63.7 % (47-70); Platelet Count 210 K/mm3 (150-450); RBC Distribution Width CV 18.6 % (11.6-14.6); RBC Distribution Width SD 57.5 fl (35.1-43.9); Red Blood Count 5.47 M/mm3 (4.6-6.2); White Blood Count 11.3 K/mm3 (4.4-11.0)
--- NOTE | 2024-12-02 08:26 | RAD_ITS ---
PROCEDURE: KNEE 1 OR 2 VIEWS 12/02/2024 REASON FOR EXAM: 84-year-old male, trauma. TECHNIQUE: 2 view(s) of the left knee COMPARISON: None FINDINGS: Bones: Diffuse osseous demineralization. No acute fracture. No aggressive osseous lesions. Joints: Severe degenerative changes. Effusion: Small joint effusion. Soft tissues: Soft tissues are unremarkable. Vascular calcifications. RAD/Knee 1 or 2 Views IMPRESSION: DEGENERATIVE OSTEOARTHROSIS. NO ACUTE FINDINGS. Reading Location: [id number]
--- NOTE | 2024-12-02 08:26 | RAD_ITS ---
PROCEDURE: CHEST 1 VIEW 12/02/2024 REASON FOR EXAM: 84-year-old male, trauma. TECHNIQUE: Frontal view of the chest. COMPARISON: Chest radiograph 10/18/2023. FINDINGS: Hardware: Left chest wall pacer device. Right shoulder hemiarthroplasty and left reversed total shoulder arthroplasty. Stable thoracic spinal fixation hardware. Heart: The heart size is normal. Lungs: No focal consolidation, pleural effusion or pneumothorax. Bones: Degenerative changes are identified within the thoracic spine. RAD/Chest 1 View IMPRESSION: No Acute Findings. Reading Location: [id number]
--- NOTE | 2024-12-02 08:26 | RAD_ITS ---
PROCEDURE: SHOULDER MIN 2 VIEWS 12/02/2024 REASON FOR EXAM: 84-year-old male, fall, left shoulder injury. TECHNIQUE: 2 view(s) of the left shoulder COMPARISON: Chest radiograph same day and chest radiograph 10/18/2023. FINDINGS: Bones: Diffuse osseous demineralization. No acute osseous fracture. Prior total reverse left shoulder arthroplasty in similar configuration. Joints: No acute dislocation. Moderate arthrosis of the acromioclavicular joint space. Soft tissues: Soft tissues are unremarkable. Other: See separately dictated chest radiograph for discussion of thoracic findings. RAD/Shoulder min 2 Views IMPRESSION: NO ACUTE FRACTURE OR DISLOCATION. Reading Location: [id number]
--- NOTE | 2024-12-02 08:26 | RAD_ITS ---
PROCEDURE: HIP, UNI W/ PELVIS 2-3 VIEWS 12/02/2024 REASON FOR EXAM: 84-year-old male, trauma, preoperative hip fracture. TECHNIQUE: 2 views of the left hip with AP pelvis. COMPARISON: None. FINDINGS: Bones: Known acute fracture through the left femoral neck with foreshortening. No fracture extension into the left hip joint. Sclerotic lesion overlying the left pubic crest. Joints: No dislocation. Moderate arthrosis of the bilateral hip and SI joints. Soft tissues: No obvious soft tissue swelling on radiographic imaging. RAD/HIP, UNI W/ Pelvis 2-3 Views IMPRESSION: 1. Known acute fracture through the left femoral neck. 2. Sclerotic lesion overlying the left pubic crest, incompletely evaluated. Co rrelation with prior imaging or follow-up nonemergent outpatient CT could be obtained if clinically indicated. Reading Location: [id number]
[2024-12-02] MEDS: Lorazepam 2 MG/ML WCH Syringe 0.5 MG IV (09:01)
[2024-12-02 09:21] VITALS: BP 125/72; PULSE 89; RESP 18; TEMP 36.6; O2SAT 94
--- NOTE | 2024-12-02 10:06 | CONS.ORTHO ---
HPI Consult Data Date of Consult: 12/02/24 HPI Narrative HPI Narrative: CHAO AVELAR, is a 84 M who presents for L femoral neck fracture. Lost his balance and fell. [address] - here with his daughter. complain of left hip pain. per ED 84-year-old male from [facility] living presenting to the emergency department with fall and left knee pain. Patient states he was at his sink getting ready for the morning when he believes he lost his balance. He fell backwards striking his head on the shower entrance. He states he believes there is a twisting motion to it and he injured his left knee. He is on Eliquis for atrial fibrillation. He notes he has a pacemaker. He has had prior shoulder surgery with [facility]. He has a history of lymphedema/venous stasis and has chronic venous stasis changes of the skin as well as insufficiency ulcers. He denies any pain below the knee. He is worried he may have broken his hip. Patient believes that he lost his balance. He denies chest pain palpitation shortness of breath loss of consciousness near loss of consciousness sweating or pain before the event. [facility] Medical History Cor pulmonale (chronic) Centrilobular emphysema Paroxysmal atrial fibrillation Right heart failure PVD (peripheral vascular disease) Stasis dermatitis Venous insufficiency Chronic diastolic (congestive) heart failure Chronic anticoagulation History of pacemaker Hyperlipidemia Hypertension Atrial flutter Second degree heart block Coronary artery disease Rheumatoid arthritis Obstructive sleep apnea Cellulitis of both lower extremities Debility Chronic kidney disease, stage III (moderate) Pacemaker (04/03/22) Psoriatic arthritis Home Medications ?Medication ?Instructions ?Recorded ?Last Taken ?Type cholecalciferol (vitamin D3) 50 50 mcg PO DAILY Supplement 02/03/23 Unknown History mcg (2,000 unit) chewable tablet gabapentin 300 mg capsule 300 mg PO QHS Pain 02/03/23 08/04/24 History omeprazole 20 mg tablet,delayed 20 mg PO DAILY GERD 02/03/23 02/16/23 09:55 History release spironolactone 25 mg tablet 25 mg PO DAILY@0800 DIURETIC 30 03/02/23 Unknown Rx days #30 tabs prednisone 5 mg tablet 5 mg PO DAILY pain 06/21/24 08/05/24 History acetaminophen 500 mg tablet 1,000 mg (2 x 500 mg) PO BID #0 08/17/24 Unknown Rx tabs apixaban 2.5 mg tablet (Eliquis) 2.5 mg PO BID 12/02/24 Unknown History furosemide 40 mg tablet 40 mg PO DAILY edema 12/02/24 Unknown History Allergy/AdvReac Type Severity Reaction Status Date / Time ertapenem Allergy Other Verified 12/02/24 07:23 leflunomide (From Arava) Allergy Other Verified 12/02/24 07:23 sulfamethoxazole (From Allergy Other Verified 12/02/24 07:23 Bactrim) trimethoprim (From Bactrim) Allergy Other Verified 12/02/24 07:23 ciprofloxacin (From Cipro) AdvReac Severe Pain in Verified 12/02/24 07:23 joints metoprolol AdvReac Severe severe Verified 12/02/24 07:23 hypotension Family History Mother CAD (coronary artery disease) Father Colon cancer Sister CAD (coronary artery disease) Surgical History History of thoracic spinal fusion History of lithotripsy History of replacement of both shoulder joints History of cholecystectomy History of fusion of cervical spine Social History housing: assisted living facility Smoking Status: Former smoker alcohol intake: never substance use type: does not use Vital Signs Vital Signs Vital Signs: 12/02/24 07:21 12/02/24 07:23 12/02/24 09:21 Temperature 97.6 F L 97.9 F Temperature Source Oral Oral Pulse Rate 61 89 Respiratory Rate 18 18 Respiratory Effort Normal Respiratory Depth Normal Respiratory Pattern Normal Blood Pressure 115/55 L 125/72 H Blood Pressure Mean 75 89 Pulse Ox 95 94 Oxygen Delivery Method Room Air Room Air Nasal Cannula Oxygen Flow Rate (L/min) 2 Weight Weight: 216 lb 4.375 oz Body Mass Index (BMI) 29.3 Physical Exam Const alert General Appearance: cooperative and well developed HEENT normocephalic Extremity Extremity Narrative: L hip pain, closed, marked. wiggles toes. good sensation in foot. chronic lower extremity edema both sides. bandages in place R leg. slight abraision anterior L knee, pain to examine with hip fracture. Lab / Micro Data 12/02/24 07:54 12/02/24 09:47 Labs: Laboratory Results - last 24 hr 12/02/24 07:54: WBC 11.3 H, RBC 5.47, Hgb 14.8, Hct 48.0, MCV 87.8, MCH 27.1, MCHC 30.8 L, RDW Std Deviation 57.5 H, RDW Coeff of Natalia 18.6 H, Plt Count 210, MPV 11.3, Immature Gran % (Auto) 0.700, Neut % (Auto) 63.7, Lymph % (Auto) 25.0, [place] % (Auto) 7.8, Eos % (Auto) 2.2, Baso % (Auto) 0.6, Absolute Neuts (auto) 7.2, Absolute Lymphs (auto) 2.83, Nucleated RBC % 0.2, Sodium Cancelled, Potassium Cancelled, Chloride Cancelled, Carbon Dioxide Cancelled, Anion Gap Cancelled, BUN Cancelled, Creatinine Cancelled, Estim Creat Clear Calc Cancelled, Est GFR (MDRD) Non-Af Cancelled, BUN/Creatinine Ratio Cancelled, Glucose Cancelled, Calcium Cancelled Imaging Radiology Impression Brain CT 12/02/24 07:39 IMPRESSION: 1. No acute intracranial finding. 2. Findings of chronic microvascular ischemic changes and age-related changes. Reading Location: [facility] Cervical Spine CT 12/02/24 07:39 IMPRESSION: NO ACUTE CERVICAL FRACTURE. DEGENERATIVE CHANGES. Reading Location: [facility] Chest X-Ray 12/02/24 08:26 IMPRESSION: No Acute Findings. Reading Location: [facility] Hip/Pelvis X-Ray 12/02/24 08:26 IMPRESSION: 1. Known acute fracture through the left femoral neck. 2. Sclerotic lesion overlying the left pubic crest, incompletely evaluated. Correlation with prior imaging or follow-up nonemergent outpatient CT could be obtained if clinically indicated. Reading Location: [facility] Knee X-Ray 12/02/24 08:26 IMPRESSION: DEGENERATIVE OSTEOARTHROSIS. NO ACUTE FINDINGS. Reading Location: [facility] Shoulder X-Ray 12/02/24 08:26 IMPRESSION: NO ACUTE FRACTURE OR DISLOCATION. Reading Location: [facility] agree displaced L femoral neck fracture. Assessment & Plan Assessment/Plan (1) Fracture of femoral neck, left: PLAN: 84-year-old man with a left displaced femoral neck fracture. Recommend surgery for this although nonoperative treatment is an option this is typically high risk. Patient wished to proceed with surgery. Dr. Pace aware of case - wish to proceed tomorrow AM after 24 hours hold of eliquis, balancing increased risk of mortality with waiting over 48 hrs for surgery. Specific risks include fracture instability dislocation where VTE and other risks. The patient understands wishes to proceed, daughter MICHAEL signed consent, left hip marked. My typical treatment for this would be a left hip cemented hemiarthroplasty. Low risk of instability or dislocation as well as good long-term outcomes with cemented stem. Left hip marked the patient understands signed the consent form for surgery no further questions or concerns. Pros and cons risks and benefits were discussed with the patient including but not limited to infection, pain, stiffness, bleeding, damage to surrounding structures, neurovascular injury, recurrence or retear, failure or wear of hardware or fixation, instability, fracture, deep vein thrombosis and pulmonary embolism, anesthetic risks, , patient dissatisfaction, need for further surgery and other risks. Patient understood and wished to proceed with surgery, and signed the informed consent documentation.
[2024-12-02 10:10] LABS: International Normalized Ratio 1.4; Prothrombin Time (Protime)PT. 17.1 SECONDS (11.7-14.9)
[2024-12-02 10:22] VITALS: BP 110/55; PULSE 53; RESP 19; TEMP 36.4; O2SAT 93
[2024-12-02 10:53] LABS: Anion Gap 13 (5-15); BUN 41 mg/dL (4-19); BUN/Creat Ratio 22.2 RATIO (10-20); Calcium,Total 9.4 mg/dL (7.6-11.0); Carbon Dioxide 21.4 mmol/L (21.0-32.0); Chloride 105 mmol/L (98-108); Creatinine, Serum 1.83 mg/dL (0.70-1.20); EST Glomerular Filtration Rate 36 (>60); Estimated Creatinine Clearance 36.47 ml/min (50-250); Glucose 112 mg/dL (70-99); Potassium 5.6 mmol/L (3.3-5.1); Sodium Level 139 mmol/L (133-145)
[2024-12-02 11:16] VITALS: BMI 28.0
--- NOTE | 2024-12-02 11:26 | PCM.HP.STD ---
HPI - General General Date of Admission: 12/02/24 Date of Service: 12/02/24 Chief Complaint: Fall. HPI Narrative CHAO AVELAR, is a 84 M who presents with left hip after a fall. Pt was in his bathroom when he lost his balance and fell. Did not lose consciousness. He pain in his left hip. He presented to the ED where he was noted to have a left femoral neck fracture. No history of falls, patient stating this he is very cautious and particular about falls. [facility] Medical History Cor pulmonale (chronic) Centrilobular emphysema Paroxysmal atrial fibrillation Right heart failure PVD (peripheral vascular disease) Stasis dermatitis Venous insufficiency Chronic diastolic (congestive) heart failure Chronic anticoagulation History of pacemaker Hyperlipidemia Hypertension Atrial flutter Second degree heart block Coronary artery disease Rheumatoid arthritis Obstructive sleep apnea Cellulitis of both lower extremities Debility Chronic kidney disease, stage III (moderate) Pacemaker (04/03/22) Psoriatic arthritis Home Medications ?Medication ?Instructions ?Recorded ?Last Taken ?Type cholecalciferol (vitamin D3) 50 50 mcg PO DAILY Supplement 02/03/23 Unknown History mcg (2,000 unit) chewable tablet gabapentin 300 mg capsule 300 mg PO QHS Pain 02/03/23 08/04/24 History omeprazole 20 mg tablet,delayed 20 mg PO DAILY GERD 02/03/23 02/16/23 09:55 History release spironolactone 25 mg tablet 25 mg PO DAILY@0800 DIURETIC 30 03/02/23 Unknown Rx days #30 tabs prednisone 5 mg tablet 5 mg PO DAILY pain 06/21/24 08/05/24 History acetaminophen 500 mg tablet 1,000 mg (2 x 500 mg) PO BID #0 08/17/24 Unknown Rx tabs apixaban 2.5 mg tablet (Eliquis) 2.5 mg PO BID 12/02/24 Unknown History furosemide 40 mg tablet 40 mg PO DAILY edema 12/02/24 Unknown History Allergy/AdvReac Type Severity Reaction Status Date / Time ertapenem Allergy Other Verified 12/02/24 07:23 leflunomide (From Arava) Allergy Other Verified 12/02/24 07:23 sulfamethoxazole (From Allergy Other Verified 12/02/24 07:23 Bactrim) trimethoprim (From Bactrim) Allergy Other Verified 12/02/24 07:23 ciprofloxacin (From Cipro) AdvReac Severe Pain in Verified 12/02/24 07:23 joints metoprolol AdvReac Severe severe Verified 12/02/24 07:23 hypotension Family History Mother CAD (coronary artery disease) Father Colon cancer Sister CAD (coronary artery disease) Surgical History History of thoracic spinal fusion History of lithotripsy History of replacement of both shoulder joints History of cholecystectomy History of fusion of cervical spine Social History housing: assisted living facility Smoking Status: Former smoker alcohol intake: never substance use type: does not use ROS ROS Narrative Chronic LE edema. Wounds on LLE that have been healing. No chest pain. Patient is chronically weak, uses a lift chair to get up and does not walk very far about 20 feet to the bathroom and then back. Patient stopped going to the cafeteria at his assisted living the eat. He additionally has elevated toilet seat. All review of systems were negative except as mentioned above in the history of present illness and the other review of systems. Vital Signs Vital Signs Vital Signs: 12/02/24 07:21 12/02/24 07:23 12/02/24 09:21 Temperature 36.4 C L 36.6 C Temperature Source Oral Oral Pulse Rate 61 89 Respiratory Rate 18 18 Respiratory Effort Normal Respiratory Depth Normal Respiratory Pattern Normal Blood Pressure 115/55 L 125/72 H Blood Pressure Mean 75 89 Blood Pressure Source Blood Pressure Position Blood Pressure Location Pulse Ox 95 94 Oxygen Delivery Method Room Air Room Air Nasal Cannula Oxygen Flow Rate (L/min) 2 12/02/24 10:22 12/02/24 10:57 Temperature 36.4 C L Temperature Source Oral Pulse Rate 53 L Respiratory Rate 19 H Respiratory Effort Non-Labored Short of Breath Respiratory Depth Normal Respiratory Pattern Normal Blood Pressure 110/55 L Blood Pressure Mean 73 Blood Pressure Source Monitor Blood Pressure Position Semi-Fowlers Blood Pressure Location Right Arm Pulse Ox 93 Oxygen Delivery Method Nasal Cannula Nasal Cannula Oxygen Flow Rate (L/min) 3 3 Weight Weight: 94 kg Body Mass Index (BMI) 28.0 Physical Exam Const alert and no apparent distress Constitutional Narrative: NOORVIK HEENT normocephalic and head/scalp atraumatic Resp normal respiratory effort, no retractions, no use of accessory muscles and clear to auscultation bilaterally Cardio regular rate, regular rhythm, S1 normal heart sound and S2 normal heart sound GI normal to inspection, nondistended, normoactive bowel sounds, soft to palpation, non-tender and non-distended Extremity Extremity Narrative: Bilateral LE edema. Bandaged over the wounds on LLE. cyanosis of Right toes that improved with removing RLE compression sleeve. Neuro oriented x3 and moves all extremities Speech: speech normal Psych affect normal Results Lab / Micro Data Attestation: I reviewed the patient's lab results. 12/02/24 07:54 12/02/24 08:30 Labs: Laboratory Results - last 24 hr 12/02/24 07:54: WBC 11.3 H, RBC 5.47, Hgb 14.8, Hct 48.0, MCV 87.8, MCH 27.1, MCHC 30.8 L, RDW Std Deviation 57.5 H, RDW Coeff of Natalia 18.6 H, Plt Count 210, MPV 11.3, Immature Gran % (Auto) 0.700, Neut % (Auto) 63.7, Lymph % (Auto) 25.0, [place] % (Auto) 7.8, Eos % (Auto) 2.2, Baso % (Auto) 0.6, Absolute Neuts (auto) 7.2, Absolute Lymphs (auto) 2.83, Nucleated RBC % 0.2, Sodium Cancelled, Potassium Cancelled, Chloride Cancelled, Carbon Dioxide Cancelled, Anion Gap Cancelled, BUN Cancelled, Creatinine Cancelled, Estim Creat Clear Calc Cancelled, Est GFR (MDRD) Non-Af Cancelled, BUN/Creatinine Ratio Cancelled, Glucose Cancelled, Calcium Cancelled 12/02/24 08:30: Sodium 139, Potassium 5.6 H, Chloride 105, Carbon Dioxide 21.4, Anion Gap 13, BUN 41 H, Creatinine 1.83 H, Estim Creat Clear Calc 36.47 L, Est GFR (MDRD) Non-Af 36 L, BUN/Creatinine Ratio 22.2 H, Glucose 112 H, Calcium 9.4 12/02/24 09:47: PT 17.1 H, INR 1.4 Imaging Radiology Impression Brain CT 12/02/24 07:39 IMPRESSION: 1. No acute intracranial finding. 2. Findings of chronic microvascular ischemic changes and age-related changes. Reading Location: [facility] Cervical Spine CT 12/02/24 07:39 IMPRESSION: NO ACUTE CERVICAL FRACTURE. DEGENERATIVE CHANGES. Reading Location: [facility] Chest X-Ray 12/02/24 08:26 IMPRESSION: No Acute Findings. Reading Location: [facility] Hip/Pelvis X-Ray 12/02/24 08:26 IMPRESSION: 1. Known acute fracture through the left femoral neck. 2. Sclerotic lesion overlying the left pubic crest, incompletely evaluated. Correlation with prior imaging or follow-up nonemergent outpatient CT could be obtained if clinically indicated. Reading Location: [facility] Knee X-Ray 12/02/24 08:26 IMPRESSION: DEGENERATIVE OSTEOARTHROSIS. NO ACUTE FINDINGS. Reading Location: [facility] Shoulder X-Ray 12/02/24 08:26 IMPRESSION: NO ACUTE FRACTURE OR DISLOCATION. Reading Location: [facility] Assessment & Plan Assessment/Plan (1) Fracture of femoral neck, left: PLAN: Status post fall. Ortho consulted, plan for Left hip hemiarthoplasty on 12/03 (allow apixaban to clear, last took 12/01) If follow up potassium stable, the would be cleared for surgery. Pt high risk, but medically optimized for surgery. (2) Hyperkalemia: PLAN: hemolyzed. repeat pending. PLAN: Plan CKD3b: creatine up from baseline. monitor. Afib: s/p pacemaker. apixaban held CHF: chronic edema. hold furosemide and spironolactone for now. VTE prophylaxis: SCDs. Code status: Confirmed with patient and family. DNRCCA. Charges/Coding Visit Charges Inpatient E&M: 78532 Init Hosp L3
[2024-12-02] MEDS: Pantoprazole Sodium 20 MG Tablet PO (11:39)
[2024-12-02] MEDS: predniSONE 5 MG Tablet PO (11:39)
[2024-12-02] MEDS: oxyCODONE 5 MG Tablet PO ×2 (11:40→21:40)
[2024-12-02] MEDS: Acetaminophen 325 MG Tablet 650 MG PO ×2 (11:40→21:40)
--- NOTE | 2024-12-02 12:29 | CASEMGMT ---
Social Work- SW met with pt and pt dtrs to discuss plans for discharge. Pt dtr Kari is HCPOA; Jyothi is alternate agent. Pt dtrs report that they would like pt to go to TCU following d/c as he has been there in the past and had great success with rehab. SW will provide referral following surgery and PT; dtrs educated on SNF referral process and are agreeable to plan. Pt agreeable to TCU referral as well. SW remains available to follow. YARED De La Rosa
[2024-12-02 12:33] VITALS: BP 113/59; PULSE 48; RESP 18; TEMP 36.6; O2SAT 94
[2024-12-02] MEDS: 0.9% Saline Lock 10 ML Syringe IV ×3 (13:09→23:25)
[2024-12-02] MEDS: Morphine 2 MG/ML Syringe IV (13:09)
[2024-12-02 14:48] LABS: Vitamin D,25 Hydroxy 64.5 ng/mL (30-100)
[2024-12-02 15:28] LABS: ALB/GLOB Ratio 1.2 RATIO (0.9-2.4); AST(SGOT) 36 U/L (<=37); Alanine Aminotransfer ALT/SGPT 14 U/L (<=46); Albumin, Serum 3.7 g/dL (3.4-4.8); Alkaline Phosphatase 54 U/L (40-129); Globulin 3.2 g/dL (2.2-4.2); Total Bilirubin 0.78 mg/dL (0.00-1.30)
[2024-12-02 16:45] VITALS: BP 103/62; PULSE 60; RESP 18; TEMP 36.4; O2SAT 94
[2024-12-02 18:14] LABS: Anion Gap 15 (5-15); BUN 44 mg/dL (4-19); BUN/Creat Ratio 21.3 RATIO (10-20); Calcium,Total 9.7 mg/dL (7.6-11.0); Chloride 103 mmol/L (98-108); Creatinine, Serum 2.08 mg/dL (0.70-1.20); EST Glomerular Filtration Rate 31 (>60); Estimated Creatinine Clearance 31.47 ml/min (50-250); Glucose 137 mg/dL (70-99); Potassium 5.4 mmol/L (3.3-5.1); Sodium Level 138 mmol/L (133-145)
[2024-12-02 21:37] VITALS: BP 123/80; PULSE 80; RESP 18; TEMP 36.6; O2SAT 96
[2024-12-02] MEDS: Gabapentin 300 MG Capsule PO (21:40)
[2024-12-02] MEDS: Senna/Docusate Sodium 1 Tablet 2 TABLET PO (21:42)
[2024-12-03] MEDS: Morphine 2 MG/ML Syringe IV (00:05)
[2024-12-03] MEDS: 0.9% Saline Lock 10 ML Syringe IV ×2 (00:05→16:59)
[2024-12-03 07:19] LABS: Absolute Lymphocyte Count 0.97 X10^3/uL (0.83-4.51); Absolute Neutrophil Count 9.3 X10^3/uL (2.0-7.7); Basophil# 0.05 X10^3/uL; Basophil% 0.4 % (0-1); Eosinophil# 0.07 X10^3/uL; Eosinophils% 0.6 % (0-5); Hematocrit 50.3 % (40-54); Hemoglobin 15.1 g/dL (13.0-16.5); Lymphocyte # 0.97 X10^3/ul (0.83-4.51); Lymphocyte % 8.4 % (19-41); Mean Corpuscular Hgb 26.7 pg (27.0-32.0); Mean Platelet Vol. 11.3 fl (6.2-12.0); Monocyte# 1.18 X10^3/uL; Monocyte% 10.2 % (0-10); NRBC Flagged by Analyzer 0 % (0-5); Neutrophil # 9.29 X10^3/uL (2.7-7.7); Neutrophil % 80.1 % (47-70); Platelet Count 188 K/mm3 (150-450); RBC Distribution Width CV 18.7 % (11.6-14.6); RBC Distribution Width SD 59.1 fl (35.1-43.9); Red Blood Count 5.65 M/mm3 (4.6-6.2); White Blood Count 11.6 K/mm3 (4.4-11.0)
--- NOTE | 2024-12-03 07:29 | PCM.PN.HOSP ---
Reason for Visit Reason for Visit: Diagnoses Hyperkalemia (12/02/24) Fracture of unspecified part of neck of left femur, initial encounter for closed fracture (12/02/24) Subjective Subjective Without any reference, explained that he is upset about some random bolt costing over $10, then went to talk about numerous other topics that angered him (none of them related to his hip fracture, delayed surgery or his overall care). Angry all the time about many things. Objective Data Objective Data Vital Signs: Vital Signs Temp Pulse Resp BP Pulse Ox O2 Del Method O2 Flow Rate 36.6 C 80 18 123/80 H 96 Nasal Cannula 3 12/02/24 21:37 12/02/24 21:37 12/02/24 21:37 12/02/24 21:37 12/02/24 21:37 12/02/24 22:54 12/02/24 21:37 Oxygen Flow Rate (L/min) 3 Oxygen Delivery Method Nasal Cannula Weight: 94 kg Body Mass Index (BMI) 28.0 Intake & Output: Intake and Output for Last 24 Hours 12/01/24 12/02/24 12/03/24 23:59 23:59 23:59 Output Total 0 / 0 Balance 0 / 0 Lab / Micro Data 12/03/24 05:03 12/03/24 05:03 Labs: Laboratory Results - last 24 hr 12/02/24 07:54: WBC 11.3 H, RBC 5.47, Hgb 14.8, Hct 48.0, MCV 87.8, MCH 27.1, MCHC 30.8 L, RDW Std Deviation 57.5 H, RDW Coeff of Natalia 18.6 H, Plt Count 210, MPV 11.3, Immature Gran % (Auto) 0.700, Neut % (Auto) 63.7, Lymph % (Auto) 25.0, [place] % (Auto) 7.8, Eos % (Auto) 2.2, Baso % (Auto) 0.6, Absolute Neuts (auto) 7.2, Absolute Lymphs (auto) 2.83, Nucleated RBC % 0.2, Sodium Cancelled, Potassium Cancelled, Chloride Cancelled, Carbon Dioxide Cancelled, Anion Gap Cancelled, BUN Cancelled, Creatinine Cancelled, Estim Creat Clear Calc Cancelled, Est GFR (MDRD) Non-Af Cancelled, BUN/Creatinine Ratio Cancelled, Glucose Cancelled, Calcium Cancelled 12/02/24 08:30: Sodium 139, Potassium 5.6 H, Chloride 105, Carbon Dioxide 21.4, Anion Gap 13, BUN 41 H, Creatinine 1.83 H, Estim Creat Clear Calc 36.47 L, Est GFR (MDRD) Non-Af 36 L, BUN/Creatinine Ratio 22.2 H, Glucose 112 H, Calcium 9.4 12/02/24 09:47: PT 17.1 H, INR 1.4, Sodium Cancelled, Potassium Cancelled, Chloride Cancelled, Carbon Dioxide Cancelled, Anion Gap Cancelled, BUN Cancelled, Creatinine Cancelled, Est GFR (MDRD) Non-Af Cancelled, BUN/Creatinine Ratio Cancelled, Glucose Cancelled, Calcium Cancelled, Total Bilirubin 0.78, AST 36, ALT 14, Alkaline Phosphatase 54, Total Protein 7.0, Albumin 3.7, Globulin 3.2, Albumin/Globulin Ratio 1.2, Vitamin D 25-Hydroxy 64.5 12/02/24 13:10: Blood Type A POSITIVE, Antibody Screen NEGATIVE 12/02/24 17:17: Sodium 138, Potassium 5.4 H, Chloride 103, Carbon Dioxide 20.0 L, Anion Gap 15, BUN 44 H, Creatinine 2.08 H, Estim Creat Clear Calc 31.47 L, Est GFR (MDRD) Non-Af 31 L, BUN/Creatinine Ratio 21.3 H, Glucose 137 H, Calcium 9.7 12/03/24 05:03: WBC 11.6 H, RBC 5.65, Hgb 15.1, Hct 50.3, MCV 89.0, MCH 26.7 L, MCHC 30.0 L, RDW Std Deviation 59.1 H, RDW Coeff of Natalia 18.7 H, Plt Count 188, MPV 11.3, Immature Gran % (Auto) 0.300, Neut % (Auto) 80.1 H, Lymph % (Auto) 8.4 L, [place] % (Auto) 10.2 H, Eos % (Auto) 0.6, Baso % (Auto) 0.4, Absolute Neuts (auto) 9.3 H, Absolute Lymphs (auto) 0.97, Nucleated RBC % 0 Radiography Diagnostic Testing: Radiology Impression Brain CT 12/02/24 07:39 IMPRESSION: 1. No acute intracranial finding. 2. Findings of chronic microvascular ischemic changes and age-related changes. Reading Location: [facility] Cervical Spine CT 12/02/24 07:39 IMPRESSION: NO ACUTE CERVICAL FRACTURE. DEGENERATIVE CHANGES. Reading Location: [facility] Chest X-Ray 12/02/24 08:26 IMPRESSION: No Acute Findings. Reading Location: [facility] Hip/Pelvis X-Ray 12/02/24 08:26 IMPRESSION: 1. Known acute fracture through the left femoral neck. 2. Sclerotic lesion overlying the left pubic crest, incompletely evaluated. Correlation with prior imaging or follow-up nonemergent outpatient CT could be obtained if clinically indicated. Reading Location: [facility] Knee X-Ray 12/02/24 08:26 IMPRESSION: DEGENERATIVE OSTEOARTHROSIS. NO ACUTE FINDINGS. Reading Location: [facility] Shoulder X-Ray 12/02/24 08:26 IMPRESSION: NO ACUTE FRACTURE OR DISLOCATION. Reading Location: [facility] Physical Exam Const alert and no apparent distress HEENT head/scalp atraumatic and moist oral mucous membranes Resp normal respiratory effort, no retractions, no use of accessory muscles and clear to auscultation bilaterally Cardio regular rate and regular rhythm Neuro oriented x3 Sensorium / Orientation: awake and alert Assessment & Plan Assessment/Plan (1) Fracture of femoral neck, left: PLAN: Status post fall. Ortho consulted, plan for Left hip hemiarthoplasty on 12/03 (allow apixaban to clear, last took 12/01) DW Dr. River, surgery cancelled for today given the hyperkalemia. Tentatively for 12/04. (2) Hyperkalemia: PLAN: 5.6 from 12/02 was hemolyzed (see attached lab report), but subsequent was 5.4 and not hemolyzed. This AM it was 6.4 and hemolyzed. Will recheck BMP, but his creatinine is up, so I will be giving him IVF. If confirmed to be still high and NOT HEMOLYZED, will given kayexalate. Hemolysis causes falsely elevated potassium levels. Will discuss with nursing if pt is difficulty with his lab draws to rule out mechanical etiology of the hemolysis since this happened twice already. I doubt some pathologic etiology of hemolysis, however. (3) TAMMY (acute kidney injury): PLAN: on CKD3b Baseline creatinine is 1.8, now up to 2.6. Diuretics held. IVF. (4) Depression: PLAN: Patient expressing anger over numerous things. Patient is upset about politics, costs of bolts and how they are more expensive than they should, about instances that to happen to he and his regards to their medical care. He states that he is angry all the time. He Tried to Bring It Topic about Any Kind of Topic That Made Him Angry. Eventually I Had to interject and told him that I think he would benefit from being on medications as well as have counseling. He immediately dismissed it. I told him that is fine but he is when he is volunteering to me that he is angry about everything. I told him that said a focus I am this other makes him angry to focus on the things that give him quinton. Asked if he had grandkids and he said he had great grandchildren. I tried to get a sense of that brought him quinton but he was not able to deflect from being angry. I told him to take a amatory things it may conjoin focus on those rather than watching news programs on TV that just make him angry. PLAN: Plan CKD3b: creatine up from baseline. monitor. Afib: s/p pacemaker. apixaban held CHF: chronic edema. hold furosemide and spironolactone for now. VTE prophylaxis: SCDs. Code status: Confirmed with patient and family. DNRCCA. Greater than 60 minutes of which greater than 50 spent time was constipation at bedside about his anger, depression and means to help him try to overcome all of his anger issues. Charges/Coding Visit Charges Inpatient E&M: 76190 Subs Hosp L3
[2024-12-03 07:54] LABS: Anion Gap 15 (5-15); BUN 53 mg/dL (4-19); BUN/Creat Ratio 20.4 RATIO (10-20); Calcium,Total 9.4 mg/dL (7.6-11.0); Carbon Dioxide 19.7 mmol/L (21.0-32.0); Chloride 103 mmol/L (98-108); Creatinine, Serum 2.62 mg/dL (0.70-1.20); EST Glomerular Filtration Rate 23 (>60); Estimated Creatinine Clearance 24.98 ml/min (50-250); Glucose 111 mg/dL (70-99); Sodium Level 138 mmol/L (133-145)
[2024-12-03 07:58] LABS: Potassium 6.4 mmol/L (3.3-5.1)
--- NOTE | 2024-12-03 08:16 | PN.ORTHO_ITS ---
Objective Data Objective Data Vital Signs: Vital Signs Temp Pulse Resp BP Pulse Ox O2 Del Method O2 Flow Rate 97.9 F 80 18 123/80 H 96 Nasal Cannula 3 12/02/24 21:37 12/02/24 21:37 12/02/24 21:37 12/02/24 21:37 12/02/24 21:37 12/02/24 22:54 12/02/24 21:37 Oxygen Flow Rate (L/min) 3 Oxygen Delivery Method Nasal Cannula Weight: 207 lb 3.752 oz Body Mass Index (BMI) 28.0 Intake & Output: Intake and Output for Last 24 Hours 12/01/24 12/02/24 12/03/24 23:59 23:59 23:59 Output Total 0 / 0 Balance 0 / 0 Lab / Micro Data 12/03/24 05:03 12/03/24 05:03 Labs: Laboratory Results - last 24 hr 12/02/24 07:54: Sodium Cancelled, Potassium Cancelled, Chloride Cancelled, Carbon Dioxide Cancelled, Anion Gap Cancelled, BUN Cancelled, Creatinine Cancelled, Estim Creat Clear Calc Cancelled, Est GFR (MDRD) Non-Af Cancelled, BUN/Creatinine Ratio Cancelled, Glucose Cancelled, Calcium Cancelled 12/02/24 08:30: Sodium 139, Potassium 5.6 H, Chloride 105, Carbon Dioxide 21.4, Anion Gap 13, BUN 41 H, Creatinine 1.83 H, Estim Creat Clear Calc 36.47 L, Est GFR (MDRD) Non-Af 36 L, BUN/Creatinine Ratio 22.2 H, Glucose 112 H, Calcium 9.4 12/02/24 09:47: PT 17.1 H, INR 1.4, Sodium Cancelled, Potassium Cancelled, Chloride Cancelled, Carbon Dioxide Cancelled, Anion Gap Cancelled, BUN Cancelled, Creatinine Cancelled, Est GFR (MDRD) Non-Af Cancelled, BUN/Creatinine Ratio Cancelled, Glucose Cancelled, Calcium Cancelled, Total Bilirubin 0.78, AST 36, ALT 14, Alkaline Phosphatase 54, Total Protein 7.0, Albumin 3.7, Globulin 3.2, Albumin/Globulin Ratio 1.2, Vitamin D 25-Hydroxy 64.5 12/02/24 13:10: Blood Type A POSITIVE, Antibody Screen NEGATIVE 12/02/24 17:17: Sodium 138, Potassium 5.4 H, Chloride 103, Carbon Dioxide 20.0 L , Anion Gap 15, BUN 44 H, Creatinine 2.08 H, Estim Creat Clear Calc 31.47 L, Est GFR (MDRD) Non-Af 31 L, BUN/Creatinine Ratio 21.3 H, Glucose 137 H, Calcium 9.7 12/03/24 05:03: WBC 11.6 H, RBC 5.65, Hgb 15.1, Hct 50.3, MCV 89.0, MCH 26.7 L, MCHC 30.0 L, RDW Std Deviation 59.1 H, RDW Coeff of Natalia 18.7 H, Plt Count 188, MPV 11.3, Immature Gran % (Auto) 0.300, Neut % (Auto) 80.1 H, Lymph % (Auto) 8.4 L, [place] % (Auto) 10.2 H, Eos % (Auto) 0.6, Baso % (Auto) 0.4, Absolute Neuts (auto) 9.3 H, Absolute Lymphs (auto) 0.97, Nucleated RBC % 0, Sodium 138, P otassium 6.4 H*, Chloride 103, Carbon Dioxide 19.7 L, Anion Gap 15, BUN 53 H, C reatinine 2.62 H, Estim Creat Clear Calc 24.98 L, Est GFR (MDRD) Non-Af 23 L, B UN/Creatinine Ratio 20.4 H, Glucose 111 H, Calcium 9.4 Radiography Diagnostic Testing: Radiology Impression Brain CT 12/02/24 07:39 IMPRESSION: 1. No acute intracranial finding. 2. Findings of chronic microvascular ischemic changes and age-related changes. Reading Location: [facility] Cervical Spine CT 12/02/24 07:39 IMPRESSION: NO ACUTE CERVICAL FRACTURE. DEGENERATIVE CHANGES. Reading Location: [facility] Chest X-Ray 12/02/24 08:26 IMPRESSION: No Acute Findings. Reading Location: [facility] Hip/Pelvis X-Ray 12/02/24 08:26 IMPRESSION: 1. Known acute fracture through the left femoral neck. 2. Sclerotic lesion overlying the left pubic crest, incompletely evaluated. Correlation with prior imaging or follow-up nonemergent outpatient CT could be obtained if clinically indicated. Reading Location: [facility] Knee X-Ray 12/02/24 08:26 IMPRESSION: DEGENERATIVE OSTEOARTHROSIS. NO ACUTE FINDINGS. Reading Location: [facility] Shoulder X-Ray 12/02/24 08:26 IMPRESSION: NO ACUTE FRACTURE OR DISLOCATION. Reading Location: [facility] Assessment & Plan Assessment/Plan (1) Fracture of femoral neck, left: PLAN: Spoke with Dr. Pace - unable to proceed with surgery today due to high potassium - wants it to be 5.0 or less. Patient and nurse aware of need to cancel case and reason for the delay. Spoke with Dr. Umana - made him aware of anesthesia parameters. Plan - he will try to bring down the potassium. Plan - LIBBY for today. NPO at midnight in hopes to do the case tomorow when potassium 5.0 or less.
[2024-12-03 08:45] VITALS: BP 93/71; PULSE 76; RESP 18; TEMP 36.6; O2SAT 100
[2024-12-03] MEDS: Pantoprazole Sodium 20 MG Tablet PO (08:57)
[2024-12-03] MEDS: Senna/Docusate Sodium 1 Tablet 2 TABLET PO ×2 (08:57→21:04)
[2024-12-03] MEDS: predniSONE 5 MG Tablet PO (08:57)
[2024-12-03] MEDS: 0.9% Normal Saline (1000mL) 1,000 ML 150 ML IV ×2 (09:13→18:05)
--- NOTE | 2024-12-03 10:06 | NURSING ---
downtime documentation 12/03/24 12am until 7am
--- NOTE | 2024-12-03 11:33 | NURSING ---
lab called about the labs that were to be drawn at 08:09
--- NOTE | 2024-12-03 12:53 | NURSING ---
called lab again about missing chemistry ordered for 0809, aware they are researching it.
[2024-12-03 14:16] LABS: Anion Gap 15 (5-15); BUN 58 mg/dL (4-19); BUN/Creat Ratio 20.4 RATIO (10-20); Calcium,Total 9.1 mg/dL (7.6-11.0); Carbon Dioxide 19.1 mmol/L (21.0-32.0); Chloride 105 mmol/L (98-108); Creatinine, Serum 2.83 mg/dL (0.70-1.20); EST Glomerular Filtration Rate 21 (>60); Estimated Creatinine Clearance 23.13 ml/min (50-250); Glucose 118 mg/dL (70-99); Potassium 5.9 mmol/L (3.3-5.1); Sodium Level 139 mmol/L (133-145)
[2024-12-03 15:00] VITALS: BP 99/57; PULSE 68; RESP 18; TEMP 36.4; O2SAT 94
[2024-12-03] MEDS: Sodium Polystyrene Sulfonate 15 GM/60 ML UDC 30 GM PO ×2 (15:29→21:03)
[2024-12-03] MEDS: Ondansetron 4 MG/2 ML Vial IV (16:59)
[2024-12-03 17:45] LABS: Anion Gap 16 (5-15); BUN 59 mg/dL (4-19); BUN/Creat Ratio 20.8 RATIO (10-20); Calcium,Total 8.8 mg/dL (7.6-11.0); Carbon Dioxide 14.1 mmol/L (21.0-32.0); Chloride 104 mmol/L (98-108); Creatinine, Serum 2.84 mg/dL (0.70-1.20); EST Glomerular Filtration Rate 21 (>60); Estimated Creatinine Clearance 23.05 ml/min (50-250); Glucose 111 mg/dL (70-99); Sodium Level 133 mmol/L (133-145)
[2024-12-03 17:56] VITALS: BP 101/59; PULSE 60; RESP 18; TEMP 36.3; O2SAT 94
--- NOTE | 2024-12-03 18:48 | NURSING ---
lab called, clarification was obtained as they were requesting. dr Umana would like bmp drawn as previous one was hemolyized.
[2024-12-03 20:17] LABS: Anion Gap 14 (5-15); BUN 62 mg/dL (4-19); BUN/Creat Ratio 21.2 RATIO (10-20); Calcium,Total 9.1 mg/dL (7.6-11.0); Carbon Dioxide 19.3 mmol/L (21.0-32.0); Chloride 102 mmol/L (98-108); Creatinine, Serum 2.92 mg/dL (0.70-1.20); EST Glomerular Filtration Rate 21 (>60); Estimated Creatinine Clearance 22.42 ml/min (50-250); Glucose 120 mg/dL (70-99); Potassium 6.2 mmol/L (3.3-5.1); Sodium Level 136 mmol/L (133-145)
[2024-12-03] MEDS: Dextrose 10%-Water 250 ML 999 ML IV (20:58)
[2024-12-03] MEDS: Insulin Lispro 100 UNIT/ML VIAL (ADMELOG) 10 UNIT IV (20:59)
[2024-12-03] MEDS: Furosemide 20 MG/2 ML VIAL IV (21:03)
[2024-12-03] MEDS: Gabapentin 300 MG Capsule PO (21:09)
[2024-12-03 21:20] LABS: Blood Gas Specimen Type VEN; O2 Delivery Device Cannula; SITE Not entered; VBG BASE EXCESS -5 mmol/L (-1.0-3.5); VBG Bicarbonate 22 mmol/L (22-26); VBG PO2 82 mmHg (25-40); VBG SO2 94 % (50-70); VBG TCO2 24 mmol/L (23-33); VBG pH 7.25 (7.32-7.42)
[2024-12-03 21:25] LABS: Bedside Glucose 92 mg/dL (74-106)
[2024-12-03 22:16] VITALS: BP 102/73; PULSE 53; RESP 18; TEMP 36.4; O2SAT 94
[2024-12-03] MEDS: oxyCODONE 5 MG Tablet PO (22:22)
[2024-12-03] MEDS: Acetaminophen 325 MG Tablet 650 MG PO (22:22)
[2024-12-04] VITALS (19 sets, daily range): BP systolic 86–123; BP diastolic 51–77; PULSE 75–89; RESP 13–21; TEMP 36.2–37.2; O2SAT 90–95; BMI 28.0
[2024-12-04 00:22] LABS: Bedside Glucose 111 mg/dL (74-106)
[2024-12-04] MEDS: Morphine 2 MG/ML Syringe IV (00:29)
[2024-12-04] MEDS: 0.9% Saline Lock 10 ML Syringe IV ×3 (00:30→22:36)
[2024-12-04 04:48] LABS: Absolute Lymphocyte Count 0.64 X10^3/uL (0.83-4.51); Absolute Neutrophil Count 10.6 X10^3/uL (2.0-7.7); Basophil# 0.04 X10^3/uL; Basophil% 0.3 % (0-1); Eosinophil# 0.08 X10^3/uL; Eosinophils% 0.6 % (0-5); Hemoglobin 15.2 g/dL (13.0-16.5); Lymphocyte # 0.64 X10^3/ul (0.83-4.51); Lymphocyte % 5.1 % (19-41); Mean Corp Hgb Conc 30.4 g/dL (32-36); Mean Corpuscular Hgb 27.2 pg (27.0-32.0); Mean Corpuscular Volume 89.4 fL (80-94); Mean Platelet Vol. 10.9 fl (6.2-12.0); Monocyte# 1.15 X10^3/uL; Monocyte% 9.1 % (0-10); NRBC Flagged by Analyzer 0 % (0-5); Neutrophil # 10.62 X10^3/uL (2.7-7.7); Neutrophil % 84.3 % (47-70); Platelet Count 172 K/mm3 (150-450); RBC Distribution Width CV 18.8 % (11.6-14.6); RBC Distribution Width SD 58.7 fl (35.1-43.9); Red Blood Count 5.59 M/mm3 (4.6-6.2); White Blood Count 12.6 K/mm3 (4.4-11.0)
[2024-12-04 05:10] LABS: Anion Gap 17 (5-15); BUN 66 mg/dL (4-19); BUN/Creat Ratio 20.8 RATIO (10-20); Calcium,Total 8.6 mg/dL (7.6-11.0); Carbon Dioxide 15.1 mmol/L (21.0-32.0); Chloride 104 mmol/L (98-108); Creatinine, Serum 3.19 mg/dL (0.70-1.20); EST Glomerular Filtration Rate 18 (>60); Estimated Creatinine Clearance 20.52 ml/min (50-250); Glucose 96 mg/dL (70-99); Potassium 5.2 mmol/L (3.3-5.1); Sodium Level 136 mmol/L (133-145)
--- NOTE | 2024-12-04 10:22 | CT_ITS ---
PROCEDURE: ABDOMEN/PELVIS WITHOUT CONT 12/04/2024 REASON FOR EXAM: 84-year-old male, concern for bowel ileus, hip fracture surgery yesterday. TECHNIQUE: Abdomen and pelvis CT without intravenous contrast. Noncontrast technique limits evaluation of the abdominal and pelvic viscera. Coronal and Sagittal reconstruction series were provided. One or more dose reduction techniques were used (e.g., Automated exposure control, adjustment of the mA and/or kV according to patient size, use of iterative reconstruction technique). PATIENT PREPARATION: Per protocol ORAL CONTRAST TYPE: None. COMPARISON: Renal bladder ultrasound 10/19/2023. FINDINGS: Lung bases: Mild cardiomegaly, partially visualized pacemaker leads and coronary artery calcifications. Small bilateral pleural effusions. Liver: The unopacified liver is normal in size. No biliary ductal dilation. Gallbladder: Surgically absent. Spleen: Normal in size. Pancreas: Diffuse fatty atrophy. Adrenals: Unremarkable. Kidneys: Bilateral renal cysts and additional hypodensities. Moderate symmetric renal cortical atrophy. Bilateral nephrolithiasis without hydronephrosis. Bladder: Decompressed by indwelling Erickson catheter. Reproductive Organs: Unremarkable. Bowel: Oral contrast material opacifies the stomach and proximal large bowel. Diffuse large bowel distention/mild dilation measuring up to 6.0 cm (which is the upper limits of normal). Distal colonic diverticulosis. No ascites or pneumoperitoneum. Normal appendix. Mild diffuse mesenteric edema, likely secondary to volume overload. Lymph nodes: No suspicious lymphadenopathy. Vasculature: Severe calcific plaque of the aortoiliac vessels. Bones/soft tissues: Moderate body wall edema. Small bilateral inguinal hernias on the right containing fat, and on the left containing fat and a nondilated loop of large bowel. Diffuse osseous demineralization. Thoracolumbar spondylosis. Unchanged left femoral neck fracture. Sclerotic bone island within the left pubic crest. CT/Abdomen/Pelvis without Cont IMPRESSION: 1. Diffuse distension/mild dilation of the large bowel, likely ileus from recen t reported surgery. Partial bowel obstruction or developing obstruction could appear similar. 2. CHF/fluid overload including mild cardiomegaly, small pleural effusions, bod y wall edema and mesenteric edema. 3. Bilateral nephrolithiasis without hydronephrosis. Reading Location: [id number]
[2024-12-04 11:23] LABS: Magnesium 2.2 mg/dL (1.5-2.2); Phosphorus 6.4 mg/dL (2.7-4.5); Potassium 5.3 mmol/L (3.3-5.1)
--- NOTE | 2024-12-04 13:21 | PN.HOSP_ITS ---
Reason for Visit Reason for Visit: Diagnoses Hyperkalemia (12/02/24) Depression, unspecified (12/02/24) Acute kidney failure, unspecified (12/02/24) Fracture of unspecified part of neck of left femur, initial encounter for closed fracture (12/02/24) Objective Data Objective Data Vital Signs: Vital Signs Temp Pulse Resp BP Pulse Ox O2 Del Method O2 Flow Rate 97.8 F 78 18 86/57 L 94 Nasal Cannula 3 12/04/24 12:18 12/04/24 12:18 12/04/24 12:18 12/04/24 12:18 12/04/24 12:18 12/04/24 12:18 12/04/24 12:18 Oxygen Flow Rate (L/min) 3 Oxygen Delivery Method Nasal Cannula Weight: 207 lb 3.752 oz Body Mass Index (BMI) 28.0 Intake & Output: Intake and Output for Last 24 Hours 12/02/24 12/03/24 12/04/24 23:59 23:59 23:59 Intake Total 1970 / 1970 198.5 / 198.5 Output Total 0 / 0 275 / 275 175 / 175 Balance 0 / 0 1695 / 1695 23.5 / 23.5 Lab / Micro Data 12/04/24 03:55 12/04/24 10:48 Labs: Laboratory Results - last 24 hr 12/03/24 13:20: Sodium 139, Potassium 5.9 H, Chloride 105, Carbon Dioxide 19.1 L , Anion Gap 15, BUN 58 H, Creatinine 2.83 H, Estim Creat Clear Calc 23.13 L, Est GFR (MDRD) Non-Af 21 L, BUN/Creatinine Ratio 20.4 H, Glucose 118 H, Calcium 9.1 12/03/24 17:00: Sodium 133, Potassium 6.0 H*, Chloride 104, Carbon Dioxide 14.1 L, Anion Gap 16 H, BUN 59 H, Creatinine 2.84 H, Estim Creat Clear Calc 23.05 L, Est GFR (MDRD) Non-Af 21 L, BUN/Creatinine Ratio 20.8 H, Glucose 111 H, Calcium 8.8 12/03/24 19:08: Sodium 136, Potassium 6.2 H*, Chloride 102, Carbon Dioxide 19.3 L, Anion Gap 14, BUN 62 H, Creatinine 2.92 H, Estim Creat Clear Calc 22.42 L, E st GFR (MDRD) Non-Af 21 L, BUN/Creatinine Ratio 21.2 H, Glucose 120 H, Calcium 9.1 12/03/24 21:01: POC Glucose 92 12/03/24 22:26: POC Glucose 111 H 12/04/24 03:55: WBC 12.6 H, RBC 5.59, Hgb 15.2, Hct 50.0, MCV 89.4, MCH 27.2, M CHC 30.4 L, RDW Std Deviation 58.7 H, RDW Coeff of Natalia 18.8 H, Plt Count 172, MPV 10.9, Immature Gran % (Auto) 0.600, Neut % (Auto) 84.3 H, Lymph % (Auto) 5.1 L, Gray % (Auto) 9.1, Eos % (Auto) 0.6, Baso % (Auto) 0.3, Absolute Neuts (auto) 10.6 H, Absolute Lymphs (auto) 0.64 L, Nucleated RBC % 0, Sodium 136, Potassium 5.2 H, Chloride 104, Carbon Dioxide 15.1 L, Anion Gap 17 H, BUN 66 H, Creatinine 3.19 H, Estim Creat Clear Calc 20.52 L, Est GFR (MDRD) Non-Af 18 L, B UN/Creatinine Ratio 20.8 H, Glucose 96, Calcium 8.6 12/04/24 10:48: Potassium 5.3 H, Phosphorus 6.4 H, Magnesium 2.2 ABG Data ABG results: ABG 12/03/24 21:15 Specimen Type BRAXTON Sample Site Not entered O2 % 3.0 VBG pH 7.25 L VBG pO2 82 H VBG HCO3 22 VBG Total CO2 24 VBG O2 Sat (Calc) 94 H VBG Base Excess -5 L POC Mix VBG pCO2 Pt Tmp 51.0 O2 Delivery Device Cannula Physical Exam Narrative Seen and examined Patient admitted with left hip fracture also TAMMY on CKD with hyperkalemia. Did not move bowel or gas for 2 to 3 days. Leg swelling history of heart failure. Low blood pressure 103/62 on 12/02. Physical exam General: Alert, Oriented x3, Cooperative HEENT: Bilateral hard of hearing. Atraumatic, PERRLA, EOMI, Normocephalic Oral: No Gingival or Mucosal Lesions/ Ulcerations Neck: Supple, No JVD, Negative Carotid Bruits Chest wall/Lungs: Air entry diminished in bilateral lung bases. No crepitation/rhonchi Cardiovascular: Regular rate, Regular Rhythm, Normal S1, Normal S2, No M/G/R Abdomen: Bowel Sounds sluggish/high-pitched, Soft, Non Tender, Non-Distended : No dysuria. No renal angle tenderness. No suprapubic tenderness. Extremities: No edema, Capillary Refill Less than 3 Seconds Skin: Superficial ulcer over left lower leg with dusky/purplish discoloration of right toes Musculoskeletal: No Tenderness to Palpation of Joints or Extremities Neurological: Cranial nerves II-XII grossly intact, DTR 2+/4. No acute focal neurological deficit. Psych/Mental Status: Normal Affect, Appropriate. Assessment & Plan Assessment/Plan (1) Fracture of femoral neck, left: PLAN: Status post fall. Ortho consulted, plan for Left hip hemiarthoplasty on 12/03 (allow apixaban to clear, last took 12/01) DW Dr. River, surgery was canceled on 12/03 for hyperkalemia. 12/04: Patient went for OR today (2) Hyperkalemia: PLAN: Hyperkalemia, was given Kayexalate but patient is also an ileus has not BM/flatus, for 2 to 3 days. K was 6.26.0 on 11/16 but was hemolyzed. Today 5.2- 5.3. Textile Technical Officer consulted. (3) TAMMY (acute kidney injury): PLAN: on CKD3b Baseline creatinine is 1.8, now up to 2.9 and 3.19 IV fluid, half-normal saline ordered. (4) Depression: PLAN: I talked to the patient's son. He has chronic depression and mild dementia PLAN: Plan Ileus probably colonic ileus: Patient not had BM or flatus for about [address] abdomen without contrast ordered CKD3b: creatine up from baseline. monitor. Chronic Afib: s/p pacemaker. apixaban held CHF: chronic edema. hold furosemide and spironolactone for now. Last echo October 2023 shows EF probably around 55, most technically difficult study. Severely dilated RV with global RV systolic dysfunction. No significant valvular abnormality VTE prophylaxis: SCDs. Code status: Confirmed with patient and family. DNRCCA. Charges/Coding Visit Charges Inpatient E&M: 43762 Subs Hosp L3
--- NOTE | 2024-12-04 13:34 | PCM.PRE.AN2 ---
ASA Classification* ASA Classification ASA Classification: 3 Assessment & Plan Anesthesia* Anesthesia Assessment Anesthesia Assessment: Discussed sedation and/or anesthesia options, risks, benefits, and alternatives with patient/parents/legal guardian/POA. Questions invited. The patient/parents/legal guardian/POA seems to understand and agrees to proceed with anesthesia plan. Reviewed the physical assessment, medical history, allergy history and patient home medications list prior to surgery/procedure/anesthetic and documented any changes. Performed airway and anesthesia risk assessments. Anesthesia Type Anesthesia Type: General Anesthesia Focused Assessment* Temperature: 97.8 F Pulse Rate: 78 Blood Pressure: 86/57 Respiratory Rate: 18 Pulse Ox: 94 Oxygen Flow Rate (L/min): 3 Airway Assessment Mouth opens: >3 cm Mallampati Score: II Focused Labs Anesthesia Preop lab: CBC WBC 12.6 K/mm3 (4.4-11.0) H 12/04/24 03:55 12/04/24 RBC 5.59 M/mm3 (4.6-6.2) 12/04/24 03:55 12/04/24 Hgb 15.2 g/dL (13.0-16.5) 12/04/24 03:55 12/04/24 Hct 50.0 % (40-54) 12/04/24 03:55 12/04/24 Plt Count 172 K/mm3 (150-450) 12/04/24 03:55 12/04/24 CHEMISTRY Potassium 5.3 mmol/L (3.3-5.1) H 12/04/24 10:48 12/04/24 Sodium 136 mmol/L (133-145) 12/04/24 03:55 12/04/24 Magnesium 2.2 mg/dL (1.5-2.2) 12/04/24 10:48 12/04/24 Phosphorus 6.4 mg/dL (2.7-4.5) H 12/04/24 10:48 12/04/24 BUN 66 mg/dL (4-19) H 12/04/24 03:55 12/04/24 Creatinine 3.19 mg/dL (0.70-1.20) H 12/04/24 03:55 12/04/24 Glucose 96 mg/dL (70-99) 12/04/24 03:55 12/04/24 POC Glucose 111 mg/dL (74-106) H 12/03/24 22:26 12/03/24 TSH 2.21 uIU/mL (0.358-3.74) 10/19/23 02:40 10/19/23 COAG PT 17.1 SECONDS (11.7-14.9) H 12/02/24 09:47 12/02/24 Pre-Assessment Diagnosis/Proposed Procedure Planned Operative Procedure(s): Hemiarthroplasty left hip Anesthesia History Anesthesia History - crossword puzzle maker: Anesthesia History - crossword puzzle maker Hx Hospitalization Any Problems With Anesthesia No 12/02/24 21:46 Cholinesterase deficiency No 12/02/24 21:46 You/Your Family Experience No 12/02/24 21:46 fever (hyperthermia) with Relationship Recent Exposure to Contagious No 12/02/24 21:46 Disease Does patient have nerve No 12/02/24 21:46 stimulator Patient instructed to have device shut off --Does patient have Pacemaker Yes 12/04/24 12:18 or ICD? When Was Last Pacemaker Check pacer 12/02/24 21:46 QUESTION #4 FULL TEXT: You/Your Family Experience fever (hyperthermia) with Anesthesia Last Oral Intake Last Oral intake: Last Oral Intake NPO since 00:00 12/04/24 12:18 Meds taken in AM with sips of No 12/04/24 12:18 water? Meds patient instructed to take am of surgery PONV PONV - crossword puzzle maker: PONV - crossword puzzle maker Female HX of Motion Sickness HX of N/V After Surgery Non-Smoker Duration of Surgery greater than 60 minutes Number of Risk Factors PONV Score Height & Weight Height & Weight: Anesthesia: Height & Weight Height 6 ft 12/04/24 12:18 Weight: 94 kg 12/04/24 12:18 Body Mass Index (BMI) 28.0 12/04/24 12:18 Respiratory Assessment Respiratory Assessment - crossword puzzle maker: Respiratory Tract Infection Hx - crossword puzzle maker Hx Respiratory Tract Infection No 12/02/24 21:46 STOP Sleep Apnea STOP Sleep Apnea - crossword puzzle maker: STOP Sleep Apnea - crossword puzzle maker Hx Hypertension Yes 12/02/24 11:16 Hx Sleep Apnea Yes 12/02/24 11:16 CPAP Yes 12/02/24 11:16 BIPAP No 12/02/24 11:16 Do you snore loudly (louder than talking or can be heard Do you often feel tired/ fatigued/ sleepy during daytime? Has anyone observed you stop breathing during sleep? STOP Results Positive 12/02/24 11:16 QUESTION #5 FULL TEXT : Do you snore loudly (louder than talking or can be heard through closed doors)? Tobacco Use History Tobacco Use History - crossword puzzle maker: Tobacco Use History - crossword puzzle maker Tobacco Use Smoking Status Former smoker 12/02/24 11:16 Hx Tobacco Use No 12/02/24 11:16 Years Smoking Packs Smoked per Day Smoking Cessation Date was Yes - quit smoking within 15 12/02/24 11:16 within the last 15 years years Hx Smoking Cessation Date Hx Smoking Cessation No 12/02/24 11:16 Counseling Hematologic Medial History Hematologic Hx - crossword puzzle maker: Hematologic Medical Hx - outside sales manager Hx of Blood Transfusion Yes 12/02/24 11:16 Hx of Transfusion in last 3 No 12/02/24 11:16 Months Date of Last Transfusion (if within last 3 months) Ever experience any problems No 12/02/24 11:16 with transfusion(s)? Specify any problems Hx of Preganancy in last 3 N/A 12/02/24 11:16 Months Nurse Filling Out Transfusion EBOOTHE 12/02/24 11:16 & Questions: Date: 12/02/24 12/02/24 11:16 Time: 11:19 12/02/24 11:16 Patient unable to answer at this time (ie. confused, unrespo /Reproduction History /Reproductive History - crossword puzzle maker: /Reproductive Hx- crossword puzzle maker Hx Now Gestational Age (in weeks): EDC: Hx Hx Para Hx Section SAB Active Medications Active Medications: Current Medications Generic Name Dose Route Start Last Admin Trade Name Freq PRN Reason Stop Dose Admin Acetaminophen 650 mg 12/02/24 10:12 12/03/24 22:22 Acetaminophen 325 Mg Tablet PO 650 mg Q6H PRN PRN Administration Pain 1-10 Or Fever >100.7 Gabapentin 300 mg 12/02/24 22:00 12/03/24 21:09 Gabapentin 300 Mg Capsule PO 300 mg QHS RAFAEL Administration Sodium Chloride 100 mls @ 15 mls/hr 12/02/24 11:23 IV .Q6H40M PRN Saline Flush Sodium Chloride 100 mls @ 15 mls/hr 12/02/24 11:23 IV .Q6H40M PRN Additional IVPB Infusion Sodium Chloride 1,000 mls @ 15 mls/hr 12/04/24 13:15 IV .Q48H RAFAEL Morphine Sulfate 2 - 4 mg 12/02/24 10:12 12/04/24 00:29 Morphine 2 Mg/Ml Syringe IV 2 mg Q3H PRN PRN Administration Pain Score 6-10 Morphine Sulfate 2 - 4 mg 12/02/24 10:18 Morphine 4 Mg/Ml Syringe IV Q3H PRN PRN Pain Score 6-10 Ondansetron HCl 4 mg 12/02/24 10:12 12/03/24 16:59 Ondansetron 4 Mg/2 Ml Vial IV 4 mg Q8H PRN PRN Administration NAUSEA/VOMITING Oxycodone HCl 5 mg 12/02/24 10:12 12/03/24 22:22 Oxycodone 5 Mg Tablet PO 5 mg Q4H PRN PRN Administration Pain Score 4-10 Pantoprazole Sodium 20 mg 12/02/24 10:12 12/04/24 09:29 Pantoprazole Sodium 20 Mg Tablet PO Not Given DAILY RAFAEL Prednisone 5 mg 12/02/24 10:12 12/04/24 09:29 Prednisone 5 Mg Tablet PO Not Given DAILYCM RAFAEL Senna/Docusate Sodium 2 tablet 12/02/24 10:12 12/04/24 09:29 Senna/Docusate Sodium 1 Tablet PO Not Given BID RAFAEL Sodium Chloride 10 - 40 ml 12/02/24 11:23 12/04/24 00:30 0.9% Saline Lock 10 Ml Syringe IV 10 ml UD PRN Administration SALINE FLUSH PFSH Medical History Cor pulmonale (chronic) Centrilobular emphysema Paroxysmal atrial fibrillation Right heart failure PVD (peripheral vascular disease) Stasis dermatitis Venous insufficiency Chronic diastolic (congestive) heart failure Chronic anticoagulation History of pacemaker Hyperlipidemia Hypertension Atrial flutter Second degree heart block Coronary artery disease Rheumatoid arthritis Obstructive sleep apnea Cellulitis of both lower extremities Debility Chronic kidney disease, stage III (moderate) Pacemaker (04/03/22) Psoriatic arthritis Home Medications ?Medication ?Instructions ?Recorded ?Last Taken ?Type cholecalciferol (vitamin D3) 50 50 mcg PO DAILY Supplement 02/03/23 Unknown History mcg (2,000 unit) chewable tablet gabapentin 300 mg capsule 300 mg PO QHS Pain 02/03/23 08/04/24 History omeprazole 20 mg tablet,delayed 20 mg PO DAILY GERD 02/03/23 02/16/23 09:55 History release spironolactone 25 mg tablet 25 mg PO DAILY@0800 DIURETIC 30 03/02/23 Unknown Rx days #30 tabs prednisone 5 mg tablet 5 mg PO DAILY pain 06/21/24 08/05/24 History acetaminophen 500 mg tablet 1,000 mg (2 x 500 mg) PO BID #0 08/17/24 Unknown Rx tabs apixaban 2.5 mg tablet (Eliquis) 2.5 mg PO BID 12/02/24 Unknown History furosemide 40 mg tablet 40 mg PO DAILY edema 12/02/24 Unknown History Allergy/AdvReac Type Severity Reaction Status Date / Time ertapenem Allergy Other Verified 12/02/24 07:23 leflunomide (From Arava) Allergy Other Verified 12/02/24 07:23 sulfamethoxazole (From Allergy Other Verified 12/02/24 07:23 Bactrim) trimethoprim (From Bactrim) Allergy Other Verified 12/02/24 07:23 ciprofloxacin (From Cipro) AdvReac Severe Pain in Verified 12/02/24 07:23 joints metoprolol AdvReac Severe severe Verified 12/02/24 07:23 hypotension Family History Mother CAD (coronary artery disease) Father Colon cancer Sister CAD (coronary artery disease) Surgical History History of thoracic spinal fusion History of lithotripsy History of replacement of both shoulder joints History of cholecystectomy History of fusion of cervical spine Social History housing: assisted living facility Smoking Status: Former smoker alcohol intake: never substance use type: does not use Review of Systems (Anesthesia) ROS Narrative System reviewed and no additional complaints, except as documented.
[2024-12-04] MEDS: 0.9% Normal Saline (1000mL) 1,000 ML 15 ML IV (13:40)
--- NOTE | 2024-12-04 14:55 | PN_ITS ---
Progress Note Notified by Dr Gonzalez about new consult. we attempted to see him this am but went to OR. was notified that he came back from OR with worsening dyspnea. history of CHF. reviewed outpatient records. baseline cr 1.8 - 1.9. now cr 3.1. K is ok. Bp borderline as per Dr Gonzalez. fluid overload a concern. would trial IV lasix first. 80-100 mg IV x 1. if low BP a concern will need to move to ICU for ionotropes/pressors. then lasix challenge. if no response to lasix challenge, may need dialysis if the patient agrees. line placement as per surgery/ICU as n eeded. plan was discussed with Dr Gonzalez.
[2024-12-04] MEDS: 0.45% Normal Saline 1,000 ML 75 ML IV (15:08)
[2024-12-04 16:08] LABS: Pro- Brain NATRIURETIC PEPTIDE 56232 pg/mL (<=1800)
[2024-12-04 16:09] LABS: Lactic Acid 1.6 mmol/L (0.0-2.0)
[2024-12-04 17:39] LABS: Mucous, Urine 0 SEEN /hpf (<or=2+); Squamous Epithelial Cells - UA 0 SEEN /hpf (0-5)
[2024-12-04 17:50] LABS: Color, Urine Yellow (Yellow); Glucose, Dipstick Normal (Normal); Ketone-Dipstick 5 mg/dl (Negative); Leukocyte Esterase-Dipstick 500 /ul (Negative); Nitrite-Dipstick Positive (Negative); Occult Blood-Urine 250 /ul (Negative); Protein-Dipstick 100 mg/dl (Negative); Urine Clarity Cloudy (Clear); Urine Urobilinogen 4 mg/dl (Normal)
[2024-12-04 17:56] LABS: Urine Bilirubin Dipstick 1 mg/dL (Negative)
--- NOTE | 2024-12-04 17:57 | RAD_ITS ---
PROCEDURE: CHEST PA AND LATERAL 12/04/2024 REASON FOR EXAM: RULE OUT PULMONARY EDEMA TECHNIQUE: Frontal and lateral views of the chest. COMPARISON: December 02, 2024 FINDINGS: Hardware: A cardiac pacemaker is present. Heart: Heart size is mildly enlarged. Mediastinum: The mediastinal contour is unremarkable. Lungs: The lungs are clear. Bones: Fixation screw and plate transverse the midthoracic spine. Compression fracture deformity of the midthoracic vertebral body. Bilateral shoulder arthroplasty. RAD/Chest PA and Lateral IMPRESSION: NO ACUTE FINDINGS. Reading Location: [facility]
[2024-12-04 17:59] LABS: Red Blood Cells-Urine 50-100 SEEN /hpf (0-5); White Blood Cells >100 SEEN /hpf (0-5)
[2024-12-04 18:00] LABS: Bacteria 4+ /hpf (None Seen)
--- NOTE | 2024-12-04 18:01 | ECHOD_ITS ---
Reason For Study Reason For Study: EVALUATE EF Procedure This was a 2D Doppler, Color Flow transthoracic echocardiogram. The study was technically difficult. The study was technically limited. Exam performed portable in ICU/CCU. Left Ventricle Normal LV size. Left ventricular systolic function is normal. The left ventricular ejection fraction is 55 %. No regional wall motion abnormalities noted. Right Ventricle Moderately dilated right ventricle. ICD or pacer leads identified within the right ventricle. Moderate global right ventricular systolic dysfunction. Atria Normal left atrium. Normal right atrium. Mitral Valve Normal mitral valve. Tricuspid Valve Normal tricuspid valve. Aortic Valve Trisinus/trileaflet aortic valve. Mild focal aortic valve thickening. Great Vessels Normal aortic root. The pulmonary artery is normal size. Inferior vena cava collapse with respiration. Pericardium/Pleural No pericardial effusion. MMode/2D Measurements & Calculations LVIDd: 3.5 cm IVSd: 1.6 cm Ao root diam: 3.4 cm LVIDs: 2.6 cm LVPWd: 1.4 cm FS: 27.1 % LAV(MOD-sp4): 29.2 ml LA A4 area: 14.8 cm2 LA dimension(2D): 3.2 cm RA A4 area: 26.3 cm2 Doppler Measurements & Calculations Ao V2 max: 86.9 cm/sec LV V1 max: 79.1 cm/sec TR max hamida: 375.7 cm/sec Ao max P.1 mmHg LV V1 max P.6 mmHg TR max P.5 mmHg ECHO/Echo Complete Interpretation Summary Normal LV size. Left ventricular systolic function is normal. Moderately dilated right ventricle. ICD or pacer leads identified within the right ventricle. Moderate global right ventricular systolic dysfunction. The left ventricular ejection fraction is 55 %. Ordering Physician: Dilip Gonzalez Referring Physician: CAITLYN BHATT Performed By: Maria Dolores Austin RDCS
[2024-12-04 18:02] LABS: Coarse Granular Cast 0-5 SEEN /lpf (0-5 /lpf); Hyaline Cast 10-25 SEEN /lpf (0-5)
[2024-12-04] MEDS: HYDROmorphone 0.5 MG/0.5 ML SYRINGE IV ×2 (18:32→22:34)
[2024-12-04] MEDS: 0.9% Normal Saline (1000mL) 1,000 ML 100 ML IV (18:55)
[2024-12-04] MEDS: Ceftriaxone 1 GM/50 ML BAG IV (21:01)
[2024-12-04] MEDS: Ondansetron 4 MG/2 ML Vial IV (22:36)
--- NOTE | 2024-12-04 22:39 | RAD_ITS ---
PROCEDURE: CXR FOR LINE PLACEMENT 12/04/2024 REASON FOR EXAM: LINE PLACEMENT TECHNIQUE: Frontal view of the chest. COMPARISON: Chest radiograph obtained earlier today. FINDINGS: Hardware: Interval placement of a left-sided PICC line with its distal tip terminating superiorly within the brachiocephalic vein, recommend repositioning. Left-sided cardiac pacemaker. Heart: Borderline cardiomegaly. Lungs: Prominent bilateral interstitial markings with right basilar effusion/atelectasis. Bones: Fixation hardware transversing the midthoracic spine and bilateral shoulder arthroplasties. Other: RAD/CXR for Line Placement IMPRESSION: Left-sided PICC line terminates superiorly within the brachiocephalic vein over the right apical region, recommend repositioning. Reading Location: [facility]
[2024-12-05] VITALS (35 sets, daily range): BP systolic 48–125; BP diastolic 38–77; PULSE 77–97; RESP 12–25; TEMP 36.6–37.2; O2SAT 65–97; BMI 28.8
[2024-12-05] MEDS: HYDROmorphone 0.5 MG/0.5 ML SYRINGE IV ×2 (04:11→09:22)
[2024-12-05] MEDS: 0.9% Saline Lock 10 ML Syringe IV ×4 (04:12→13:19)
[2024-12-05] MEDS: 0.9% Normal Saline (1000mL) 1,000 ML 100 ML IV (04:48)
[2024-12-05 04:57] LABS: Absolute Lymphocyte Count 0.52 X10^3/uL (0.83-4.51); Absolute Neutrophil Count 15.7 X10^3/uL (2.0-7.7); Basophil# 0.06 X10^3/uL; Basophil% 0.3 % (0-1); Eosinophil# 0.02 X10^3/uL; Eosinophils% 0.1 % (0-5); Hematocrit 51.9 % (40-54); Lymphocyte # 0.52 X10^3/ul (0.83-4.51); Mean Corp Hgb Conc 30.8 g/dL (32-36); Mean Corpuscular Hgb 27.2 pg (27.0-32.0); Mean Corpuscular Volume 88.3 fL (80-94); Mean Platelet Vol. 10.9 fl (6.2-12.0); Monocyte# 0.91 X10^3/uL; Monocyte% 5.3 % (0-10); NRBC Flagged by Analyzer 0.2 % (0-5); Neutrophil # 15.68 X10^3/uL (2.7-7.7); Neutrophil % 90.9 % (47-70); POSITIVE DIFFERENTIAL YES; Platelet Count 163 K/mm3 (150-450); RBC Distribution Width CV 19.4 % (11.6-14.6); RBC Distribution Width SD 58.6 fl (35.1-43.9); Red Blood Count 5.88 M/mm3 (4.6-6.2); White Blood Count 17.3 K/mm3 (4.4-11.0)
[2024-12-05 05:20] LABS: Anion Gap 19 (5-15); BUN 82 mg/dL (4-19); BUN/Creat Ratio 19.5 RATIO (10-20); Calcium,Total 8.3 mg/dL (7.6-11.0); Chloride 104 mmol/L (98-108); Creatinine, Serum 4.18 mg/dL (0.70-1.20); EST Glomerular Filtration Rate 13 (>60); Estimated Creatinine Clearance 15.84 ml/min (50-250); Glucose 114 mg/dL (70-99); Potassium 6.9 mmol/L (3.3-5.1); Sodium Level 138 mmol/L (133-145)
[2024-12-05] MEDS: DOPamine IV 800 MG/250 ML IV.SOLN. 8.8 MG CONT INF (05:45)
[2024-12-05 05:58] LABS: Anion Gap 22 (5-15); BUN 82 mg/dL (4-19); BUN/Creat Ratio 20.4 RATIO (10-20); Calcium,Total 8.4 mg/dL (7.6-11.0); Carbon Dioxide 11.4 mmol/L (21.0-32.0); Chloride 106 mmol/L (98-108); Creatinine, Serum 3.99 mg/dL (0.70-1.20); EST Glomerular Filtration Rate 14 (>60); Estimated Creatinine Clearance 16.59 ml/min (50-250); Glucose 117 mg/dL (70-99); Potassium 5.7 mmol/L (3.3-5.1); Sodium Level 139 mmol/L (133-145)
--- NOTE | 2024-12-05 06:00 | RAD_ITS ---
PROCEDURE: ABDOMEN SINGLE VIEW (PORTABLE) 12/05/2024 REASON FOR EXAM: ILEUS TECHNIQUE: Single view abdomen. 3 total images to include the entire abdomen and pelvis FINDINGS: Gaseous distention of what appears to be mostly colon with some small bowel gaseous prominence and mild gaseous prominence of the stomach may represent ileus with a developing distal obstruction not entirely excluded, clinically correlate. Visualized lung bases appear clear. Dual lead pacemaker, midthoracic bone graft/strut and lateral fixation. Partially imaged right humeral hardware. Left femoral neck fracture with shortening and varus deformity, clinically correlate. Sclerotic lesion left superior pubic ramus. Vascular calcifications. RAD/Abdomen Single View (Portable) IMPRESSION: Gaseous distention of what appears to be mostly colon with some small bowel gas eous prominence and mild gaseous prominence of the stomach may represent ileus with a developing distal obstruction not entirely e xcluded, clinically correlate. Left femoral neck fracture with shortening and varus deformity, clinically galilea elate. Reading Location: [id number]
[2024-12-05] MEDS: Piperacil/Tazobactam 3.375 GM in 0.9% Normal Saline (50mL MB+) 50 ML IV (06:13)
[2024-12-05 06:36] LABS: International Normalized Ratio 1.6; Partial Thromboplast Time 29.6 Seconds (24.1-36.2); Prothrombin Time (Protime)PT. 19.2 SECONDS (11.7-14.9)
[2024-12-05] MEDS: Norepinephrine 8 MG in 0.9% Normal Saline (250mL Bag) 242 ML 9.4 MG CONT INF (07:29)
--- NOTE | 2024-12-05 07:38 | EX.PCM.CONCC ---
Assessment & Plan Assessment/Plan (1) Fracture of femoral neck, left: PLAN: Plan RECOMMENDATIONS: 1. Continue current supportive measures, including antimicrobials and vasopressor support. 2. If acidosis worsens or Levophed requirement increases, will consider transition to comfort care measures. 3. Attempt to wean from BiPAP support, if feasible. 4. Recheck lactate level. 5. The patient should remain n.p.o. for now. IMPRESSIONS: 1. Septic shock with multisystem organ failure Clinical concern for underlying urinary tract source of infection with evidence of end organ dysfunction as evidenced by persistent hypotension requiring vasopressor support, acute kidney injury and lactic acidemia. Given the patient's tenuous respiratory status and significantly elevated BNP, agree with holding off on additional IV fluids. Continue empiric antimicrobials for now. Continue Levophed to maintain a mean arterial pressure at or above 65 mmHg. 2. Abdominal pain with concern for ileus versus early bowel obstruction versus perforation The patient is currently being followed by general surgery, but would be considered extremely high risk for any form of invasive surgical intervention. 3. Acute hypoxemic respiratory failure Most likely secondary to pulmonary edema. However, the patient's hemodynamic status would not allow for significant attempts at diuresis with IV Lasix. The patient has responded appropriately to BiPAP support. Will attempt to transition him to heated high flow cannula for comfort purposes. 4. Acute kidney injury/hyperkalemia Most likely prerenal in etiology in the setting of #1. While the patient does have underlying acidosis and electrolyte derangements, he is not in agreement to proceed with dialysis. Therefore, we will continue current supportive measures. Nephrology consultation is pending. 5. Femoral neck fracture Holding on any form of orthopedic surgical intervention for now. 6. Chronic atrial fibrillation/heart failure with preserved ejection fraction/neuropathy/GERD Complicates care, management, recovery and prognosis. Continue supportive measures as noted above. If the patient were to worsen clinically, the patient's family would be interested in transitioning to comfort care measures. CODE STATUS: DNR CCA without intubation. TIME: 48 minutes of critical care time, independent of procedures, was spent addressing the patient's septic shock with multisystem organ failure, abdominal pain, acute hypoxemic respiratory failure, acute kidney injury, femoral neck fracture, review of all data and collaboration with the care team. HPI Consult Data Date of Consult: 12/05/24 HPI Narrative Reason for Consultation: Septic shock HPI Narrative: The patient is an 84-year-old male, with a history as outlined below, who initially presented to the emergency department via EMS on December 02 after sustaining a fall resulting in femoral neck fracture. The patient has a known history of atrial fibrillation, chronic kidney disease and congestive heart failure. He was systemically anticoagulated on apixaban as an outpatient. The patient was initially admitted to the hospital after being seen in consultation by orthopedic surgery. There were tentative plans to proceed with surgical intervention of his fracture after holding his systemic anticoagulation. However, the patient's surgery was canceled on December 03 due to hyperkalemia. A second attempt at possible surgical intervention was considered on December 04. However, the patient was noted at that time to be hypoxemic and hypotensive. Therefore, his surgery was again placed on hold. As a consequence of the aforementioned, the patient was transferred to the medical intensive care unit. Early this morning, the patient did require the initiation of vasopressor support to maintain hemodynamic stability. His white blood cell count is elevated at 17,000. In addition, the patient was more hypoxemic this morning, requiring the initiation of BiPAP support. Subsequent arterial blood gas demonstrated a pH of 7.23 with a pCO2 of 37 and pO2 of 78. His potassium is elevated at 5.7 with a bicarbonate of 12 and creatinine of 3.9. His AST and ALT are mildly increased to 111 and 129, respectively. The patient did have a urine analysis completed last evening which was positive for nitrites, leukocyte esterase and 4+ urine bacteria. Accordingly, he was initiated on antimicrobials this morning. The patient is currently documented to be overall net +3.2 L for the hospitalization. His BNP yesterday was noted to be 56,232. In addition, the patient was seen by general surgery this morning given the findings noted on KUB concerning for gaseous distention of the colon. The patient was notably tender on examination with guarding. Therefore, the main concern was for that of an acute ischemic insult versus potential perforation. In light of the patient's current clinical status, including concern for septic shock with multisystem organ failure, I did meet personally with the patient along with his healthcare POA, Kari and son at the bedside. I explained to them the multiple issues at hand, including the likely need for dialysis support and possible central line placement to facilitate vasopressor administration. In light of all of the aforementioned, the patient voiced his desire to forego any invasive procedures that would involve discomfort. He is not interested in pursuing dialysis support. The patient's family was in agreement. They are not currently interested in central venous catheter cannulation. Instead, if the patient were to continue to worsen clinically with increasing vasopressor support and worsening acidosis, they would consider transition to comfort care measures. [facility] Medical History Cor pulmonale (chronic) Centrilobular emphysema Paroxysmal atrial fibrillation Right heart failure PVD (peripheral vascular disease) Stasis dermatitis Venous insufficiency Chronic diastolic (congestive) heart failure Chronic anticoagulation History of pacemaker Hyperlipidemia Hypertension Atrial flutter Second degree heart block Coronary artery disease Rheumatoid arthritis Obstructive sleep apnea Cellulitis of both lower extremities Debility Chronic kidney disease, stage III (moderate) Pacemaker (04/03/22) Psoriatic arthritis Home Medications ?Medication ?Instructions ?Recorded ?Last Taken ?Type cholecalciferol (vitamin D3) 50 50 mcg PO DAILY Supplement 02/03/23 Unknown History mcg (2,000 unit) chewable tablet gabapentin 300 mg capsule 300 mg PO QHS Pain 02/03/23 08/04/24 History omeprazole 20 mg tablet,delayed 20 mg PO DAILY GERD 02/03/23 02/16/23 09:55 History release spironolactone 25 mg tablet 25 mg PO DAILY@0800 DIURETIC 30 03/02/23 Unknown Rx days #30 tabs prednisone 5 mg tablet 5 mg PO DAILY pain 06/21/24 08/05/24 History acetaminophen 500 mg tablet 1,000 mg (2 x 500 mg) PO BID #0 08/17/24 Unknown Rx tabs apixaban 2.5 mg tablet (Eliquis) 2.5 mg PO BID 12/02/24 Unknown History furosemide 40 mg tablet 40 mg PO DAILY edema 12/02/24 Unknown History Allergy/AdvReac Type Severity Reaction Status Date / Time ertapenem Allergy Other Verified 12/02/24 07:23 leflunomide (From Arava) Allergy Other Verified 12/02/24 07:23 sulfamethoxazole (From Allergy Other Verified 12/02/24 07:23 Bactrim) trimethoprim (From Bactrim) Allergy Other Verified 12/02/24 07:23 ciprofloxacin (From Cipro) AdvReac Severe Pain in Verified 12/02/24 07:23 joints metoprolol AdvReac Severe severe Verified 12/02/24 07:23 hypotension Family History Mother CAD (coronary artery disease) Father Colon cancer Sister CAD (coronary artery disease) Surgical History History of thoracic spinal fusion History of lithotripsy History of replacement of both shoulder joints History of cholecystectomy History of fusion of cervical spine Social History housing: assisted living facility Smoking Status: Former smoker alcohol intake: never substance use type: does not use ROS ROS Narrative 10 systems were reviewed with pertinent positives as noted in the HPI above. Physical Exam Const Constitutional Narrative: The patient is alert and appropriately interactive. He does have capacity for medical decision making. HEENT normocephalic and head/scalp atraumatic HEENT Narrative: Dry mucous membranes General Ear: hearing grossly impaired Eyes EOMs intact bilaterally, conjunctivae normal and no scleral icterus Neck supple General: trachea midline Chest inspection of chest normal Resp Effort and Inspection: tachypneic Auscultation: diminished lung sounds Cardio regular rate and regular rhythm GI Palpation: tender and guarding Extremity no clubbing, cyanosis or edema Skin no rashes or lesions noted Neuro CN's II-XII intact bilaterally, moves all extremities and no focal motor deficits Psych Mood & Affect: flat affect Lab / Micro Data 12/05/24 04:45 12/05/24 05:30 Labs: Laboratory Results - last 24 hr 12/04/24 10:48: Potassium 5.3 H, Phosphorus 6.4 H, Magnesium 2.2, [place] [address] H 12/04/24 15:35: Lactic Acid 1.6 12/04/24 17:30: Urine Color Yellow, Urine Clarity Cloudy, Urine pH 5.0, Ur Specific [place] 1.030, Urine Protein 100 H, Urine Glucose (UA) Normal, Urine Ketones 5 H, Urine Occult Blood 250 H, Urine Nitrite Positive H, Urine Bilirubin 1 H, Urine Urobilinogen 4 H, Ur Leukocyte Esterase 500 H, Urine RBC 50-100 SEEN, Urine WBC >100 SEEN, Ur Squamous Epith Cells 0 SEEN, Urine Bacteria 4+, Hyaline Casts 10-25 SEEN, Coarse Granular Casts 0-5 SEEN, Urine Mucus 0 SEEN 12/05/24 04:45: WBC 17.3 H, RBC 5.88, Hgb 16.0, Hct 51.9, MCV 88.3, MCH 27.2, MCHC 30.8 L, RDW Std Deviation 58.6 H, RDW Coeff of Natalia 19.4 H, Plt Count 163, MPV 10.9, Immature Gran % (Auto) 0.400, Neut % (Auto) 90.9 H, Lymph % (Auto) 3.0 L, White % (Auto) 5.3, Eos % (Auto) 0.1, Baso % (Auto) 0.3, Absolute Neuts (auto) 15.7 H, Absolute Lymphs (auto) 0.52 L, Nucleated RBC % 0.2, Sodium 138, Potassium 6.9 H*, Chloride 104, Carbon Dioxide 15.0 L, Anion Gap 19 H, BUN 82 H, Creatinine 4.18 H, Estim Creat Clear Calc 15.84 L, Est GFR (MDRD) Non-Af 13 L, BUN/Creatinine Ratio 19.5, Glucose 114 H, Calcium 8.3 12/05/24 05:30: Sodium 139, Potassium 5.7 H, Chloride 106, Carbon Dioxide 11.4 L, Anion Gap 22 H, BUN 82 H, Creatinine 3.99 H, Estim Creat Clear Calc 16.59 L, Est GFR (MDRD) Non-Af 14 L, BUN/Creatinine Ratio 20.4 H, Glucose 117 H, Calcium 8.4 12/05/24 06:00: PT 19.2 H, INR 1.6, APTT 29.6 Imaging Radiology Impression Abdomen/Pelvis CT 12/04/24 10:22 IMPRESSION: 1. Diffuse distension/mild dilation of the large bowel, likely ileus from recent reported surgery. Partial bowel obstruction or developing obstruction could appear similar. 2. CHF/fluid overload including mild cardiomegaly, small pleural effusions, body wall edema and mesenteric edema. 3. Bilateral nephrolithiasis without hydronephrosis. Reading Location: [facility] Chest X-Ray 12/04/24 17:57 IMPRESSION: NO ACUTE FINDINGS. Reading Location: [facility] Chest X-Ray 12/04/24 22:39 IMPRESSION: Left-sided PICC line terminates superiorly within the brachiocephalic vein over the right apical region, recommend repositioning. Reading Location: [facility] X-Ray 12/05/24 06:00 IMPRESSION: Gaseous distention of what appears to be mostly colon with some small bowel gaseous prominence and mild gaseous prominence of the stomach may represent ileus with a developing distal obstruction not entirely excluded, clinically correlate. Left femoral neck fracture with shortening and varus deformity, clinically correlate. Reading Location: [id number] Charges/Coding Procedures Hospitalists Procedures: 52011 Critical Care 1st Hr
--- NOTE | 2024-12-05 07:38 | PCM.PN.HOSP ---
Reason for Visit Reason for Visit: Diagnoses Hyperkalemia (12/02/24) Depression, unspecified (12/02/24) Acute kidney failure, unspecified (12/02/24) Fracture of unspecified part of neck of left femur, initial encounter for closed fracture (12/02/24) Objective Data Objective Data Vital Signs: Vital Signs Temp Pulse Resp BP Pulse Ox O2 Del Method O2 Flow Rate 98.8 F 85 12 77/44 L 90 Bi-pap 10 12/05/24 06:25 12/05/24 07:00 12/05/24 07:00 12/05/24 07:29 12/05/24 07:00 12/05/24 07:00 12/05/24 06:00 FiO2 50 12/05/24 07:00 Oxygen Flow Rate (L/min) 10 Oxygen Delivery Method Bi-pap Weight: 212 lb 8.41 oz Body Mass Index (BMI) 28.8 Intake & Output: Intake and Output for Last 24 Hours 12/03/24 12/04/24 12/05/24 23:59 23:59 23:59 Intake Total 1970 / 1970 326.0 / 326.0 1167.28 / 1167.28 Output Total 275 / 275 275 / 325 50 / 50 Balance 1695 / 1695 51.0 / 1.0 1117.28 / 1117.28 Lab / Micro Data 12/05/24 04:45 12/05/24 05:30 Labs: Laboratory Results - last 24 hr 12/04/24 10:48: Potassium 5.3 H, Phosphorus 6.4 H, Magnesium 2.2, [place] [address] H 12/04/24 15:35: Lactic Acid 1.6 12/04/24 17:30: Urine Color Yellow, Urine Clarity Cloudy, Urine pH 5.0, Ur Specific [place] 1.030, Urine Protein 100 H, Urine Glucose (UA) Normal, Urine Ketones 5 H, Urine Occult Blood 250 H, Urine Nitrite Positive H, Urine Bilirubin 1 H, Urine Urobilinogen 4 H, Ur Leukocyte Esterase 500 H, Urine RBC 50-100 SEEN, Urine WBC >100 SEEN, Ur Squamous Epith Cells 0 SEEN, Urine Bacteria 4+, Hyaline Casts 10-25 SEEN, Coarse Granular Casts 0-5 SEEN, Urine Mucus 0 SEEN 12/05/24 04:45: WBC 17.3 H, RBC 5.88, Hgb 16.0, Hct 51.9, MCV 88.3, MCH 27.2, MCHC 30.8 L, RDW Std Deviation 58.6 H, RDW Coeff of Natalia 19.4 H, Plt Count 163, MPV 10.9, Immature Gran % (Auto) 0.400, Neut % (Auto) 90.9 H, Lymph % (Auto) 3.0 L, [place] % (Auto) 5.3, Eos % (Auto) 0.1, Baso % (Auto) 0.3, Absolute Neuts (auto) 15.7 H, Absolute Lymphs (auto) 0.52 L, Nucleated RBC % 0.2, Sodium 138, Potassium 6.9 H*, Chloride 104, Carbon Dioxide 15.0 L, Anion Gap 19 H, BUN 82 H, Creatinine 4.18 H, Estim Creat Clear Calc 15.84 L, Est GFR (MDRD) Non-Af 13 L, BUN/Creatinine Ratio 19.5, Glucose 114 H, Calcium 8.3 12/05/24 05:30: Sodium 139, Potassium 5.7 H, Chloride 106, Carbon Dioxide 11.4 L, Anion Gap 22 H, BUN 82 H, Creatinine 3.99 H, Estim Creat Clear Calc 16.59 L, Est GFR (MDRD) Non-Af 14 L, BUN/Creatinine Ratio 20.4 H, Glucose 117 H, Calcium 8.4 12/05/24 06:00: PT 19.2 H, INR 1.6, APTT 29.6 Radiography Diagnostic Testing: Radiology Impression Abdomen/Pelvis CT 12/04/24 10:22 IMPRESSION: 1. Diffuse distension/mild dilation of the large bowel, likely ileus from recent reported surgery. Partial bowel obstruction or developing obstruction could appear similar. 2. CHF/fluid overload including mild cardiomegaly, small pleural effusions, body wall edema and mesenteric edema. 3. Bilateral nephrolithiasis without hydronephrosis. Reading Location: [facility] Chest X-Ray 12/04/24 17:57 IMPRESSION: NO ACUTE FINDINGS. [facility] 12/04/24 22:39 IMPRESSION: Left-sided PICC line terminates superiorly within the brachiocephalic vein over the right apical region, recommend repositioning. [facility] 12/05/24 06:00 IMPRESSION: Gaseous distention of what appears to be mostly colon with some small bowel gaseous prominence and mild gaseous prominence of the stomach may represent ileus with a developing distal obstruction not entirely excluded, clinically correlate. Left femoral neck fracture with shortening and varus deformity, clinically correlate. Reading Location: [facility] Physical Exam Narrative Seen and examined Blood pressure low. On Levophed drip. PICC line attempted yesterday failed. Urine output 50 mL from 7 PM till midnight and none after midnight. Also has colonic ileus. On BiPAP 50% FiO2 Patient admitted with left hip fracture also TAMMY on CKD with hyperkalemia. Did not move bowel or gas for 2 to 3 days. Leg swelling history of heart failure. Low blood pressure 103/62 on 12/02. Physical exam General: Awake, lethargic, Cooperative HEENT: Bilateral hard of hearing. Atraumatic, PERRLA, EOMI, Normocephalic Oral: No Gingival or Mucosal Lesions/ Ulcerations Neck: Supple, No JVD, Negative Carotid Bruits Chest wall/Lungs: Air entry diminished in bilateral lung bases. No crepitations. Tachypneic on BiPAP Cardiovascular: Paced rhythm, Normal S1, Normal S2, No M/G/R Abdomen: Bowel Sounds sluggish, Soft, Non Tender, mild distended : No dysuria. No renal angle tenderness. No suprapubic tenderness. Extremities: No edema, Capillary Refill Less than 3 Seconds Skin: Superficial ulcer over left lower leg with dusky/purplish discoloration of right toes Musculoskeletal: No Tenderness to Palpation of Joints or Extremities Neurological: Cranial nerves II-XII grossly intact, DTR 2+/4. No acute focal neurological deficit. Psych/Mental Status: Flat affect Assessment & Plan Assessment/Plan (1) Fracture of femoral neck, left: PLAN: Status post fall. Ortho consulted, plan for Left hip hemiarthoplasty on 12/03 (allow apixaban to clear, last took 12/01) DW Dr. River, surgery was canceled on 12/03 for hyperkalemia. 12/04: Patient went for OR today 12/05: OR was canceled yesterday because of hypoxia 87% on 4 L of and low BP (2) Hyperkalemia: PLAN: Hyperkalemia, was given Kayexalate but patient is also an ileus has not BM/flatus, for 2 to 3 days. K was 6.26.0 on 11/16 but was hemolyzed. Today 5.2-5.3. Performance Management Consultant consulted. 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 12/05: Creatinine went up to 4.18. Performance Management Consultant was consulted yesterday (4) Depression: PLAN: I talked to the patient's son. He has chronic depression and mild dementia PLAN: Plan Ileus probably colonic ileus: Patient not had BM or flatus for about [address] abdomen without contrast ordered 12/05: CT abdomen individually reviewed and shows colonic ileus. I talked to Dr. Calle yesterday CKD3b: creatine up from baseline. monitor. Chronic Afib: s/p pacemaker. apixaban held CHF: chronic edema. hold furosemide and spironolactone for now. Last echo October 2023 shows EF probably around 55, most technically difficult study. Severely dilated RV with global RV systolic dysfunction. No significant valvular abnormality 12/05: Echo is ordered. I talked to Dr. Buitrago yesterday and he saw the patient on patient's request. His assessment was patient is intravascular volume depleted therefore IV fluid ordered. He also suggested echo. VTE prophylaxis: SCDs. Code status: Confirmed with patient and family. DNRCCA. Charges/Coding Visit Charges Inpatient E&M: 74599 Subs Hosp L3
[2024-12-05 08:04] LABS: Allen Test Positive; Base Excess -12 mmol/L (-2 to +2); Bicarbonate 15.6 mmol/L (22-26); Blood Gas Specimen Type ART; Mode Not entered; O2 Delivery Device BiPAP; PEEP 9; PO2 78 mmHG (75-100); SITE R Radial; SO2 93 % (95-99); Total Carbon Dioxide 17 mmol/L; pH 7.23 (7.35-7.45)
--- NOTE | 2024-12-05 08:38 | NURSING ---
Dialysis Coordinator notified grain weigher, Dr. Watt, of am labs, particularly regarding K+ of 5.7, BUN 82, Cr. 4.18. Discussed possibility of initiating CRRT or HD depending on goals of care. At this time, Dr. Brownlee notified Coordinator that pt is declining HD/CRRT services. Coordinator notified Dr. Watt.
--- NOTE | 2024-12-05 08:49 | RAD_ITS ---
EXAM: XR Abdomen, 1 View CLINICAL INDICATION: ABDOMINAL PAIN TECHNIQUE: Frontal supine view of the abdomen/pelvis. COMPARISON: XR Abdomen dated 12/05/2024 FINDINGS: GASTROINTESTINAL TRACT: Fecal retention in the colon consistent with constipation. No dilation. BONES/JOINTS: Unremarkable. No acute fracture. RAD/Abdomen Single View (Portable) IMPRESSION: Fecal retention in the colon consistent with constipation. Reading [facility]
[2024-12-05 09:15] LABS: AST(SGOT) 111 U/L (<=37); Alanine Aminotransfer ALT/SGPT 129 U/L (<=46); Albumin, Serum 3.4 g/dL (3.4-4.8); Alkaline Phosphatase 68 U/L (40-129); Bilirubin, Direct 0.75 mg/dL (0.00-0.30); Globulin 3.1 g/dL (2.2-4.2); Protein, Total 6.5 g/dL (5.9-8.4); Total Bilirubin 1.15 mg/dL (0.00-1.30)
[2024-12-05] MEDS: 0.9% Normal Saline (100mL Bag) 100 ML 15 ML IV (09:26)
[2024-12-05 09:36] LABS: Lactic Acid 3.1 mmol/L (0.0-2.0)
[2024-12-05 12:19] LABS: Reflex Lactate? Y
--- NOTE | 2024-12-05 12:51 | PCM.PN.BLA ---
Progress Note I was notified by nursing staff that the patient was continuing to decompensate clinically, with worsening hypoxemia, increasing somnolence and worsening hypotension, necessitating increasing vasopressor support. I presented to the bedside and reevaluated the patient. The family was then provided with an update regarding the patient's clinical course. In light of these changes and worsening clinical status, the patient's family is electing to transition the patient to comfort care measures. CODE STATUS will be updated to DNR comfort care, per request.
--- NOTE | 2024-12-05 13:01 | EX.PCM.CON.S ---
Assessment & Plan Assessment/Plan (1) Dilatation of colon: PLAN: Patient 84-year-old male who has sustained right hip fracture awaiting fixation but also been diagnosed with TAMMY on CKD, right heart failure, and subsequent hypoxia requiring noninvasive positive airway pressure support who has also developed evidence of colonic ileus. There is apparently a history of ileus per patient's daughter. It was initially reported to me that patient had no tenderness but simply distention on exam yesterday. This appears changed today as patient exhibits tenderness with guarding on my exam this morning. I find this concerning for potential ischemic changes, however, given patient's significantly debilitated state with evidence of multisystem organ failure I do not find him a surgical candidate. I have shared this with both patient as well as his daughter, who is his POA. I stated we could attempt some conservative measures to ease his abdominal distention and most immediately recommended limiting his intake of narcotics. He would be in patient's best interest to optimize electrolytes were possible but these measures are likely be hampered by his healing kidneys. Conversation was held between myself, ICU, and patient's daughter regarding extent of interventions to be offered. Consensus is that patient has previously mentioned limiting such measures if his condition were to significantly deteriorate. Mr. Avelar, for his part, verbalizes this sentiment to me as well. For now it is agreed upon we will plan to proceed with measures as currently enacted but not plan to proceed with placement of central line, vasopressors, initiation of dialysis, or any further consideration of surgery for his abdomen should it be otherwise indicated by worsening abdominal exam. Do recommend obtaining lactic acid and repeat KUB. Additionally could consider providing a suppository to see if this stimulates expulsion of some of the colonic gas. Will continue to follow. Please update of any changes elected by patient or family. Tommy Calle MD General Surgery Endocrine Surgery Pager: [facility] [address] [place] [address], [address] [place] [id number] Office: [phone] HPI Consult Data Date of Consult: 12/05/24 HPI Narrative Reason for Consultation: Concern for colonic ileus HPI Narrative: CHAO AVELAR, is a 84 M who presented to [facility] for management of a right hip fracture. During the course of his intake investigation he was identified as having acute on chronic kidney injury as well as evidence of right heart failure. He developed progressive hypoxia and unfortunately this precluded him from being a candidate for his hip fixation yesterday. Just prior to being taken down for his operation he was noted to exhibit abdominal distention and so a CT of the abdomen pelvis was ordered. This was then performed following his surgical cancellation and I was notified once the CT resulted that there is evidence for a colonic ileus. Patient confesses it has been several days since he had a bowel movement. He reports a moderate amount of abdominal pain at rest which she at one point rates at a 6 out of 10. Later in discussing findings with his power of bankruptcy attorney and daughter she mentions that he does have a history of and ileus. With Mr. Avelar's significant renal impairment he has developed hyperkalemia and was administered Kayexalate without subsequent bowel movements. He is under ongoing evaluation by nephrology for whether or not he may require temporary hemodialysis. Clinical Editor reports that he has developed need for vasopressor support and remains hypoxic to the point that consideration is also being given to placement of central line and possible intubation. [facility] Medical History Cor pulmonale (chronic) Centrilobular emphysema Paroxysmal atrial fibrillation Right heart failure PVD (peripheral vascular disease) Stasis dermatitis Venous insufficiency Chronic diastolic (congestive) heart failure Chronic anticoagulation History of pacemaker Hyperlipidemia Hypertension Atrial flutter Second degree heart block Coronary artery disease Rheumatoid arthritis Obstructive sleep apnea Cellulitis of both lower extremities Debility Chronic kidney disease, stage III (moderate) Pacemaker (04/03/22) Psoriatic arthritis Home Medications ?Medication ?Instructions ?Recorded ?Last Taken ?Type cholecalciferol (vitamin D3) 50 50 mcg PO DAILY Supplement 02/03/23 Unknown History mcg (2,000 unit) chewable tablet gabapentin 300 mg capsule 300 mg PO QHS Pain 02/03/23 08/04/24 History omeprazole 20 mg tablet,delayed 20 mg PO DAILY GERD 02/03/23 02/16/23 09:55 History release spironolactone 25 mg tablet 25 mg PO DAILY@0800 DIURETIC 30 03/02/23 Unknown Rx days #30 tabs prednisone 5 mg tablet 5 mg PO DAILY pain 06/21/24 08/05/24 History acetaminophen 500 mg tablet 1,000 mg (2 x 500 mg) PO BID #0 08/17/24 Unknown Rx tabs apixaban 2.5 mg tablet (Eliquis) 2.5 mg PO BID 12/02/24 Unknown History furosemide 40 mg tablet 40 mg PO DAILY edema 12/02/24 Unknown History Allergy/AdvReac Type Severity Reaction Status Date / Time ertapenem Allergy Other Verified 12/02/24 07:23 leflunomide (From Arava) Allergy Other Verified 12/02/24 07:23 sulfamethoxazole (From Allergy Other Verified 12/02/24 07:23 Bactrim) trimethoprim (From Bactrim) Allergy Other Verified 12/02/24 07:23 ciprofloxacin (From Cipro) AdvReac Severe Pain in Verified 12/02/24 07:23 joints metoprolol AdvReac Severe severe Verified 12/02/24 07:23 hypotension Family History Mother CAD (coronary artery disease) Father Colon cancer Sister CAD (coronary artery disease) Surgical History History of thoracic spinal fusion History of lithotripsy History of replacement of both shoulder joints History of cholecystectomy History of fusion of cervical spine Social History housing: assisted living facility Smoking Status: Former smoker alcohol intake: never substance use type: does not use Physical Exam Const alert Constitutional Narrative: Patient arouses with minimal stimulation and appears to answer appropriately. He does confess to being hard of hearing Resp Resp Narrative: Tachypneic but able to complete sentences GI GI Narrative: Several well-healed port site scars are identified. No visible herniations. Distended with moderate tenderness of the right abdominal quadrants and some associated voluntary guarding. Lab / Micro Data 12/05/24 04:45 12/05/24 05:30 Labs: Laboratory Results - last 24 hr 12/04/24 10:48: [place] [address] H 12/04/24 15:35: Lactic Acid 1.6 12/04/24 17:30: Urine Color Yellow, Urine Clarity Cloudy, Urine pH 5.0, Ur Specific Salol 1.030, Urine Protein 100 H, Urine Glucose (UA) Normal, Urine Ketones 5 H, Urine Occult Blood 250 H, Urine Nitrite Positive H, Urine Bilirubin 1 H, Urine Urobilinogen 4 H, Ur Leukocyte Esterase 500 H, Urine RBC 50-100 SEEN, Urine WBC >100 SEEN, Ur Squamous Epith Cells 0 SEEN, Urine Bacteria 4+, Hyaline Casts 10-25 SEEN, Coarse Granular Casts 0-5 SEEN, Urine Mucus 0 SEEN 12/05/24 04:45: WBC 17.3 H, RBC 5.88, Hgb 16.0, Hct 51.9, MCV 88.3, MCH 27.2, MCHC 30.8 L, RDW Std Deviation 58.6 H, RDW Coeff of Natalia 19.4 H, Plt Count 163, MPV 10.9, Immature Gran % (Auto) 0.400, Neut % (Auto) 90.9 H, Lymph % (Auto) 3.0 L, [place] % (Auto) 5.3, Eos % (Auto) 0.1, Baso % (Auto) 0.3, Absolute Neuts (auto) 15.7 H, Absolute Lymphs (auto) 0.52 L, Nucleated RBC % 0.2, Sodium 138, Potassium 6.9 H*, Chloride 104, Carbon Dioxide 15.0 L, Anion Gap 19 H, BUN 82 H, Creatinine 4.18 H, Estim Creat Clear Calc 15.84 L, Est GFR (MDRD) Non-Af 13 L, BUN/Creatinine Ratio 19.5, Glucose 114 H, Calcium 8.3 12/05/24 05:30: Sodium 139, Potassium 5.7 H, Chloride 106, Carbon Dioxide 11.4 L, Anion Gap 22 H, BUN 82 H, Creatinine 3.99 H, Estim Creat Clear Calc 16.59 L, Est GFR (MDRD) Non-Af 14 L, BUN/Creatinine Ratio 20.4 H, Glucose 117 H, Calcium 8.4, Total Bilirubin 1.15, Direct Bilirubin 0.75 H, AST 111 H, ALT 129 H, Alkaline Phosphatase 68, Total Protein 6.5, Albumin 3.4, Globulin 3.1 12/05/24 06:00: PT 19.2 H, INR 1.6, APTT 29.6 12/05/24 08:13: Lactic Acid 3.1 H* ABG Data ABG results: ABG 12/05/24 08:00 Specimen Type ART Sample Site R Radial pH 7.23 L Bicarbonate Actual 15.6 L Total CO2 17 Base Excess -12 L O2 Saturation 93 L ABG pCO2 37.0 ABG pO2 78 Zachary Test Positive O2 Delivery Device BiPAP Vent Mode Not entered POC PEEP 9 Imaging Radiology Impression Abdomen/Pelvis CT 12/04/24 10:22 IMPRESSION: 1. Diffuse distension/mild dilation of the large bowel, likely ileus from recent reported surgery. Partial bowel obstruction or developing obstruction could appear similar. 2. CHF/fluid overload including mild cardiomegaly, small pleural effusions, body wall edema and mesenteric edema. 3. Bilateral nephrolithiasis without hydronephrosis. Reading Location: [facility] Chest X-Ray 12/04/24 17:57 IMPRESSION: NO ACUTE FINDINGS. [facility] Echocardiogram 12/04/24 18:01 Interpretation Summary Normal LV size. Left ventricular systolic function is normal. Moderately dilated right ventricle. ICD or pacer leads identified within the right ventricle. Moderate global right ventricular systolic dysfunction. The left ventricular ejection fraction is 55 %. Ordering Physician: Dilip Gonzalez Referring Physician: CAITLYN BHATT Performed By: Maria Dolores Austin RDCS Chest X-Ray 12/04/24 22:39 IMPRESSION: Left-sided PICC line terminates superiorly within the brachiocephalic vein over the right apical region, recommend repositioning. Reading [facility] KUB X-Ray 12/05/24 06:00 IMPRESSION: Gaseous distention of what appears to be mostly colon with some small bowel gaseous prominence and mild gaseous prominence of the stomach may represent ileus with a developing distal obstruction not entirely excluded, clinically correlate. Left femoral neck fracture with shortening and varus deformity, clinically correlate. Reading Location: [facility] KUB X-Ray 12/05/24 08:49 IMPRESSION: Fecal retention in the colon consistent with constipation. Reading Location: [facility] Charges/Coding Visit Charges Inpatient E&M: 24409 Subs Hosp L2
[2024-12-05] MEDS: Lorazepam 2 MG/ML WCH Syringe 1 MG IV (13:19)
[2024-12-05] MEDS: Morphine 4 MG/ML Syringe IV (13:19)
--- NOTE | 2024-12-05 14:05 | NURSING ---
Time of 1405, Verified w/ C.DASHAWN Neville. Family at bedside. Support given.
--- NOTE | 2024-12-05 15:03 | PCM.DEATH ---
Preliminary Cause of Preliminary Cause of Preliminary Cause of : Septic shock with multisystem organ failure. Exact focus of sepsis unclear but possible UTI Date of Admission: 12/02/24 Date of : 12/05/24 Principle Diagnosis Problem List: Active and Suspected Problems (Updated 12/05/24 @ 13:[address] Tommy Calle MD) Dilatation of colon (Acute) Depression (Acute) Hyperkalemia (Acute) Venous stasis of both lower extremities (Acute) Anticoagulated (Acute) Fracture of femoral neck, left (Acute) Acute pain of left knee (Acute) Head injury (Acute) Fall (Acute) Assessment & Plan Assessment/Plan (1) Fracture of femoral neck, left: PLAN: Status post fall. Ortho consulted, plan for Left hip hemiarthoplasty on 12/03 (allow apixaban to clear, last took 12/01) DW Dr. River, surgery was canceled on 12/03 for hyperkalemia. 12/04: Patient went for OR today 12/05: OR was canceled yesterday because of hypoxia 87% on 4 L of and low BP. Orthopedic surgeon was updated about worsening clinical condition. (2) Hyperkalemia: PLAN: Hyperkalemia, was given Kayexalate but patient is also an ileus has not BM/flatus, for 2 to 3 days. K was 6.26.0 on 11/16 but was hemolyzed. Today 5.2-5.3. Pre Kindergarten Teacher consulted. 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 12/05: Creatinine went up to 4.18. Pre Kindergarten Teacher was consulted yesterday. Family did not wanted dialysis catheter urinalysis. Dialysis clinically also difficult because of low blood pressure and patient being on vasopressor (4) Depression: PLAN: I talked to the patient's son. He has chronic depression and mild dementia (5) Septic shock: PLAN: Patient met the criteria for septic shock most likely due to UTI/ colonic ileus is also on consideration. Patient has evidence of endorgan dysfunction including persistent hypotension requiring vasopressor, lactic acidosis, acute hypoxic respiratory failure and TAMMY on CKD Exact focus unclear but possible UTI or bowel source. Yesterday there were no tenderness but bowel sounds very sluggish but today as per surgeon there was tenderness and mild guarding. PLAN: Plan Ileus probably colonic ileus: Patient not had BM or flatus for about [address] abdomen without contrast ordered 12/05: CT abdomen individually reviewed and shows colonic ileus. I talked to Dr. Calle yesterday He wanted Dulcolax suppository and that was ordered. Chronic Afib: s/p pacemaker. apixaban held CHF: chronic edema. hold furosemide and spironolactone for now. Last echo October 2023 shows EF probably around 55, most technically difficult study. Severely dilated RV with global RV systolic dysfunction. No significant valvular abnormality 12/05: Echo is ordered. I talked to Dr. Napoles yesterday and he saw the patient on patient's request. His assessment was patient is intravascular volume depleted therefore IV fluid ordered. He also suggested echo. 2D echo was done which shows moderately dilated RV, LV systolic function normal EF 55%. No regional wall motion abnormality. VTE prophylaxis: SCDs. Code status: Confirmed with patient and family. DNRCCA. Today around noon time, family was made aware about deteriorating vitals increased hypoxia, decreased responsiveness and mentation and family changed CODE STATUS to DNR CC. Patient was given 1 dose of lorazepam 1 mg IV and 4 mg of IV morphine. Patient passed/ peacefully at 1405 hrs. on 12/05/2024 Visit Charges Inpatient E&M: 59886 Disch Hosp >30min
--- NOTE | 2024-12-05 15:05 | CHAPLAIN ---
Type of Pastoral Visit _x__ Initial Visit ___ Follow-up Visit ___ On-call Visit ___ General Patient Visit ___ Spiritual Assessment ___ Family Conference ___ Bereavement ___ Rapid Response ___ Code Blue ___ Other (describe below) Pastoral Care Referral From ___ Patient ___ Family _x__ Nurse ___ Physician ___ Supervisor Print Line ___ Food And Beverage Coordinator ___ Other (describe below) Sacrament/Intervention _x__ Active listening ___ Anointing ___ Alevism ___ Bereavement ___ Communion _x__ Vera exploration ___ ___ Life review _x__ Prayer ___ Reconciliation ___ Sacrament of Sick _x__ Supportive presence ___ Wedding ___ Other (describe below) Pastoral Comments RN requested a supportive visit to patient and his family; pt is on the bi-pap and breathing with effort at this time; family and patient have decided for comfort care only at this time; one daughter is in the room but two other children have been in today and will be returning to the hospital today; daughter welcomes the support and says Dad is a believer although not connected to a protestant; spoke loudly into ear of pt to acknowledge presence, support, and offer of prayer; pt welcomes prayer and says thank you; prayer given and pt responds with Amen; daughter expresses gratitude for support; sat at the bedside for a few more minutes to ask about the patient and any other needs or concerns
== END 2024-12-05 15:50 | DRG 853 ==
LOC: ED 08:56 → MS3 09:53 → ICU 12-04 16:00
PROVIDERS: Internal Medicine Critical Care Medicine; Internal Medicine Nephrology; Nurse Practitioner Adult Health; Orthopaedic Surgery Sports Medicine; Emergency Provider Emergency Medicine; PCP Family Medicine; Visit Provider Internal Medicine
DX: A41.9 Sepsis, unspecified organism (principal); S72.002A Fracture of unspecified part of neck of left femur, initial encounter for closed fracture; R65.21 Severe sepsis with septic shock; L97.921 Non-pressure chronic ulcer of unspecified part of left lower leg limited to breakdown of skin; K56.7 Ileus, unspecified; I13.0 Hypertensive heart and chronic kidney disease with heart failure and stage 1 through stage 4 chronic kidney disease, or unspecified chronic kidney disease; F03.A3 Unspecified dementia, mild, with mood disturbance; I48.20 Chronic atrial fibrillation, unspecified; N17.9 Acute kidney failure, unspecified; I50.32 Chronic diastolic (congestive) heart failure; L97.922 Non-pressure chronic ulcer of unspecified part of left lower leg with fat layer exposed; N39.0 Urinary tract infection, site not specified; I27.81 Cor pulmonale (chronic); I50.810 Right heart failure, unspecified; Z66 Do not resuscitate; S09.90XA Unspecified injury of head, initial encounter; J43.2 Centrilobular emphysema; N18.32 Chronic kidney disease, stage 3b; M06.9 Rheumatoid arthritis, unspecified; F32.A Depression, unspecified; L98.499 Non-pressure chronic ulcer of skin of other sites with unspecified severity; I25.10 Atherosclerotic heart disease of native coronary artery without angina pectoris; E78.5 Hyperlipidemia, unspecified; E87.5 Hyperkalemia; I87.2 Venous insufficiency (chronic) (peripheral); W19.XXXA Unspecified fall, initial encounter; I87.8 Other specified disorders of veins; M25.562 Pain in left knee; I95.9 Hypotension, unspecified; S81.802S Unspecified open wound, left lower leg, sequela; Z95.0 Presence of cardiac pacemaker; Z87.891 Personal history of nicotine dependence; Z79.01 Long term (current) use of anticoagulants; Z79.52 Long term (current) use of systemic steroids; Z79.2 Long term (current) use of antibiotics; R79.1 Abnormal coagulation profile; R09.02 Hypoxemia; W22.8XXS Striking against or struck by other objects, sequela; R60.0 Localized edema
CPT/HCPCS: 11042; 11045; 36415; 36600; 70450; 71045; 71046; 72125; 73030; 73502; 73560; 74018; 74176; 80048; 80053; 80076; 81001; 82040; 82247; 82306; 82803; 82962; 83605; 83735; 83880; 84075; 84100; 84132; 84155; 84450; 84460; 85025; 85610; 85730; 86850; 86900; 86901; 87040; 87077; 87086; 87088; 87186; 93005; 93306; 94002; 99285; A4216; J1940; J2405